=== PATIENT | female | born 1950 | race Caucasian/White ===

== ENCOUNTER 2020-07-23 11:47 | Outpatient (REF) | payer OTHER, SELFPAY ==
--- NOTE | 2020-07-23 10:30 | PAPFT_PTH ---
PATIENT: Megan Chisholm LOC: [place] U#:[id number] AGE/SX: 70/F ROOM: RE07/23/[address]: Jazmine Gorman NP : 1950 BED: DIS: 07/23/2020 SPEC #: [id number] RECD: 07/23/20 13:03 STATUS: MALINDAKelsy REQ #: [id number] [place]: 07/23/20 10:[address]: Jazmine Gorman NP DEPT: [facility] Cytology RECD BY: Antonieta Lester ENTERED: 07/23/20 13:03 SP TYPE: PAPFT OTHR DR: Jacklyn Clement Tissues: 1 - CX/ENDOCX FOR PAP SMEARS Procedures: PAP THIN PREP/[facility] Screening Comments: [id number] ([place]) (CHLAMYDIA/GC)
[2020-08-14 16:28] LABS: Chlamydia Result Negative (Negative); GC Result Negative (Negative)
== END 2020-07-23 12:07 ==
LOC: LBN 11:47
PROVIDERS: PCP Physician Assistant Medical; Visit Provider Nurse Practitioner Women's Health
DX: Z11.3 Encounter for screening for infections with a predominantly sexual mode of transmission (principal); Z12.4 Encounter for screening for malignant neoplasm of cervix
CPT/HCPCS: 87491; 87591; 88142

== ENCOUNTER 2020-07-31 01:19 | Outpatient (CLI) | payer OTHER, SELFPAY ==
--- NOTE | 2020-07-31 08:15 | DI.US_ITS ---
EXAM: US PELVIS TRANSVAGINAL CLINICAL HISTORY: L sided pelvic pain, bulky uterus, R10.2 pelvic and perineal pain. TECHNIQUE: Transabdominal and transvaginal pelvic ultrasound was performed using standard protocol. COMPARISON: No exams were available for comparison FINDINGS: KIDNEYS: Kidneys are symmetric in size. No evidence of renal calculi. No evidence of hydronephrosis. Simple right renal cysts are present. The largest measures 1.4 x 1.6 x 1.3 cm. UTERUS: Position: Anteverted. Size: 5.1 long by 2.6 AP by 4.9 transverse cm Endometrium: 0.3 cm. Normal for patient's menstrual status. Myometrium: 1.7 x 1.1 x 1.7 cm hypoechoic avascular mass posteriorly in the body. This likely reflec ts a fibroid. Cervix: 1.4 x 0.9 x 1.3 cm isoechoic avascular mass seen in the cervix which may represent a fibroid or other mass. OVARIES: Right: 1.9 x 1.3 x 1.2 cm Cyst or mass: None. Left: 2.3 x 1.4 x 1.1 cm Cyst or mass: None. DOPPLER: Color: Symmetric and uniform flow to both ovaries. No hyperemia. Duplex: Normal ovarian arterial waveforms visualized. CUL-DE-SAC: Free fluid: None. Other: None. IMPRESSION: 1. Simple right renal cysts. 2. Uterine fibroid. 1.4 x 0.9 x 1.3 cm isoechoic cervical mass. This may represent a fibroid but ot her cervical masses cannot be excluded. Please correlate clinically. 3. Unremarkable bilateral ovaries. DATA REPOSITORY:
== END 2020-07-31 01:39 ==
PROVIDERS: PCP Physician Assistant Medical; Visit Provider Nurse Practitioner Women's Health
DX: N28.1 Cyst of kidney, acquired (principal); D25.9 Leiomyoma of uterus, unspecified; R10.2 Pelvic and perineal pain
CPT/HCPCS: 76830; 76856

== ENCOUNTER 2024-09-09 22:43 | Emergency (ER) | payer OTHER, SELFPAY ==
[2024-09-09] VITALS (10 sets, daily range): BP systolic 191–205; BP diastolic 94–116; PULSE 84–121; RESP 14–25; TEMP 36.4; O2SAT 91–100
--- NOTE | 2024-09-09 22:45 | RT.EKG_ITS ---
APPROVED REPORT Exam: Resting ECG Reason for Exam: chest pain Patient Location: E HR:99 bpm ECG Measurements Heart Rate 99 AXIS GA 138 P -10 QRSd 95 QRS -7 QT 380 T 57 QTc 489 Conclusion Sinus rhythm...normal P axis, V-rate 60- 99 Probable left atrial enlargement...P >50mS, <-0.10mV V1 Abnormal T, consider ischemia, anterior leads...T <-0.20mV, V2-V4 mp ST segment or T wave abnormalities to suggest occlusive RI
--- OUTSIDE RECORDS SUMMARY | 2024-09-09 23:03 | XMS_ITS | Encounter Summary ---
[place] [address] Care Team Providers Care Supervisor Detasseling Crew Name Role Phone Jacklyn Clement Primary Care Provider [phone] Encounter Details Date Type Department Care Team (Late st Contact Info) Description 12/12/2014 12:45 PM EDT Office [place] [address] Elgin Beck MD [facility] [place] [address] Right leg pain Discharge Disposition: Home Social History Tobacco Use Types Packs/Day Years Used Date Smoking Tobacco: Former Smokeless Tobacco: Never Comments:quit 1994 Alcohol Use Standard Drinks/Week Comments No 0 (1 standard drink = 0.6 oz pur e alcohol) Sex and Gender Information Value Date Recorded Sex Assigned at Not on file Gender Identity Not on file Sexual Orientation Not on file documented as of this encounter Last Filed Vital Signs Vital Sign Reading Time Taken Comments Blood Pressure 149/67 12/12/2014 1:04 PM EDT Pulse 94 12/12/2014 1:04 PM EDT Temperature - - Respiratory Rate - - Oxygen Saturation - - Inhaled Oxygen Concentration - - Weight 104.3 kg (230 lb) 12/12/2014 1:04 PM EDT Height 162.6 cm (5' 4) 12/12/2014 1:04 PM EDT Body Mass Index 39.48 12/12/2014 1:04 PM EDT documented in this encounter Progress Notes * Earnestine Childers MD - 12/12/2014 1:02 PM EDT NEUROLOGY CLINIC Formerly [facility] [place] [address] [place] [address] Neurology Initial Visit: 12/12/2014 Patient name: Megan Barone Date of : 1950 CC: back pain and leg discomfort. Megan Barone is seen today for consultation at the request of Dr. Irby for leg numbness HPI: Megan Barone is a 64 y.o. female right handed woman with history of DM II presenting for evaluation of right LE pain and discomfort. Diagnosed 2 years ago with sciatica and received rehabilitation. Has had right foot numbness and tingling since then. Toes are always tingling, and at its worst itcan be sharp and painful. She describes episodes of pain of the right leg which can be very severe.It can occur at times when she is sitting for a prolonged period of time. 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 At times she awakes in the middle of the night with tingling in her right foot. Left foot is essentially asymptomatic, at times with tingling but not nearly as symptomatic as the right. Started gabapentin and no clear improvement with sedation during the day despite taking it at bedtime. Continues to wake from sleep due to discomforteven with gabapentin. Past Medical History Diagnosis Date ??? Spinal stenosis of lumbar region with neurogenic claudication 07/05/2014 L4-5 with degenerative spondylolisthesis No family history on file. History Social History ??? Marital Status: Spouse Name: N/A Number of Children: N/A ??? Years of Education: N/A Occupational History ??? Not on file. Social History Main Topics ??? Smoking status: Former Smoker ??? Smokeless tobacco: Never Used ??? Alcohol Use: Not on file ??? Drug Use: Not on file ??? Sexual Activity: Not on file Other Topics Concern ??? Not on file Social History Narrative Outpatient Encounter Prescriptions as of 12/12/2014 Medication Sig Dispense Refill ??? gabapentin (NEURONTIN) 300 mg Capsule Per titration sheet. Maximum of 12 per day. 360 capsule 12 ??? metFORMIN (GLUCOPHAGE) 500 mg tablet Take 500 mg by mouth 2 times daily (with meals). ??? HYDROCHLOROTHIAZIDE ORAL Take 25 mg by mouth daily. ??? lisinopril (PRINIVIL;ZESTRIL) 10 mg tablet Take 10 mg by mouth daily. No facility-administered encounter medications on file as of 12/12/2014. Allergies Allergen Reactions ??? Compazine [Prochlorperazine Edisylate] Other (See Comments) paralesis-speech ??? Penicillins Rash Hospitalized Review of systems: Constitutional: No fevers or chills Neuro: See HPI [x] Review of systems otherwise negative Objective: Vitals: Temp: -- Heart Rate: [94] Resp: -- BP: (149)/(67) SpO2: -- Constitutional: Patient of apparent stated age, well nourished, well developed, no acute distress Musculoskeletal: Normal bulk and tone. 5/5 strength in bilateral upper and lower extremities, normal gait, no atrophy or fasciculations Neuro: Mental status: Alert, oriented to person, place, month, year, clear language, CN: PERRL, EOMI, visual singletary full, trigeminal sensation intact, no facial asymmetry, hearing intact to whisper, no dysarthria, palate elevates symmetrically, tongue protrudes midline, SCM and trap strength intact Motor: Normal bulk and tone. 5/5 strength in bilateral upper and lower extremities, no pronator drift Sensation: Intact to light touch. Decrease to temperature from toes to mid foot on right, decrease to vibration in right foot. Normal in left foot. Reflexes: 2/4 in bilateral UE, 1+/4 in bilateral patellar, absent ankle jerks. downgoing toes Gait: Stable, steady, able to tandem, walk on toes and heels Labs: No new. Diagnostic Tests and Images: MRI lumbar spine: OSH personally reviewed. L4-L5 moderate to severe spinal stenosis, L5-S1 small central disc herniation. NCS/EMG: Normal right sural, peroneal and tibial studies. No electrical evidence of peripheral neuropathy. Right leg survey EMG of right TA, gastroc, iliopsoas and vastus lateralis normal without signs of radiculopathy. Assessment and Plan: Megan Barone is a 64 y.o. female with history of DM presenting for evaluation of pain in the right leg. Her DM is well controlled, and we were unable to find evidence of a large fiber neuropathy in the right leg today. Her EMG exam also did not show electrical evidence of a lumbar radiculopathy.However, her clinical presentation and description of the exacerbating factors of the right leg pain (worse in certain positions) suggest to us a lumbar radiculopathy, possibly at the L4-L5-S1 levels. She describes correlation between the leg pain and back discomfort. Thank you for this referral. Javi Childers DO Clinical Neurophysiology Fellow Neurology Staff Note I have reviewed the above fellows's history during the visit and I agree with the details as written. My physical examination confirms the fellow's findings. The assessment and plan were formulated in discussion with me at the time of the visit and I agree with them as documented. I participated inthe EDX studies. Elgin Beck MD documented in this encounter Plan of Treatment Not on file documented as of this encounter Visit Diagnoses Diagnosis Right leg pain Pain in limb documented in this encounter Care Teams Supervisor Detasseling Crew Relationship Specialty Start Date End Date Jacklyn Clement PA [address] [place] [address] PCP - General 09/21/14 documented as of this encounter
--- OUTSIDE RECORDS SUMMARY | 2024-09-09 23:03 | XMS_ITS | Encounter Summary ---
Author Organization [facility] [address] Care Team Providers Care Advertising Job Titles Name Role Phone Ramo Canas MD Primary Care Provider [phone] Encounter Details Date Type Department Care Team (Latest Contact Info) Description 05/04/2014 1:56 PM EDT - 05/04/2014 11:59 PM EDT Hospital [place] [address] Bailey Robertson MD [facility] [place] [address] Chronic hepatitis C Discharge Disposition: Home Social History Tobacco Use Types Packs/Day Years Used Date Smoking Tobacco: Former Smokeless Tobacco: Never Sex and Gender Information Value Date Recorded Sex Assigned at Not on file Gender Identity Not on file Sexual Orientation Not on file documented as of this encounter Medications at Time of Discharge Medication Sig Dispensed Refills Start Date End Date metFORMIN (GLUCOPHAGE) 500 mg tablet Take 500 mg by mouth 2 times daily (with meals). HYDROCHLOROTHIAZIDE ORAL Take 25 mg by mouth daily. lisinopril (PRINIVIL;ZESTRIL) 10 mg tablet Take 10 mg by mouth daily. sofosbuvir (SOVALDI) 400 mg Tab tablet Take 400 mg by mouth daily. 10/22/2014 ondansetron (ZOFRAN, HYDROCHLORIDE,) 4 mg tablet Take 1 tablet by mouth every 8 hours as needed for Nausea. 20 tablet 0 05/04/2014 05/14/2014 ribavirin (COPEGUS) 200 mg tablet Take 3 tablets by mouth 2 times daily for 28 days. 168 tablet 2 04/09/2014 05/07/2014 documented as of this encounter Plan of Treatment Not on file documented as of this encounter Procedures Procedure Name Priority Date/Time Associated Diagnosis Comments HCV QUANT Routine 05/04/2014 2:06 PM EDT Chronic hepatitis C HEMOGRAM Routine 05/04/2014 2:06 PM EDT Chronic hepatitis C DIFFERENTIAL, AUTOMATED Routine 05/04/2014 2:06 PM EDT Chronic hepatitis C HEPATITIS C RNA, QUANTITATIVE, PCR Routine 05/04/2014 2:06 PM EDT Chronic hepatitis C CBC (WITH DIFF) Routine 05/04/2014 2:06 PM EDT Chronic hepatitis C COMPREHENSIVE METABOLIC PANEL Routine 05/04/2014 2:06 PM EDT Chronic hepatitis C documented in this encounter Results * HCV Quant Tim (05/04/2014 2:06 PM EDT) HCV Viral Load <43 IU/mL [facility] HCV Viral Load Result: < 43 (Target Not Detected) Indication for Study: Hepatitis C Infection Analysis: A quantitiative real time reverse transcriptase PCR assay was performed on extracted viral RNA for the purpose of quantification. Sample: plasma (1 mL minimum volume) Method: Tim Shauna TaqMAN 48 HCV Linear Range: 43IU/mL - 69,000,000IU/mL (95% CI) Interpretation: The result of this analysis is within the limits of detection of the assay. Note: This assay is being performed in the [facility] Molecular Pathology Laboratory. Jesse Powell, Ph.D. Director, Molecular Pathology [facility] Comment: [VERIFIED DATE]05.10.14 Verified By:Naima Delarosa I (Electronic Signature) Blood specimen (specimen) 05/04/2014 2:06 PM EDT 05/09/2014 11:10 AM EDT Narrative Resulting Agency Comment Spec In Lab Bailey Robertson MD HEMATOLOGY ORDERABLE S DENZEL WHITE * Differential, Automated (05/04/2014 2:06 PM EDT) Neutrophil % 48.2 34.0 - 71.0 % CERNER MILLENNIUM Neutrophil Absolute 3.70 1.50 - 6.30 x10(3)/mcL CERNER MILLENNIUM Lymph % 42.1 19.0 - 53.0 % CERNER MILLENNIUM Lymphocytes Abs 3.2 1.0 - 3.6 x10(3)/mcL CERNER MILLENNIUM Monocyte % 5.6 4.0 - 13.0 % CERNER MILLENNIUM Monocyte Abs 0.4 0.2 - 1.0 x10(3)/mcL CERNER MILLENNIUM Eos % 3.6 0.0 - 7.0 % CERNER MILLENNIUM Eosinophils Abs 0.3 0.0 - 0.5 x10(3)/mcL CERNER MILLENNIUM Basophil % 0.1 0.0 - 2.0 % CERNER MILLENNIUM Baso Absolute 0.0 0.0 - 0.2 x10(3)/mcL CERNER MILLENNIUM Immature Gran % 0.40 0.00 - 0.66 % CERNER MILLENNIUM Comment: Immature granulocytes(IG's)percentage and absolute count will include metamyelocytes, myelocytes, and promyelocytes. Blood smears from CBCs yielding IG's will be scanned manually for concordance. If this scan disagrees with the automated IG or if promyelocytes are noted, a manual differential will be performed. Immature Gran Absolute 0.03 0.00 - 0.05 x10(3)/mcL CERDANNA MILLENNIUM Blood specimen (specimen) 05/04/2014 2:06 PM EDT 05/04/2014 2:13 PM EDT Narrative Resulting Agency Comment Spec In Lab Bailey Robertson MD HEMATOLOGY ORDERABLE S DENZEL WHITE * Hemogram (05/04/2014 2:06 PM EDT) White Blood Cell 7.7 4.0 - 10.0 x10(3)/mcL CERNER MILLENNIUM Red Blood Cell 4.08 3.93 - 5.22 x10(6)/mcL CERNER MILLENNIUM Hemoglobin 12.1 11.2 - 15.7 gm/dL CERNER MILLENNIUM Hematocrit 36.5 34.0 - 45.0 % CERNER MILLENNIUM Mean Cell Volume 89.5 79.0 - 94.0 fL CERNER MILLENNIUM Mean Cell Hemoglobin 29.7 26.6 - 32.2 pg CERNER MILLENNIUM Mean Cell Hemoglobin Concentration 33.2 32.0 - 36.5 gm/dL CERNER MILLENNIUM Platelet 217 145 - 370 x10(3)/mcL CERNER MILLENNIUM RDW Standard Deviation 45.8 35.0 - 46.0 fL CERNER MILLENNIUM RDW coefficient of variation 14.3 10.9 - 14.4 % CERNER MILLENNIUM Mean Platelet Volume 10.4 9.0 - 12.0 fL CERNER MILLENNIUM Blood specimen (specimen) 05/04/2014 2:06 PM EDT 05/04/2014 2:13 PM EDT Narrative Resulting Agency Comment Spec In Lab Bailey Robertson MD HEMATOLOGY ORDERABLE S CERNER MILLENNIUM * (ABNORMAL) Comprehensive metabolic panel (non-fasting) (05/04/2014 2:06 PM EDT) [facility] Glucose 215(H) 60 - 199 mg/dL CERNER MILLENNIUM Comment:Diabetes: >=200 mg/d L plus symptoms Blood Urea Nitrogen 14 8 - 18 mg/dL CERNER MILLENNIUM Creatinine 0.74 0.70 - 1.20 mg/dL CERN[facility] MILLENNIUM Comment: Please note that the pediatric reference intervals supplied above were not validated at [facility]. Results from pediatric patients should be interpreted in conjunction to the patient's age, height and muscle mass. Sodium 140 135 - 145 mmol/L CERNER MILLENNIUM Potassium 3.3(L) 3.5 - 5.0 mmol/L [facility]ERN[facility] MILLENNIUM Comment: Please note: ??Patients with WBC >100,000 may have falsely elevated Potassium levels. ??For accurate Potassium quantification in these patients send serum separator tube (gold top) for subsequent determinations. ??Contact the Clinical Chemistry Laboratory if there are any questions. Chloride 100 98 - 107 mmol/L CERNER MILLENNIUM Carbon Dioxide 26 22 - 31 mmol/L CERNER MILLENNIUM Anion Gap 14 5 - 15 mmol/L CERNER MILLENNIUM Calcium 9.6 8.5 - 10.5 mg/dL CERNER MILLENNIUM Protein, Total 7.7 6.4 - 8.3 gm/dL CERNER MILLENNIUM Albumin 4.6 3.2 - 5.2 gm/dL CERNER MILLENNIUM Aspartate Aminotransferase 15 0 - 30 unit/L CERNER MILLENNIUM Alanine Aminotransferase 16 0 - 30 unit/L CERNER MILLENNIUM Alkaline Phosphatase 57 40 - 104 unit/L CERNER MILLENNIUM Bilirubin, Total 0.8 0.2 - 1.3 mg/dL CERNER MILLENNIUM Bilirubin, Direct 0.2 0.0 - 0.3 mg/dL CERNER MILLENNIUM Est Glomerular Filtration Rate >60 >=60 CERNER MILLENNIUM Comment: This estimated GFR (eGFR) value was calculated using the MDRD equation which has been validated on patients between the ages of 18 and 70. The MDRD should not be used to assess kidney function in patients < 18 years of age or in patients with extremes of body mass, or in patients with acute kidney failure. This value should be multiplied by 1.2 for patients. For further information please copy and paste the following links into your internet browser. [email or web address] Blood specimen (specimen) 05/04/2014 2:06 PM EDT 05/04/2014 2:13 PM EDT Narrative Resulting Agency Comment Spec In Lab Bailey Robertson MD CHEMISTRY ORDERABLES CERNER MILLENNIUM documented in this encounter Visit Diagnoses Diagnosis Chronic hepatitis C Chronic hepatitis C without mention of hepatic coma documented in this encounter Care Teams Advertising Job Titles Relationship Specialty Start Date End Date Ramo Canas MD [facility] [address] [place] [address] PCP - General 03/13/14 09/20/14 documented as of this encounter
--- OUTSIDE RECORDS SUMMARY | 2024-09-09 23:03 | XMS_ITS | Encounter Summary ---
Author Organization [facility] [address] Care Team Providers Care Laborer Driver Name Role Phone Ramo Canas MD Primary Care Provider [phone] Encounter Details Date Type Department Care Team (Latest Contact Info) Description 06/14/2014 10:08 AM EDT - 06/14/2014 11:59 PM EDT [place] [address] Bailey Robertson MD [facility] [place] [address] Chronic hepatitis C Discharge Disposition: Home Social [...] tablet Take 10 mg by mouth daily. ribavirin (COPEGUS) 200 mg Tablet Take 200 mg by mouth 6 times daily. 10/22/2014 citalopram (CELEXA) 20 mg Tablet Take 1 tablet by mouth daily. Take 1/2 pill for 7 days then increase to a full pill daily 30 tablet 3 06/14/2014 10/22/2014 ondansetron (ZOFRAN, HYDROCHLORIDE,) 4 mg tabletIndications:Nause a alone Take 1 tablet by mouth every 8 hours as needed for Nausea. 20 tablet 0 05/14/2014 10/22/2014 sofosbuvir (SOVALDI) 400 mg Tab tablet Take 400 mg by mouth daily. 10/22/2014 documented as of this encounter Plan of Treatment Not on file documented as of this encounter Procedures Procedure Name Priority Date/Time Associated Diagnosis Comments HCV QUANT Routine 06/14/2014 10:17 AM EDT Chronic hepatitis C HEMOGRAM Routine 06/14/2014 10:17 AM EDT Chronic hepatitis C DIFFERENTIAL, AUTOMATED Routine 06/14/2014 10:17 AM EDT Chronic hepatitis C HEPATITIS C RNA, QUANTITATIVE, PCR Routine 06/14/2014 10:17 AM EDT Chronic hepatitis C CBC (WITH DIFF) Routine 06/14/2014 10:17 AM EDT Chronic hepatitis C COMPREHENSIVE METABOLIC PANEL Routine 06/14/2014 10:17 AM EDT Chronic hepatitis C documented in this encounter Results * HCV Quant Tim (06/14/2014 10:17 AM EDT) Pathologist [facility] HCV Viral Load <43 IU/mL [facility] HCV Viral Load Result: < 43 [...] This assay is being performed in the [facility] Molecular Pathology Laboratory. Jesse Powell, Ph.D. Director, Molecular Pathology [facility] Comment: [VERIFIED DATE]06.20.14 Verified By:Indy Wright (Electronic Signature) Blood specimen (specimen) 06/14/2014 10:17 AM EDT 06/14/2014 2:12 PM EDT Narrative Resulting Agency Comment Spec In Lab Bailey Robertson MD HEMATOLOGY ORDERABLE S CERDANNA MILLENNIUM * Differential, Automated (06/14/2014 10:17 AM EDT) Neutrophil % 58.8 34.0 - 71.0 % CERNER MILLENNIUM Neutrophil Absolute 3.90 1.50 - 6.30 x10(3)/mcL CERNER MILLENNIUM Lymph % 30.0 19.0 - 53.0 % CERNER MILLENNIUM Lymphocytes Abs 2.0 1.0 - 3.6 x10(3)/mcL CERNER MILLENNIUM Monocyte % 6.9 4.0 - 13.0 % CERNER MILLENNIUM Monocyte Abs 0.5 0.2 - 1.0 x10(3)/mcL CERNER MILLENNIUM Eos % 3.9 0.0 - 7.0 % CERNER MILLENNIUM Eosinophils Abs 0.3 0.0 - 0.5 x10(3)/mcL CERNER MILLENNIUM Basophil % 0.2 0.0 - 2.0 % CERNER MILLENNIUM Baso Absolute 0.0 0.0 - 0.2 x10(3)/mcL CERNER MILLENNIUM Immature Gran % 0.20 0.00 - 0.66 % CERNER MILLENNIUM Comment: Immature granulocytes(IG's)percentage and absolute count will include metamyelocytes, myelocytes, and promyelocytes. Blood smears from CBCs yielding IG's will be scanned manually for concordance. If this scan disagrees with the automated IG or if promyelocytes are noted, a manual differential will be performed. Immature Gran Absolute 0.01 0.00 - 0.05 x10(3)/mcL CERNER MILLENNIUM Blood specimen (specimen) 06/14/2014 10:17 AM EDT 06/14/2014 10:24 AM EDT Narrative Resulting Agency Comment Spec In Lab Bailey Robertson MD HEMATOLOGY ORDERABLE S CERDANNA YUNGENNIUM * (ABNORMAL) Hemogram (06/14/2014 10:17 AM EDT) [facility] White Blood Cell 6.6 4.0 - 10.0 x10(3)/mc L CERNER MILLENNIUM Red Blood Cell 3.84(L) 3.93 - 5.22 x10(6)/mc L CERNER MILLENNIUM Hemoglobin 11.5 11.2 - 15.7 gm/dL CERNER MILLENNIUM Hematocrit 37.2 34.0 - 45.0 % CERNER MILLENNIUM Mean Cell Volume 96.9(H) 79.0 - 94.0 fL CERNER MILLENNIUM Mean Cell Hemoglobin 29.9 26.6 - 32.2 pg CERNER MILLENNIUM Mean Cell Hemoglobin Concentration 30.9(L) 32.0 - 36.5 gm/dL CERNER MILLENNIUM Platelet 264 145 - 370 x10(3)/mc L CERNER MILLENNIUM RDW Standard Deviation 54.1(H) 35.0 - 46.0 fL CERNER MILLENNIUM RDW coefficient of variation 15.4(H) 10.9 - 14.4 % CERNER MILLENNIUM Mean Platelet Volume 10.5 9.0 - 12.0 fL CERNER MILLENNIUM Blood specimen (specimen) 06/14/2014 10:17 AM EDT 06/14/2014 10:24 AM EDT Narrative Resulting Agency Comment Spec In Lab Bailey Robertson MD [facility] * (ABNORMAL) Comprehensive metabolic panel (non-fasting) (06/14/2014 10:17 AM EDT) [facility] Glucose 188 60 - 199 mg/dL CERNER MILLENNIUM Comment:Diabetes: >=200 mg/d L plus symptoms Blood Urea Nitrogen 13 8 - 18 mg/dL CERNER MILLENNIUM Creatinine 0.74 0.70 - 1.20 mg/dL CERNER MILLENNIUM Comment: Please note that the pediatric reference intervals supplied above were not validated at [facility]. Results from pediatric patients should be interpreted in conjunction to the patient's age, height and muscle mass. Sodium 139 135 - 145 mmol/L CERNER MILLENNIUM Potassium 3.8 3.5 - 5.0 mmol/L [facility]ERN[facility] MILLENNIUM Comment: Please note: ??Patients with WBC >100,000 may have falsely elevated Potassium levels. ??For accurate Potassium quantification in these patients send serum separator tube (gold top) for subsequent determinations. ??Contact the Clinical Chemistry Laboratory if there are any questions. Chloride 99 98 - 107 mmol/L CERNER MILLENNIUM Carbon Dioxide 24 22 - 31 mmol/L CERNER MILLENNIUM Anion Gap 16(H) 5 - 15 mmol/L CERNER MILLENNIUM Calcium 9.6 8.5 - 10.5 mg/dL CERNER MILLENNIUM Protein, Total 7.4 6.4 - 8.3 gm/dL CERNER MILLENNIUM Albumin 4.3 3.2 - 5.2 gm/dL CERNER MILLENNIUM Aspartate Aminotransferase 18 0 - 30 unit/L CERNER MILLENNIUM Alanine Aminotransferase 17 0 - 30 unit/L CERNER MILLENNIUM Alkaline Phosphatase 54 40 - 104 unit/L CERNER MILLENNIUM Bilirubin, Total 0.5 0.2 - 1.3 mg/dL CERNER MILLENNIUM Bilirubin, Direct 0.1 0.0 - 0.3 mg/dL CERNER MILLENNIUM Est [...] the following links into your internet browser. [email or web address] Blood specimen (specimen) 06/14/2014 10:17 AM EDT 06/14/2014 10:24 AM EDT Narrative Resulting Agency Comment Spec In Lab Bailey Robertson MD CHEMISTRY ORDERABLES CERNER MILLENNIUM documented in this encounter Visit Diagnoses Diagnosis Chronic hepatitis C Chronic hepatitis C without mention of hepatic coma documented in this encounter Care Teams Laborer Driver Relationship Specialty Start Date End Date Ramo Canas MD [facility] [email or web address] [address] [place] [address] PCP - General 03/13/14 09/20/14 documented as of this encounter
--- OUTSIDE RECORDS SUMMARY | 2024-09-09 23:03 | XMS_ITS | Encounter Summary ---
[place] [address] Care Team Providers Care Chain Repairer Name Role Phone Jacklyn Clement Primary Care Provider [phone] Encounter Details Date Type Department Care Team (Late st Contact Info) Description 11/13/2014 Notes [place] [id number] Leonarda Velasquez Social History Tobacco Use Types Packs/Day Years Used Date Smoking Tobacco: Former Smokeless Tobacco: Never Sex and Gender Information Value Date Recorded Sex Assigned at Not on file Gender Identity Not on file Sexual Orientation Not on file documented as of this encounter Progress Notes * Leonarda Velasquez - 11/13/2014 5:20 PM EST I spoke with Ms. Barone after we received a denial for her Right L4 Select Nerve Root Block scheduled 11/16/14. They stated: The requested treatment is not medically necessary. The request is not clinically appropriate in terms of type, frequency, extent, site, and duration for the diagnosis of thetreatment of the covered person???s illness or injury.?? A peer to peer can be done by calling Lolis Cuevas at [facility] (Site Reliability Engineer who signed the denial letter) at [phone] ex [phone] and ask her to schedule a peer to peer or fax in an appeal letter ( ). Ms. Barone opted to cancel her appointment. I will forward this message to Dr. Lafayette Hill to see how he would like to proceed. What are her options? documented in this encounter Plan of Treatment Not on file documented as of this encounter Visit Diagnoses Not on filedocumented in this encounter Care Teams Chain Repairer Relationship Specialty Start Date End Date Jacklyn Clement PA [address] [place] [id number] PCP - General 09/21/14 documented as of this encounter
--- OUTSIDE RECORDS SUMMARY | 2024-09-09 23:03 | XMS_ITS | Encounter Summary ---
[place] [address] Care Team Providers Care Drawing Kiln Operator Name Role Phone Jason Velez MD Primary Care Provider [phone] Reason for Visit * Reason Comments GI Problem Encounter Details Date Type Department Care Team (Late st Contact Info) Description 11/29/2012 8:30 AM EST Office [place] [address] Bailey Robertson MD [facility] [place] [address] Hepatitis C (Primary Dx); Obesity; Diabetes mellitus Discharge Disposition: Home Social History Tobacco Use Types Packs/Day Years Used Date Smoking Tobacco: Former Sex and Gender Information Value Date Recorded Sex Assigned at Not on file Gender Identity Not on file Sexual Orientation Not on file documented as of this encounter Last Filed Vital Signs Vital Sign Reading Time Taken Comments Blood Pressure 137/77 11/29/2012 8:03 AM EST Pulse 92 11/29/2012 8:03 AM EST Temperature - - Respiratory Rate - - Oxygen Saturation - - Inhaled Oxygen Concentration - - Weight 106.6 kg (235 lb) 11/29/2012 8:03 AM EST Height 162.6 cm (5' 4) 11/29/2012 8:03 AM EST Body Mass Index 40.34 11/29/2012 8:03 AM EST documented in this encounter Progress Notes * Bailey Robertson MD - 11/29/2012 12:31 PM EST NEW GASTROENTEROLOGY & HEPATOLOGY CONSULTATION Megan Barone 1950 BATTERY CONTAINER TESTER: Bailey Robertson MD ([id number]) PCP: Jason Velez MD Requesting Provider: REASON FOR CONSULTATION hepatitis C HISTORY OF PRESENT ILLNESS Megan Barone is a 62 y.o. year old female being seen at the request of Dr. Velez for hepatitisC. Details of her hepatitis C are listed below. She is coming to establish care in hepatology as she recently moved to this area. She complains of intermittent sharp RUQ pain that has been occurring for years. The pain comes on intermittently. It is unrelated to eating. It is often brought on by motion as when driving over a bumpy road. It last minutes at a time. There is no nausea. She tolerated the first round of interferon quite poorly, but seemed to do better with the next. She was more prepared and had more control of her work schedule with the second round of therapy. She has had issues with obesity most of her life. She lost 60 lbs after she was diagnosed with diabetes by working with a hybrid derivatives trader and MD. She has slowly gained this weight back. ROS: Constitutional: no weight loss HEENT: no visual changes, no URI symptoms Cardio: no chest pain Resp: no cough, no SOB, no RAMÍREZ or orthopnea Hem/Lymph: no new lumps or bumps on body GI: see HPI : no dysuria Integumentary: no new rashes Musculoskeletal: no new joint pains Neuro: no new numbness, weakness in extremities PAST MEDICAL/SURGICAL HISTORY Hepatitis C ?? Genotype 2 ?? Viral load: ?? S/p interferon monotherapy for 6 months early , likely response during therapy, then relapse ?? S/p Pegylated inerferon/ribavirin for 6 month around 2000, tolerated reasonably well, negative virus at end of treatment, but relapsed ?? US 06/2012: echogenic liver with coarse echotextrue, no lesions, no stones ?? Labs 06/2012: plt 225, AST 44, ALT 45, Alk phos 77, TB .6, creat .6 ?? S/p 4 liver biopsies ?? Last liver biopsy 12/2009 ([place], [place]) : ?? 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 Labs 06/2012: hep B surface antigen negative, hep B core antibody positive, hep B surface antibody negative, hepatitis B HBV DNA <357 Diabetes since around 2008, last hgb a1c 6.2 06/2012 Chol 180, TG 134, HDL 45, LDL 108- Jun 2012 S/p diagnostic laparoscopy X 2 for infertility Up to date on colon cancer screening HTN Obesity with successful 60 lb wt loss 2009, slow regain MEDICATIONS Outpatient Prescriptions Marked as Taking for the 11/29/12 encounter (Office Visit) with Bailey Robertson MD Medication Sig Dispense Refill ??? metFORMIN (GLUCOPHAGE) 500 mg tablet Take 500 mg by mouth 2 times daily (with meals). ??? HYDROCHLOROTHIAZIDE ORAL Take 5 mg by mouth daily. ??? lisinopril (PRINIVIL;ZESTRIL) 10 mg tablet Take 10 mg by mouth daily. ALLERGIES Allergies Allergen Reactions ??? Compazine (Prochlorperazine Edisylate) ??? Penicillins SOCIAL HISTORY . Two grown children, one with physical disabilities requiring one to one care; Occasional alcohol, not daily or weekly in past; none currently.Worked as a [employer] from 1975 to 1989. 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 Moved from [facility] to [place] to be closer to family. FAMILY HISTORY Mother had CABG age 90 Fatehr age 7 with colon cancer, lung cancer Mother/sister diabetes Filed Vitals: 11/29/12 0803 BP: 137/77 Pulse: 92 Height: 162.6 cm (5' 4) Weight: 106.595 kg (235 lb) Body mass index is 40.34 kg/(m^2). PHYSICAL EXAM HENT: Sclerae anicteric, pupils equal, round, react to light. Pharynx unremarkable. Neck is supple,no adenopathy, no thyromegaly. Chest is clear. Heart: Regular rate and rhythm. Normal S1, S2, no murmurs. Abdomen: Normal bowel sounds; soft. No obvious hepatosplenomegaly. Extremities: No edema. ASSESSMENT/PLAN 62 year old female with hepatitis C, genotype 2 who unfortunately had 2 unsuccessful attempts at hepatitis C therapy in the past. Given her most recent biopsy showed mild scarring, it seems reasonable that we wait to treat her until non interferon based therapies are available. This will hopefully be in 18 to 24 months. In the meantime she should work on weight loss, as hepatitis C treatment has been shown to be more effective in the absence of obesity. Also there is evidence of fatty liver on her most recent liver biopsy. Weight loss should help with that. Fatty liver in addition to hep C could lead to more rapidfibrosis development. Recommendations: -see test rack operator about diabetes management and weight loss -hold off on hepatitis C therapy until we have interferon free regimens -ideally she should have lost 10% of her body weight when we treat the hep C -see back in one year ; if interferon free treatments don't look to be imminently available, consider repeat liver biopsy. -check hep A status to see if vaccination necessary -has had hep B in the past, this is not a current issue. This would be need to addressed if she ever needed immune suppressive therapy. Bailey Robertson MD Hepatology and Gastroenterology [facility] [address] [place] V: [phone] Copy: Jason Velez MD [address] [place] [id number] documented in this encounter Plan of Treatment Not on file documented as of this encounter Procedures Procedure Name Priority Date/Time Associated Diagnosis Comments .IL28B Routine 11/29/2012 1:35 PM EST Hepatitis C IL28B POLYMORPHISM GENOTYPING Routine 11/29/2012 1:35 PM EST Hepatitis C HEPATITIS A ANTIBODY, TOTAL Routine 11/29/2012 1:35 PM EST Hepatitis C documented in this encounter Results * IL28B (11/29/2012 1:35 PM EST) IL28B Polymorphism Genotyping IL28B ([id number]) GENOTYPING RESULT: ?? CT genotype INTERPRETATION: IL28B genotype can be predictive of sustained viral response (SVR)in HCV-infected patients to varying degrees, depending on treatment and viral genotype. ??Compared to the CC genotype, CT and TT genotypes are associated with a lower rate of SVR, most notably in HCV genotype 1 and 4 infections being treated with interferon based-therapy. ??Rates of spontaneous clearance of HCV infection is also decreased in the CT and TT genotypes as compared to the CC genotype. (1-4) METHOD: A sequence including the [id number] polymorphism ([id number]>T,) located 3 kilobases upstream of the interleukin 28B (interferon, lambda 3)(IL28B) gene is amplified and genotyped by PCR using two primers for amplification and two probes to distinguish between the C and the T alleles. ??Genomic DNA used in this testing was isolated from peripheral blood. LIMITATIONS AND DISCLAIMERS: ??Although unlikely, rare variants or polymorphisms have the potential to interfere with the performance of this test, resulting in inaccurate or incomplete genotypes. This test was developed and its performance characteristics determined by the Molecular Pathology Laboratory at [facility]. This test is used for clinical purposes and should not be considered as investigational or for research purposes. ??It has not been cleared or approved by the U.S. Food and Drug Administration. However, as a CLIA licensed laboratory, our facility is approved for such high-complexity clinical testing. 1. Parmjit PJ and Keith AJ. J Gastroenterol Hepatol. 2012 27:212-222 2. Osmani D, et al. Nature 2009 461(1540):105 401. 3. Michela MON and Geraldine Chavez. J Hepatol. 2011 55(3):692-701. 4. Minh A Geo Jaime. Curr Gastroenterol Rep. 2012 14:87-93. [facility] Comment: [VERIFIED DATE]12.09.12 Verified By:Wanda Rust MD Pathologist (Electronic Signature) Blood specimen (specimen) 11/29/2012 1:35 PM EST 11/29/2012 2:24 PM EST Narrative Resulting Agency Comment Spec In Lab Bailey Robertson MD CHEMISTRY ORDERABLES [facility] * Hepatitis A Antibody, Total (11/29/2012 1:35 PM EST) Hepatitis A ANTIBODY, TOTAL Negative Negative [facility] Blood specimen (specimen) 11/29/2012 1:35 PM EST 11/29/2012 1:45 PM EST Narrative Resulting Agency Comment Spec In Lab Bailey Robertson MD CHEMISTRY ORDERABLES [facility] documented in this encounter Visit Diagnoses Diagnosis Hepatitis C- Primary Unspecified viral hepatitis C without hepatic coma Obesity Obesity, unspecified Diabetes mellitus Type II or unspecified type diabetes mellitus without mention of complication, not stated as uncontrolled documented in this encounter Care Teams Drawing Kiln Operator Relationship Specialty Start Date End Date Jason Velez MD PCP - General 08/23/12 03/12/14 documented as of this encounter
--- OUTSIDE RECORDS SUMMARY | 2024-09-09 23:03 | XMS_ITS | Encounter Summary ---
[place] [address] Care Team Providers Care Industrial Economics Professor Name Role Phone Jacklyn Clement Primary Care Provider [phone] Reason for Visit * Reason Comments Back Pain Encounter Details Date Type Department Care Team (Latest Contact Info) Description 03/07/2015 10:40 AM EDT Procedure visit [place] [address] [facility] [place] [address] Thoracic or lumbosacral neuritis or radiculitis, unspecified Discharge Disposition: Home Social History Tobacco Use [...] Sign Reading Time Taken Comments Blood Pressure 147/80 03/07/2015 11:17 AM EDT Pulse 97 03/07/2015 11:17 AM EDT Temperature - - Respiratory Rate 20 03/07/2015 11:17 AM EDT Oxygen Saturation 96% 03/07/2015 11:17 AM EDT Inhaled Oxygen Concentration - - Weight 99.8 kg (220 lb) 03/07/2015 11:00 AM EDT Height 162.6 cm (5' 4) 03/07/2015 11:00 AM EDT Body Mass Index 37.76 03/07/2015 11:00 AM EDT documented in this encounter Patient Instructions * Patient Instructions* Nata Nascimento LPN - 03/07/2015 11:10 AM EDT Pain Management Center Discharge Instructions: You were seen by Dr. Chavo Irby DO who performed lumbar epidural steroid injection. It is normal that the injection site will be sore for up to 48 hours. You may also experience mild stiffness in the joint near the injection site. [x] You may resume your normal activities: tomorrow. You may shower today. DO NOT tub bathe, use whirlpools, hot tubs or pool therapy for 2 days. RemoveBand-Aid(s) later today/tomorrow. Do not drive until tomorrow. Use caution walking/climbing stairs as you may be unsteady on your feet. You may use your usual medications, including pain medications, as directed, unless otherwise instructed. You may use an ice pack as needed for the first 24 hours, on for 20 minutes then off for 20 minutes. Do not apply heat today. Attempt to empty your bladder 4-6 hours after your procedure. [x] If you have diabetes, monitor your blood sugars frequently. If your blood sugar increases and is of concern, contact your Primary Care Provider. You received the following medications: Depo-Medrol 80 mg, Lidocaine and Omnipaque (contrast dye). During regular business hours, please phone the Pain Management Center at for appointments or with any questions or if the following or other troubling symptoms develop: 1) Prolonged dizziness or weakness (more than 1 day). 2) Localized swelling, redness or drainage at the injection site(s). 3) Temperature of 101 degrees that lasts for more than 4 hours. After 5 PM or on weekends, call and ask for Pain Clinic provider on-call. If you are unable to reach the Pain Management Center and have a complication, please call your Primary Care Provider or proceed to your local emergency department. PARKER Peace documented in this encounter Progress Notes * Roselia Jimenes RN - 03/07/2015 11:07 AM EDT Pre-Procedure Screening Questions: 1. Status: No 2. Patient states they have a hi low truck driver to transport after procedure? Yes 3. Patient taking antibiotics at present? No 4. NPO per Pain Management Center protocol? No 5. Patient diabetic: Yes 6. Patient routinely taking anticoagulants ? No Anticoagulant: Date Stopped: Current INR: Patient Vital Signs documented in Doc Flowsheets associated with this encounter. Patient Discharge Instructions were reviewed with patient and copy provided to patient. documented in this encounter Procedure Notes * Chavo Irby DO - 03/07/2015 4:16 PM EDTAssociated Order(s): EPIDURAL STEROID INJECTION Procedure(s): EPIDURAL STEROID INJECTION Pre-Procedure Diagnose(s): Thoracic or lumbosacral neuritis or radiculitis, unspecified LUMBAR INTERLAMINAR EPIDURAL STERIOID INJECTION PROCEDURE NOTE Ms. Megan Barone has been referred to the Pain Management Center for a lumbar epidural steroidinjection by MARIELY Jo [address] [place] [id number]. The patient complains of low back pain with pain radiating down the bilateral leg. Ms. Barone was greeted by the nurse who verified patients name and . The patient was then taken to the fluoroscopy suite. Ms. Barone was interviewed and the medical record reviewed. There were no medical, pharmacologic, radiographic, or other structural contraindications to attempting fluoroscopically guided lumbar epidural steroid injection. Risks and potential side effects, as well as potential benefits of the procedure were reviewed with Ms. Barone. Her voiced concerns were addressed. After I was assured that informed consent was obtained, the patient consent form was signed. Standard time-out procedure was performed. Ms. Barone was placed in the prone position on the fluoroscopy table and automated blood pressure cuff and pulse oximeter applied. The skin entry point for entering/approaching the L5-S1 epidural space for the lumbar epidural steroid injection was marked. Following thorough chlorhexadine preparation of the skin and draping and 1% lidocaine infiltration of the skin entry point and subcutaneous tissues, an 18 gauge Touhy needle was placed and advanced under fluoroscopic guidance and with loss of resistance technique into the L5-S1 epidural space. Needle tip placement and depth were aided and confirmed by fluoroscopy. There was no paresthesia or return of blood or CSF through the needle. 3 cc's of Omnipaque 240 was injected with clear epidural spread confirmed with fluoroscopy. 80 mg of preservative-free Depomedrol was injected. This was followed by 1 cc of preservative-free normal saline to flush the steroid out of the needle. There was not any unusual discomfort expressed by Ms. Barone. Ms. Barone's vital signs were stable throughout the procedure and were as recorded in nursing records. Follow up plans and appointments were discussed with Ms. Barone. The patient is set to follow up with our office as needed. Post procedure instruction was given as documented in nursing records and having met discharge criteria he was discharged from the Pain Management Center. I personally performed this entire procedure. Chavo Irby DO, MPH ABP-subspecialty board certification in Pain Medicine Attending Physician - Pain Management CC: MARIELY Jo [address] [place] [address] documented in this encounter Plan of Treatment Not on file documented as of this encounter Procedures Procedure Name Priority Date/Time Associated Diagnosis Comments EPIDURAL STEROID INJECTION Routine 03/07/2015 4:17 PM EDT Thoracic or lumbosacral neuritis or radiculitis, unspecified FILM LIBRARY STORAGE ONLY PAIN CLINIC C ARM Routine 03/07/2015 1:52 PM EDT documented in this encounter Results * EPIDURAL STEROID INJECTION (03/07/2015 4:17 PM EDT) Narrative Chavo Irby DO - 03/07/2015 4:17 PM EDT Chavo Irby DO ? 03/07/2015 ??4:17 PM LUMBAR INTERLAMINAR EPIDURAL STERIOID INJECTION PROCEDURE NOTE Ms. Megan Barone ??has been referred to the Pain Management Center for a lumbar epidural steroid injection by MARIELY Jo [address] [place] [address]. The patient complains of low back pain with pain radiating down the bilateral leg. Ms. Barone was greeted by the nurse who verified patients name and . ??The patient was then taken to the fluoroscopy suite. Ms. Barone was interviewed and the medical record reviewed. ?? There were no medical, pharmacologic, radiographic, or other structural contraindications to attempting fluoroscopically guided lumbar epidural steroid injection. Risks and potential side effects, as well as potential benefits of the procedure were reviewed with Ms. Braone. ??Her voiced concerns were addressed. ?? After I was assured that informed consent was obtained, the patient consent form was signed. ??Standard time-out procedure was performed. Ms. Barone was placed in the prone position on the fluoroscopy table and automated blood pressure cuff and pulse oximeter applied. ??The skin entry point for entering/approaching the L5-S1 epidural space for the lumbar epidural steroid injection was marked. ??Following thorough chlorhexadine preparation of the skin and draping and 1% lidocaine infiltration of the skin entry point and subcutaneous tissues, an 18 gauge Touhy needle was placed and advanced under fluoroscopic guidance and with loss of resistance technique into the L5-S1 epidural space. ??Needle tip placement and depth were aided and confirmed by fluoroscopy. There was no paresthesia or return of blood or CSF through the needle. 3 cc's of Omnipaque 240 was injected with clear epidural spread confirmed with fluoroscopy. 80 mg of preservative-free Depomedrol was injected. ??This was followed by 1 cc of preservative-free normal saline to flush the steroid out of the needle. There was not any unusual discomfort expressed by Ms. Barone. Ms. Barone's vital signs were stable throughout the procedure and were as recorded in nursing records. ?? Follow up plans and appointments were discussed with Ms. Barone. The patient is set to follow up with our office as needed. ??Post procedure instruction was given as documented in nursing records and having met discharge criteria he was discharged from the Pain Management Center. I personally performed this entire procedure. Chavo Irby DO, MPH ABPMR-subspecialty board certification in Pain Medicine Attending Physician - Pain Management CC: MARIELY Jo [address] [place] [address] Chavo Wild DO NEUROLOGY ORDERABLES * Film Library-storage only pain clinic C-arm (03/07/2015 1:52 PM EDT) Anatomical Region Laterality Modality Other 03/07/2015 1:52 PM EDT Narrative 03/07/2015 1:52 PM EDT This is a Non-reportable exam Procedure Note PHI, UNSIGNED REPORT - 03/07/2015 This is a Non-reportable exam Chavo Wild DO IMG FILM LIBRARY ORD ERABLES documented in this encounter Visit Diagnoses Diagnosis Thoracic or lumbosacral neuritis or radiculitis, unspecified documented in this encounter Administered Medications Inactive Administered Medications - up to 3 most recent administrations Medication Order MAR Action Action Date Dose Rate Site iohexol (OMNIPAQUE) 240 mg/mL solution 1 mL 1 mL, Other, ONCE, 1 dose, On Sari 03/07/15 at 1645, 49 ml wasted, Routine Given 03/07/2015 4:45 PM EDT 1 mL methylPREDNISolone acetate (depo-MEDROL) injection 80 mg 80 mg, Epidural, ONCE, 1 dose, On Sari 03/07/15 at 1645, Routine Given 03/07/2015 4:45 PM EDT 80 mg documented in this encounter Care Teams Industrial Economics Professor Relationship Specialty Start Date End Date Jacklyn Clement PA [address] [place] [address] PCP - General 09/21/14 documented as of this encounter
--- OUTSIDE RECORDS SUMMARY | 2024-09-09 23:03 | XMS_ITS | Encounter Summary ---
[place] [address] Care Team Providers Care Engraver Optical Frames Name Role Phone Ramo Joshua MD Primary Care Provider [phone] Reason for Visit * Reason Comments Follow-up Encounter Details Date Type Department Care Team (Late st Contact Info) Description 03/13/2014 3:30 PM EDT Follow-Up [place] [address] Jeannine Tinajero MD [facility] [place] [address] Chronic hepatitis C (Primary Dx) Discharge Disposition: Home Social History Tobacco Use Types Packs/Day Years Used Date Smoking Tobacco: Former Smokeless Tobacco: Never Sex and Gender Information Value Date Recorded Sex Assigned at Not on file Gender Identity Not on file Sexual Orientation Not on file documented as of this encounter Last Filed Vital Signs Vital Sign Reading Time Taken Comments Blood Pressure 124/64 03/13/2014 2:52 PM EDT Pulse 102 03/13/2014 2:52 PM EDT Temperature - - Respiratory Rate - - Oxygen Saturation - - Inhaled Oxygen Concentration - - Weight 108 kg (238 lb) 03/13/2014 2:52 PM EDT Height 162.6 cm (5' 4) 03/13/2014 2:52 PM EDT Body Mass Index 40.85 03/13/2014 2:52 PM EDT documented in this encounter Progress Notes * Jeannine Tinajero MD - 03/13/2014 4:30 PM EDT Gastoenterology & Hepatology Follow Up Note Provider: JEANNINE TINAJERO MD Gender: female : 1950 Referring Physician/Primary Care Physician: RAMO JOSHUA MD Problem List: Hepatitis C Genotype 2 IL 28: CT Viral load: 4.8 million IU/ml S/p interferon monotherapy for 6 months early , likely response during therapy, then relapse S/p Pegylated inerferon/ribavirin for 6 month around 2000, tolerated reasonably well, negative virus at end of treatment, but relapsed US 06/2012: echogenic liver with coarse echotextrue, no lesions, no stones Labs 06/2012: plt 225, AST 44, ALT 45, Alk phos 77, TB .6, creat .6 S/p 4 liver biopsies Last liver biopsy 12/2009 ([place], [place]) : Grade 2, stage 1; mild macrovesicular fatty change; portal fibrosis, scant garcia portal fibrosis; Incomparison with the biopsy from 2006 the present biopsy displays much less fatty change, similar fibrosis, and similar degree of inflammation History of acute hepatitis B about 30 years ago; 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 metFORMIN (GLUCOPHAGE) 500 mg tablet Take 500 mg by mouth 2 times daily (with meals). ??? HYDROCHLOROTHIAZIDE ORAL Take 5 mg by mouth daily. ??? lisinopril (PRINIVIL;ZESTRIL) 10 mg tablet Take 10 mg by mouth daily. ADR/ALLERGIES: Allergies Allergen Reactions ??? Compazine (Prochlorperazine Edisylate) ??? Penicillins Interval History: Megan Barone is a 63 y.o. female who presents for follow up for hepatitis C. She reports ongoingfatigue that is somewhat debilitating. Diabetes is doing reasonably well. VITAL SIGNS BP 124/64 Pulse 102 Ht 162.6 cm (5' 4) Wt 107.956 kg (238 lb) BMI 40.83 kg/m2 Physical Exam: appears well, in no distress. Labs 12/2013: BUN 17, Creat .7, Na 139, Cl 102, TP 7.5, Alb 3.9, TB .7, Alk phos 57, ALT 63, AST 51, WBC 7.7, hgb12.2, plt 225, hgba1c 6.2 Assessment/Plan: 63 year old female with hepatitis C, genotype 2, who also has fatty liver. While liver fibrosis stage in 2010 was low I think she warrants treatment for hepatitis C because: 1. She has 2 liver conditions (hep C and HOYOS) which combined are more likely to lead to liver fibrosis/cirrhosis than if she had one alone 2. As patients with hepatitis C age the rate of fibrosis progression often increases 3. Treatment of hepatitis C will decrease the risk of decompensated cirrhosis and hepatocellular carcinoma 4. She may see an improvement in fatigue if it's related to hepatitis C Plan: Sofosbuvir 400mg/day plus Ribavirin 600mg bid (wt based) for 12 weeks Labs: cbc, cmp, hcv quant- baseline, week 2, week 4, week 8, week 12 HCV quant 12 weeks after completion Patient will call when she starts the meds Patient will get baseline labs prior to starting meds locally Lab orders given to patient Greater than 25 minutes of this 30 minute visit was spent in counseling and discussion. Jeannine Tinajero MD Section of Gastroenterology & Hepatology [address] [place] [address] Copy: RAMO JOSHUA MD documented in this encounter Plan of Treatment Not on file documented as of this encounter Visit Diagnoses Diagnosis Chronic hepatitis C- Primary Chronic hepatitis C without mention of hepatic coma documented in this encounter Care Teams Engraver Optical Frames Relationship Specialty Start Date End Date Ramo Joshua MD [facility] [address] [facility] [place] [address] PCP - General 03/13/14 09/20/14 documented as of this encounter
--- OUTSIDE RECORDS SUMMARY | 2024-09-09 23:03 | XMS_ITS | Encounter Summary ---
[place] [address] Care Team Providers Care Inspector Heating And Refrigeration Name Role Phone Jacklyn Clement Primary Care Provider [phone] Reason for Visit * Reason Comments Pain Management Right Leg Pain Encounter Details Date Type Department Care Team (Late st Contact Info) Description 01/24/2015 11:45 AM EDT Follow-[place] [address] David Thornton [facility] [place] [address] Thoracic or lumbosacral neuritis or radiculitis, unspecified [...] Sign Reading Time Taken Comments Blood Pressure 120/78 01/24/2015 11:54 AM EDT Pulse 89 01/24/2015 11:54 AM EDT Temperature - - Respiratory Rate - - Oxygen Saturation 98% 01/24/2015 11:54 AM EDT Inhaled Oxygen Concentration - - Weight 112 kg (247 lb) 01/24/2015 11:54 AM EDT Height 162.6 cm (5' 4) 01/24/2015 11:54 AM EDT Body Mass Index 42.4 01/24/2015 11:54 AM EDT documented in this encounter Progress Notes * David Thornton DO - 01/29/2015 6:36 AM EDT This is a 64-year-old female who presents for followup evaluation. The patient continues to complain of low back pain radiating down her right leg to the entire foot. The patient denies any major changes. The patient states the pain is 5/10. The patient states that gabapentin 1200 mg at night and helps her sleep. She has tried to add daily doses but found that she was way too drowsy. The patient did see neurology and electrodiagnostics were completed. There was no evidence of radiculopathy found on EMG. It was thought by the neurologist, and by myself, that she does have radicular pain. This is likely coming from her lumbar spine. I did re-review her lumbar MRI which shows significant foraminal stenosis. We did discuss treatment options at length. I did re-review her exam from her last visit. I believe it is worthwhile to complete an interlaminar lumbar epidural steroid injection followed by intense Ksenia based physical therapy. I did discuss this with her and her today. After we discussed the procedure with the use of anatomical models, she did consent to this procedure.This will be scheduled at her convenience. Encounter Diagnosis Name Primary? Thoracic or lumbosacral neuritis or radiculitis, unspecified DAVID TOHRNTON DO, MPH [facility]-subspecialty board certification in Pain Medicine Attending Physician-Pain Management documented in this encounter Plan of Treatment Not on file documented as of this encounter Visit Diagnoses Diagnosis Thoracic or lumbosacral neuritis or radiculitis, unspecified documented in this encounter Care Teams Inspector Heating And Refrigeration Relationship Specialty Start Date End Date Jacklyn Clement PA [address] [place] [address] PCP - General 09/21/14 documented as of this encounter
--- OUTSIDE RECORDS SUMMARY | 2024-09-09 23:03 | XMS_ITS | Encounter Summary ---
[place] [address] Care Team Providers Care Grades 1 6 Tutor Name Role Phone Jacklyn Clement Primary Care Provider [phone] Encounter Details Date Type Department Care Team (Late st Contact Info) Description 12/12/2014 External Results [place] [address] Elgin Beck MD [facility] [place] [address] Social History Tobacco Use Types Packs/Day Years Used Date Smoking Tobacco: Former Smokeless Tobacco: Never Comments:quit 1994 Alcohol Use Standard Drinks/Week Comments No 0 (1 standard drink = 0.6 oz pur e alcohol) Sex and Gender Information Value Date Recorded Sex Assigned at Not on file Gender Identity Not on file Sexual Orientation Not on file documented as of this encounter Plan of Treatment Not on file documented as of this encounter Procedures Procedure Name Priority Date/Time Associated Diagnosis Comments EMG SCAN Routine 12/12/2014 documented in this encounter Results * Scan Doc: EMG (12/12/2014) Elgin Beck MD MEDIA MGR SCAN EXT O RDR/RSLT documented in this encounter Visit Diagnoses Not on filedocumented in this encounter Care Teams Grades 1 6 Tutor Relationship Specialty Start Date End Date Jacklyn Clement PA [address] [place] [id number] PCP - General 09/21/14 documented as of this encounter
--- OUTSIDE RECORDS SUMMARY | 2024-09-09 23:03 | XMS_ITS | Encounter Summary ---
Author Organization [place] [id number] Care Team Providers Care Toeing Stockings Name Role Phone Jacklyn Clement Primary Care Provider [phone] Reason for Referral * Consultation (Urgent) - Complete-Ref Provider Notified Specialty Diagnoses / Procedures Referred By Contac t Referred To Contact Neurology Diagnoses Spinal stenosis of lumbar region with neurogenic claudication Peripheral neuropathy David Thornton V [facility] [place] [address] [facility] Neu[facility] [address] [place] [id number] Referral ID Status Reason Start Date Expiration Date Visits Requested Visits Authorized [id number] Complete-Ref Provider Notified Consult, Test & Treat 10/23/2014 10/23/2015 1 1 Reason for Visit * Reason Comments Pain Management Back Pain Right Leg Pain Encounter Details Date Type Department Care Team (Late st Contact Info) Description 10/22/2014 12:15 PM EST Office [place] [phone] David Thornton V [facility] [place] [address] Thoracic or lumbosacral neuritis or radiculitis, unspecified; Spinal stenosis of lumbar region with neurogenic claudication; Peripheral neuropathy Discharge Disposition: Home Social History Tobacco Use Types Packs/Day Years Used Date Smoking Tobacco: Former Smokeless Tobacco: Never Sex and Gender Information Value Date Recorded Sex Assigned at Not on file Gender Identity Not on file Sexual Orientation Not on file documented as of this encounter Last Filed Vital Signs Vital Sign Reading Time Taken Comments Blood Pressure 108/79 10/22/2014 2:06 PM EST Pulse 84 10/22/2014 2:06 PM EST Temperature - - Respiratory Rate 14 10/22/2014 2:06 PM EST Oxygen Saturation 96% 10/22/2014 2:06 PM EST Inhaled Oxygen Concentration - - Weight 113.9 kg (251 lb) 10/22/2014 2:06 PM EST Height 162.6 cm (5' 4) 10/22/2014 2:06 PM EST Body Mass Index 43.08 10/22/2014 2:06 PM EST documented in this encounter Patient Instructions * Patient Instructions* David Thornton DO - 10/22/2014 3:07 PM EST Instructions for starting Neurontin (Gabapentin) - each tablet has 300 mg in it. 600 mg at bed for 5 nights, then 900 mg at bed for 5 nights, then 1200 mg at bed for 5 nights, then 300 mg in the morning and 1200 mg at bed for 5 nights, then 600 mg in the morning and 1200 mg at bed for 5 nights, then 600 mg in the morning and 1500 mg at bed and stay at this dose until instructed further. By the time you reach this dose, you should have an appointment with our clinic or your primary care provider to discuss further treatment. *If you are going to stop this medication, you need to slowly come down on the daily dose just as slowly as you initially went up on the daily dose. Do not suddenly stop the Gabapentin, unless you have a severe allergy to this medication. *If you obtain complete resolution of your nerve pain symptoms, you do not need to go up on the daily dose or Gabapentin. You can just stay at that daily dose. *Side effects from Gabapentin are most likely to occur when starting this medication and when the daily dose is increased. Avoid dangerous situations when starting this medication and the day that this medication daily dose is increased. documented in this encounter Progress Notes * David Thornton V DO - 10/22/2014 2:42 PM EST Subjective: Patient ID: I have been requested by Dr. Mccullough for my recommendation regarding the patient's low back pain. This is Megan Barone's initial evaluation by our clinic. Her does present with her today. History of present illness Location of pain Low back Does the pain radiate? if so where? Yes, low back to the right leg down to the foot (plantar aspect- all 5 toes) Severity of pain (right now) VAS: 5/10 Severity of pain (worst in past 24H) VAS: 10/10 Severity of pain (best in past 24H) VAS: 3/10 Severity of pain (Average, past 7days) VAS: 6/10 % pain relief with current treatment 0% How long has the pain been present? 18 months Is this pain related to trauma? No Is this injury work-related? No Improved with: None Worsened with: Sitting too long, certain positions Pain quality Stabbing to the bottom of the right foot Any weakness? Yes, right leg Any numbness Yes, right calf Any tingling? Yes, same as numbness Any swelling? No Associated symptoms? No Family history: anyone in your family with similar complaints? No Treatment history Physical therapy? Yes, last session in 2012 Exercise? No, for 6 months after PT Opioids? None currently Anticonvulsants? Yes, Gabapentin at a low dose NSAIDS? None Muscle relaxants? No Antidepressants? None Injections? No Surgery? No Massage? No Acupuncture? No TENS? Yes, helped for the low back Bracing/assistance device? none GAP assessment? No Other? No Diagnostic test history X-ray(s)? No CT? No MRI? Yes Electrodiagnostics? No Ultrasound? No Other? No General health Recent Liver Function Testing? Yes Recent EKG? No Diabetic?, (recent Hem A1c?) Yes, Last A1c was 6 Possibly ? No ? 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 No Previous job? same Today's review of the [place] controlled substance registry Inconsistencies? No Review of Systems Constitutional symptoms no weight loss, fever, night sweats History of Glaucoma? No History of heart arrythmia? No Other cardiovascular symptoms? No Any rash or non-healing wound(s)? No Gastrointestinal complaints None Any bladder incontinence? No Any bowel incontinence? No Any breathing problems? no cough, shortness of breath, or wheezing Supplemental Oxygen use? is not on home oxygen therapy. History of sleep apnea? (use CPAP?) No History of liver disease? Yes, Hep c s/p successful treatment History of bleeding disorder? no recent abnormal bleeding, no remote history of abnormal bleeding, no use of Ca-channel blockers Any endocrine problems? Positive for diabetes Pacemaker present? None Suicidal ideation/plan? No Homicidal ideation/plan? No Past Medical History Diagnosis Date ??? Spinal stenosis of lumbar region with neurogenic claudication 07/05/2014 L4-5 with degenerative spondylolisthesis History reviewed. No pertinent past surgical history. Allergies Allergen Reactions ??? Compazine [Prochlorperazine Edisylate] Other (See Comments) paralesis-speech ??? Penicillins Rash Hospitalized Medications 10/22/14 1440 Medication Sig Taking? metFORMIN (GLUCOPHAGE) 500 mg tablet Take 500 mg by mouth 2 times daily (with meals). Yes HYDROCHLOROTHIAZIDE ORAL Take 25 mg by mouth daily. Yes lisinopril (PRINIVIL;ZESTRIL) 10 mg tablet Take 10 mg by mouth daily. Yes myD-H Pain 10/22/2014 VR12 - Physical Summary Component 30.48 VR12 - Mental Component Summary 54 MODEMS Expectation 50 Family History of Substance Abuse (Female) 0 Personal History of Substance Abuse(Female) 0 Age 0 History of Preadolescent sexual abuse(Female) 0 Psychological Disease 0 ORT Total Scores (Female) 0 Oswestry Disability Index 50 BPI Severity Score 5.25 BPI Interference Score 5.14 Objective: PHYSICAL EXAMINATION LUMBAR SPINE EXAMINATION: Inspection: Tenderness to palpation at the right SIJ and piriformis m Range of motion: restricted with all planes Left Right Muscle spasm/pain Yes Yes Sacroiliac joint tenderness No Yes Facet joint tenderness No No Horne's test (facet loading) Negative Negative Straight leg raise Negative Negative LOWER EXTREMITIES: MOTOR: Manual muscle testing to the bilateral lower extremities included evaluation of ankle plantarflexion, dorsiflexion of the 1st toe, dorsiflexion of the ankle, knee flexion, knee Extension, hip flexion, and Hip adduction. Pertinent positives: NONE SENSORY: Testing of sharp and dull sensation was completed to the bilateral L1- S2 dermatomal distributions. Pertinent positives: right lateral calf DEEP TENDON REFLEXES: Left Right Patellar reflex (L4) 0+ 0+ Achilles reflex (S1) 0+ 0+ HIP EXAMINATION: Left Right Range of motion unrestricted with internal and external rotation. unrestricted with internal and external rotation. Groin pain with range of motion? Negative Negative Trochanteric bursa tenderness? Negative Negative Psoas tenderness? N/A N/A Piriformis muscle tenderness Negative Positive Constitutional: Her vital signs were normal and reviewed with the patient. She is in no acute distress. Respiratory: there is no respiratory distress Cardiovascular: normal rate Skin (to the painful area): normal Eyes: EOMI, no scleral icterus Psychological: normal Assessment and Plan: ASSESSMENT Encounter Diagnoses Name Primary? Thoracic or lumbosacral neuritis or radiculitis, unspecified ??? Spinal stenosis of lumbar region with neurogenic claudication ??? Peripheral neuropathy DISCUSSION This is a 64 y.o. female who presents with complaint right lower leg numbness and right foot pain. She has a remote history of low back pain radiating down the right leg to the bottom of her right foot. Her low back pain has mostly resolved. She has had this problem for about 18 months. She was seen by neurology in April of 2014. My knowledge no electrodiagnostic diagnostic study has been done. Her presentation is a bit ambiguous. She is now left with numbness to the lateral aspect of the right lower leg as well as sharp pains to the plantar aspect of the right foot to include all 5 toes. Her examination was not necessarily consistent with any spinal nerve root impingement. She did have pain with palpation over the right piriformis muscle. She also has diabetes and a history of hepatitisC which can further complicate the presentation. Fortunately her diabetes is under great control with a recent hemoglobin A1c of 6.0. She also recently finished her treatment for hepatitis C and is virus free and her liver enzymes have come back to normal. Her complaints could represent a sciatic nerve injury or an injury more peripheral. Her lumbar spine MRI is nonspecific and would not completely explain the current symptoms. Her complaints could represent a more peripheral extraspinal sciatic nerve injury, tibial nerve injury, or a tibial nerve branch injury. I recommended that we pursue aelectrodiagnostic study of the bilateral lower extremities to help clear up this ambiguous picture.I also recommended that we start gabapentin and titrate up to an effective dose. She has been on gabapentin in the past and maxed out at 300 mg per day without any problems. I did give her a titration schedule for the gabapentin. I will contact her once we get the electrodiagnostic study back. TREATMENT PLAN After a thorough review of the history and physical examination, Ms. Barone and I discussed the following options in detail: Recommended Diagnostic & Therapeutic modalities: ?? Physical therapy/exercise: She was encouraged to stay active and work on core strengthening ?? Diagnostic testing/Lab work: I did review her lumbar spine MRI and neurology reports with her. ?? Interventional procedures: We briefly discussed a right L4 selective nerve root block, but I believe we should proceed forward with the electrodiagnostic study first. ?? Medication(s): We discussed the risks/benefits/indication for the prescribed medication. She understands and does consent. I have reviewed the [place] and [place] controlled substance registries today and found no inconsistencies. There have been no red flags raised during today's visit. Orders Placed This Encounter Medications ??? gabapentin (NEURONTIN) 300 mg Capsule Sig: Per titration sheet. Maximum of 12 per day. Dispense: 360 capsule Refill: 12 ?? Referral(s): Neurology for a lower extremity electrodiagnostic study Functional goals with the current and future treatment: 1) To be able to complete activities of daily living 2) To be able to be active with friends and family 3) To be able to take care of her home 4) To be able to complete home exercises 5) To be able to work Follow up: After the electrodiagnostic study. She can also contact me by phone or on my DH. Ms. Barone and I reviewed all of the above recommendations using anatomical models. The patient understands the risks, benefits, and indications of these options. The patient will think about her options. Megan may also discuss these recommendations with MARIELY BEAVER so that she can come to the best decision in terms of her treatment options. DAVID THORNTON DO, MPH [facility]-subspecialty board certification in Pain Medicine Attending Physician-Pain Management documented in this encounter Plan of Treatment Scheduled Referrals Name Type Priority Associated Diagnoses Orde r Schedule Referral to Neurology Outpatient Referral Routine Spinal stenosis of lumbar region with neurogenic claudication Peripheral neuropathy Ordered: 10/23/2014 documented as of this encounter Visit Diagnoses Diagnosis Thoracic or lumbosacral neuritis or radiculitis, unspecified Spinal stenosis of lumbar region with neurogenic claudication Spinal stenosis, lumbar region, with neurogenic claudication Peripheral neuropathy Unspecified hereditary and idiopathic peripheral neuropathy documented in this encounter Care Teams Toeing Stockings Relationship Specialty Start Date End Date Jacklyn Clement PA [address] [place] [address] PCP - General 09/21/14 documented as of this encounter
--- OUTSIDE RECORDS SUMMARY | 2024-09-09 23:03 | XMS_ITS | Encounter Summary ---
[place] [address] Care Team Providers Care Drapery Hemmer Automatic Name Role Phone Jacklyn Clement Primary Care Provider [phone] Reason for Visit * Reason Onset Date Comments Medication Refill 06/15/2019 Encounter Details Date Type Department Care Team (Late st Contact Info) Description 06/15/2019 Refill [place] [address] Kenya Gil MD [facility] [place] [address] Social History Tobacco Use Types Packs/Day Years Used Date Smoking Tobacco: Former Smokeless Tobacco: Never Comments:quit 1994 Alcohol Use Standard Drinks/Week Comments No 0 (1 standard drink = 0.6 oz pur e alcohol) Sex and Gender Information Value Date Recorded Sex Assigned at Not on file Gender Identity Not on file Sexual Orientation Not on file documented as of this encounter Miscellaneous Notes * Telephone Encounter - Virginia Robles - 06/15/2019 2:07 PM EDT OPENED IN ERROR documented in this encounter Plan of Treatment Not on file documented as of this encounter Visit Diagnoses Not on filedocumented in this encounter Care Teams Drapery Hemmer Automatic Relationship Specialty Start Date End Date Jacklyn Clement PA [address] [place] [id number] PCP - General 09/21/14 documented as of this encounter
--- OUTSIDE RECORDS SUMMARY | 2024-09-09 23:03 | XMS_ITS | Encounter Summary ---
[place] [address] Care Team Providers Care Prisoner Classification Interviewer Name Role Phone Jason Velez MD Primary Care Provider Reason for Visit * Reason Comments GI Problem Encounter Details Date Type Department Care Team (Late st Contact Info) Description 11/29/2012 12:30 PM EST Office [place] [address] [place] [address] Obesity, Class III, BMI 40-49.9 (morbid obesity) (Primary Dx); Diabetes mellitus; Hepatitis Discharge Disposition: Home Social History Tobacco Use Types Packs/Day Years Used Date Smoking Tobacco: Former Sex and Gender Information Value Date Recorded Sex Assigned at Not on file Gender Identity Not on file Sexual Orientation Not on file documented as of this encounter Last Filed Vital Signs Vital Sign Reading Time Taken Comments Blood Pressure 123/61 11/29/2012 12:25 PM EST Pulse 82 11/29/2012 12:25 PM EST Temperature - - Respiratory Rate - - Oxygen Saturation - - Inhaled Oxygen Concentration - - Weight 106.6 kg (235 lb) 11/29/2012 12:25 PM EST Height 162.6 cm (5' 4) 11/29/2012 12:25 PM EST Body Mass Index 40.34 11/29/2012 12:25 PM EST documented in this encounter Patient Instructions * Patient Instructions* Zabrina Waddell LD - 11/29/2012 1:14 PM EST 1. Count Carbs and aim for 30-45 grams and breakfast and dinner, 30-60 grams and lunch. Snacks should be 15-20g. 2. Limit eating episodes to 3-4 per day to control calories. 3. Include a lean source of protein at each eating episode. 4. Focus on a 10% weight loss to start (~25lbs) via 0.5-2lbs/week. 5. Keep a food log and track carbs. 6. Avoid eating after dinner completely. 7. Follow up with me in 3 months. documented in this encounter Progress Notes * Zabrina Waddell LD - 11/29/2012 12:24 PM EST Outpatient Nutrition Visit S: I learned that food and exercise affect my sugars. I pretty much know what to do, but need to get back on track. O:DX: Hepatitis, Morbid Obesity, T2DM Wt Readings from Last 3 Encounters: 11/29/12 106.595 kg (235 lb) Vitals 11/29/2012 Height (Metric) 162.6 cm Weight (Sammarinese) 235 lbs Weight (Metric) 106.595 kg BODY MASS INDEX 40.32 kg/m2 Weight goal: 150-160lbs Lost 50lbs over 2 years after DM dx and did this with a group. Regained this with a move, being busy, not walking. Current outpatient prescriptions:metFORMIN (GLUCOPHAGE) 500 mg tablet, Take 500 mg by mouth 2 timesdaily (with meals)., Disp: , Rfl: ; HYDROCHLOROTHIAZIDE ORAL, Take 5 mg by mouth daily., Disp: , Rfl: ; lisinopril (PRINIVIL;ZESTRIL) 10 mg tablet, Take 10 mg by mouth daily., Disp: , Rfl: Takes a fiber pill and VitD3-1000 IU/day Diet Hx:I always have issues in the morning. Skips bfast, eats at 9-10am and will have a couple pieces of toast, an egg, or a banana. Lunch: sandwich tuna or meat with mercado, chips, pickle. If has asnack will be a whoopie pie, cookies that she stops for at a store during work. Dinner is spaghettiand bread one or two slices. Whoopie pie or brownie, or a couple of cookies, or chips. Some night wi ll have all of these. Has one juice/day. Eats out 4x/wk and will get fried food, fast food, pizza, or country style restaurants. Exercise: Social: Was a [employer], and now runs [employer]. 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 Has 2 kids. A: This is a 62 year- old female who comes today for weight loss nutrition therapy as well as DM management. Diet hx per above shows excess caloric intake via energy dense foods, lack of exercise, and lack of motivation for behavior change up until this point. We discussed the benefit of 3-5 eating episodes per day, meaning 3 meals and 1-2 snacks/day;one between breakfast and lunch, and one between lunch and dinner if needed. Controlling eating episodes will help the patient focus on their behavior around eating and avoid mindless eating and excess calories. Megan will control calories by controlling carbs with plan outlined below. I encouraged the Volumetrics Eating plan, which focuses on adding more fruits and vegetables, lean protein, and foods high in water and fiber, so as too to be able to eat more food and feel almanzar onfewer calories. P: 1. Count Carbs and aim for 30-45 grams and breakfast and dinner, 30-60 grams and lunch. Snacks should be 15-20g. 2. Limit eating episodes to 3-4 per day to control calories. 3. Include a lean source of protein at each eating episode. 4. Focus on a 10% weight loss to start (~25lbs) via 0.5-2lbs/week. 5. Keep a food log and track carbs. 6. Avoid eating after dinner completely. 7. Follow up with me in 3 months. documented in this encounter Plan of Treatment Not on file documented as of this encounter Visit Diagnoses Diagnosis Obesity, Class III, BMI 40-49.9 (morbid obesity)- Primary Morbid obesity Diabetes mellitus Type II or unspecified type diabetes mellitus without mention of complication, not stated as uncontrolled Hepatitis Hepatitis, unspecified documented in this encounter Care Teams Prisoner Classification Interviewer Relationship Specialty Start Date End Date Jason Velez MD PCP - General 08/23/12 03/12/14 documented as of this encounter
--- OUTSIDE RECORDS SUMMARY | 2024-09-09 23:03 | XMS_ITS | Encounter Summary ---
Author Organization [facility] [place] [address] Care Team Providers Care Res Habilitation Assistant Name Role Phone Ramo Canas MD Primary Care Provider [phone] Encounter Details Date Type Department Care Team (Latest Contact Info) Description 05/04/2014 1:58 PM EDT - 05/04/2014 11:59 PM EDT [place] [address] Govind Burrell MD [facility] [place] [address] Discharge Disposition: Home Social History Tobacco Use [...] on filedocumented in this encounter Care Teams Res Habilitation Assistant Relationship Specialty Start Date End Date Ramo Canas MD [facility] [address] [place] [address] PCP - General 03/13/14 09/20/14 documented as of this encounter
--- OUTSIDE RECORDS SUMMARY | 2024-09-09 23:03 | XMS_ITS | Encounter Summary ---
[place] [address] Care Team Providers Care Payroll Lead Name Role Phone Jacklyn Clement Primary Care Provider [phone] Encounter Details Date Type Department Care Team (Late st Contact Info) Description 11/15/2014 Notes Only [place] [id number] Janette Vu MD [address] [place] [address] [place] [id number] Social History Tobacco Use Types Packs/Day Years Used Date Smoking Tobacco: Former Smokeless Tobacco: Never Sex and Gender Information Value Date Recorded Sex Assigned at Not on file Gender Identity Not on file Sexual Orientation Not on file documented as of this encounter Progress Notes * Leonarda Velasquez - 11/15/2014 5:13 PM EST I spoke with Ms. Barone in response to a plan for her recent Select Nerve Root Block denial. Dr. Irby relayed that he would like her to have the EMG/NCV with neurology first. Ms. Barone was informed and ok with this plan. documented in this encounter Plan of Treatment Not on file documented as of this encounter Visit Diagnoses Not on filedocumented in this encounter Care Teams Payroll Lead Relationship Specialty Start Date End Date Jacklyn Clement PA [address] [place] [id number] PCP - General 09/21/14 documented as of this encounter
--- OUTSIDE RECORDS SUMMARY | 2024-09-09 23:03 | XMS_ITS | Encounter Summary ---
[place] [address] Care Team Providers Care Remedial Project Manager Name Role Phone Ramo Canas MD Primary Care Provider [phone] Reason for Visit * Reason Comments Hepatitis C Encounter Details Date Type Department Care Team (Late st Contact Info) Description 05/04/2014 3:00 PM EDT Follow-[place] [address] Sangita Maria APRN [facility] [place] [address] Chronic hepatitis C (Primary Dx) Discharge Disposition: Home Social History Tobacco Use Types Packs/Day Years Used Date Smoking Tobacco: Former Smokeless Tobacco: Never Sex and Gender Information Value Date Recorded Sex Assigned at Not on file Gender Identity Not on file Sexual Orientation Not on file documented as of this encounter Last Filed Vital Signs Vital Sign Reading Time Taken Comments Blood Pressure 125/55 05/04/2014 3:02 PM EDT Pulse 92 05/04/2014 3:02 PM EDT Temperature - - Respiratory Rate - - Oxygen Saturation - - Inhaled Oxygen Concentration - - Weight 110.2 kg (243 lb) 05/04/2014 3:02 PM EDT Height 162.6 cm (5' 4) 05/04/2014 3:02 PM EDT Body Mass Index 41.71 05/04/2014 3:02 PM EDT documented in this encounter Progress Notes * Sangita Maria APRN - 05/04/2014 2:53 PM EDT Gastoenterology & Hepatology Follow Up Note Provider: Sangita Maria APRN Gender: female : 1950 Referring Physician/Primary Care Physician: RAOM CANAS MD Problem List: Hepatitis C Genotype 2 [...] 4 liver biopsies Last liver biopsy 12/2009 ([place], [place]) : Grade 2, stage 1; mild macrovesicular fatty change; portal fibrosis, scant garcia portal fibrosis; Incomparison with the biopsy from 2006 the present biopsy displays much less fatty change, similar fibrosis, and similar degree of inflammation History of acute hepatitis B about 30 years ago; 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 Bili 0.47 0.8 AST 35 15 ALT 64 16 HCV RNA p She started the Hepatitis C treatment about two weeks ago. She is exhausted and feels nausea after taking the medications. 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 He rblood sugar today is 200 and I wonder if some of her symptoms are from her diabetes as the ribavirin can affect the blood glucose regulation. Review of Systems Constitutional: Positive for fatigue. Negative for fever. Respiratory: Negative for cough and shortness of breath. Cardiovascular: Negative for chest pain. Gastrointestinal: Positive for nausea. Negative for vomiting and blood in stool. Skin: Negative for rash. Physical Exam Constitutional: She is oriented to person, place, and time. She appears well- developed and well-nourished. HENT: Head: Normocephalic and atraumatic. Eyes: Pupils are equal, round, and reactive to light. No scleral icterus. Neurological: She is alert and oriented to person, place, and time. Skin: Skin is warm and dry. Psychiatric: She has a normal mood and affect. Her behavior is normal. Labs 12/2013: BUN 17, Creat .7, Na 139, Cl 102, TP 7.5, Alb 3.9, TB .7, Alk phos 57, ALT 63, AST 51, WBC 7.7, hgb12.2, plt 225, hgba1c 6.2 Assessment/Plan: Megan is a 63 year old female with hepatitis C, genotype 2, who also has fatty liver. 1. Hepatitis C, genotype 2 will continue on the sofosbuvir and ribavirin for the full 12 weeks. Herliver tests have normalized today which is reassuring. Viral load from today is pending. 2. Generalized weakness, nausea and lightheadedness, she needs to drive several hours for her job and she feels unsafe doing this. Will put her out on a work release for the next month and reassess at her next appointment. 3. Anemia, not significant at this time ,repeat cbc in two weeks and again in four weeks. 4. Nausea, start zofran 4 mg po every 8 hours prn nausea. I will see her back in four weeks for follow up. documented in this encounter Plan of Treatment Not on file documented as of this encounter Visit Diagnoses Diagnosis Chronic hepatitis C- Primary Chronic hepatitis C without mention of hepatic coma documented in this encounter Care Teams Remedial Project Manager Relationship Specialty Start Date End Date Ramo Canas MD [facility] [address] [place] [address] PCP - General 03/13/14 09/20/14 documented as of this encounter
--- OUTSIDE RECORDS SUMMARY | 2024-09-09 23:03 | XMS_ITS | Encounter Summary ---
Author Organization [facility] [place] [address] Care Team Providers Care Before School Babysitter Name Role Phone Jacklyn Clement Primary Care Provider [phone] Encounter Details Date Type Department Care Team (Latest Contact Info) Description 09/21/2014 9:04 AM EST - 09/21/2014 11:59 PM [facility] Hospital [place] [address] Bailey Robertson MD [facility] [place] [address] Chronic hepatitis C Discharge Disposition: Home Social [...] Date/Time Associated Diagnosis Comments HCV QUANT Routine 09/21/2014 9:17 AM EST Chronic hepatitis C NUCLEATED RED BLOOD CELLS Routine 09/21/2014 9:17 AM EST HEMOGRAM Routine 09/21/2014 9:17 AM EST Chronic hepatitis C DIFFERENTIAL, AUTOMATED Routine 09/21/2014 9:17 AM EST Chronic hepatitis C HEPATITIS C RNA, QUANTITATIVE, PCR Routine 09/21/2014 9:17 AM EST Chronic hepatitis C CBC (WITH DIFF) Routine 09/21/2014 9:17 AM EST Chronic hepatitis C COMPREHENSIVE METABOLIC PANEL Routine 09/21/2014 9:17 AM EST Chronic hepatitis C documented in this encounter Results * Nucleated Red Blood Cells (09/21/2014 9:17 AM EST) Pathologist [facility] NRBC% auto 0.0 % [facility] NRBC Absolute 0.000 0.000 - 0.012 x10(3)/mcL [facility] Blood specimen (specimen) 09/21/2014 9:17 AM EST 09/21/2014 9:21 AM EST Narrative Resulting Agency Comment Spec In Lab Bailey Robertson MD HEMATOLOGY ORDERABLE S [facility] * HCV Quant Tim (09/21/2014 9:17 AM EST) Pathologist [facility] HCV Viral Load <15 IU/mL [facility] HCV Viral Load Result: < 15 IU/mL Target Not Detected Indication for Study: Hepatitis C Infection Analysis: A quantitiative real time reverse transcriptase PCR assay was performed on extracted viral RNA for the purpose of quantification. Sample: plasma (1 mL minimum volume) Method: Tim Shauna TaqMAN 48 HCV Linear Range: 15 IU/mL - 100,000,000IU/mL (95% CI) Note: This assay is being performed in the [facility] Molecular Pathology Laboratory. Jesse Powell, Ph.D. Director, Molecular Pathology [facility] Comment: [VERIFIED DATE]09.24.14 Verified By:Indy Wright (Electronic Signature) Blood specimen (specimen) 09/21/2014 9:17 AM EST 09/24/2014 8:25 AM EST Narrative Resulting Agency Comment Spec In Lab Bailey Robertson MD HEMATOLOGY ORDERABLE S [facility] * Differential, Automated (09/21/2014 9:17 AM EST) Neutrophil % 48.0 % [facility] Neutrophil Absolute 3.35 1.50 - 6.30 x10(3)/mcL [facility] Lymph % 40.4 % [facility] Lymphocytes Abs 2.8 1.0 - 3.6 x10(3)/mcL [facility] Monocyte % 6.5 % [facility] Monocyte Abs 0.4 0.2 - 1.0 x10(3)/mcL [facility] Eos % 4.5 % [facility] Eosinophils Abs 0.3 0.0 - 0.5 x10(3)/mcL [facility] Basophil % 0.3 % [facility] Baso Absolute 0.0 0.0 - 0.2 x10(3)/mcL [facility] Immature Gran % 0.30 % [facility] Comment: Immature granulocytes(IG's)percentage and absolute count will include metamyelocytes, myelocytes, and promyelocytes. Blood smears from CBCs yielding IG's will be scanned manually for concordance. If this scan disagrees with the automated IG or if promyelocytes are noted, a manual differential will be performed. Immature Gran Absolute 0.02 0.00 - 0.05 x10(3)/mcL [facility] Blood specimen (specimen) 09/21/2014 9:17 AM EST 09/21/2014 9:21 AM EST Narrative Resulting Agency Comment Spec In Lab Bailey Robertson MD HEMATOLOGY ORDERABLE S Performing Organization Address [facility]/ZIP Co de Phone Number [facility] * Hemogram (09/21/2014 9:17 AM EST) White Blood Cell 7.0 4.0 - 10.0 x10(3)/mcL [facility] Red Blood Cell 4.64 3.93 - 5.22 x10(6)/mcL [facility] Hemoglobin 13.8 11.2 - 15.7 gm/dL [facility] Hematocrit 41.0 34.0 - 45.0 % [facility] Mean Cell Volume 88.4 79.0 - 94.0 fL [facility] Mean Cell Hemoglobin 29.7 26.6 - 32.2 pg [facility] Mean Cell Hemoglobin Concentration 33.7 32.0 - 36.5 gm/dL [facility] Platelet 207 145 - 370 x10(3)/mcL [facility] RDW Standard Deviation 41.9 35.0 - 46.0 fL [facility] RDW coefficient of variation 13.2 10.9 - 14.4 % [facility] Mean Platelet Volume 10.3 9.0 - 12.0 fL [facility] Blood specimen (specimen) 09/21/2014 9:17 AM EST 09/21/2014 9:21 AM EST Narrative Resulting Agency Comment Spec In Lab Bailey Robertson MD HEMATOLOGY ORDERABLE S [facility] * (ABNORMAL) Comprehensive metabolic panel (non-fasting) (09/21/2014 9:17 AM EST) Glucose 138 60 - 199 mg/dL [facility] Comment:Diabetes: >=200 mg/d L plus symptoms Blood Urea Nitrogen 12 8 - 18 mg/dL [facility] Creatinine 0.67(L) 0.70 - 1.20 mg/dL [facility] Comment: Please note that the pediatric reference intervals supplied above were not validated at [facility]. Results from pediatric patients should be interpreted in conjunction to the patient's age, height and muscle mass. Sodium 143 135 - 145 mmol/L [facility] Potassium 4.2 3.5 - 5.0 mmol/L [facility] Comment: Please note: ??Patients with WBC >100,000 may have falsely elevated Potassium levels. ??For accurate Potassium quantification in these patients send serum separator tube (gold top) for subsequent determinations. ??Contact the Clinical Chemistry Laboratory if there are any questions. Chloride 102 98 - 107 mmol/L [facility] Carbon Dioxide 25 22 - 31 mmol/L [facility] Anion Gap 16(H) 5 - 15 mmol/L [facility] Calcium 9.3 8.5 - 10.5 mg/dL [facility] Protein, Total 7.1 6.4 - 8.3 gm/dL [facility] Albumin 4.4 3.2 - 5.2 gm/dL [facility] Aspartate Aminotransferase 14 0 - 30 unit/L [facility] Alanine Aminotransferase 17 0 - 30 unit/L [facility] Alkaline Phosphatase 49 40 - 104 unit/L [facility] Bilirubin, Total 0.2 0.2 - 1.3 mg/dL [facility] Bilirubin, [...] the following links into your internet browser. [email or web address] Blood specimen (specimen) 09/21/2014 9:17 AM EST 09/21/2014 9:21 AM EST Narrative Resulting Agency Comment Spec In Lab Bailey Robertson MD [facility] documented in this encounter Visit Diagnoses Diagnosis Chronic hepatitis C Chronic hepatitis C without mention of hepatic coma documented in this encounter Care Teams Before School Babysitter Relationship Specialty Start Date End Date Jacklyn Clement PA [address] [place] [id number] PCP - General 09/21/14 documented as of this encounter
--- OUTSIDE RECORDS SUMMARY | 2024-09-09 23:03 | XMS_ITS | Encounter Summary ---
[place] [address] [address] Team [address] Care Ct Tech Name Role Phone Ramo Canas MD Primary Care Provider [phone] Reason for Visit * Reason Comments Follow-up Hepatitis C Encounter Details Date Type Department Care Team (Late st Contact Info) Description 07/05/2014 9:30 AM EDT [place] [address] Sangita Maria APRN [facility] [address] [place] [address] Chronic hepatitis C (Primary Dx) Discharge Disposition: Home Social History Tobacco Use Types Packs/Day Years Used Date Smoking Tobacco: Former Smokeless Tobacco: Never Sex and Gender Information Value Date Recorded Sex Assigned at Not on file Gender Identity Not on file Sexual Orientation Not on file documented as of this encounter Last Filed Vital Signs Vital Sign Reading Time Taken Comments Blood Pressure 132/64 07/05/2014 8:39 AM EDT Pulse 98 07/05/2014 8:39 AM EDT Temperature - - Respiratory Rate - - Oxygen Saturation - - Inhaled Oxygen Concentration - - Weight 110.2 kg (243 lb) 07/05/2014 8:39 AM EDT Height 162.6 cm (5' 4) 07/05/2014 8:39 AM EDT Body Mass Index 41.71 07/05/2014 8:39 AM EDT documented in this encounter Patient Instructions * Patient Instructions* Sangita Maria APRN - 07/05/2014 9:30 AM EDT Repeat labs the third week of July Labs the third week of September Labs the third week of December documented in this encounter Progress Notes * Sangita Maria APRN - 07/05/2014 9:24 AM EDT Gastoenterology & Hepatology Follow Up Note Provider: Sangita Maria APRN Gender: female : 1950 Referring Physician/Primary Care Physician: RAMO CANAS MD Problem List: Hepatitis C Genotype [...] 4 liver biopsies Last liver biopsy 12/2009 ([place], [place]) : Grade 2, stage 1; mild macrovesicular fatty change; portal fibrosis, scant garcia portal fibrosis; Incomparison with the biopsy from 2006 the present biopsy displays much less fatty change, similar fibrosis, and similar degree of inflammation History of acute hepatitis B about 30 years ago; 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 Bili 0.47 0.8 0.5 0.6 AST 35 15 18 15 ALT 64 16 17 15 HCV RNA <43- <43- p Megan returns and has been feeling better since starting the celexa. She is better able to cope with her life stressors. She denies any SI or HI. She will complete the HCV treatment on 07/14. Review of Systems Constitutional: Positive for fatigue. [...] mood and affect. Her behavior is normal. Assessment/Plan: Megan is a 63 year old female with hepatitis C, genotype 2, who also has fatty liver. 1. Hepatitis C, genotype 2 will complete the 12 weeks of the sofosbuvir and ribavirin. She cleared the virus at week 2 and most likely will continue to be virus free through out the course of treatment. Will plan to check for viral relapse at 1,3 and 6 months post treatment, outside lab slip prepared for patient. 2. Depression, she is feeling much better on the celexa and reports that she is able to cope more normally with the stress in her life. She is encouraged to follow up with her PCP in regards to how long she should stay on this medication. No suicidal thoughts. 3. Anemia, improved, she should return to a normal hg level 1-2 months after stopping treatment. 4. I have given her a note to return to work on July 16, 2014. I will see her back in 6 months. documented in this encounter Plan of Treatment Not on file documented as of this encounter Procedures Procedure Name Priority Date/Time Associated Diagnosis Comments HCV QUANT Routine 07/05/2014 7:45 AM EDT Chronic hepatitis C HEMOGRAM Routine 07/05/2014 7:45 AM EDT Chronic hepatitis C DIFFERENTIAL, AUTOMATED Routine 07/05/2014 7:45 AM EDT Chronic hepatitis C HEPATITIS C RNA, QUANTITATIVE, PCR Routine 07/05/2014 7:45 AM EDT Chronic hepatitis C CBC (WITH DIFF) Routine 07/05/2014 7:45 AM EDT Chronic hepatitis C TSH Routine 07/05/2014 7:45 AM EDT Chronic hepatitis C COMPREHENSIVE METABOLIC PANEL Routine 07/05/2014 7:45 AM EDT Chronic hepatitis C documented in this encounter Results * HCV Quant Tim (07/05/2014 7:45 AM EDT) HCV Viral Load <43 IU/mL [facility] HCV Viral Load Result: < 43(Target not detected) Indication for Study: Hepatitis C Infection Analysis: [...] This assay is being performed in the [facility]. Jesse Powell, Ph.D. Director, Molecular Pathology [facility] Comment: [VERIFIED DATE]07.09.14 Verified By:Indy Wright (Electronic Signature) Blood specimen (specimen) 07/05/2014 7:45 AM EDT 07/06/2014 8:13 AM EDT Narrative Resulting Agency Comment Spec In Lab Govind Burrell MD HEMATOLOGY ORDERABL ES [facility] * Differential, Automated (07/05/2014 7:45 AM EDT) Neutrophil % 54.7 % [facility] Neutrophil Absolute 3.54 1.50 - 6.30 x10(3)/mcL [facility] Lymph % 33.6 % [facility] Lymphocytes Abs 2.2 1.0 - 3.6 x10(3)/mcL [facility] Monocyte % 5.4 % [facility] Monocyte Abs 0.4 0.2 - 1.0 x10(3)/mcL [facility] Eos % 5.9 % [facility] Eosinophils Abs 0.4 0.0 - 0.5 x10(3)/mcL [facility] Basophil % 0.2 % [facility] Baso Absolute 0.0 0.0 - 0.2 x10(3)/mcL [facility] Immature Gran % 0.20 % [facility] Comment: Immature granulocytes(IG's)percentage and absolute count will include metamyelocytes, myelocytes, and promyelocytes. Blood smears from CBCs yielding IG's will be scanned manually for concordance. If this scan disagrees with the automated IG or if promyelocytes are noted, a manual differential will be performed. Immature Gran Absolute 0.01 0.00 - 0.05 x10(3)/mcL [facility] Blood specimen (specimen) 07/05/2014 7:45 AM EDT 07/05/2014 7:49 AM EDT Narrative Resulting Agency Comment Spec In Lab Govind Burrell MD HEMATOLOGY ORDERABL ES [facility] * (ABNORMAL) Hemogram (07/05/2014 7:45 AM EDT) White Blood Cell 6.5 4.0 - 10.0 x10(3)/mc L [facility] Red Blood Cell 3.92(L) 3.93 - 5.22 x10(6)/mc L [facility] Hemoglobin 12.0 11.2 - 15.7 gm/dL [facility] Hematocrit 38.3 34.0 - 45.0 % [facility] Mean Cell Volume 97.7(H) 79.0 - 94.0 fL [facility] Mean Cell Hemoglobin 30.6 26.6 - 32.2 pg [facility] Mean Cell Hemoglobin Concentration 31.3(L) 32.0 - 36.5 gm/dL [facility] Platelet 250 145 - 370 x10(3)/mc L [facility] RDW Standard Deviation 52.9(H) 35.0 - 46.0 fL [facility] RDW coefficient of variation 14.9(H) 10.9 - 14.4 % [facility] Mean Platelet Volume 10.1 9.0 - 12.[address] [facility] Blood specimen (specimen) 07/05/2014 7:45 AM EDT 07/05/2014 7:49 AM EDT Narrative Resulting Agency Comment Spec In Lab Govind Burrell MD HEMATOLOGY ORDERABL ES Performing Organization Address [facility] Co de Phone Number [facility] * TSH (07/05/2014 7:45 AM EDT) Thyroid Stimulating Hormone 3.27 0.27 - 4.20 mcIU/mL [facility] Blood specimen (specimen) 07/05/2014 7:45 AM EDT 07/05/2014 7:50 AM EDT Narrative Resulting Agency Comment Spec In Lab Govind Burrell MD CHEMISTRY ORDERABLE S Performing Organization Address [facility]/ZIP Co de Phone Number [facility] * Comprehensive metabolic panel (non-fasting) (07/05/2014 7:45 AM EDT) Glucose 183 60 - 199 mg/dL [facility] Comment:Diabetes: >=200 mg/d L plus symptoms Blood Urea Nitrogen 11 8 - 18 mg/dL [facility] Creatinine 0.71 0.70 - 1.20 mg/dL [facility] Comment: Please note that the pediatric reference intervals supplied above were not validated at [facility]. Results from pediatric patients should be interpreted in conjunction to the patient's age, height and muscle mass. Sodium 141 135 - 145 mmol/L [facility] Potassium 4.1 3.5 - 5.0 mmol/L [facility] Comment: Please note: ??Patients with WBC >100,000 may have falsely elevated Potassium levels. ??For accurate Potassium quantification in these patients send serum separator tube (gold top) for subsequent determinations. ??Contact the Clinical Chemistry Laboratory if there are any questions. Chloride 101 98 - 107 mmol/L [facility] Carbon Dioxide 26 22 - 31 mmol/L [facility] Anion Gap 14 5 - 15 mmol/L [facility] Calcium 9.4 8.5 - 10.5 mg/dL [facility] Protein, Total 7.0 6.4 - 8.3 gm/dL [facility] Albumin 4.2 3.2 - 5.2 gm/dL [facility] Aspartate Aminotransferase 15 0 - 30 unit/L [facility] Alanine Aminotransferase 15 0 - 30 unit/L [facility] Alkaline Phosphatase 49 40 - 104 unit/L [facility] Bilirubin, Total 0.6 0.2 - 1.3 mg/dL [facility] Bilirubin, [...] the following links into your internet browser. [email or web address] Blood specimen (specimen) 07/05/2014 7:45 AM EDT 07/05/2014 7:50 AM EDT Narrative Resulting Agency Comment Spec In Lab Govind Burrell MD CHEMISTRY ORDERABLE S [facility] documented in this encounter Visit Diagnoses Diagnosis Chronic hepatitis C- Primary Chronic hepatitis C without mention of hepatic coma documented in this encounter Care Teams Ct Tech Relationship Specialty Start Date End Date Ramo Canas MD [facility] [address] [place] [address] PCP - General 03/13/14 09/20/14 documented as of this encounter
--- OUTSIDE RECORDS SUMMARY | 2024-09-09 23:03 | XMS_ITS | Encounter Summary ---
[place] [address] Care Team Providers Care Expert Medical Writer Name Role Phone Ramo Canas MD Primary Care Provider [phone] Reason for Visit * Reason Onset Date Comments Medication Refill 04/09/2014 Encounter Details Date Type Department Care Team (Late st Contact Info) Description 04/09/2014 [place] [address] Bailey Robertson MD [facility] [place] [address] Social History Tobacco Use Types Packs/Day Years [...] on filedocumented in this encounter Care Teams Expert Medical Writer Relationship Specialty Start Date End Date Ramo Canas MD [facility] [address] [place] [address] PCP - General 03/13/14 09/20/14 documented as of this encounter
--- OUTSIDE RECORDS SUMMARY | 2024-09-09 23:03 | XMS_ITS | Encounter Summary ---
Author Organization [place] [id number] Care Team Providers Care Management Retail Intern Name Role Phone Jacklyn Clement Primary Care Provider [phone] Encounter Details Date Type Department Care Team (Late st Contact Info) Description 03/22/2015 E-Visit [place] [address] Chavo Irby [facility] [place] [address] E-Visit Submission: Ongoing Health Problem (For ex: Diabetes, Depression) Social History Tobacco Use Types Packs/Day Years [...] unspecified documented in this encounter Care Teams Management Retail Intern Relationship Specialty Start Date End Date Jacklyn Clement PA [address] [place] [address] PCP - General 09/21/14 documented as of this encounter
--- OUTSIDE RECORDS SUMMARY | 2024-09-09 23:03 | XMS_ITS | Encounter Summary ---
[place] [address] Care Team Providers Care Bean Snapper Name Role Phone Ramo Canas MD Primary Care Provider [phone] Reason for Visit * Reason Onset Date Comments Medication Refill 05/14/2014 Encounter Details Date Type Department Care Team (Late st Contact Info) Description 05/14/2014 Refill [place] [address] Jacklyn Elkins APRN [facility] [place] [address] Nausea alone (Primary Dx) Social History Tobacco Use Types Packs/Day Years Used Date Smoking Tobacco: Former Smokeless Tobacco: Never Sex and Gender Information Value Date Recorded Sex Assigned at Not on file Gender Identity Not on file Sexual Orientation Not on file documented as of this encounter Plan of Treatment Not on file documented as of this encounter Visit Diagnoses Diagnosis Nausea alone- Primary documented in this encounter Care Teams Bean Snapper Relationship Specialty Start Date End Date Ramo Canas MD [facility] [address] [place] [address] [place] [address] PCP - General 03/13/14 09/20/14 documented as of this encounter
--- OUTSIDE RECORDS SUMMARY | 2024-09-09 23:03 | XMS_ITS | Encounter Summary ---
[place] [address] Care Team Providers Care Tucking Machine Operator Name Role Phone Ramo Canas MD Primary Care Provider [phone] Encounter Details Date Type Department Care Team (Late st Contact Info) Description 07/24/2014 Telephone [place] [id number] Rose Martinez, RN Social History Tobacco Use Types Packs/Day Years Used Date Smoking Tobacco: Former Smokeless Tobacco: Never Sex and Gender Information Value Date Recorded Sex Assigned at Not on file Gender Identity Not on file Sexual Orientation Not on file documented as of this encounter Miscellaneous Notes * Telephone Encounter - Nata Nascimento LPN - 07/25/2014 10:09 AM EDT Megan Barone :1950 Message left: I left a message on answering machine Ms. Barone at 10:10 AM regarding her upcoming lumbar epiduralsteroid injection with Dr. Chavo Irby DO. Message included the followin. Patient instructed to arrive at 10:30 (30 minutes prior to procedure start time) on 07/26/14 (date of procedure) with their guard driver. 2. Following instructions left in the message: - Bring Updated list of medications including dosage and reason for taking. - Call the Pain Clinic Nurse at for: ~Procedure instructions. ~If you are taking antibiotics. ~If you have any signs or symptoms of infection, cold or flu. ~If you have any skin breakdown (rashes, cysts, or abscess.) ~If you are taking anticoagulants / blood thinners (Plavix, Pletal, Lovenox, Coumadin, etc). ~If you had any steroid injections anywhere in your body within the last two weeks? Nata Nascimento LPN * Telephone Encounter - Rose Martinez RN - 07/24/2014 10:24 AM EDT Megan Barone :1950 Message left: I left a message with Ms. Barone at 10:24 AM regarding her upcoming lumbar epidural steroidinjection with Dr. Chavo Irby DO. Rose Martinez RN documented in this encounter Plan of Treatment Not on file documented as of this encounter Visit Diagnoses Not on filedocumented in this encounter Care Teams Tucking Machine Operator Relationship Specialty Start Date End Date Ramo Canas MD [facility] [address] [place] [address] PCP - General 03/13/14 09/20/14 documented as of this encounter
--- OUTSIDE RECORDS SUMMARY | 2024-09-09 23:03 | XMS_ITS | Encounter Summary ---
[place] [address] Care Team Providers Care Topper Press Operator Automatic Name Role Phone Ramo Canas MD Primary Care Provider [phone] Encounter Details Date Type Department Care Team (Late st Contact Info) Description 03/15/2014 Notes [place] [id number] Nina Vargas, RN Social History Tobacco Use Types Packs/Day Years Used Date Smoking Tobacco: Former Smokeless Tobacco: Never Sex and Gender Information Value Date Recorded Sex Assigned at Not on file Gender Identity Not on file Sexual Orientation Not on file documented as of this encounter Progress Notes * Nina Vargas, RN - 03/15/2014 5:41 PM EDT Pt calling to check on status of hcv medication authorization. No documentation found that this wasbegun. [facility] [place] enrollment form filled out. Awaiting provider signature, then will fax. documented in this encounter Plan of Treatment Not on file documented as of this encounter Visit Diagnoses Not on filedocumented in this encounter Care Teams Topper Press Operator Automatic Relationship Specialty Start Date End Date Ramo Canas MD [facility] [address] [place] [address] PCP - General 03/13/14 09/20/14 documented as of this encounter
--- OUTSIDE RECORDS SUMMARY | 2024-09-09 23:03 | XMS_ITS | Clinical Summary ---
Author Organization [facility] [place] [address] Care Team Providers Care Pararescue Manager Name Role Phone Jacklyn Clement Primary Care Provider Allergies Active Allergy Reactions Criticality Noted Date Comments Prochlorperazine Edisylate Other (See Comments) 11/29/2012 paralesis-speech Penicillins Rash,Other (See Comments) 11/29/2012 Hospitalized Medications Medication Sig Dispensed Refills Start Date End Date Status metFORMIN (GLUCOPHAGE) 500 mg tablet Take 500 mg by mouth 2 times daily (with meals). Active HYDROCHLOROTHIAZIDE ORAL Take 25 mg by mouth daily. Active lisinopril (PRINIVIL;ZESTRIL) 10 mg tablet Take 10 mg by mouth daily. Active gabapentin (NEURONTIN) 300 mg Capsule Per titration sheet. Maximum of 12 per day. 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 Chronic hepatitis C 03/13/2014 Immunizations Name Administration Dates Next Due Influenza Trivalent w/Preservative 07/05/2014 Social History Tobacco Use Types Packs/Day Years Used Date Smoking Tobacco: Former Smokeless Tobacco: Never Comments:quit 1994 Alcohol Use Standard Drinks/Week Comments No 0 (1 standard drink = 0.6 oz pur e alcohol) Sex and Gender Information Value Date Recorded Sex Assigned at Not on file Gender Identity Not on file Sexual Orientation Not on file Last Filed Vital Signs Vital Sign Reading [...] Mass Index 37.76 03/07/2015 11:00 AM EDT Plan of Treatment Health Maintenance Due Date Last Done Comments CT Colonography 1950 Colonoscopy 1950 Colorectal Cancer Screening 1950 FIT DNA 1950 FIT 1950 Sigmoidoscopy (10 year) with FIT yearly 1950 Sigmoidoscopy 1950 Tetanus/Diphtheria/Pertussis Vaccines (1 - Tdap) 06/16 Breast Cancer Share Decision Needed 1992 Breast Cancer screening 1992 Zoster vaccine (1 of 2) 2002 Advance Directive 2007 Bone Density Scan 2017 Pneumoccocal Vaccine: 65+ (1 of 1 - PCV) 2017 Covid-19 Vaccine (1 - season) 2024 Influenza (Flu) vaccine (1 o f 1 - Influenza standard series) 05/28/2024 07/05/2014 Care Teams Pararescue Manager Relationship Specialty Start Date End Date Jacklyn Clement PA [address] [place] [address] PCP - General 09/21/14
--- OUTSIDE RECORDS SUMMARY | 2024-09-09 23:03 | XMS_ITS | Encounter Summary ---
Author Organization [place] [address] Care Team Providers Care Product Support Rep Name Role Phone Jacklyn Clement Primary Care Provider [phone] Encounter Details Date Type Department Care Team (Latest Contact Info) Description 12/12/2014 12:37 PM EDT - 12/12/2014 11:59 PM EDT [place] [address] Bailey Robertson MD [facility] [place] [address] Chronic hepatitis C Discharge Disposition: Home Social [...] Sig Dispensed Refills Start Date End Date gabapentin (NEURONTIN) 300 mg Capsule Per titration sheet. Maximum of 12 per day. 360 capsule 12 10/22/2014 metFORMIN (GLUCOPHAGE) 500 mg tablet Take 500 mg by mouth 2 times daily (with meals). HYDROCHLOROTHIAZIDE ORAL Take 25 mg by mouth daily. lisinopril (PRINIVIL;ZESTRIL) 10 mg tablet Take 10 mg by mouth daily. documented as of this encounter Plan of Treatment Not on file documented as of this encounter Procedures Procedure Name Priority Date/Time Associated Diagnosis Comments HCV QUANT Routine 12/12/2014 12:57 PM EDT Chronic hepatitis C HEMOGRAM Routine 12/12/2014 12:57 PM EDT Chronic hepatitis C DIFFERENTIAL, AUTOMATED Routine 12/12/2014 12:57 PM EDT Chronic hepatitis C HEPATITIS C RNA, QUANTITATIVE, PCR Routine 12/12/2014 12:57 PM EDT Chronic hepatitis C CBC (WITH DIFF) Routine 12/12/2014 12:57 PM EDT Chronic hepatitis C COMPREHENSIVE METABOLIC PANEL Routine 12/12/2014 12:57 PM EDT Chronic hepatitis C documented in this encounter Results * HCV Quant Tim (12/12/2014 12:57 PM EDT) Pathologist [facility] HCV Viral Load <15 IU/mL [facility] HCV Viral Load Result: < 15 IU/mL (Target Not Detected) Indication for Study: Hepatitis C Infection Analysis: A quantitiative real time reverse transcriptase PCR assay was performed on extracted viral RNA for the purpose of quantification. Sample: plasma (1 mL minimum volume) Method: Tim Shauna TaqMAN 48 HCV Linear Range: 15 IU/mL - 100,000,000IU/mL (95% CI) Note: This assay is being performed in the [facility]. Jesse Powell, Ph.D. Director, Molecular Pathology [facility] Comment: [VERIFIED DATE]12.17.14 Verified By:Naima Delarosa I (Electronic Signature) Blood specimen (specimen) 12/12/2014 12:57 PM EDT 12/14/2014 10:59 AM EDT Narrative Resulting Agency Comment Spec In Lab Bailey Robertson MD HEMATOLOGY ORDERABLE S [facility] * Differential, Automated (12/12/2014 12:57 PM EDT) Pathologist [facility] Neutrophil % 50.0 % [facility] Neutrophil Absolute 4.07 1.50 - 6.30 x10(3)/mcL [facility]ILLENNI[facility] Lymph % 39.1 % [facility]ILLENNI[facility] Lymphocytes Abs 3.2 1.0 - 3.6 x10(3)/mcL CERNER MILLENNIUM Monocyte % 5.4 % [facility]ERN[facility] MILLENNIUM Monocyte Abs 0.4 0.2 - 1.0 x10(3)/mcL CERNER MILLENNIUM Eos % 5.2 % [facility]ERNER MILLENNIUM Eosinophils Abs 0.4 0.0 - 0.5 x10(3)/mcL CERNER MILLENNIUM Basophil % 0.2 % CERNER MILLENNIUM Baso Absolute 0.0 0.0 - 0.2 x10(3)/mcL CERNER MILLENNIUM Immature Gran % 0.10 % [facility]ILLENNI[facility] Comment: Immature granulocytes(IG's)percentage and absolute count will include metamyelocytes, myelocytes, and promyelocytes. Blood smears from CBCs yielding IG's will be scanned manually for concordance. If this scan disagrees with the automated IG or if promyelocytes are noted, a manual differential will be performed. Immature Gran Absolute 0.01 0.00 - 0.05 x10(3)/mcL CERNER MILLENNIUM Blood specimen (specimen) 12/12/2014 12:57 PM EDT 12/12/2014 1:25 PM EDT Narrative Resulting Agency Comment Spec In Lab Bailey Robertson MD HEMATOLOGY ORDERABLE S [facility] * Hemogram (12/12/2014 12:57 PM EDT) White Blood Cell 8.1 4.0 - 10.0 x10(3)/mcL CERNER MILLENNIUM Red Blood Cell 4.69 3.93 - 5.22 x10(6)/mcL CERNER MILLENNIUM Hemoglobin 14.2 11.2 - 15.7 gm/dL CERNER MILLENNIUM Hematocrit 42.1 34.0 - 45.0 % CERNER MILLENNIUM Mean Cell Volume 89.8 79.0 - 94.0 fL CERNER MILLENNIUM Mean Cell Hemoglobin 30.3 26.6 - 32.2 pg CERNER MILLENNIUM Mean Cell Hemoglobin Concentration 33.7 32.0 - 36.5 gm/dL CERNER MILLENNIUM Platelet 229 145 - 370 x10(3)/mcL CERNER MILLENNIUM RDW Standard Deviation 43.9 35.0 - 46.0 fL CERNER MILLENNIUM RDW coefficient of variation 13.4 10.9 - 14.4 % CERNER MILLENNIUM Mean Platelet Volume 10.2 9.0 - 12.0 fL CERNER MILLENNIUM Blood specimen (specimen) 12/12/2014 12:57 PM EDT 12/12/2014 1:25 PM EDT Narrative Resulting Agency Comment Spec In Lab Bailey Robertson MD HEMATOLOGY ORDERABLE S [facility]EN[facility] * (ABNORMAL) Comprehensive metabolic panel (non-fasting) (12/12/2014 12:57 PM EDT) Pathologist [facility] Glucose 140 60 - 199 mg/dL CERNER MILLENNIUM Comment:Diabetes: >=200 mg/d L plus symptoms Blood Urea Nitrogen 14 8 - 18 mg/dL CERNER MILLENNIUM Creatinine 0.71 0.70 - 1.20 mg/dL CERNER MILLENNIUM Comment: Please note that the pediatric reference intervals supplied above were not validated at [facility]. Results from pediatric patients should be interpreted in conjunction to the patient's age, height and muscle mass. Sodium 142 135 - 145 mmol/L CERNER MILLENNIUM Potassium [...] 5 - 15 mmol/L CERNER MILLENNIUM Calcium 10.0 8.5 - 10.5 mg/dL CERNER MILLENNIUM Protein, Total 7.3 6.1 - 8.0 gm/dL CERNER MILLENNIUM Albumin 4.6 3.2 - 5.2 gm/dL CERNER MILLENNIUM Aspartate Aminotransferase 17 0 - 30 unit/L CERNER MILLENNIUM Alanine Aminotransferase 22 0 - 30 unit/L CERNER MILLENNIUM Alkaline Phosphatase 50 40 - 104 unit/L CERNER MILLENNIUM Bilirubin, Total 0.4 0.2 - 1.3 mg/dL CERNER MILLENNIUM Bilirubin, [...] the following links into your internet browser. [email or web address] Blood specimen (specimen) 12/12/2014 12:57 PM EDT 12/12/2014 1:10 PM EDT Narrative Resulting Agency Comment Spec In Lab Bailey Robertson MD CHEMISTRY ORDERABLES DENZEL WHITE documented in this encounter Visit Diagnoses Diagnosis Chronic hepatitis C Chronic hepatitis C without mention of hepatic coma documented in this encounter Care Teams Product Support Rep Relationship Specialty Start Date End Date Jacklyn Clement PA [address] [place] [address] PCP - General 09/21/14 documented as of this encounter
--- OUTSIDE RECORDS SUMMARY | 2024-09-09 23:03 | XMS_ITS | Encounter Summary ---
Author Organization [place] [id number] Care Team Providers Care Offset Pressman Name Role Phone Ramo Canas MD Primary Care Provider [phone] Encounter Details Date Type Department Care Team (Late st Contact Info) Description 06/04/2014 Orders Only [facility] [place] [phone] Lee Mccullough MD [facility] [place] [address] Social History Tobacco Use Types Packs/Day Years Used Date Smoking Tobacco: Former Smokeless Tobacco: Never Sex and Gender Information Value Date Recorded Sex Assigned at Not on file Gender Identity Not on file Sexual Orientation Not on file documented as of this encounter Plan of Treatment Not on file documented as of this encounter Procedures Procedure Name Priority Date/Time Associated Diagnosis Comments FILM LIBRARY STORAGE ONLY MR SPINE Routine 06/04/2014 7:20 AM EDT documented in this encounter Results * Film Library- Storage only MR Spine (06/04/2014 7:20 AM EDT) Anatomical Region Laterality Modality Other 06/04/2014 7:20 AM EDT Narrative 06/25/2014 7:39 AM EDT This is a Non-reportable exam Procedure Note 06/25/2014 This is a Non-reportable exam Lee Mccullough MD [facility] FILM LIBRARY ORD ERABLES documented in this encounter Visit Diagnoses Not on filedocumented in this encounter Care Teams Offset Pressman Relationship Specialty Start Date End Date Ramo Canas MD [facility] [address] [place] [address] PCP - General 03/13/14 09/20/14 documented as of this encounter
--- OUTSIDE RECORDS SUMMARY | 2024-09-09 23:03 | XMS_ITS | Encounter Summary ---
[place] [address] Care Team Providers Care Reamer Hand Name Role Phone Jacklyn Clement Primary Care Provider [phone] Encounter Details Date Type Department Care Team (Late st Contact Info) Description 03/22/2015 Telephone [place] [phone] Naya Newell LPN Social History Tobacco Use Types Packs/Day Years [...] encounter Miscellaneous Notes * Telephone Encounter - Naya Newell LPN - 03/22/2015 4:30 PM EDT Copied per E-visit submission: It has been two weeks since my procedure. My pain is worst. I have stabbing pain many times each day. Last night was extremely painful. The needle pain continues and I have felt it in my knee as wellas my other leg. What are my options? RADHA Spoke with pt. She reports no relief from LESI. Schedule follow up visit to discuss other options. documented in this encounter Plan of Treatment Not on file documented as of this encounter Visit Diagnoses Not on filedocumented in this encounter Care Teams Reamer Hand Relationship Specialty Start Date End Date Jacklyn Clement PA [address] [place] [address] PCP - General 09/21/14 documented as of this encounter
--- OUTSIDE RECORDS SUMMARY | 2024-09-09 23:03 | XMS_ITS | Encounter Summary ---
[place] [address] Care Team Providers Care Job Trainer Name Role Phone Jacklyn Clement Primary Care Provider [phone] Reason for Visit * Reason Onset Date Comments Other 06/15/2019 Encounter Details Date Type Department Care Team (Late st Contact Info) Description 06/15/2019 Telephone Gynecology [place] [phone] Kenya Gil MD [facility] [place] [address] Other Social History Tobacco Use Types Packs/Day Years [...] Telephone Encounter - Virginia Robles - 06/15/2019 2:11 PM EDT Please disregard. Message entered in error. * Telephone Encounter - Virginia Robles - 06/15/2019 2:09 PM EDT Pt's (Darryn) states pt is in pain & needs a prescription for pain medication. Call back# [phone] documented in this encounter Plan of Treatment Not on file documented as of this encounter Visit Diagnoses Not on filedocumented in this encounter Care Teams Job Trainer Relationship Specialty Start Date End Date Jacklyn Clement PA [address] [place] [address] PCP - General 09/21/14 documented as of this encounter
--- OUTSIDE RECORDS SUMMARY | 2024-09-09 23:03 | XMS_ITS | Encounter Summary ---
[place] [address] Care Team Providers Care Circulation Crew Leader Name Role Phone Ramo Canas MD Primary Care Provider [phone] Encounter Details Date Type Department Care Team (Late st Contact Info) Description 04/16/2014 Telephone [place] [phone] Amaris Ayers RN Social History Tobacco Use Types Packs/Day Years Used Date Smoking Tobacco: Former Smokeless Tobacco: Never Sex and Gender Information Value Date Recorded Sex Assigned at Not on file Gender Identity Not on file Sexual Orientation Not on file documented as of this encounter Miscellaneous Notes * Telephone Encounter - Amaris Ayers RN - 04/16/2014 10:24 AM EDT Call from patient who has received Hep C meds and will start treatment this Saturday 04/21, transferred to the pump tester to schedule follow up. documented in this encounter Plan of Treatment Not on file documented as of this encounter Visit Diagnoses Diagnosis Chronic hepatitis C- Primary Chronic hepatitis C without mention of hepatic coma documented in this encounter Care Teams Circulation Crew Leader Relationship Specialty Start Date End Date Ramo Canas MD [facility] [address] [place] [address] PCP - General 03/13/14 09/20/14 documented as of this encounter
--- OUTSIDE RECORDS SUMMARY | 2024-09-09 23:03 | XMS_ITS | Encounter Summary ---
[place] [address] Care Team Providers Care Engineer First Assistant Name Role Phone Ramo Canas MD Primary Care Provider [phone] Reason for Referral * Consultation (Routine) - Closed Specialty Diagnoses / Procedures Referred By Contac t Referred To Contact Pain Management Diagnoses Spinal stenosis of lumbar region with neurogenic claudication Lee Mccullough MD [facility] [place] [address] [facility] [address] [place] [address] Referral ID Status Reason Start Date Expiration Date V isits Requested Visits Authorized [id number] Closed Consult Only 07/05/2014 01/01/2015 1 1 Reason for Visit * Reason Comments Low Back Pain With Radicular Pain tingl ing foot right side Encounter Details Date Type Department Care Team (Late st Contact Info) Description 07/05/2014 10:15 AM EDT Office Visit [place] [address] Lee Mccullough MD [facility] [place] [place] [address] Spinal stenosis of lumbar region with neurogenic claudication (Primary Dx) Discharge Disposition: Home Social History Tobacco Use Types Packs/Day Years Used Date Smoking Tobacco: Former Smokeless Tobacco: Never Sex and Gender Information Value Date Recorded Sex Assigned at Not on file Gender Identity Not on file Sexual Orientation Not on file documented as of this encounter Last Filed Vital Signs Vital Sign Reading Time Taken Comments Blood Pressure - - Pulse - - Temperature - - Respiratory Rate - - Oxygen Saturation - - Inhaled Oxygen Concentration - - Weight 110.2 kg (243 lb) 07/05/2014 10:36 AM EDT Height 162.6 cm (5' 4) 07/05/2014 10:36 AM EDT Body Mass Index 41.71 07/05/2014 10:36 AM EDT documented in this encounter Patient Instructions * Patient Instructions* Gloria Bautista LPN - 07/05/2014 10:38 AM EDT I would like you to sign up for myD-H, which will give you secure online access to your electronic medical record at [facility] and the ability to communicate with your health care team whenand where it???s most convenient for you. With myD-H you will be able to: - look at parts of your medical record including test results and office notes - send and receive messages to/from me and your other providers - renew prescriptions - schedule appointments. To sign up, go to [email or web address] and click I have an activation code and follow the instructions. Here is your activation code: [email or web address] Expires: 08/19/2014 10:38 AM Remember, myD-H is NOT for urgent needs! Always dial 911 for medical emergencies. documented in this encounter Progress Notes * Lee Mccullough MD - 07/05/2014 11:08 AM EDT Ms. Barone is a 64-year-old woman seen today in the spine center consultation from Ramo Canas. The patient is seen and evaluated for cramping in the right calf, numbness and tingling in the right lateral leg and globally in the right foot. She also has back pain. She does not really describe radicular pain in her back, but it began a year ago with radicular pain with a spontaneous onset all the way down the right leg. She had some improvement on oral steroids and physical therapy, but she still has numbness and tingling in the right calf and globally in the right foot. She is worse with prolonged driving more than 30 minutes. She notes no weakness. Her past medical history is notable for obesity with a height of 5 feet 4 inches, weight of 243 pounds, body mass index of 41.69. She has hepatitis C and is under treatment here with the GI clinic and medications from which she seems to be having improvement. Her review of systems is otherwise negative for GI, , or constitutional symptoms. PHYSICAL EXAMINATION: This is a pleasant white woman. She moves easily and comfortably about the office. Her gait is normal. She could toe and heel walk without weakness, though she has a sense of weakness on the right with toe walking, I did not observe that. Her pain in the back is located in the right paraspinal low back region. She has no pain to palpation throughout her thoracic, lumbar, sacral region, or sciatic notches. Her lower extremity motor examination is normal. Her sensory function is diminished in the right lateral leg and globally in the right foot. She does have underlying diabetes, it does not seem to be symmetric. Reflexes are 2 at the knees, 1 at the right ankle, absent at the left ankle. Straight leg raise test is negative. Calf musculature are soft and nontender bilaterally. She has no edema, atrophy, fasciculations, or spasticity. DIAGNOSTIC DATA: Lumbar MRI dated 06/04/2014 from [facility] demonstrates multilevel disk degeneration. Pertinent to today's evaluation and her symptoms, it is a degenerative spondylolisthesis L4-L5 with facet arthropathy, possible synovial cyst formation, best seen on axial T2 weighted image 11, series 7 and image 12, series 7. She also has lateral recess narrowing of the L5-S1 level on the right side. There is central disk bulge and potentially some compression of the S1 nerve root. The global involvement of right foot precludes assessment in the dermatomal distribution to the level of the specific nerve. All this was reviewed with the patient and her . I believe that her L4-L5 spinal stenosis and degenerative spondylolisthesis are likely a big contributor to her symptoms. I have made the following recommendations. 1. She complete her hepatitis C treatment. 2. Referral to the anesthesia pain clinic for a series of up to three epidural steroid injections. If this does not help and she wants to return to discuss surgery for an L4-L5 decompression and local bone graft fusion, we will obtain lumbar spine films, AP and lateral flexion and extension views to assess alignment and stability and move forward with that information. She is in agreement with this plan. documented in this encounter Plan of Treatment Scheduled Referrals Name Type Priority Associated Diagnoses Orde r Schedule Referral to Pain Clinic Outpatient Referral Routine Spinal stenosis of lumbar region with neurogenic claudication Ordered: 07/05/2014 documented as of this encounter Visit Diagnoses Diagnosis Spinal stenosis of lumbar region with neurogenic claudication- Primary Spinal stenosis, lumbar region, with neurogenic claudication documented in this encounter Care Teams Engineer First Assistant Relationship Specialty Start Date End Date Ramo Canas MD [facility] [address] [place] [address] PCP - General 03/13/14 09/20/14 documented as of this encounter
--- OUTSIDE RECORDS SUMMARY | 2024-09-09 23:03 | XMS_ITS | Encounter Summary ---
[place] [address] Care Team Providers Care Senior Commercial Loan Officer Name Role Phone Jacklyn Clement Primary Care Provider [phone] Encounter Details Date Type Department Care Team (Late st Contact Info) Description 03/06/2015 Telephone [place] [phone] Nevaeh Gibson LNA Social History Tobacco Use Types Packs/Day Years [...] encounter Miscellaneous Notes * Telephone Encounter - Nevaeh Gibson LNA - 03/06/2015 11:46 AM EDT Megan Elie Abisai :1950 Contact made with patient: I spoke to Ms. Barone at 11:47 AM regarding her upcoming lumbar epidural steroid injection scheduled on 03/07/2015 scheduled at 11:10AM with Dr. Chavo Irby DO. Medication and Allergy reconciliation: 1. Changes were made in the telephone encounter per patient; marked as reviewed, and closed. 2. Patient confirmed no IVP dye allergy. 3. Have you had any steroid injections anywhere in your body within the last two weeks? no Arrival time: The patient was instructed to arrive at 10:40AM on 03/07/2015. Manager Pmo: The patient was reminded that they need to have a driver license reviewing officer accompany them to her procedure who will remain onsite. Antibiotics/Skin assessment/Illness symptoms/Pain level assessment : 1. The patient confirmed that she is not taking antibiotics at this time. 2. The patient confirmed that she does not have any rashes, blisters, or skin breakdown on their body. 3. The patient confirmed that she does not have any active infections. 4. The patient confirmed that she does not have any symptoms of illness: fever, chills, cold, flu, nausea, vomiting. 5. The patient confirmed that she isstill experiencing significant pain. (Significant pain is defined as interfering with performing ADL.) Pain and Anti-anxiety Medications: 1. Nerve Block Procedure Patients: Patient was instructed NOT to take their pain medications on theday of the procedure and anti-anxiety medications are part of their daily medication regiment; theycan and should continue taking that medication. 2. All Other Procedure Patients: The patient was instructed that if they take daily pain or anti-anxiety medications, they can and should continue taking on the day of the procedure. Does patient have history of any diagnosed bleeding disorders: No Anticoagulants: No Diabetic instructions: Patient was advised to inform their PCP regarding safe fasting and the NPO requirements for their upcoming procedure and given the Pain Management Center Nurse Triage Line . Implant: Patient has pacemaker/defibrillator: No Prior to checking in at [facility] [employer] [employer], please be sure to empty your bladder. Patient confirmed understanding that if they do not follow the above their instructions, their procedure is likely to be cancelled. Nevaeh BENITO documented in this encounter Plan of Treatment Not on file documented as of this encounter Visit Diagnoses Not on filedocumented in this encounter Care Teams Senior Commercial Loan Officer Relationship Specialty Start Date End Date Jacklyn Clement PA [address] [place] [address] PCP - General 09/21/14 documented as of this encounter
--- OUTSIDE RECORDS SUMMARY | 2024-09-09 23:03 | XMS_ITS | Encounter Summary ---
[place] [address] Care Team Providers Care Business Systems Lead Name Role Phone Ramo Canas MD Primary Care Provider [phone] Encounter Details Date Type Department Care Team (Late st Contact Info) Description 06/14/2014 11:00 AM EDT [place] [address] Sangita Maria APRN [facility] [place] [address] Chronic hepatitis C (Primary Dx) Discharge Disposition: Home Social History Tobacco Use Types Packs/Day Years Used Date Smoking Tobacco: Former Smokeless Tobacco: Never Sex and Gender Information Value Date Recorded Sex Assigned at Not on file Gender Identity Not on file Sexual Orientation Not on file documented as of this encounter Last Filed Vital Signs Vital Sign Reading Time Taken Comments Blood Pressure 147/73 06/14/2014 10:57 AM EDT Pulse 94 06/14/2014 10:57 AM EDT Temperature - - Respiratory Rate - - Oxygen Saturation - - Inhaled Oxygen Concentration - - Weight 108.9 kg (240 lb) 06/14/2014 10:57 AM EDT Height 162.6 cm (5' 4) 06/14/2014 10:57 AM EDT Body Mass Index 41.2 06/14/2014 10:57 AM EDT documented in this encounter Progress Notes * Sangita Maria APRN - 06/14/2014 11:12 AM EDT Gastoenterology & Hepatology Follow Up [...] 4 liver biopsies Last liver biopsy 12/2009 ([place], [place]) : Grade 2, stage 1; mild macrovesicular fatty change; portal fibrosis, scant garcia portal fibrosis; Incomparison with the biopsy from 2006 the present biopsy displays much less fatty change, similar fibrosis, and similar degree of inflammation History of acute hepatitis B about 30 years ago; 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 Bili 0.47 0.8 0.5 AST 35 15 18 ALT 64 16 17 HCV RNA <43- p She started the Hepatitis C treatment about two weeks ago. She is exhausted and feels nausea after taking the medications. 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 He rblood sugar today [...] and ribavirin for the full 12 weeks. Shecleared the virus at week 2 and most likely will continue to be virus free through out the course of treatment. The risk for her is in viral relapse after we stop the medications. 2. Generalized weakness, nausea and lightheadedness, continues and is somewhat effected by a major life stressor which she and her are coping with currently. 3. Depression, may be situational and possibly increased due to the ribavirin use, the ribavirin can also be affecting her sleep which is playing a role in this situation. She is seeing a counselor as she was having suicidal thoughts. She no longer has the SI and easily contracts for safety with meand her therapist. We discussed the potential for increased suicidal thoughts when starting the ssri but she has a plan on how to deal with these if they occur, speak to her and therapist andwill stop the drug. Will try celexa 20 mg daily, will take 10mg a day for the first week, then increase to a full tab daily. 3. Anemia, stable. 4. Nausea, start zofran 4 mg po every 8 hours prn nausea which has been effective, will use prn. 5. Diabetes, her blood sugars have been high and I have encouraged her to go back to checking her blood glucose levels. I will see her back with labs in three weeks to assess her mental status, she will get labs that day including a tsh. documented in this encounter Plan of Treatment Not on file documented as of this encounter Results * TSH (07/05/2014 7:45 AM EDT) Thyroid Stimulating Hormone 3.27 0.27 - 4.20 mcIU/mL CERNER MILLENNIUM Blood specimen (specimen) 07/05/2014 7:45 AM EDT 07/05/2014 7:50 AM EDT Narrative Resulting Agency Comment Spec In Lab Govind Burrell MD CHEMISTRY ORDERABLE S [facility] * Comprehensive metabolic panel (non-fasting) (07/05/2014 7:45 AM EDT) Glucose 183 60 - 199 mg/dL CERNER MILLENNIUM Comment:Diabetes: >=200 mg/d L plus symptoms Blood Urea Nitrogen 11 8 - 18 mg/dL CERNER MILLENNIUM Creatinine 0.71 0.70 - 1.20 mg/dL CERNER MILLENNIUM Comment: Please note that the pediatric reference intervals supplied above were not validated at [facility]. Results from pediatric patients should be interpreted [...] the following links into your internet browser. [email or web address] Blood specimen (specimen) 07/05/2014 7:45 AM EDT 07/05/2014 7:50 AM EDT Narrative Resulting Agency Comment Spec In Lab Govind Burrell MD CHEMISTRY ORDERABLE S DENZEL WHITE documented in this encounter Visit Diagnoses Diagnosis Chronic hepatitis C- Primary Chronic hepatitis C without mention of hepatic coma documented in this encounter Care Teams Business Systems Lead Relationship Specialty Start Date End Date Ramo Canas MD [facility] [address] [place] [address] PCP - General 03/13/14 09/20/14 documented as of this encounter
--- OUTSIDE RECORDS SUMMARY | 2024-09-09 23:03 | XMS_ITS | Encounter Summary ---
[place] [address] Care Team Providers Care Front Office Coordinator Name Role Phone Ramo Canas MD Primary Care Provider [phone] Reason for Visit * Reason Onset Date Comments Medication Problem 04/09/2014 Encounter Details Date Type Department Care Team (Late st Contact Info) Description 04/09/2014 Tele[place] [phone] iNna Vargas, product development Problem Social History Tobacco Use Types Packs/Day Years Used Date Smoking Tobacco: Former Smokeless Tobacco: Never Sex and Gender Information Value Date Recorded Sex Assigned at Not on file Gender Identity Not on file Sexual Orientation Not on file documented as of this encounter Miscellaneous Notes * Telephone Encounter - Nina Vargas RN - 04/09/2014 3:56 PM EDT Spoke with patient in follow up to call this morning from [facility] stating drug shipment on itsway, however ribasphere was dispensed instead of ribavirin. Explained to patient we do not use thatformulation for our patients. Instructed her not to take any. [facility] pharmacist working on obtaining supply from alternate source, meanwhile [facility] in [place], [place] ([facility]) can fill. 'Script set up for provider signature. Patient had baseline labs drawn at [facility], results not yet available. When these are resulted and sheis ready to start, she will call to set up first visit w/ labs. documented in this encounter Plan of Treatment Not on file documented as of this encounter Visit Diagnoses Not on filedocumented in this encounter Care Teams Front Office Coordinator Relationship Specialty Start Date End Date Ramo Canas MD [facility] [address] [place] [address] PCP - General 03/13/14 09/20/14 documented as of this encounter
--- OUTSIDE RECORDS SUMMARY | 2024-09-09 23:04 | XMS_ITS | Encounter Summary ---
Author Organization [facility] Address [address] [place] [address] Care Team Providers Care Sales Marketing Coordinator Name Role Phone Jacklyn lCement Primary Care Provider [phone] Encounter Details Date Type Department Care Team (Late st Contact Info) Description 07/17/2019 Results Only [facility] Lab - Main [place] [address] [place] [address] Jacklyn Clement PA [address] [place] [address] Social History Tobacco Use Types Packs/Day Years Used Date Smoking Tobacco: Former Smokeless Tobacco: Never Alcohol Use Standard Drinks/Week Comments No 0 (1 standard drink = 0.6 oz pur e alcohol) Comments No Sex and Gender Information Value Date Recorded Sex Assigned at Female 08/21/2024 14:53 EST Legal Sex Female 18:57 EST Gender Identity Not on file Sexual Orientation Not on file documented as of this encounter Plan of Treatment Upcoming Encounters Date Type Department Care Team (Late st Contact Info) Description 09/14/2024 12:30 EST Initial consult [facility] OBGYN [address] [place] [address] Carolyn Zheng NP CNM [address] [facility] [address] [place] [address] 10/10/2024 6:15 EST Appointment [facility] MRI [address] [place] [address] 11/21/2024 13:30 EST Appointment [facility] Xray [address] [place] [address] 11/21/2024 14:45 EST Office Visit [facility] Orthopedics & Spine Medicine [address] [place], [place] [phone] Sangita Doss PA-C [address] [facility] [address] [place] [address] 12/20/2024 10:15 EDT Appointment [facility] Endoscopy [address] [place], [place] [address] Tom Mane MD [address] [place] [address] [address] [place] [address] documented as of this encounter Procedures Procedure Name Priority Date/Time Associated Diagnosis Comments COMPREHENSIVE METABOLIC POC - [facility] Routine 07/17/2019 10:24 EDT documented in this encounter Results * (ABNORMAL) COMPREHENSIVE METABOLIC POC - [facility] (07/17/2019 10:24 EDT) Albumin % 4.1 3.50 - 5.00 G/DL 07/18/2019 10:25 [facility] ALKALINE PHOSPHATASE - [facility] 51 38.00 - 126.00 U/L 07/18/2019 10:25 [facility] BILIRUBIN TOTAL 0.3 0.20 - 1.30 MG/DL 07/18/2019 10:25 [facility] BUN - [facility] 29(H) 7.00 - 20.00 MG/DL 07/18/2019 10:25 [facility] CALCIUM - [facility] 9.3 8.50 - 10.50 MG/DL 07/18/2019 10:25 [facility] Chloride 103 98.00 - 107.00 MMOL/L 07/18/2019 10:25 [facility] CO2 Total 28 22.00 - 30.00 MMOL/L 07/18/2019 10:25 [facility] CREATININE 1.2 0.70 - 1.50 MG/DL 07/18/2019 10:25 EDT [facility] Anion Gap 10 7 - 17 MMOL/L 07/18/2019 10:25 [facility] GLUCOSE - [facility] 100 70.00 - 100.00 MG/DL 07/18/2019 10:25 [facility] Potassium 3.6 3.50 - 5.10 MMOL/L 07/18/2019 10:25 [facility] Sodium 141 137.00 - 145.00 MMOL/L 07/18/2019 10:25 [facility] TOTAL PROTEIN - [facility] 6.6 6.30 - 8.20 G/DL 07/18/2019 10:25 [facility] SGOT/AST - [facility] 15 15.00 - 46.00 U/L 07/18/2019 10:25 [facility] SGPT/ALT - [facility] 17 13.00 - 69.00 U/L 07/18/2019 10:25 [facility] 07/17/2019 10:2 4 EDT 07/17/2019 10:24 EDT us Jacklyn SCHUSTER CHEMISTRY & BLOOD GAS ORDERAB LES Final Result [facility] documented in this encounter Visit Diagnoses Not on filedocumented in this encounter Care Teams Sales Marketing Coordinator Relationship Specialty Start Date End Date Jacklyn Clement PA [address] [place] [address] PCP - General 01/28/18 documented as of this encounter
--- OUTSIDE RECORDS SUMMARY | 2024-09-09 23:04 | XMS_ITS | Encounter Summary ---
Author Organization [facility] Address [address] [place] [address] Care Team Providers Care Accreditation Manager Name Role Phone Jacklyn Clement Primary Care Provider [phone] Encounter Details Date Type Department Care Team (Late st Contact Info) Description 07/02/2020 Results Only Imaging [facility] Radiology Results [address] [place], [place] [id number] Gosia Corado, LEYDI [address] [place] [address] Social History Tobacco Use Types Packs/Day Years Used Date Smoking Tobacco: Former Smokeless Tobacco: Never Alcohol Use Standard Drinks/Week Comments No 0 (1 standard drink = 0.6 oz pur e alcohol) Interpersonal Safety Answer Date Record ed Physically Hurt Never 04/28/2020 Verbally Threaten Not on file 04/28/2020 Comments No Sex and Gender Information Value Date Recorded Sex Assigned at Female 08/21/2024 14:53 EST Legal Sex Female 18:57 EST Gender Identity Not on file Sexual Orientation Not on file documented as of this encounter Functional Status * Because of a physical, mental, or emotional condition, does this person have difficulty doing errands alone such as visiting a doctor's office or shopping? Answer Date of Assessment Author No 11/13/2019 11:12 EST documented as of this encounter Mental Status * Because of a physical, mental, or emotional condition, does this person have serious difficulty concentrating, remembering, or making decisions? Answer Entry Date Author No 11/13/2019 11:12 EST documented in this encounter Plan of Treatment Upcoming Encounters Date Type Department Care Team (Late st Contact Info) Description 09/14/2024 12:30 EST Initial consult [facility] OBGYN [address] [place], [place] [id number] Carolyn Zheng NP CNM [address] [facility] [address] [place] [address] 10/10/2024 6:15 EST Appointment [facility] MRI [address] [place], [place] [id number] 11/21/2024 13:30 EST Appointment [facility] Xray [address] [place], [place] [id number] 11/21/2024 14:45 EST Office Visit [facility] Orthopedics & Spine Medicine [address] [place] [address] Sangita Doss PA-C [address] [facility] [address] [place] [address] 12/20/2024 10:15 EDT Appointment [facility] Endoscopy [address] [place], [place] [id number] Tom Mane MD [address] [place] [address] [address] [place] [address] documented as of this encounter Procedures Procedure Name Priority Date/Time Associated Diagnosis Comments XR SCAPULA LEFT 07/02/2020 16:06 EDT XR THORACIC SPINE 3 VIEWS 07/02/2020 16:05 EDT documented in this encounter Results * XR SCAPULA LEFT (07/02/2020 16:06 EDT) Anatomical Region Laterality Modality Left Computed Radiogr aphy 07/02/2020 16:0 3 EDT Narrative 07/02/2020 16:06 EDT ? EXAM: RADIOLOGY/SCAPULA LEFT ?EX. D/ (1558) ? CLINICAL INFORMATION: ? LEFT SCAPULA PAIN ??M89.8X1 ? R/O FRACTURE ? SCAPULA LEFT ? Signs and Symptoms/Comments: ??LEFT SCAPULA PAIN ??M89.8X1, R/O ? FRACTURE ? Comparison: Thoracic spine radiograph on 07/02/2020, 09/11/2016. ? FINDINGS: ? Left scapula: 2 views were performed. No displaced scapular fracture ? is visible. The glenohumeral and acromioclavicular joints are ? congruent with mild degenerative changes. No displaced upper left rib ? fracture is identified. No focal soft tissue abnormality is ? identified. ? IMPRESSION: ? No left scapular fracture visible. CT is more sensitive for ? nondisplaced scapular fractures. ? REPORT SIGNED IN OTHER VENDOR SYSTEM 07/02/2020 ?Reported By: Shakir Abernathy MD ? CC: ? Transcribed Date/Time: 07/02/2020 (1606) ? Hydraulics Teacher: ? Printed Date/Time: 07/02/2020 (1606) ? PAGE 1 ? Signed Report ? Procedure Note Shakir Abernathy MD - 07/02/2020 EXAM: RADIOLOGY/SCAPULA LEFT EX. D/ (1558) CLINICAL INFORMATION: LEFT SCAPULA PAIN M89.8X1 R/O FRACTURE SCAPULA LEFT Signs and Symptoms/Comments: LEFT SCAPULA PAIN M89.8X1, R/O FRACTURE Comparison: Thoracic spine radiograph on 07/02/2020, 09/11/2016. FINDINGS: Left scapula: 2 views were performed. No displaced scapularfracture is visible. The glenohumeral and acromioclavicular joints are congruent with mild degenerative changes. No displaced upper leftrib fracture is identified. No focal soft tissue abnormality is identified. IMPRESSION: No left scapular fracture visible. CT is more sensitive for nondisplaced scapular fractures. REPORT SIGNED IN OTHER VENDOR SYSTEM 07/02/2020 Reported By: Shakir Abernathy MD CC: Transcribed Date/Time: 07/02/2020 (1605) Hydraulics Teacher: Printed Date/Time: 07/02/2020 (411) PAGE 1 Signed Report Gosia Corado NP IMG DIAGNOSTIC IMAGING ORDERABLE S Final Result * XR THORACIC SPINE 3 VIEWS (07/02/2020 16:05 EDT) Anatomical Region Laterality Modality Spine Computed Radiogr aphy 07/02/2020 16:0 2 EDT Narrative 07/02/2020 16:05 EDT ? EXAM: RADIOLOGY/THORACIC SPINE 2 VIEW ? EX. D/ (9158) ? CLINICAL INFORMATION: ? BACK PAIN, STIFFNESS ? R/O FRACTURE ? THORACIC SPINE 2 VIEW ? Signs and Symptoms/Comments: ??BACK PAIN, STIFFNESS, R/O FRACTURE ? Comparison: 09/11/2016. ? FINDINGS: ? Thoracic Spine: Upright AP, lateral and swimmer's views were ? performed. There are 12 thoracic type vertebral bodies. Mild-moderate ? thoracic dextroscoliosis measures approximately 10 degrees. Old mild ? mid thoracic compression fractures versus developmental variants are ? stable compared to 2016. No acute thoracic spine fracture is visible. ? Mild-moderate multilevel degenerative disc disease and facet ? arthrosis are present. The paraspinal soft tissues are unremarkable. ? IMPRESSION: ? 1. ??Stable old mild mid thoracic compression fractures versus ? developmental variants. No acute fracture identified. ? 2. ??Mild-moderate thoracic spondylosis. ? REPORT SIGNED IN OTHER VENDOR SYSTEM 07/02/2020 ?Reported By: Shakir Abernathy MD ? CC: ? Transcribed Date/Time: 07/02/2020 (1605) ? Hydraulics Teacher: ? Printed Date/Time: 07/02/2020 (1605) ? PAGE 1 ? Signed Report ? Procedure Note Shakir Abernathy MD - 07/02/2020 EXAM: RADIOLOGY/THORACIC SPINE 2 VIEW EX. D/ (1558) CLINICAL INFORMATION: BACK PAIN, STIFFNESS R/O FRACTURE THORACIC SPINE 2 VIEW Signs and Symptoms/Comments: BACK PAIN, STIFFNESS, R/O FRACTURE Comparison: 09/11/2016. FINDINGS: Thoracic Spine: Upright AP, lateral and swimmer's views were performed. There are 12 thoracic type vertebral bodies.Mild-moderate thoracic dextroscoliosis measures approximately 10 degrees. Oldmild mid thoracic compression fractures versus developmental variantsare stable compared to 2016. No acute thoracic spine fracture isvisible. Mild-moderate multilevel degenerative disc disease and facet arthrosis are present. The paraspinal soft tissues areunremarkable. IMPRESSION: 1. Stable old mild mid thoracic compression fractures versus developmental variants. No acute fracture identified. 2. Mild-moderate thoracic spondylosis. REPORT SIGNED IN OTHER VENDOR SYSTEM 07/02/2020 Reported By: Shakir Abernathy MD CC: Transcribed Date/Time: 07/02/2020 (7125) Hydraulics Teacher: Printed Date/Time: 07/02/2020 (2680) PAGE 1 Signed Report us Gosia Corado PIG F[employer]ER IMG DIAGNOSTIC IMAGING ORDERABLE S Final Result documented in this encounter Visit Diagnoses Not on filedocumented in this encounter Care Teams Accreditation Manager Relationship Specialty Start Date End Date Jacklyn Clement PA [address] [place] [address] PCP - General 01/28/18 documented as of this encounter
--- OUTSIDE RECORDS SUMMARY | 2024-09-09 23:04 | XMS_ITS | Encounter Summary ---
Author Organization [facility] Address [address] [place] [address] Care Team Providers Care Gas Transfer Operator Name Role Phone Jacklyn Clement Primary Care Provider [phone] Encounter Details Date Type Department Care Team (Late st Contact Info) Description 04/17/2019 Historical Results Only [facility] Lab - Main [place] [address] [place] [address] Jacklyn Clement PA [address] [place] [address] Social History Tobacco Use Types Packs/Day [...] Info) Description 09/14/2024 12:30 EST Initial consult [facility] OBGYN [address] [place], [place] [phone] Carolyn Zheng NP CNM [address] [facility] [address] [place] [address] 10/10/2024 6:15 EST Appointment [facility] MRI [address] [place] [address] 11/21/2024 13:30 EST Appointment [facility] Xray [address] [place] [address] 11/21/2024 14:45 EST Office Visit [facility] Orthopedics & Spine Medicine [address] [place] [address] Sangita Doss PA-C [address] [facility] [address] [place] [address] 12/20/2024 10:15 EDT Appointment [facility] Endoscopy [address] [place] [address] Tom Mane MD [facility] [address] [place] [address] documented as of this encounter Procedures Procedure Name Priority Date/Time Associated Diagnosis Comments POCT CHOLESTEROL LDL ([facility]) Routine 04/17/2019 14:27 EDT documented in this encounter Results * (ABNORMAL) POCT CHOLESTEROL LDL ([facility]) (04/17/2019 14:27 EDT) LDL CHOLESTEROL - [facility] 123(H) 60 - 100 MG/DL 04/17/2019 14:28 EDT [facility] 04/17/2019 14:2 7 EDT 04/17/2019 14:27 EDT Jacklyn SCHUSTER POINT OF CARE TEST ORDERABLES Final Result [facility] documented in this encounter Visit Diagnoses Not on filedocumented in this encounter Care Teams Gas Transfer Operator Relationship Specialty Start Date End Date Jacklyn Clement PA [address] [place] [address] PCP - General 01/28/18 documented as of this encounter
--- OUTSIDE RECORDS SUMMARY | 2024-09-09 23:04 | XMS_ITS | Encounter Summary ---
Author Organization [facility] Address [address] [place] [address] Care Team Providers Care Optical Systems Engineer Name Role Phone Jacklyn Clement Primary Care Provider [phone] Encounter Details Date Type Department Care Team (Latest Contact Info) Description 07/06/2024 Travel Social History Tobacco Use Types Packs/Day Years [...] as of this encounter Functional Status * Are you deaf or do you have serious difficulty hearing? Answer Date of Assessment Author No 07/06/2024 18:27 EDT Oliver Miramontes RN * Because of a physical, mental, or [...] Info) Description 09/14/2024 12:30 EST Initial consult [facility] OBGYN [address] [place], [place] [address] Carolyn Zheng NP [facility] [address] [facility] [address] [place] [address] 10/10/2024 6:15 EST Appointment [facility] MRI [address] [place], [place] [id number] 11/21/2024 13:30 EST Appointment [facility] Xray [address] [place], [place] [id number] 11/21/2024 14:45 EST Office Visit [facility] Orthopedics & Spine Medicine [address] [place] [address] Sangita Doss PA-C [address] [facility] [address] [place], [place] [phone] 12/20/2024 10:15 EDT Appointment [facility] Endoscopy [address] [place], [place] [phone] Tom Mane MD [address] [place] [address] [address] [place] [phone] documented as of this encounter Visit Diagnoses Not on filedocumented in this encounter Care Teams Optical Systems Engineer Relationship Specialty Start Date End Date Jacklyn Clement PA [address] [place] [address] PCP - General 01/28/18 documented as of this encounter
--- OUTSIDE RECORDS SUMMARY | 2024-09-09 23:04 | XMS_ITS | Encounter Summary ---
Author Organization [facility] Address [address] [place] [id number] Care Team Providers Care Valving Machine Operator Name Role Phone Jacklyn Clement Primary Care Provider [phone] Reason for Referral * Radiology Services (Routine) - Closed Specialty Diagnoses / Procedures Referred By [facility] Referred To Contact Diagnoses Cervical pain Blackout spell Procedures CT ANGIO HEAD NECK PERFUSION Caitlyn Thakkar NP Phone: tel: fax: Referral ID Status Reason Start Date Expiration Date Visits Re quested Visits Authorized [id number] Closed 11/13/2019 1 1 Reason for Visit * Reason Comments Pain Encounter Details Date Type Department Care Team (Late st Contact Info) Description 11/13/2019 11:15 EST Office Visit [facility] [place] [facility]ics & Spine Medicine [address], [address] [place], [place] [address] Caitlyn Thakkar NP [address] [place] [address] Cervical pain (Primary Dx); Blackout spell Social History Tobacco Use Types Packs/Day Years [...] Sign Reading Time Taken Comments Blood Pressure 126/64 11/13/2019 1103 EST Pulse - - Temperature - - Respiratory Rate - - Oxygen Saturation - - Inhaled Oxygen Concentration - - Weight 65.8 kg (145 lb) 11/13/2019 1103 EST Height 161.3 cm (5' 3.5) 11/13/2019 1103 EST Body Mass Index 25.28 11/13/2019 1103 EST documented in this encounter Functional Status * Because of [...] 11/13/2019 11:12 EST documented in this encounter Progress Notes * Emanuel Thakkarah Elie, HAND SPRING REPAIRER - 11/13/2019 1115 EST HPI: Megan Barone is a 69 y.o. female last seen by me on 02/09/2017 for chief complaint of low back pain radiating to the right lower extremity which has since resolved with a significant amount of weight loss. At the time of her previous visit with us in 2016, she weighed approximately 230 pounds andtoday, is down to 145 with a BMI of 25. Overall, she reports that the weight loss was significantlyhelpful for her low back pain and while she does occasionally have some increase in lumbar discomfort, she feels remarkably improved with the weight loss. She is here today for a new problem. The patient reports some neck discomfort with right and left rotation as well as extension with an associated report of loss of consciousness with these maneuvers. She reports that the symptoms began in July 2019 without accident, injury, or trauma. She noted that 1 day, she turned her head to the right side and passed out for a few seconds. The symptoms have happened periodically since to the point that she avoids range of motion of her head secondary to this predictable loss of consciousness. Becky report that since the substantial loss of weight, her blood pressure has normalized and she nolonger has diabetes mellitus so these new symptoms are somewhat perplexing. She does report that when she has these episodes, it is proceeded by a severe sense of neck pain radiating to the back of her head. Currently, she reports no significant pain. She denies any radicular symptoms to her upper extremities. She denies any numbness, tingling, or sense of weakness. She denies any bowel or bladder incontinence. The severity of her pain currently is a 3-4 out of 10. Her symptoms elevate with right and left range of motion as well as extension with an associated sense of loss of consciousness. Her has accompanied her to her appointment today and reports that he has personally seen these episodes. He reports the most recent episode was 2 days prior to Bisi's 2019 when he observed her turning to climb the stairs, passed out, and fell and he reports that she was out, for approximately 5 minutes. She currently denies any symptoms of neurogenic claudication. Conservative treatment: Gabapentin, occasional Tylenol, occasional ibuprofen ROS: A five-point review of systems was completed today and of note, pertinent positives and negatives are indicated in the HPI Physical Examination: BP 126/64 (BP Cuff Location: Left arm, BP Patient Position: Sitting, BP Cuff Sizes: Adult, regular) Ht 161.3 cm (63.5) Wt 65.8 kg (145 lb) BMI 25.28 kg/m?? Pain: 3-4 over 10 General: Pleasant, cooperative, mood and affect are appropriate. Neuro: Alert and oriented to person, place, time and purpose. HEENT: Reveals no obvious pathology Respiratory: Breathing is even and unlabored Posture: Normal, upright Gait: Normal, nonantalgic. She is able to heel and toe walk without difficulty Palpation: She is nontender through the cervical spine, parascapular region, and associated paraspinals. There are no palpable masses, lesions or deformities. Skin: Intact with no stigmata of underlying disease. ROM: Deferred today Sensation: Grossly intact throughout all dermatomes of the bilateral upper extremities. Vascular: Skin is warm and pink with normal capillary refill Reflexes: Symmetric at the biceps, triceps, and brachioradialis Motor Strength: Deltoid: 5/5 bilaterally Biceps: 5/5 bilaterally Triceps: 5/5 bilaterally Wrist extension: 5/5 bilaterally Wrist Flexion: 5/5 bilaterally Vp Platforms: 5/5 bilaterally Finger Abduction: 5/5 bilaterally Finger Extension: 5/5 bilaterally Finger Flexion: 5/5 bilaterally Sprulings: Deferred Solomon Signs: 0/5 Imaging/Test results: X-rays of the cervical spine were completed on 10/10/2019 which demonstrates overall good alignment and good preservation of disc height with the exception of some degenerative disc changes at C5-6 and to a lesser extent, C6-7. Imaging was viewed and interpreted by me. Assessment: Megan Barone is a pleasant and relatively straightforward 69-year-old female with a chief complaint of neck pain with additional reports of loss of consciousness with right and left rotation as well as extension. The etiology of her symptoms are somewhat unclear but she could potentially have some transient vertebral artery compression with range of motion if they are somewhat in a tortuous pathway through the bony cervical spine structures. I discussed with the patient that it would not be unreasonable at this point to move forward with a CT angiogram to evaluate the vascular structures and I would like to see her back after this is completed for further discussion of options. In the interim, I have recommended that she be as active as possible and I have also recommended that she stop driving or operating any type of motor vehicle for now until we have a greater grasp on the etiology of her symptoms. We discussed the dangers of driving not only to herself but also to the general population been on the road. The patient verbalizes understanding and reports to me that her husbandis currently driving her where she needs to go and I would like for her to maintain this practice for the foreseeable future. We did spend at least 25 minutes today in [id number] discussion examination and in review of multiple imaging studies with greater than 50% of the visit spent in counseling them with respect to theplan moving forward. They asked appropriate questions today and all questions were answered. They understood and agreed with the plan and will follow-up as mentioned above. Diagnosis: 1. Cervical pain CT ANGIO HEAD NECK PERFUSION 2. Blackout spell CT ANGIO HEAD NECK PERFUSION Plan: 1. CT angiogram of the cervical spine 2. Follow-up with me when the above is completed for a further discussion of options CC: Primary Care Provider: Jacklyn Calixto [facility] [id number] Referring Provider: [facility] GRIS DICTATION WAS USED FOR NOTE COMPLETION. PLEASE EXCUSE ALL MISSPELLINGS AND PUNCTUATION ERRORS. GILMER Jiménez 11/13/19 [facility] Orthopedic Spine and Neurosurgery documented in this encounter Plan of Treatment Upcoming Encounters Date Type Department Care Team (Late st Contact Info) Description 09/14/2024 12:30 EST Initial consult [facility] OBGYN [address] [place] [address] Carolyn Zheng NP CNM [address] [facility] [address] [place] [address] 10/10/2024 6:15 EST Appointment [facility] MRI [address] [place], [place] [id number] 11/21/2024 13:30 EST Appointment [facility] Xray [address] [place], [place] [id number] 11/21/2024 14:45 EST Office Visit [facility] Orthopedics & Spine Medicine [address] [place], [place] [id number] Sangita Doss PA-C [address] [facility] [address] [place], [place] [address] 12/20/2024 10:15 EDT Appointment [facility] Endoscopy [address] [place], [place] [address] Tom Mane MD [address] [place] [address] [address] [place] [address] Scheduled Orders Name Type Priority Associated Diagnoses Orde r Schedule CT ANGIO HEAD NECK PERFUSION Imaging Routine Cervical pain Blackout spell Ordered: 11/13/2019 documented as of this encounter Visit Diagnoses Diagnosis Cervical pain- Primary Cervicalgia Blackout spell Syncope and collapse documented in this encounter Care Teams Valving Machine Operator Relationship Specialty Start Date End Date Jacklyn Clement PA [address] [place] [address] PCP - General 01/28/18 documented as of this encounter
--- OUTSIDE RECORDS SUMMARY | 2024-09-09 23:04 | XMS_ITS | Encounter Summary ---
Author Organization [facility] Address [address] [place] [address] Care Team Providers Care Marine Fireman Name Role Phone Jacklyn Clement Primary Care Provider [phone] Encounter Details Date Type Department Care Team (Late st Contact Info) Description 07/17/2019 Results Only [facility] - Main [place] [address] [place] [address] Jacklyn Clement PA [address] [place] [address] Social History Tobacco Use Types [...] Info) Description 09/14/2024 12:30 EST Initial consult [facility] OBGYN [address] [place] [address] Carolyn Zheng NP CNM [address] [facility] [address] [place] [address] 10/10/2024 6:15 EST Appointment [facility] MRI [address] [place] [address] 11/21/2024 13:30 EST Appointment [facility] Xray [address] [place] [address] 11/21/2024 14:45 EST Office Visit [facility] Orthopedics & Spine Medicine [address] [place], [place] [id number] Sangita Doss PA-C [address] [facility] [address] [place] [address] 12/20/2024 10:15 EDT Appointment [facility] Endoscopy [address] [place], [place] [address] Tom Mane MD [address] [place] [address] [address] [place] [address] documented as of this encounter Procedures Procedure Name Priority Date/Time Associated Diagnosis Comments LIPID PANEL POC - [facility] Routine 07/17/2019 10:24 EDT documented in this encounter Results * (ABNORMAL) LIPID PANEL POC - [facility] (07/17/2019 10:24 EDT) Triglyceride 137 0.00 - 150.00 MG/DL 07/18/2019 10:25 EDT [facility] Cholesterol 194 0.00 - 200.00 MG/DL 07/18/2019 10:25 EDT [facility] HDL 35(L) 40.00 - 60.00 MG/DL 07/18/2019 10:25 EDT [facility] 07/17/2019 10:2 4 EDT 07/17/2019 10:24 EDT us Jacklyn SCHUSTER CHEMISTRY & BLOOD GAS ORDERAB LES Final Result [facility] documented in this encounter Visit Diagnoses Not on filedocumented in this encounter Care Teams Marine Fireman Relationship Specialty Start Date End Date Jacklyn Clement PA [address] [place] [address] PCP - General 01/28/18 documented as of this encounter
--- OUTSIDE RECORDS SUMMARY | 2024-09-09 23:04 | XMS_ITS | Referral Summary ---
Author Organization [facility] Address [address] [place] [address] Care Team Providers Care [employer] Delivery Driver Name Role Phone Jacklyn Clement Primary Care Provider [phone] Encounters Date Type Department Care Team Description 08/21/2024 15:15 EST Office Visit [facility] Orthopedics & Spine Medicine [address], [address] [place] [address] Sangita Doss PA-C Lumbar radiculopathy (Primary Dx); Other osteoporosis without current pathological fracture; Acute left-sided low back pain with left-sided sciatica 08/07/2024 Telephone [facility] OBGYN [address] [place] [address] Carolyn Zheng NP CNM Appointment Related 07/06/2024 Travel 07/06/2024 18:55 EDT - 07/06/2024 20:02 EDT Emergency [facility] Emergency Department [address] [place] [address] Harry Castaneda MD Acute left-sided low back pain with left-sided sciatica (Primary Dx) Discharge Disposition: Home or Self Care 07/05/2024 12:17 EDT - 07/05/2024 23:59 EDT Hospital Encounter [facility] Ultrasound [address] [place] [address] Nontoxic single thyroid nodule Discharge Disposition: Home or Self Care 06/30/2024 [facility] [address] [place], [place] [id number] Peter Hou MD Diabetes mellitus, stable ([facility]) (Primary Dx) 06/29/2024 23:59 EDT Hospital Encounter [facility] - [facility] [place] [address] [place] [address] [employer], [facility] Diabetes mellitus, stable ([facility]) Discharge Disposition: Home or Self Care 06/29/2024 17:33 EDT - 06/29/2024 23:59 EDT Hospital Encounter [facility] - Main [place] [address] [place] [address] [employer], [facility] Discharge Disposition: Home or Self Care from Last 3 Months Allergies Active Allergy Reactions Criticality Noted Date Comments Prochlorperazine Other (See Comments) 05/06/2018 Couldn't talk, paralized feeling Lisinopril Cough 05/06/2018 Penicillins Hives 05/06/2018 Sulfa (Sulfonamide Antibiotics) Hives 11/13/2019 Topiramate 07/06/2024 Loss of balance Medications losartan (COZAAR) 50 mg tablet Take 1 Tablet by mouth daily. Active cholecalciferol, vitamin D3, (VITAMIN D3 ORAL) Take 5,000 Units by mouth daily. Active clopidogreL (PLAVIX) 75 mg tablet TAKE 1 TABLET (75 MG) BY ORAL ROUTE ONCE DAILY 023 Active atorvastatin (LIPITOR) 40 mg tablet Take 1 Tablet by mouth daily. 023 Active albuterol 90 mcg/actuation HFA aerosol inhaler inhaler INHALE 2 PUFFS EVERY 4 HOURS NEEDED FOR WHEEZING Active amLODIPine (NORVASC) 5 mg tablet TAKE 1 TABLET EVERY DAY FOR BLOOD PRESSURE 024 Active carvediloL (COREG) 6.25 mg tablet TAKE 1 TABLET (6.25 MG) BY ORAL ROUTE 2 TIMES PER DAY WITH FOOD 024 Active Cyanocobalamin (VITAMIN B-12) 1,[address] 1 tablet every day by sublingual route. Active nitroglycerin (NITROSTAT) 0.[address] 1 TABLET (0.4 MG) BY SUBLINGUAL ROUTE AT 1ST SIGN OF ATTACK; MAY REPEAT EVERY 5 MINUTES UP TO 3 TABS; IF NO RELIEF SEEK MEDICAL HELP Active OZEMPIC 0.25 mg or 0.5 mg (2 mg/3 mL) pen injector INJECT 0.5 MG BY SUBCUTANEOUS ROUTE ONCE WEEKLY ON THE SAME DAY OF EACH WEEK Active traZODone (DESYREL) 50 mg tablet Take 2-3 tablets by mouth at bedtime as needed for insomnia Active gabapentin (NEURONTIN) 600 mg tablet Take 1 capsule q am, 1 capsule q noon, 2 capsules at bedtime 120 Tablet 1 Active DULoxetine (CYMBALTA) 30 mg delayed release capsuleIndicatio ns:Lumbar radiculopathy Take 1 Capsule by mouth daily. Take 1 capsule x 2 weeks. Then, take 2 capsules daily. 30 Capsule 2 Active cyclobenzaprine (FLEXERIL) 10 mg tabletIndication s:Acute left-sided low back pain with left-sided sciatica Take 1 Tablet by mouth 3 times daily as needed for Muscle Spasms. 60 Tablet 1 Active gabapentin (NEURONTIN) 600 mg tablet Take 1 Tablet by mouth 3 times daily. 2023 Discontinued(R eorder) gabapentin (NEURONTIN) 300 mg capsuleIndicatio ns:1 1/2 tab at night Take 1 Capsule by mouth every morning. 2023 Discontinued metFORMIN (GLUCOPHAGE) 500 mg tablet Take 500 mg by mouth daily. 2023 Discontinued(P atient Stopped Taking) TRIAMTERENE ORAL Take 25 mg by mouth daily. 2023 Discontinued(P atient Stopped Taking) metoprolol (LOPRESSOR) 50 mg tablet Take 50 mg by mouth daily. 2023 Discontinued(P atient Stopped Taking) UNABLE TO FIND Take 600 mg by mouth 2 times daily. Med Name: n acetyl cysteine 2023 Discontinued(P atient Stopped Taking) ASPIRIN ORAL Take 81 mg by mouth daily. 2023 Discontinued(P atient Stopped Taking) MELATONIN ORAL Take 1 Tab by mouth daily. 2023 Discontinued(P atient Stopped Taking) triamterene-hydr ochlorothiazide (MAXZIDE) 37.5-25 mg per tablet Take 1 Tab by mouth daily. 2023 Discontinued(P atient Stopped Taking) topiramate (TOPAMAX) 100 mg tablet Take 100 mg by mouth 3 times daily. 2023 Discontinued(P atient Stopped Taking) cyclobenzaprine (FLEXERIL) 10 mg tabletIndication s:Acute left-sided low back pain with left-sided sciatica Take 1 Tablet by mouth 2 times daily as needed for Muscle Spasms. 20 Tablet 024 2023 Discontinued(R eorder) gabapentin (NEURONTIN) 600 mg tablet Take 1 Tablet by mouth 3 times daily. 90 Tablet 2 024 2023 Discontinued Active Problems Patient Care Coordination No te Formatting of this note migh t be different from the original. [facility] Memory Program DANIELLA scanned to [employer] on: 2018-05-03 Problem Noted Date Diagnosed Date Dementia ([facility]) 11/23/2019 Spondylolisthesis at L4-L5 level 11/23/2019 Memory loss 05/10/2018 Hepatitis B 05/10/2018 Overweight 05/10/2018 History of depression 05/06/2018 Hypertension 05/06/2018 Dyslipidemia 05/06/2018 History of asthma 05/06/2018 Peripheral neuropathy 10/23/2014 Thoracic or lumbosacral neur itis or radiculitis, unspecified 07/05/2014 Overview (11/23/2019): Overview: L4-5 with degenerative spondylolisthesis Diabetes mellitus ([facility]) 07/05/2014 Chronic hepatitis C ([facility]) 03/13/2014 Social History Tobacco Use Types Packs/Day Years [...] Sign Reading Time Taken Comments Blood Pressure 136/84 08/21/2024 1514 EST Pulse 77 08/21/2024 1514 EST Temperature 36.7 ??C (98 ??F) 07/06/2024 1817 EDT Respiratory Rate 18 08/21/2024 1514 EST Oxygen Saturation 98% 08/21/2024 1514 EST Inhaled Oxygen Concentration - - Weight 80.9 kg (178 lb 6.4 oz) 08/21/[address] Height 158.1 cm (5' 2.25) 08/21/2024 1514 EST Body Mass Index 32.37 08/21/2024 1514 EST Functional Status * Are you deaf or do you have serious difficulty hearing? Answer Date of Assessment Author No 07/06/2024 18:27 EDT Oliver Miramontes, RN * Because of a physical, mental, or emotional condition, does this person have difficulty doing errands alone such as visiting a doctor's office or shopping? Answer Date of Assessment Author No 11/13/2019 11:12 EST Mental Status * Because of a physical, mental, or emotional condition, does this person have serious difficulty concentrating, remembering, or making decisions? Answer Entry Date Author No 11/13/2019 11:12 EST Plan of Treatment Upcoming Encounters Date Type Department Care Team (Late st Contact Info) Description 09/14/2024 12:30 EST Initial consult [facility] OBGYN [address], [place] [id number] Carolyn Zheng NP CNM [address] [facility] [place] [address] 10/10/2024 6:15 EST Appointment [facility] MRI [address] [place] [address] 11/21/2024 13:30 EST Appointment [facility] Xray [address], [place] [id number] 11/21/2024 14:45 EST Office Visit [facility] Orthopedics & Spine Medicine [address] [place] [address] Sangita Doss PA-C [address] [facility] [address] [place], [place] [id number] 12/20/2024 10:15 EDT Appointment [facility] Endoscopy [address] [place] [address] Tom Mane MD [address] [place] [address] [address] [place] [id number] Procedures Procedure Name Priority Date/Time Associated Diagnosis Comments XR LUMBAR SPINE 4+ VIEWS Routine 08/21/2024 16:02 EST Lumbar radiculopathy US THYROID/NECK Routine 07/05/2024 12:38 EDT Nontoxic single thyroid nodule COMPREHENSIVE METABOLIC PANEL (CMP) Routine 06/29/2024 11:15 EDT Diabetes mellitus, stable (HCC-CMS) LIPID PROFILE (INCLUDES CHOLESTEROL, TRIGLYCERIDES, HDL, LDL) Routine 06/29/2024 11:15 EDT Diabetes mellitus, stable (HCC-CMS) URINE [id number] RATIO (ACR) Routine 01/16/2019 10:00 EDT from Last 3 Months or Most Recently Relevant to Health Maintenance Results * XR LUMBAR SPINE 4+ VIEWS (08/21/2024 16:02 EST) Anatomical Region Laterality Modality Computed Radiogr aphy 08/21/2024 15:5 5 EST Impressions 08/23/2024 11:55 EST 1. ?? Moderate degenerative changes of the lumbar spine. 2. ?? Straightening of the lumbar spine which may indicate muscle spasm. THIS DOCUMENT HAS BEEN ELECTRONICALLY SIGNED BY BETTIE TEMPLE MD FOR ANY QUESTIONS OR CONCERNS REGARDING THIS REPORT PLEASE CALL [facility] AT [phone] Narrative 08/23/2024 11:55 EST PROCEDURE INFORMATION: Exam: XR Lumbosacral Spine Exam date and time: 08/21/2024 3:55 PM Age: 74 years old Clinical indication: Radiculopathy, lumbar region; Low back pain; Additional info: Low back pain with radiation TECHNIQUE: Imaging protocol: Radiologic exam of the lumbosacral spine. Views: 4 or 5 views. COMPARISON: CR THORACIC SPINE 2 VIEW 07/02/2020 4:04 PM FINDINGS: Bones/joints: There is mild left lateral subluxation of L3 and L4. There is anterolisthesis of L4 on L5 measuring approximately 6 mm which is not significantly changed with flexion or extension. There is minimal retrolisthesis of L5. There is diffuse osteopenia. There is straightening of the lumbar spine. There is a levoconvex curvature of the lumbar spine. There is moderate disc space narrowing. There is moderate facet arthropathy. There are mild degenerative changes of the sacroiliac joints. There is straightening of the lumbar spine. Soft tissues: The right hemidiaphragm is mildly elevated. Organs: Cholecystectomy clips are noted. Vasculature: Mild vascular calcifications are noted. Procedure Note Bettie Temple MD - 08/23/2024 PROCEDURE INFORMATION: Exam: XR Lumbosacral Spine Exam date and time: 08/21/2024 3:55 PM Age: 74 years old Clinical indication: Radiculopathy, lumbar region; Low back pain; Additional info: Low back pain with radiation TECHNIQUE: Imaging protocol: Radiologic exam of the lumbosacral spine. Views: 4 or 5 views. COMPARISON: CR THORACIC SPINE 2 VIEW 07/02/2020 4:04 PM FINDINGS: Bones/joints: There is mild left lateral subluxation of L3 and L4. There is anterolisthesis of L4 on L5 measuring approximately 6 mm which is not significantly changed with flexion or extension. There is minimal retrolisthesis of L5. There is diffuse osteopenia. There is straightening of the lumbar spine. There is a levoconvex curvature of the lumbar spine. There is moderate disc space narrowing. There is moderate facet arthropathy. There are mild degenerative changes of the sacroiliac joints. There is straightening of the lumbar spine. Soft tissues: The right hemidiaphragm is mildly elevated. Organs: Cholecystectomy clips are noted. Vasculature: Mild vascular calcifications are noted. IMPRESSION 1. Moderate degenerative changes of the lumbar spine. 2. Straightening of the lumbar spine which may indicate muscle spasm. THIS DOCUMENT HAS BEEN ELECTRONICALLY SIGNED BY BETTIE TEMPLE MD FOR ANY QUESTIONS OR CONCERNS REGARDING THIS REPORT PLEASE CALL [facility] [phone] us Sangita Doss PA-C [facility] ORDER [id number] Final Result * US THYROID/NECK (07/05/2024 12:38 EDT) Anatomical Region Laterality Modality Neck Ultrasound 07/05/2024 14:0 9 EDT Impressions 07/05/2024 14:09 EDT TI-RADS 3 nodule measuring 2.5 x 1.8 x 1.7 cm in the mid-portion of the right thyroid lobe. Per TI-RADS guidelines, follow-up with thyroid ultrasound is recommended in 1 year. TI-RADS 4 nodule measuring less than 1.0 cm in the mid and upper of the left thyroid lobe. Per TI-RADS guidelines, no follow-up is warranted. REFERENCE: [place] FN, Kari WD, Israel EG, et al. ACR Thyroid Imaging, Reporting and Data System (TI-RADS): White Paper of the ACR TI-RADS Committee. J Am [place] Radiol. 2017 January;14(5):587-595 [id number] Narrative 07/05/2024 14:09 EDT US THYROID/NECK ??07/05/2024 12:21 PM SIGNS AND SYMPTOMS/COMMENTS: ??nontoxic single thyroid nodule COMPARISONS: None. TECHNIQUE: Grayscale and color Doppler ultrasound images of the thyroid were obtained. FINDINGS: THYROID PARENCHYMA: Normal size. Homogeneous. Normal color Doppler flow. RIGHT THYROID LOBE: 4.3 x 1.9 x 2.2 cm LEFT THYROID LOBE: 4.2 x 1.6 x 1.3 cm THYROID ISTHMUS: 0.4 cm CERVICAL LYMPH NODES: None NODULES: Thyroid nodules as outlined below. Nodule 1 ?? Location: Mid-portion of the right thyroid lobe. ?? Size: 2.5 x 1.8 x 1.7 cm. ?? Composition: ??Mixed cystic and solid (1 point) ?? Echogenicity: ??Hypoechoic (2 points) ?? Shape: Estky-irfy-julb (0 points) ?? Margin: ??Smooth (0 points) ?? Echogenic Foci: ??No echogenic foci (0 points) ?? TI-RADS category: TR 3 (3 points) Nodule 2 ?? Location: Mid-portion of the left thyroid lobe. ?? Size: 0.7 x 0.7 x 0.5 cm. ?? Composition: ??Almost completely solid (2 points) ?? Echogenicity: ??Hypoechoic (2 points) ?? Shape: Tnjio-lmiv-oavg (0 points) ?? Margin: ??Ill-defined (0 points) ?? Echogenic Foci: ??No echogenic foci (0 points) ?? TI-RADS category: TR 4 (4-6 points) Nodule 3 ?? Location: Upper pole of the left thyroid lobe. ?? Size: 0.6 x 0.4 x 0.3 cm. ?? Composition: ??Solid (2 points) ?? Echogenicity: ??Hypoechoic (2 points) ?? Shape: Vmvto-xzdl-zmnn (0 points) ?? Margin: ??Ill-defined (0 points) ?? Echogenic Foci: ??No echogenic foci (0 points) ?? TI-RADS category: TR 4 (4-6 points) Resulting Agency Comment [id number] Procedure Note Jose R Aguilar MD - 07/05/2024 US THYROID/NECK 07/05/2024 12:21 PM SIGNS AND SYMPTOMS/COMMENTS: nontoxic single thyroid nodule COMPARISONS: None. TECHNIQUE: Grayscale and color Doppler ultrasound images of the thyroidwere obtained. FINDINGS: THYROID PARENCHYMA: Normal size. Homogeneous. Normal color Doppler flow. RIGHT THYROID LOBE: 4.3 x 1.9 x 2.2 cm LEFT THYROID LOBE: 4.2 x 1.6 x 1.3 cm THYROID ISTHMUS: 0.4 cm CERVICAL LYMPH NODES: None NODULES: Thyroid nodules as outlined below. Nodule 1 Location: Mid-portion of the right thyroid lobe. Size: 2.5 x 1.8 x 1.7 cm. Composition: Mixed cystic and solid (1 point) Echogenicity: Hypoechoic (2 points) Shape: Zejbi-hwoc-uxvb (0 points) Margin: Smooth (0 points) Echogenic Foci: No echogenic foci (0 points) TI-RADS category: TR 3 (3 points) Nodule 2 Location: Mid-portion of the left thyroid lobe. Size: 0.7 x 0.7 x 0.5 cm. Composition: Almost completely solid (2 points) Echogenicity: Hypoechoic (2 points) Shape: Kfqyo-tdhg-azqq (0 points) Margin: Ill-defined (0 points) Echogenic Foci: No echogenic foci (0 points) TI-RADS category: TR 4 (4-6 points) Nodule 3 Location: Upper pole of the left thyroid lobe. Size: 0.6 x 0.4 x 0.3 cm. Composition: Solid (2 points) Echogenicity: Hypoechoic (2 points) Shape: Xzrum-ajxa-ndgm (0 points) Margin: Ill-defined (0 points) Echogenic Foci: No echogenic foci (0 points) TI-RADS category: TR 4 (4-6 points) IMPRESSION TI-RADS 3 nodule measuring 2.5 x 1.8 x 1.7 cm in the mid-portion of theright thyroid lobe. Per TI-RADS guidelines, follow-up with thyroidultrasound is recommended in 1 year. TI-RADS 4 nodule measuring less than 1.0 cm in the mid and upper of theleft thyroid lobe. Per TI-RADS guidelines, no follow-up is warranted. REFERENCE: [place] FN, Kari WD, [place] EG, et al. ACR Thyroid Imaging,Reporting and Data System (TI-RADS): White Paper of the ACR TI-RADSCommittee. J Am [place] Radiol. 2017 January;14(5):587-595 [id number] Peter Hou MD [facility] ORDERABLES Final Resul t * (ABNORMAL) LIPID PROFILE (INCLUDES CHOLESTEROL, TRIGLYCERIDES, HDL, LDL) (06/29/2024 11:15 EDT) Cholesterol 123 <200 mg/dL 06/30/2024 8:49 [facility] Comment:Note that therapeuti c goals will differ between patients based on cardiac risk factors and current medical therapy. HDL 47(L) >=50 mg/dl 06/30/2024 8:49 [facility] Comment:Note that therapeuti c goals will differ between patients based on cardiac risk factors and current medical therapy. LDL, Calculated 53 <160 mg/dL 8:49 [facility] Comment:Note that therapeuti c goals will differ between patients based on cardiac risk factors and current medical therapy. Triglyceride 113 <=150 mg/dL 06/30/2024 8:49 [facility] Comment:Note that therapeuti c goals will differ between patients based on cardiac risk factors and current medical therapy. Chol/HDL Ratio 2.6 See Note 06/30/2024 8:49 [facility] Comment: NOTE: Desirable Ratio = <4.1 Patient At Risk Ratio = >5.0(Males) ?>6.0(Females) Non HDL Cholesterol 76 <160 mg/dL 06/30/2024 8:49 [facility] Comment:Note that therapeuti c goals will differ between patients based on cardiac risk factors and current medical therapy. Blood VENOUS BLOOD / Unknown Venipuncture / Unknown 06/29/2024 11:15 EDT 06/30/2024 8:37 EDT Peter Hou MD CHEMISTRY & BLOOD GAS ORDERAB LES Final Result [facility] [address] [place] [address] * COMPREHENSIVE METABOLIC PANEL (CMP) (06/29/2024 11:15 EDT) Sodium 143 136 - 145 mmol/L 06/30/2024 8:49 [facility] Potassium 4.1 3.5 - 5.0 mmol/L 06/30/2024 8:49 [facility] Chloride 104 96 - 110 mmol/L 06/30/2024 8:49 [facility] CO2 Total 31 22 - 32 mmol/L 06/30/2024 8:49 [facility] Glucose 89 70 - 99 mg/dl 06/30/2024 8:49 [facility] BUN 20 10 - 26 mg/dL 06/30/2024 8:49 [facility] Creatinine 0.90 0.52 - 1.04 mg/dL 06/30/2024 8:49 [facility] eGFR 68 >60 mL/min/1.7 3m2 06/30/2024 8:49 [facility] Total Protein 6.6 6.3 - 8.2 g/dL 06/30/2024 8:49 [facility] Albumin 4.1 3.4 - 4.9 g/dL 06/30/2024 8:49 [facility] Alkaline Phosphatase 55 38 - 126 U/L 06/30/2024 8:49 [facility] AST 22 15 - 46 U/L 06/30/2024 8:49 [facility] ALT 17 <35 U/L 06/30/2024 8:49 [facility] Bilirubin, Total 0.5 <1.4 mg/dL 06/30/20 8:49 [facility] Calcium 9.1 8.5 - 10.5 mg/dL 06/30/2024 8:49 [facility] Albumin/Globulin Ratio 1.6 1.0 - 2.5 06/30/2024 8:49 [facility] Anion Gap 8 5 - 14 mmol/L 06/30/2024 8:49 [facility] Blood VENOUS BLOOD / Unknown Venipuncture / Unknown 06/29/2024 11:15 EDT 06/30/2024 8:37 EDT Peter Hou MD CHEMISTRY & BLOOD GAS ORDERAB LES Final Result [facility] [address] [place] [address] * (ABNORMAL) ALBUMIN, URINE (01/16/2019 10:00 EDT) Albumin, Urine 2.00(H) <1.7 mg/dL 01/16/2019 18:50 [facility] Urine Albumin to Creatinine Ratio 23.0 ug/mg 01/16/2019 18:50 [facility] Comment: Normal: <30 ug/mg Creat Microalbuminuria: 30-300 ug/mg Creat Clinical albuminuria: >300 ug/mg Creat Creatinine, Urine 86.60 mg/dL 01/16/2019 18:50 EDT [facility] 01/16/2019 10:0 0 EDT 01/16/2019 18:09 EDT Narrative [facility] - 01/16/2019 18:50 EDT Does PT Have a Latex Allergy? NO WHAT TYPE OF COLLECTION IS THIS URINE? RANDOM URINE us Jacklyn SCHUSTER CHEMISTRY & BLOOD GAS ORDERAB LES Final Result [facility] from Last 3 Months or Most Recently Relevant to Health Maintenance Insurance [facility] MEDICARE [employer] MEDICARE Care Teams [employer] Delivery Driver Relationship Specialty Start Date End Date Jacklyn Clement PA [address] [place] [id number] PCP - General 01/28/18
--- OUTSIDE RECORDS SUMMARY | 2024-09-09 23:04 | XMS_ITS | Encounter Summary ---
Author Organization [facility] Address [address] [place] [address] Care Team Providers Care Gyroscope Repairer Name Role Phone Jacklyn Clement Primary Care Provider [phone] Reason for Visit * Reason Onset Date Comments Appointment Related 08/07/2024 Encounter Details Date Type Department Care Team (Late st Contact Info) Description 08/07/2024 Telephone [facility] OBGYN [address] [place] [address] Carolyn Zheng NP [facility] [address] [facility], [address] [place] [address] Appointment Related Social History Tobacco Use Types Packs/Day Years [...] Date of Assessment Author No 07/06/2024 18:27 Oliver Ardon RN * Because of a physical, mental, [...] 11/13/2019 11:12 EST documented in this encounter Miscellaneous Notes * Telephone Encounter - Porter Prince - 08/07/2024 0700 EST Megan called to cancel appointment with Carolyn Zheng NP CNM on 08/07 at 815 due to other. Patient would like a call back to reschedule? yes documented in this encounter Plan of Treatment Upcoming Encounters Date Type Department Care Team (Late st Contact Info) Description 09/14/2024 12:30 EST Initial consult [facility] OBGYN [address] [place], [place] [id number] Carolyn Zheng NP CNM [address] [facility], [address] [place] [address] 10/10/2024 6:15 EST Appointment [facility] MRI [address] [place], [place] [id number] 11/21/2024 13:30 EST Appointment [facility] Xray [address] [place], [place] [id number] 11/21/2024 14:45 EST Office Visit [facility] Orthopedics & Spine Medicine [address] [place], [place] [address] Sangita Doss PA-C [address] [facility] [address] [place], [place] [address] 12/20/2024 10:15 EDT Appointment [facility] Endoscopy [address] [place], [place] [address] Tom Mane MD [address] [place] [address] [address] [place] [id number] documented as of this encounter Visit Diagnoses Not on filedocumented in this encounter Care Teams Gyroscope Repairer Relationship Specialty Start Date End Date Jacklyn Clement PA [address] [place] [address] PCP - General 01/28/18 documented as of this encounter
--- OUTSIDE RECORDS SUMMARY | 2024-09-09 23:04 | XMS_ITS | Clinical Summary ---
Author Organization [facility] Address [address] [place] [address] Care Team Providers Care Physiological Chemist Name Role Phone Jacklyn Clement Primary Care Provider [phone] Allergies Active Allergy Reactions Criticality Noted Date [...] (75 MG) BY ORAL ROUTE ONCE DAILY Active atorvastatin (LIPITOR) 40 mg tablet Take [...] migh t be different from the original. [facility] Memory Program DANIELLA scanned to PRISM on: 2018-05-03 Problem Noted Date Diagnosed Date Dementia ([facility]) 11/23/2019 Spondylolisthesis at L4-L5 level 11/23/2019 Memory loss 05/10/2018 Hepatitis B 05/10/2018 Overweight 05/10/2018 History of depression 05/06/2018 Hypertension 05/06/2018 Dyslipidemia 05/06/2018 History of asthma 05/06/2018 Peripheral neuropathy 10/23/2014 Thoracic or lumbosacral neur itis or radiculitis, unspecified 07/05/2014 Overview (11/23/2019): Overview: L4-5 with degenerative spondylolisthesis Diabetes mellitus ([facility]) 07/05/2014 Chronic hepatitis C ([facility]) 03/13/2014 Encounters Date Type Department Care Team Description 08/21/2024 15:15 EST Office Visit [facility] Orthopedics & Spine Medicine [address] [place] [address] Sangita Doss PA-C Lumbar radiculopathy (Primary Dx); Other osteoporosis without current pathological fracture; Acute left-sided low back pain with left-sided sciatica 08/07/2024 Telephone [facility] OBGYN [address] [place] [address] Carolyn Zheng NP CNM Appointment Related 07/06/2024 18:55 EDT - 07/06/2024 20:02 EDT Emergency [facility] Emergency Department [address] [place] [address] Harry Castaneda MD Acute left-sided low back pain with left-sided sciatica (Primary Dx) Discharge Disposition: Home or Self Care 07/06/2024 Travel 07/05/2024 12:17 EDT - 07/05/2024 23:59 EDT Hospital Encounter [facility] Ultrasound [address] [place] [address] Nontoxic single thyroid nodule Discharge Disposition: Home or Self Care 06/30/2024 [facility] [address] [place] [address] Peter Hou MD Diabetes mellitus, stable (HCC-CMS) (Primary Dx) 06/29/2024 23:59 EDT Hospital Encounter [facility] Lab - Main [place] [address] [place] [address] Community Marketing Manager, [facility] Diabetes mellitus, stable (HCC-CMS) Discharge Disposition: Home or Self Care 06/29/2024 17:33 EDT - 06/29/2024 23:59 EDT Hospital Encounter [facility] Lab - Main [place] [address] [place] [address] Community Marketing Manager, [facility] Discharge Disposition: Home or Self Care from Last 3 Months Surgical History Surgery Date Site/Laterality Comments BLADDER SUSPENSION Medical History Medical History Date Comments Depression Diabetes mellitus (HCC-CMS) Heart disease Hypertension Hepatitis B 05/10/2018 Family History Medical History Relation Comments Diabetes Brother Cancer Father Dementia Maternal Aunt Dementia Mother Diabetes Mother Cancer Sister Diabetes Sister Relation Status Comments Brother Father colon CA Maternal Aunt Mother Sister 3 sisters with l fabby CA Social History Tobacco Use Types Packs/Day Years [...] on file Sexual Orientation Not on file Obstetrics History Last Filed Vital Signs Vital Sign Reading [...] Body Mass Index 32.37 08/21/2024 1514 EST Plan of Treatment Upcoming Encounters Date Type Department Care Team (Late st Contact Info) Description 09/14/2024 12:30 EST Initial consult [facility] OBGYN [address] [place], [place] [id number] Carolyn Zheng NP CNM [address] [facility], [address] [place] [address] 10/10/2024 6:15 EST Appointment [facility] MRI [address] [place], [place] [phone] 11/21/2024 13:30 EST Appointment [facility] Xray [address] [place] [id number] 11/21/2024 14:45 EST Office Visit [facility] Orthopedics & Spine Medicine [address] [place], [place] [id number] Sangita Doss PA-C [address] [facility] [address] [place], [place] [address] 12/20/2024 10:15 EDT Appointment [facility] Endoscopy [address] [place], [place] [address] Tom Mane MD [address] [place] [address] [address] [place] [address] Health Maintenance Due Date Last Done Comments Eye Exam 1950 Foot Exam 1950 Hemoglobin A1C (Ha1C) 1950 Hepatitis C Screen 1950 RSV Immunization ( o r 60+ Years) (1 - Risk 60-74 years 1-dose series) 2012 Microalbumin/Creatinine Ratio 01/17/2020, 01/16/2019, 10/10/2018, Additional history exists Fall Risk Screening 11/13/2020 11/13/2019, 8 Lipid Profile Screening (Cholesterol) 06/29/2025 06/29/2024 COVID-19 Vaccine Completed 06/29/2024, 01/2021, 01/23/2021, Additional history exists Procedures Procedure Name Priority Date/Time Associated Diagnosis Comments XR LUMBAR SPINE 4+ VIEWS Routine 08/21/2024 16:02 EST Lumbar radiculopathy US THYROID/NECK Routine 07/05/2024 12:38 EDT Nontoxic single thyroid nodule COMPREHENSIVE METABOLIC PANEL (CMP) Routine 06/29/2024 11:15 EDT Diabetes mellitus, stable (HCC-CMS) LIPID PROFILE (INCLUDES CHOLESTEROL, TRIGLYCERIDES, HDL, LDL) Routine 06/29/2024 11:15 EDT Diabetes mellitus, stable (HCC-CMS) URINE [id number] RATIO (ACR) Routine 01/16/2019 10:00 EDT from [...] REGARDING THIS REPORT PLEASE CALL [facility] AT [phone] Narrative 08/23/2024 11:55 EST PROCEDURE INFORMATION: Exam: [...] CONCERNS REGARDING THIS REPORT PLEASE CALL [facility] [phone] us Sangita Doss PA-C IMG DIAGNOSTIC IMAGING ORDER JAGJIT Final Result * [...] TI-RADS guidelines, no follow-up is warranted. REFERENCE: Florindasler FN, Kari WD, Israel EG, et al. ACR Thyroid Imaging, Reporting and Data System (TI-RADS): White Paper of the ACR TI-RADS Committee. J Am [place] Radiol. 2017 January;14(5):587-595 [id number] Narrative 07/05/2024 14:09 EDT US THYROID/NECK ??07/05/2024 [...] ?? Echogenicity: ??Hypoechoic (2 points) ?? Shape: Rnzae-ogzz-dcqk (0 points) ?? Margin: ??Smooth (0 points) ?? Echogenic Foci: ??No echogenic foci (0 points) ?? TI-RADS category: TR 3 (3 points) Nodule 2 ?? Location: Mid-portion of the left thyroid lobe. ?? Size: 0.7 x 0.7 x 0.5 cm. ?? Composition: ??Almost completely solid (2 points) ?? Echogenicity: ??Hypoechoic (2 points) ?? Shape: Wrcrs-jutb-etlz (0 points) ?? Margin: ??Ill-defined (0 points) ?? Echogenic Foci: ??No echogenic foci (0 points) ?? TI-RADS category: TR 4 (4-6 points) Nodule 3 ?? Location: Upper pole of the left thyroid lobe. ?? Size: 0.6 x 0.4 x 0.3 cm. ?? Composition: ??Solid (2 points) ?? Echogenicity: ??Hypoechoic (2 points) ?? Shape: Qlwdm-djdn-ucxq (0 points) ?? Margin: ??Ill-defined (0 points) ?? Echogenic Foci: ??No echogenic foci (0 points) ?? TI-RADS category: TR 4 (4-6 points) Resulting Agency Comment [id number] Procedure Note Jose R Aguilar MD - [...] (1 point) Echogenicity: Hypoechoic (2 points) Shape: Iejep-nqhy-rvcl (0 points) Margin: Smooth (0 points) Echogenic Foci: No echogenic foci (0 points) TI-RADS category: TR 3 (3 points) Nodule 2 Location: Mid-portion of the left thyroid lobe. Size: 0.7 x 0.7 x 0.5 cm. Composition: Almost completely solid (2 points) Echogenicity: Hypoechoic (2 points) Shape: Fyomk-qgwy-fzig (0 points) Margin: Ill-defined (0 points) Echogenic Foci: No echogenic foci (0 points) TI-RADS category: TR 4 (4-6 points) Nodule 3 Location: Upper pole of the left thyroid lobe. Size: 0.6 x 0.4 x 0.3 cm. Composition: Solid (2 points) Echogenicity: Hypoechoic (2 points) Shape: Xkptd-wheb-axqi (0 points) Margin: Ill-defined (0 points) Echogenic [...] TI-RADS guidelines, no follow-up is warranted. REFERENCE: Florindasler FN, Kari WD, Israel EG, et al. ACR Thyroid Imaging,Reporting and Data System (TI-RADS): White Paper of the ACR TI-RADSCommittee. J Am [place] Radiol. 2017 January;14(5):587-595 [id number] us Peter Hou MD [facility] ORDERABLES Final Resul t * (ABNORMAL) LIPID PROFILE (INCLUDES CHOLESTEROL, TRIGLYCERIDES, HDL, LDL) (06/29/2024 11:15 EDT) Cholesterol 123 <200 mg/dL 06/30/2024 8:49 EDT [facility] Comment:Note that therapeuti c goals will differ between patients based on cardiac risk factors and current medical therapy. HDL 47(L) >=50 mg/dl 06/30/2024 8:49 [facility] Comment:Note that therapeuti c goals will differ between patients based on cardiac risk factors and current medical therapy. LDL, Calculated 53 <160 mg/dL 8:49 [facility] Comment:Note that therapeuti c goals will differ between patients based on cardiac risk factors and current medical therapy. Triglyceride 113 <=150 mg/dL 06/30/2024 8:49 [facility] Comment:Note that therapeuti c goals will differ between patients based on cardiac risk factors and current medical therapy. Chol/HDL Ratio 2.6 See Note 06/30/2024 8:49 [facility] Comment: NOTE: Desirable Ratio = <4.1 Patient At Risk Ratio = >5.0(Males) ?>6.0(Females) Non HDL Cholesterol 76 <160 mg/dL 06/30/2024 8:49 [facility] Comment:Note that therapeuti c goals will differ between patients based on cardiac risk factors and current medical therapy. Blood VENOUS BLOOD / Unknown Venipuncture / Unknown 06/29/2024 11:15 EDT 06/30/2024 8:37 EDT Peter Hou MD CHEMISTRY & BLOOD GAS ORDERAB LES Final Result [facility] [address] [place] [address] * COMPREHENSIVE METABOLIC PANEL (CMP) (06/29/2024 11:15 EDT) Sodium 143 136 - 145 mmol/L 06/30/2024 8:49 [facility] Potassium 4.1 3.5 - 5.0 mmol/L 06/30/2024 8:49 [facility] Chloride 104 96 - 110 mmol/L 06/30/2024 8:49 [facility] CO2 Total 31 22 - 32 mmol/L 06/30/2024 8:49 [facility] Glucose 89 70 - 99 mg/dl 06/30/2024 8:49 [facility] BUN 20 10 - 26 mg/dL 06/30/2024 8:49 [facility] Creatinine 0.90 0.52 - 1.04 mg/dL 06/30/2024 8:49 [facility] eGFR 68 >60 mL/min/1.7 3m2 06/30/2024 8:49 [facility] Total Protein 6.6 6.3 - 8.2 g/dL 06/30/2024 8:49 [facility] Albumin 4.1 3.4 - 4.9 g/dL 06/30/2024 8:49 [facility] Alkaline Phosphatase 55 38 - 126 U/L 06/30/2024 8:49 [facility] AST 22 15 - 46 U/L 06/30/2024 8:49 [facility] ALT 17 <35 U/L 06/30/2024 8:49 [facility] Bilirubin, Total 0.5 <1.4 mg/dL 06/30/20 8:49 [facility] Calcium 9.1 8.5 - 10.5 mg/dL 06/30/2024 8:49 [facility] Albumin/Globulin Ratio 1.6 1.0 - 2.5 06/30/2024 8:49 [facility] Anion Gap 8 5 - 14 mmol/L 06/30/2024 8:49 [facility] Blood VENOUS BLOOD / Unknown Venipuncture / Unknown 06/29/2024 11:15 EDT 06/30/2024 8:37 EDT us Peter Hou MD CHEMISTRY & BLOOD GAS ORDERAB LES Final Result [facility] [address] [place] [address] * (ABNORMAL) ALBUMIN, URINE (01/16/2019 10:00 EDT) Albumin, Urine 2.00(H) <1.7 mg/dL 01/16/2019 18:[address] [facility] Urine Albumin to Creatinine Ratio 23.0 ug/mg 01/16/2019 18:[address] [facility] Comment: Normal: <30 ug/mg Creat Microalbuminuria: 30-300 ug/mg Creat Clinical albuminuria: >300 ug/mg Creat Creatinine, Urine 86.60 mg/dL 01/16/2019 18:[address] [facility] 01/16/2019 10:0 0 EDT 01/16/2019 18:[address] [facility] - 01/16/2019 18:50 EDT Does PT Have a Latex Allergy? NO WHAT TYPE OF COLLECTION IS THIS URINE? RANDOM URINE us Jacklyn SCHUSTER CHEMISTRY & BLOOD GAS ORDERAB LES Final Result [facility] from Last 3 Months or Most Recently Relevant to Health Maintenance [place] [address] [place] [address] MEDICARE [facility] MEDICARE [employer] MEDICARE Care Teams Physiological Chemist Relationship Specialty Start Date End Date Jacklyn Clement PA [address] [place] [id number] PCP - General 01/28/18
--- OUTSIDE RECORDS SUMMARY | 2024-09-09 23:04 | XMS_ITS | Encounter Summary ---
Author Organization [facility] Address [address] [place] [address] Care Team Providers Care Prop Drawer Name Role Phone Jacklyn Clement Primary Care Provider [phone] Encounter Details Date Type Department Care Team (Latest Contact Info) Description 11/13/2019 Travel Social History Tobacco Use Types Packs/Day [...] Info) Description 09/14/2024 12:30 EST Initial consult [facility] OBGYN [address] [place] [address] Carolyn Zheng NP CN [address] [facility] [place] [address] 10/10/2024 6:15 EST Appointment [facility] MRI [address] [place] [address] 11/21/2024 13:30 EST Appointment [facility] Xray [address] [place], [place] [address] 11/21/2024 14:45 EST Office Visit [facility] Orthopedics & Spine Medicine [address] [place] [address] Sangita Doss PA-C [address] [facility] [address] [place], [place] [id number] 12/20/2024 10:15 EDT Appointment [facility] Endoscopy [address] [place], [place] [address] Tom Mane MD [address] [place] [address] [address] [place] [phone] documented as of this encounter Visit Diagnoses Not on filedocumented in this encounter Care Teams Prop Drawer Relationship Specialty Start Date End Date Jacklyn Clement PA [address] [place] [address] PCP - General 01/28/18 documented as of this encounter
--- OUTSIDE RECORDS SUMMARY | 2024-09-09 23:04 | XMS_ITS | Encounter Summary ---
Author Organization [facility] Address [address] [place] [address] Care Team Providers Care Health Promotion Coordinator Name Role Phone Jacklyn Clement Primary Care Provider [phone] Reason for Visit * (Routine) - Receiving Office to Obtain Authorization Specialty Diagnoses / Procedures Referred By Gutierrez t Referred To Contact Procedures CT OUTSIDE IMAGES NEURO Unknown, Provider, MD Referral ID Status Reason Start Date Expiration Date Visits Requested Visits Authorized [id number] Receiving Office to Obtain Authorization 11/24/2019 1 1 Encounter Details Date Type Department Care Team (Latest Contact Info) Description 11/21/2019 - 11/21/2019 23:59 EST Hospital Encounter [facility] Radiology - Main [place] [address] [place] [address] Discharge Disposition: Home or Self Care Social History Tobacco Use Types Packs/Day Years [...] 11/13/2019 11:12 EST documented in this encounter Medications at Time of Discharge cholecalciferol, vitamin D3, (VITAMIN D3 ORAL) Take 5,000 Units by mouth daily. losartan (COZAAR) 50 mg tablet Take 1 Tablet by mouth daily. ASPIRIN ORAL Take 81 mg by mouth daily. 08/21/2024 gabapentin (NEURONTIN) 300 mg capsuleIndicatio ns:1 1/2 tab at night Take 1 Capsule by mouth every morning. 08/21/2024 gabapentin (NEURONTIN) 600 mg tablet Take 1 Tablet by mouth 3 times daily. 08/21/2024 MELATONIN ORAL Take 1 Tab by mouth daily. 08/21/2024 metFORMIN (GLUCOPHAGE) 500 mg tablet Take 500 mg by mouth daily. 08/21/2024 metoprolol (LOPRESSOR) 50 mg tablet Take 50 mg by mouth daily. 08/21/2024 TRIAMTERENE ORAL Take 25 mg by mouth daily. 08/21/2024 UNABLE TO FIND Take 600 mg by mouth 2 times daily. Med Name: n acetyl cysteine 08/21/2024 documented as of this encounter Discharge Disposition Disposition Code Departure Means Destination Home or Self Care documented in this encounter Plan of Treatment Upcoming Encounters Date Type Department Care Team (Late st Contact Info) Description 09/14/2024 12:30 EST Initial consult [facility] OBGYN [address] [place] [address] Carolyn Zheng NP CN [address] [facility], [address] [place] [address] 10/10/2024 6:15 EST Appointment [facility] MRI [address] [place], [place] [id number] 11/21/2024 13:30 EST Appointment [facility] Xray [address] [place] [id number] 11/21/2024 14:45 EST Office Visit [facility] Orthopedics & Spine Medicine [address] [place] [address] Sangita Doss PA-C [address] [facility] [address] [place], [place] [phone] 12/20/2024 10:15 EDT Appointment [facility] [place] [address] [place] [address] Tom Mane MD [address] [place] [address] [address] [place] [phone] documented as of this encounter Procedures Procedure Name Priority Date/Time Associated Diagnosis Comments CT OUTSIDE IMAGES NEURO Routine 11/24/2019 15:22 EST documented in this encounter Results * CT OUTSIDE IMAGES NEURO (11/24/2019 15:22 EST) Narrative [facility] - 11/24/2019 15:22 EST This is a non-reportable exam. us Physician Fa_General IMG OTHER IMAGING ORDERA BLES Final Result Performing Organization Address City/State/[facility] Co de Phone Number KATIE documented in this encounter Visit Diagnoses Not on filedocumented in this encounter Care Teams Health Promotion Coordinator Relationship Specialty Start Date End Date Jacklyn Clement PA [address] [place] [address] PCP - General 01/28/18 documented as of this encounter
--- OUTSIDE RECORDS SUMMARY | 2024-09-09 23:04 | XMS_ITS | Encounter Summary ---
Author Organization [facility] Address [address] [place] [address] Care Team Providers Care Mosquito Sprayer Name Role Phone Jacklyn Clement Primary Care Provider [phone] Encounter Details Date Type Department Care Team (Late st Contact Info) Description 07/17/2019 Results Only [facility] Lab - Main [place] [address] [place] [address] Jacklyn Clement PA [address] [place] [address] Social History Tobacco Use Types [...] Info) Description 09/14/2024 12:30 EST Initial consult [facility] OBGYN [address] [place] [address] Carolyn Zheng NP CNM [address] [facility] [place] [address] 10/10/2024 6:15 EST Appointment [facility] MRI [address] [place] [address] 11/21/2024 13:30 EST Appointment [facility] Xray [address] [place] [address] 11/21/2024 14:45 EST Office Visit [facility] Orthopedics & Spine Medicine [address] [place] [address] Sangita Doss PA-C [address] [facility] [address] [place] [address] 12/20/2024 10:15 EDT Appointment [facility] Endoscopy [address] [place] [address] Tom Mane MD [facility] [address] [place] [address] documented as of this encounter Procedures Procedure Name Priority Date/Time Associated Diagnosis Comments [facility] [place] Rout[place] 07/17/2019 10:24 EDT documented in this encounter Results * [facility] [place] (07/17/2019 10:24 EDT) Magnesium 2.10 1.60 - 2.30 MG/DL 07/18/2019 10:25 EDT [facility] 07/17/2019 10:2 4 EDT 07/17/2019 10:24 EDT Jacklyn SCHUSTER CHEMISTRY & BLOOD GAS ORDERAB LES Final Result [facility] documented in this encounter Visit Diagnoses Not on filedocumented in this encounter Care Teams Mosquito Sprayer Relationship Specialty Start Date End Date Jacklyn Clement PA [address] [place] [address] PCP - General 01/28/18 documented as of this encounter
--- OUTSIDE RECORDS SUMMARY | 2024-09-09 23:04 | XMS_ITS | Encounter Summary ---
Author Organization [facility] Address [address] [place] [address] Care Team Providers Care Creative Consultant Name Role Phone Jacklyn Clement Primary Care Provider [phone] Encounter Details Date Type Department Care Team (Late st Contact Info) Description 10/10/2019 Results Only Imaging [facility] Radiology Results [address] [place] [address] Jacklyn Clement PA [address] [place] [address] Social History Tobacco Use Types [...] Info) Description 09/14/2024 12:30 EST Initial consult [facility] OBGYN [address] [place] [address] Carolyn Zheng NP CNM 130 [facility] [place] [address] 10/10/2024 6:15 EST Appointment [facility] MRI [address] [place] [address] 11/21/2024 13:30 EST Appointment [facility] Xray [address] [place] [address] 11/21/2024 14:45 EST Office Visit [facility] Orthopedics & Spine Medicine [address] [place] [address] Sangita Doss PA-C [address] [facility] [address] [place] [address] 12/20/2024 10:15 EDT Appointment [facility] Endoscopy [address] [place] [address] Tom Mane MD [address] [place] [address] [address] [place] [address] documented as of this encounter Procedures Procedure Name Priority Date/Time Associated Diagnosis Comments XR CERVICAL SPINE 4-5 VIEWS 10/10/2019 20:32 EST documented in this encounter Results * XR CERVICAL SPINE 4-5 VIEWS (10/10/2019 20:32 EST) Anatomical Region Laterality Modality Left Other 10/10/2019 20:2 9 EST Narrative 10/10/2019 20:32 EST ? EXAM: RADIOLOGY/CERVICAL SPINE 4 OR 5 VIE EX. D/ (1120) ? CLINICAL INFORMATION: ? M54.2 EPISODIC SEVERE NECK PAIN ASSOCIATED ? W/LOC X 2 ? INDICATION: M54.2 EPISODIC SEVERE NECK PAIN ASSOCIATED, W/LOC X 2 ? NECK PAIN ? TECHNIQUE: 5 views cervical spine ? COMPARISON: None ? FINDINGS: No acute fracture is detected. There is minimal ? degenerative retrolisthesis at C3-C4 and retrolisthesis at C5-C6. The ? spinal alignment is otherwise anatomic. The vertebral body heights ? are maintained. There is no abnormal prevertebral soft tissue ? swelling. There is moderate disc space narrowing at C5-C6 and C6-C7 ? and mild disc space narrowing at C3-C4. Mild facet arthrosis is ? scattered throughout the cervical spine. Note is made of bilateral ? osseous foraminal encroachment at C5-C6 and C6-C7 bilaterally. ? IMPRESSION: ? Degenerative spondylosis of the cervical spine, most advanced at C5-6 ? and C6-C7. ? REPORT SIGNED IN OTHER VENDOR SYSTEM 10/10/2019 ?Reported By: Yobany Lynne MD ? CC: ? Transcribed Date/Time: 10/10/2019 (2031) ? Tin Can Feeder: ? Printed Date/Time: 10/10/2019 (2031) ? PAGE 1 ? Signed Report ? Procedure Note Yobany Lynne MD - 10/10/2019 EXAM: RADIOLOGY/CERVICAL SPINE 4 OR 5 VIE EX. D/ (1120) CLINICAL INFORMATION: M54.2 EPISODIC SEVERE NECK PAIN ASSOCIATED W/LOC X 2 INDICATION: M54.2 EPISODIC SEVERE NECK PAIN ASSOCIATED, W/LOC X 2 NECK PAIN TECHNIQUE: 5 views cervical spine COMPARISON: None FINDINGS: No acute fracture is detected. There is minimal degenerative retrolisthesis at C3-C4 and retrolisthesis at C5-C6.The spinal alignment is otherwise anatomic. The vertebral body heights are maintained. There is no abnormal prevertebral soft tissue swelling. There is moderate disc space narrowing at C5-C6 and C6-C7 and mild disc space narrowing at C3-C4. Mild facet arthrosis is scattered throughout the cervical spine. Note is made of bilateral osseous foraminal encroachment at C5-C6 and C6-C7 bilaterally. IMPRESSION: Degenerative spondylosis of the cervical spine, most advanced atC5-6 and C6-C7. REPORT SIGNED IN OTHER VENDOR SYSTEM 10/10/2019 Reported By: Yobany Lynne MD CC: Transcribed Date/Time: 10/10/2019 (2031) Tin Can Feeder: Printed Date/Time: 10/10/2019 (2031) PAGE 1 Signed Report Jacklyn SCHUSTER IMG DIAGNOSTIC IMAGING ORDERA BLES Final Result documented in this encounter Visit Diagnoses Not on filedocumented in this encounter Care Teams Creative Consultant Relationship Specialty Start Date End Date Jacklyn Clement PA [address] [place] [id number] PCP - General 01/28/18 documented as of this encounter
--- OUTSIDE RECORDS SUMMARY | 2024-09-09 23:04 | XMS_ITS | Encounter Summary ---
Author Organization [facility] Address [address] [place] [address] Care Team Providers Care Seed Cleaning Machine Operator Name Role Phone Jacklyn Clement Primary Care Provider [phone] Encounter Details Date Type Department Care Team (Late st Contact Info) Description 04/17/2019 Historical Results Only [facility] - [place] [address] [place] [address] Jacklyn Clement PA [address] [place] [address] Social History Tobacco Use Types Packs/Day [...] Info) Description 09/14/2024 12:30 EST Initial consult [facility] OBGYN [address] [place], [place] [id number] Carolyn Zheng NP CNM [address] [facility] [address] [place] [address] 10/10/2024 6:15 EST Appointment [facility] MRI [address] [place] [address] 11/21/2024 13:30 EST Appointment [facility] Xray [address] [place] [address] 11/21/2024 14:45 EST Office Visit [facility] Orthopedics & Spine Medicine [address] [place] [address] Sangita Doss PA-C [address] [facility] [address] [place] [address] 12/20/2024 10:15 EDT Appointment [facility] Endoscopy [address] [place] [address] Tom Mane MD [facility] [address] [place] [address] documented as of this encounter Procedures Procedure Name Priority Date/Time Associated Diagnosis Comments GLYCOHEMOGLOBIN POC - [facility] Routine 04/17/2019 14:27 EDT documented in this encounter Results * GLYCOHEMOGLOBIN POC - [facility] (04/17/2019 14:27 EDT) Hemoglobin A1c 5.6 4.0 - 6.0 % 04/17/2019 14:28 EDT [facility] AVG CALCULATED GLUCOSE - [facility] 106 60 - 115 MG/DL 04/17/2019 14:28 EDT [facility] 04/17/2019 14:2 7 EDT 04/17/2019 14:27 EDT Jacklyn SCHUSTER CHEMISTRY & BLOOD GAS ORDERAB LES Final Result [facility] documented in this encounter Visit Diagnoses Not on filedocumented in this encounter Care Teams Seed Cleaning Machine Operator Relationship Specialty Start Date End Date Jacklyn Clement PA [address] [place] [address] PCP - General 01/28/18 documented as of this encounter
--- OUTSIDE RECORDS SUMMARY | 2024-09-09 23:04 | XMS_ITS | Encounter Summary ---
Author Organization [facility] Address [address] [place] [address] Care Team Providers Care Review Engineer Name Role Phone Jacklyn Clement Primary Care Provider [phone] Encounter Details Date Type Department Care Team (Late st Contact Info) Description 06/30/2024 [facility] [address] [place] [address] Peter Hou MD [facility] [address] [place] [address] Diabetes mellitus, stable ([facility]) (Primary Dx) Social History Tobacco Use Types Packs/Day Years Used Date Smoking Tobacco: Never Assessed Interpersonal Safety Answer Date Record ed Physically [...] Info) Description 09/14/2024 12:30 EST Initial consult [facility] OBGYN [address] [place] [address] Carolyn Zheng NP CNM [address] [facility] [address] [place] [address] 10/10/2024 6:15 EST Appointment [facility] MRI [address] [place] [address] 11/21/2024 13:30 EST Appointment [facility] Xray [address] [place], [place] [id number] 11/21/2024 14:45 EST Office Visit [facility] Orthopedics & Spine Medicine [address] [place] [address] Sangita Doss PA-C [address] [facility] [address] [place] [address] 12/20/2024 10:15 EDT Appointment [facility] Endoscopy [address] [place], [place] [phone] Tom Mane MD [address] [place] [address] [address] [place] [address] documented as of this encounter Results * COMPREHENSIVE METABOLIC PANEL (CMP) (06/29/2024 11:15 EDT) Sodium 143 136 - 145 mmol/L 06/30/2024 8:49 [facility] Potassium 4.1 3.5 - 5.0 mmol/L 06/30/2024 8:49 [facility] Chloride 104 96 - 110 mmol/L 06/30/2024 8:49 [facility] CO2 Total 31 22 - 32 mmol/L 06/30/2024 8:49 [facility] Glucose 89 70 - 99 mg/dl 06/30/2024 8:49 [facility] BUN 20 10 - 26 mg/dL 06/30/2024 8:49 [facility] Creatinine 0.90 0.52 - 1.04 mg/dL 06/30/2024 8:49 [facility] eGFR 68 >60 mL/min/1.7 3m2 06/30/2024 8:49 [facility] Total Protein 6.6 6.3 - 8.2 g/dL 06/30/2024 8:49 [facility] Albumin 4.1 3.4 - 4.9 g/dL 06/30/2024 8:49 [facility] Alkaline Phosphatase 55 38 - 126 U/L 06/30/2024 8:49 [facility] AST 22 15 - 46 U/L 06/30/2024 8:49 [facility] ALT 17 <35 U/L 06/30/2024 8:49 [facility] Bilirubin, Total 0.5 <1.4 mg/dL 06/30/20 8:49 [facility] Calcium 9.1 8.5 - 10.5 mg/dL 06/30/2024 8:49 [facility] Albumin/Globulin Ratio 1.6 1.0 - 2.5 06/30/2024 8:49 [facility] Anion Gap 8 5 - 14 mmol/L 06/30/2024 8:49 [facility] Blood VENOUS BLOOD / Unknown Venipuncture / Unknown 06/29/2024 11:15 EDT 06/30/2024 8:37 EDT us Peter Hou MD CHEMISTRY & BLOOD GAS ORDERAB LES Final Result [facility] [address] [place] [address] * (ABNORMAL) LIPID PROFILE (INCLUDES CHOLESTEROL, TRIGLYCERIDES, HDL, LDL) (06/29/2024 11:15 EDT) Cholesterol 123 <200 mg/dL 06/30/2024 8:49 [facility] Comment:Note that therapeuti c goals will differ between patients based on cardiac risk factors and current medical therapy. HDL 47(L) >=50 mg/dl 06/30/2024 8:49 [facility] Comment:Note that therapeuti c goals will differ between patients based on cardiac risk factors and current medical therapy. LDL, Calculated 53 <160 mg/dL 8:49 [facility] Comment:Note that therapeuti c goals will differ between patients based on cardiac risk factors and current medical therapy. Triglyceride 113 <=150 mg/dL 06/30/2024 8:49 [facility] Comment:Note that therapeuti c goals will differ between patients based on cardiac risk factors and current medical therapy. Chol/HDL Ratio 2.6 See Note 06/30/2024 8:49 [facility] Comment: NOTE: Desirable Ratio = <4.1 Patient At Risk Ratio = >5.0(Males) ?>6.0(Females) Non HDL Cholesterol 76 <160 mg/dL 06/30/2024 8:49 [facility] Comment:Note that therapeuti c goals will differ between patients based on cardiac risk factors and current medical therapy. Blood VENOUS BLOOD / Unknown Venipuncture / Unknown 06/29/2024 11:15 EDT 06/30/2024 8:37 EDT us Peter Hou MD CHEMISTRY & BLOOD GAS ORDERAB LES Final Result [facility] [address] [place] [address] documented in this encounter Visit Diagnoses Diagnosis Diabetes mellitus, stable ([facility] Primary Type II or unspecified type diabetes mellitus without mention of complication, not stated as uncontrolled documented in this encounter Care Teams Review Engineer Relationship Specialty Start Date End Date Jacklyn Clement PA [address] [place] [address] PCP - General 01/28/18 documented as of this encounter
--- OUTSIDE RECORDS SUMMARY | 2024-09-09 23:04 | XMS_ITS | Encounter Summary ---
Author Organization [facility] Address [address] [place] [address] Care Team Providers Care Wet Char Conveyor Tender Name Role Phone Jacklyn Clement Primary Care Provider [phone] Reason for Referral * Medication Prior Authorization - Closed Specialty Diagnoses / Procedures Referred By Contac t Referred To Contact Diagnoses Acute left-sided low back pain with left-sided sciatica Sangita Doss PA-C [address] [place] [address] Phone: tel: fax: Referral ID Status Reason Start Date Expiration Date Visits Re quested Visits Authorized [id number] Closed 1 1 * Radiology Services (Routine/Next Available) - New Request Specialty Diagnoses / Procedures Referred By Contac t Referred To Contact Diagnoses Other osteoporosis without current pathological fracture Procedures DXA BONE DENSITY Sangita Doss PA-C [address] [place] [address] Phone: tel: fax: [facility] Referral ID Status Reason Start Date Expiration Date V isits Requested Visits Authorized [id number] New Request 08/21/2024 1 1 * Radiology Services (Routine/Next Available) - Authorized Specialty Diagnoses / Procedures Referred By Contac t Referred To Contact Radiology Diagnoses Lumbar radiculopathy Procedures MR LUMBAR SPINE WO CONTRAST Sangita Doss PA-C [address] [place] [address] Phone: tel: fax: [facility] Referral ID Status Reason Start Date Expiration Date V isits Requested Visits Authorized [id number] Authorized 08/23/2024 11/21/2024 1 1 Reason for Visit * Reason Comments New Patient Visit Pain * Consult (Routine/Next Available) - Authorization Not Required Specialty Diagnoses / Procedures Referred By Contac t Referred To Contact Orthopedic Surgery Diagnoses Acute left-sided low back pain with left-sided sciatica Harry Castaneda MD [address] [place] [address] Phone: tel: fax: [facility] [address] [place] [address] Phone: tel: fax: Referral ID Status Reason Start Date Expiration Date Visits Requested Visits Authorized [id number] Authorization Not Required Specialty Services Required 07/06/20 24 1 1 Encounter Details Date Type Department Care Team (Late st Contact Info) Description 08/21/2024 15:[address] [facility] [address], [address] [place] [address] Sangita Doss PA-C [address] [place] [address] [place] [address] Lumbar radiculopathy (Primary Dx); Other osteoporosis without current pathological fracture; Acute left-sided low back pain with left-sided sciatica Social History Tobacco Use Types Packs/Day Years [...] EST Pulse 77 08/21/2024 1514 EST Temperature - - Respiratory Rate 18 08/21/2024 1514 EST Oxygen Saturation 98% 08/21/2024 1514 EST Inhaled Oxygen Concentration - - Weight 80.9 kg (178 lb 6.4 oz) 08/21/[address] Height 158.1 cm (5' 2.25) 08/21/2024 1514 EST Body Mass Index 32.37 08/21/2024 1514 EST documented in this encounter Functional Status * Are you [...] 11/13/2019 11:12 EST documented in this encounter Ordered Prescriptions Prescription Sig Dispense Quantity Refills Last Filled Start Date End Date cyclobenzaprine (FLEXERIL) 10 mg tabletIndications:A cute left-sided low back pain with left-sided sciatica Take 1 Tablet by mouth 3 times daily as needed for Muscle Spasms. 60 Tablet 1 08/21/2024 DULoxetine (CYMBALTA) 30 mg delayed release capsuleIndications: Lumbar radiculopathy Take 1 Capsule by mouth daily. Take 1 capsule x 2 weeks. Then, take 2 capsules daily. 30 Capsule 2 08/21/2024 gabapentin (NEURONTIN) 600 mg tablet Take 1 capsule q am, 1 capsule q noon, 2 capsules at bedtime 120 Tablet 1 08/21/2024 gabapentin (NEURONTIN) 600 mg tablet Take 1 Tablet by mouth 3 times daily. 90 Tablet 2 08/21/2024 documented in this encounter Progress Notes * Sangita Doss PA-C - 08/21/2024 1515 EST Images from the original note were not included. 08/21/2024 PATIENT: Megan Marie Primary Care Provider: Jacklyn Clement [address] [facility] [address] Referring Provider: Harry Castaneda MD [address] [place] [phone] CHIEF COMPLAINT New Patient Visit and Pain of the Lower Back HISTORY OF PRESENT ILLNESS Megan Marie is a very pleasant 74 y.o. female with a past medical history of hypertension, asthma, diabetes, hip be, depression, memory loss, dementia, peripheral neuropathy who presentswith low back pain with radiation into the left lower extremity. Back pain has been present x 5 years. She [place] 3 [place] and began to develop leg pain. She has some difficulty with urgency with dribbling but no ania urinary retension, bowel/bladder incontinence, or saddle anesthesia. Patient was seen and evaluated in the ED on 07/06/2024. She was treated with prednisone and cyclobenzaprine and discharged. These medications helped for about a week until symptoms returned. Treatments to date for this complaint have included: [x] Physical therapy [] floor care specialist or massage therapy [] Home exercise program [] Anti-inflammatories [] Neuropathic pain medications [] Muscle relaxer [] Steroids [] Opioids [] Pain management evaluation [] Injections or Radiofrequency Ablations [] TENS unit [] Alternative modalities (acupuncture, biofeedback, etc.) MEDICAL HISTORY Patient has a past medical history of Depression, Diabetes mellitus ([facility]), Heart disease, Hepatitis B (05/10/2018), and Hypertension. SURGICAL HISTORY Patient has a past surgical history that includes bladder suspension. MEDICATIONS Patient has a current medication list which includes the following prescription(s): albuterol, amlodipine, atorvastatin, carvedilol, cholecalciferol (vitamin d3), clopidogrel, cyanocobalamin, cyclobenzaprine, duloxetine, gabapentin, losartan, nitroglycerin, ozempic, and trazodone. ALLERGIES Patient is allergic to compazine [prochlorperazine], lisinopril, penicillins, sulfa (sulfonamide antibiotics), and topiramate. FAMILY HISTORY Patient's family history includes Cancer in her father and sister; Dementia in her maternal aunt and mother; Diabetes in her brother, mother, and sister. SOCIAL HISTORY Patient reports that she has quit smoking. She has never used smokeless tobacco. She reports that she does not drink alcohol and does not use drugs. REVIEW OF SYSTEMS Musculoskeletal: Positive for arthralgias, back pain and myalgias. Neurological: Positive for numbness. All other systems reviewed and are negative. DIAGNOSTIC DATA VITALS height is 158.1 cm (62.25) and weight is 80.9 kg (178 lb 6.4 oz). Her blood pressure is 136/84 andher pulse is 77. Her respiration is 18 and oxygen saturation is 98%. PHYSICAL EXAM Musculoskeletal: Cervical back: No tenderness or bony tenderness. No pain with movement. Thoracic back: Deformity and tenderness present. Decreased range of motion. Scoliosis present. Lumbar back: Deformity, tenderness and bony tenderness present. Decreased range of motion. Positiveleft straight leg raise test. Negative right straight leg raise test. Neurological: Mental Status: She is alert. Sensory: Sensation is intact. Motor: Motor function is intact. Gait: Gait abnormal. IMAGING X-ray lumbar 08/21/24: L4-5 spondylolisthesis with instability. Multilevel disc degeneration. Moderate scoliosis. No obvious acute fracture but degenerative and plate deformities noted. Loss of lumbar lordosis. DIAGNOSIS The primary encounter diagnosis was Lumbar radiculopathy. Diagnoses of Other osteoporosis without current pathological fracture and Acute left-sided low back pain with left-sided sciatica were also pertinent to this visit. ASSESSMENT/PLAN Megan was seen today for new patient visit and pain. Diagnoses and all orders for this visit: Lumbar radiculopathy - XR LUMBAR SPINE 4+ VIEWS - MR LUMBAR SPINE WO CONTRAST; Future - DULoxetine (CYMBALTA) 30 mg delayed release capsule; Take 1 Capsule by mouth daily. Take 1 capsule x 2 weeks. Then, take 2 capsules daily. Other osteoporosis without current pathological fracture - DXA BONE DENSITY; Future Acute left-sided low back pain with left-sided sciatica - cyclobenzaprine (FLEXERIL) 10 mg tablet; Take 1 Tablet by mouth 3 times daily as needed for Muscle Spasms. Other orders - clopidogreL (PLAVIX) 75 mg tablet; TAKE 1 TABLET (75 MG) BY ORAL ROUTE ONCE DAILY - atorvastatin (LIPITOR) 40 mg tablet; Take 1 Tablet by mouth daily. - albuterol 90 mcg/actuation HFA aerosol inhaler inhaler; INHALE 2 PUFFS EVERY 4 HOURS NEEDED FOR WHEEZING - amLODIPine (NORVASC) 5 mg tablet; TAKE 1 TABLET EVERY DAY FOR BLOOD PRESSURE - carvediloL (COREG) 6.25 mg tablet; TAKE 1 TABLET (6.25 MG) BY ORAL ROUTE 2 TIMES PER DAY WITH FOOD - Cyanocobalamin (VITAMIN B-12) 1,000 mcg sublingual tablet; Place 1 tablet every day by sublingualroute. - nitroglycerin (NITROSTAT) 0.4 mg SL tablet; PLACE 1 TABLET (0.4 MG) BY SUBLINGUAL ROUTE AT 1ST SIGN OF ATTACK; MAY REPEAT EVERY 5 MINUTES UP TO 3 TABS; IF NO RELIEF SEEK MEDICAL HELP - OZEMPIC 0.25 mg or 0.5 mg (2 mg/3 mL) pen injector; INJECT 0.5 MG BY SUBCUTANEOUS ROUTE ONCE WEEKLY ON THE SAME DAY OF EACH WEEK - traZODone (DESYREL) 50 mg tablet; Take 2-3 tablets by mouth at bedtime as needed for insomnia - Discontinue: gabapentin (NEURONTIN) 600 mg tablet; Take 1 Tablet by mouth 3 times daily. - gabapentin (NEURONTIN) 600 mg tablet; Take 1 capsule q am, 1 capsule q noon, 2 capsules at bedtime Medications listed under other orders are included due to the limitations of [facility] but were not prescribed by me. The patient presents office secondary to chronic low back pain which did resolve with 100 pounds ofweight loss and activity modification until she attempted to lift 3 heavy suitcases while traveling. The patient then developed lumbar radiculopathy affecting the left greater than right lower extremity. Imaging in the form of x-ray was obtained today which does reveal an unstable spondylolisthesisat L4-5 among additional advanced degenerative findings. The patient is additionally noted to have kyphoscoliosis along with a reported history of osteoporosis which is since been untreated and not followed up on. Recommend repeat DEXA scan. The patient's pain is quite severe and she worries she will need to go to the ER if she is not treated. We will increase gabapentin to 600 mg 4 times daily, restart Flexeril, continue Tylenol, start Cymbalta, utilize topical creams, heat, or ice. We will order an MRI for further evaluation and patient will follow-up upon completion. All questions answered. The risks and benefits of these treatments were discussed today in detail. The patient expressed understanding of these risks and is agreeable with proceeding with this plan of care. This note was completed using [employer] speech recognition software. Grammatical errors, random word insertions, pronoun errors, and incomplete sentences are occasional consequences of the system due tosoftware limitation. If you have any questions about the context, text, or information contained within the body of this dication, they should be addressed to the provider for clarification. Any additional questions or concerns, please call our office at . Sangita Doss PA-C [facility] [address] [place] [address] [place] [address] PROMIS Survey No data to display No data to display No data to display Nursing Pre-Charting Note: NPV with KK for acute left-sided low back pain with left-sided sciatica. Referred by Dr. Harry Castaneda on 07/06/2024 s/p ED visit. Per note, x2 weeks L LBP with radiation into LLE. Rx steroid pack, cyclobenzaprine. Previously saw SB in 2019 for neck pain. Imagin11/25/2016: NM bone whole body single zone with SPECT/CT 11/24/2016: XR L spine documented in this encounter Plan of Treatment Upcoming Encounters Date Type Department Care Team (Late st Contact Info) Description 09/14/2024 12:[address] [facility] OBGYN [address] [place] [address] Carolyn Zheng NP [facility] [address] [facility] [place] [address] 10/10/2024 6:[address] [facility] MRI [address] [place], [place] [id number] 11/21/2024 13:[address] [facility] Xray [address] [place], [place] [id number] 11/21/2024 14:[address] [facility] [address] [place] [address] Sangita Doss PA-C [address] [facility] [address] [place], [place] [address] 12/20/2024 10:[address] [facility] Endoscopy [address] [place], [place] [id number] Tom Mane MD [address] [place] [address] [address] [place] [address] Scheduled Orders Name Type Priority Associated Diagnoses Orde r Schedule MR LUMBAR SPINE WO CONTRAST Imaging Routine Lumbar radiculopathy Expected: 08/28/2024 (Approximate), Expires: 02/18/2026 DXA BONE DENSITY Imaging Routine Other osteoporosis without current pathological fracture Expected: 08/28/2024 (Approximate), Expires: 08/21/2026 documented as of this encounter Procedures Procedure Name Priority Date/Time Associated Diagnosis Comments XR LUMBAR SPINE 4+ VIEWS Routine 08/21/2024 16:02 EST Lumbar radiculopathy documented in this encounter Results * XR LUMBAR SPINE 4+ VIEWS [...] REGARDING THIS REPORT PLEASE CALL [facility] AT [phone] Narrative 08/23/2024 11:55 EST PROCEDURE INFORMATION: Exam: [...] CONCERNS REGARDING THIS REPORT PLEASE CALL [facility] [phone] Sangita Doss PA-C IMG DIAGNOSTIC IMAGING ORDER JAGJIT Final Result documented in this encounter Visit Diagnoses Diagnosis Lumbar radiculopathy- Primary Thoracic or lumbosacral neuritis or radiculitis, unspecified Other osteoporosis without current pathological fracture Acute left-sided low back pain with left-sided sciatica documented in this encounter Discontinued Medications Medication Sig Discontinue Reason Start Date End Da te metoprolol (LOPRESSOR) 50 mg tablet Take 50 mg by mouth daily. Patient Stopped Taking 08/21/2024 topiramate (TOPAMAX) 100 mg tablet Take 100 mg by mouth 3 times daily. Patient Stopped Taking 08/21/2024 TRIAMTERENE ORAL Take 25 mg by mouth daily. Patient Stopped Taking 08/21/2024 triamterene-hydrochlor othiazide (MAXZIDE) 37.5-25 mg per tablet Take 1 Tab by mouth daily. Patient Stopped Taking 08/21/2024 UNABLE TO FIND Take 600 mg by mouth 2 times daily. Med Name: n acetyl cysteine Patient Stopped Taking 08/21/2024 metFORMIN (GLUCOPHAGE) 500 mg tablet Take 500 mg by mouth daily. Patient Stopped Taking 08/21/2024 MELATONIN ORAL Take 1 Tab by mouth daily. Patient Stopped Taking 08/21/2024 ASPIRIN ORAL Take 81 mg by mouth daily. Patient Stopped Taking 08/21/2024 gabapentin (NEURONTIN) 300 mg capsuleIndications:1 1/2 tab at night Take 1 Capsule by mouth every morning. 08/21/2024 gabapentin (NEURONTIN) 600 mg tablet Take 1 Tablet by mouth 3 times daily. Reorder 08/21/2024 gabapentin (NEURONTIN) 600 mg tablet Take 1 Tablet by mouth 3 times daily. 08/21/2024 08/21/2024 cyclobenzaprine (FLEXERIL) 10 mg tabletIndications:Acut e left-sided low back pain with left-sided sciatica Take 1 Tablet by mouth 2 times daily as needed for Muscle Spasms. Reorder 07/06/2024 08/21/2024 documented as of this encounter Historical Medications * This list may reflect changes made after this encounter. traZODone (DESYREL) 50 mg tablet Take 2-3 tablets by mouth at bedtime as needed for insomnia 06/29/2024 OZEMPIC 0.25 mg or 0.5 mg (2 mg/3 mL) pen injector INJECT 0.5 MG BY SUBCUTANEOUS ROUTE ONCE WEEKLY ON THE SAME DAY OF EACH WEEK nitroglycerin (NITROSTAT) 0.[address] 1 TABLET (0.4 MG) BY SUBLINGUAL ROUTE AT 1ST SIGN OF ATTACK; MAY REPEAT EVERY 5 MINUTES UP TO 3 TABS; IF NO RELIEF SEEK MEDICAL HELP Cyanocobalamin (VITAMIN B-12) 1,[address] 1 tablet every day by sublingual route. carvediloL (COREG) 6.25 mg tablet TAKE 1 TABLET (6.25 MG) BY ORAL ROUTE 2 TIMES PER DAY WITH FOOD 06/29/2024 amLODIPine (NORVASC) 5 mg tablet TAKE 1 TABLET EVERY DAY FOR BLOOD PRESSURE 10/12/2023 albuterol 90 mcg/actuation HFA aerosol inhaler inhaler INHALE 2 PUFFS EVERY 4 HOURS NEEDED FOR WHEEZING atorvastatin (LIPITOR) 40 mg tablet Take 1 Tablet by mouth daily. 04/27/2023 clopidogreL (PLAVIX) 75 mg tablet TAKE 1 TABLET (75 MG) BY ORAL ROUTE ONCE DAILY 06/29/2023 added in this encounter Care Teams Wet Char Conveyor Tender Relationship Specialty Start Date End Date Jacklyn Clement PA [address] [place] [address] PCP - General 01/28/18 documented as of this encounter
--- OUTSIDE RECORDS SUMMARY | 2024-09-09 23:04 | XMS_ITS | Encounter Summary ---
Author Organization [facility] Address [address] [place] [address] Care Team Providers Care It Applications Manager Name Role Phone Jacklyn Clement Primary Care Provider [phone] Encounter Details Date Type Department Care Team (Late st Contact Info) Description 07/17/2019 Results Only [facility] Lab - Main [place] [address] [place] [address] Jacklyn Clement PA [address] [place] [address] Social History Tobacco Use Types [...] Info) Description 09/14/2024 12:30 EST Initial consult [facility] OBGYN [address] [place] [address] Carolyn Zheng NP CNM [address] [facility] [place] [address] 10/10/2024 6:15 EST Appointment [facility] MRI [address] [place] [address] 11/21/2024 13:30 EST Appointment [facility] Xray [address] [place] [address] 11/21/2024 14:45 EST Office Visit [facility] Orthopedics [facility] Spine Medicine [address] [place] [address] Sangita Doss PA-C [address] [facility] [address] [place] [address] 12/20/2024 10:15 EDT Appointment [facility] Endoscopy [address] [place] [address] Tom Mane MD [address] [place] [address] [address] [place] [address] documented as of this encounter Procedures Procedure Name Priority Date/Time Associated Diagnosis Comments [place]COHEMOGLOBIN [place] [facility] [place] Routine 07/17/2019 10:24 EDT documented in this encounter Results * GL[place]COHEMOGLOBIN P[place] [facility] (07/17/2019 10:24 EDT) Hemoglobin A1c 5.8 4.0 - 6.0 % 07/18/2019 10:25 EDT [facility] AVG CALCULATED GLUCOSE [place] [facility] [place] 113 60 - 115 MG/DL 07/18/2019 10:25 EDT [facility] 07/17/2019 10:2 4 EDT 07/17/2019 10:24 EDT Jacklyn SCHUSTER CHEMISTRY & BLOOD GAS ORDERAB LES Final Result [facility] documented in this encounter Visit Diagnoses Not on filedocumented in this encounter Care Teams It Applications Manager Relationship Specialty Start Date End Date Jacklyn Clement PA [address] [place] [address] PCP - General 01/28/18 documented as of this encounter
--- OUTSIDE RECORDS SUMMARY | 2024-09-09 23:04 | XMS_ITS | Encounter Summary ---
Author Organization [facility] Address [address] [place] [address] Care Team Providers Care Spring Fitter Helper Name Role Phone Jacklyn Clement Primary Care Provider [phone] Encounter Details Date Type Department Care Team (Latest Contact Info) Description 11/23/2019 Travel Social History Tobacco Use Types Packs/Day [...] Info) Description 09/14/2024 12:30 EST Initial consult [facility] OBGYN [address] [place] [address] Carolyn Zheng NP CN [address] [facility] [place] [address] 10/10/2024 6:15 EST Appointment [facility] MRI [address] [place] [address] 11/21/2024 13:30 EST Appointment [facility] Xray [address] [place], [place] [address] 11/21/2024 14:45 EST Office Visit [facility] Orthopedics & Spine Medicine [address] [place] [address] Sangita Doss PA-C [address] [facility] [address] [place], [place] [id number] 12/20/2024 10:15 EDT Appointment [facility] Endoscopy [address] [place], [place] [address] Tom Mane MD [address] [place] [address] [address] [place] [id number] documented as of this encounter Visit Diagnoses Not on filedocumented in this encounter Care Teams Spring Fitter Helper Relationship Specialty Start Date End Date Jacklyn Clement PA [address] [place] [address] PCP - General 01/28/18 documented as of this encounter
--- OUTSIDE RECORDS SUMMARY | 2024-09-09 23:04 | XMS_ITS | Encounter Summary ---
Author Organization [facility] Address [address] [place] [address] Care Team Providers Care Stud Driver Name Role Phone Jacklyn Clement Primary Care Provider [phone] Reason for Referral * Consult (Routine/Next Available) - Authorization Not Required Specialty Diagnoses / Procedures [facility] Referred To Contact Orthopedic Surgery Diagnoses Acute left-sided low back pain with left-sided sciatica Harry Castaneda MD [address] [place] [phone] Phone: tel: fax: [facility]ics [facility] Sp[facility] [address] [place] [address] Phone: tel: fax: Referral ID Status Reason Start Date Expiration Date Visits Requested Visits Authorized [id number] Authorization Not Required Specialty Services Required 07/06/20 24 1 1 Question Answer Reason for Request: ED f/u low back pain, sciatica Reason for Visit * Reason Comments Back Pain C/o sharp low back p ain and L thigh pain s/p lifting heavy bags x 2 weeks ago. Has been to physical therapist and PCP, with no relief in symptoms. Denies loss of bowel or bladder control. Encounter Details Date Type Department Care Team (Late st Contact Info) Description 07/06/2024 18:55 EDT - 07/06/2024 20:02 EDT Emergency [facility] Emergency Department [address] [place], [place] [id number] Harry Castaneda MD [address] [place] [address] Acute left-sided low back pain with left-sided sciatica (Primary Dx) Discharge Disposition: Home or Self Care Social [...] Sign Reading Time Taken Comments Blood Pressure 175/83 07/06/20241816 EDT Pulse 72 07/06/2024 181 EDT Temperature 36.7 ??C (98 ??F) 07/06/2024 181 EDT Respiratory Rate 18 07/06/20241816 EDT Oxygen Saturation 96% 07/06/2024 181 EDT Inhaled Oxygen Concentration - - Weight - - Height - - Body Mass Index - - documented in this encounter Functional Status * [...] 11/13/2019 11:12 EST documented in this encounter Discharge Instructions * Discharge Instructions* Harry Castaneda MD - 07/06/2024 19:37 EDT You were seen in the emergency room today for low back pain and sciatica. I have prescribed you a muscle relaxer called Flexeril and a steroid called prednisone to help withyour pain and inflammation. I have placed a referral to the spine clinic to try to get you an appointment soon. I hope that with time and gentle activity as well as gentle stretching and exercises, your pain will improve. If you notice severe worsening in symptoms, numbness in your groin or difficulty controlling your bowels or bladder, please return immediately to the Emergency Department to be reevaluated. * Attachments The following attachments cannot be sent through Care Everywhere. * Sciatica (Kyrgyz) documented in this encounter Medications at Time of Discharge amLODIPine (NORVASC) 5 mg tablet TAKE 1 TABLET EVERY DAY FOR BLOOD PRESSURE 10/12/2023 atorvastatin (LIPITOR) 40 mg tablet Take 1 Tablet by mouth daily. 04/27/2023 carvediloL (COREG) 6.25 mg tablet TAKE 1 TABLET (6.25 MG) BY ORAL ROUTE 2 TIMES PER DAY WITH FOOD 06/29/2024 cholecalciferol, vitamin D3, (VITAMIN D3 ORAL) Take 5,000 Units by mouth daily. clopidogreL (PLAVIX) 75 mg tablet TAKE 1 TABLET (75 MG) BY ORAL ROUTE ONCE DAILY 06/29/2023 losartan (COZAAR) 50 mg tablet Take 1 Tablet by mouth daily. traZODone (DESYREL) 50 mg tablet Take 2-3 tablets by mouth at bedtime as needed for insomnia 06/29/2024 ASPIRIN ORAL Take 81 mg by mouth daily. 08/21/2024 cyclobenzaprine (FLEXERIL) 10 mg tabletIndication s:Acute left-sided low back pain with left-sided sciatica Take 1 Tablet by mouth 2 times daily as needed for Muscle Spasms. 20 Tablet 07/06/2024 08/21/2024 gabapentin (NEURONTIN) 300 mg capsuleIndicatio ns:1 [...] Take 50 mg by mouth daily. 08/21/2024 predniSONE (DELTASONE) 20 mg tablet Take 2 Tablets by mouth daily for 7 days. 14 Tablet 07/06/2024 07/13/2024 topiramate (TOPAMAX) 100 mg tablet Take 100 mg by mouth 3 times daily. 08/21/2024 TRIAMTERENE ORAL Take 25 mg by mouth daily. 08/21/2024 triamterene-hydr ochlorothiazide (MAXZIDE) 37.5-25 mg per tablet Take 1 Tab by mouth daily. 08/21/2024 UNABLE TO FIND Take 600 mg by mouth 2 times daily. Med Name: n acetyl cysteine 08/21/2024 documented as of this encounter Ordered Prescriptions Prescription Sig Dispense Quantity Refills Last Filled Start Date End Date cyclobenzaprine (FLEXERIL) 10 mg tabletIndications: Acute left-sided low back pain with left-sided sciatica Take 1 Tablet by mouth 2 times daily as needed for Muscle Spasms. 20 Tablet 07/06/2024 predniSONE (DELTASONE) 20 mg tablet Take 2 Tablets by mouth daily for 7 days. 14 Tablet 07/06/2024 documented in this encounter Discharge Disposition Disposition Code Departure Means Destination Comment s Home or Self [facility] documented in this encounter ED Notes * Harry Castaneda MD - 07/06/2024 1808 EDT Emergency Department Visit Medical Decision Making Medical Decision Making Patient presents with 2 weeks of left-sided low back pain radiating down her left leg. She has no red flag symptoms of cauda equina syndrome. I have low concern for acute fracture or dislocation and do not believe that imaging is emergently necessary at this time. Patient is in agreement. We discussed various symptomatic treatments and using shared decision making we decided to try a steroid burst and cyclobenzaprine. Patient will follow-up closely with PCP and I have also placed a new referralto the spine clinic. Strict return precautions reviewed prior to discharge. Discharged in stable condition. Problems Addressed: Acute left-sided low back pain with left-sided sciatica: complicated acute illness or injury Risk OTC drugs. Prescription drug management. Final diagnoses: Acute left-sided low back pain with left-sided sciatica Disposition: Discharged Chief complaint: Low back pain radiating down left leg HPI Megan Marie is a 74 y.o. female with a history of right-sided sciatica who presents tot emergency department for low back pain radiating down the left leg. Patient states that 2 weeksago she [place] 3 [place] During this action she noticedthat she strained her back . She had pain and what felt like a spasm in her left low back, and shortly thereafter began to notice pain radiating down the lateral aspect of her left leg, especially when in a standing or laying flat position. This pain has continued, with subtle progression of her radiating pain down the back of her left thigh occasionally down to her calf. It is much worse with m ovement and walking, and much improved with rest. She has been taking Tylenol and her baseline doseof gabapentin with minimal improvement. Patient has been through 1 or 2 physical therapy sessions, but is concerned that her symptoms may be getting worse from this. Patient denies any numbness or weakness. She denies difficulty controlling her bowels or bladder. She denies fever or chills. History was provided by: Patient Records reviewed include: None Patient's pertinent PMH, FH, SH were reviewed and edited as necessary. Nursing notes reviewed. A medical screening exam was performed. Physical Exam BP (!) 175/83 (BP Cuff Location: Right arm, BP Patient Position: Sitting) Pulse 72 Temp 36.7 ??C (98 ??F) (Oral) Resp 18 SpO2 96% Physical Exam Vitals and nursing note reviewed. Constitutional: General: She is not in acute distress. Appearance: Normal appearance. She is not ill-appearing, toxic-appearing or diaphoretic. HENT: Head: Normocephalic and atraumatic. Right Ear: External ear normal. Left Ear: External ear normal. Nose: Nose normal. No congestion or rhinorrhea. Mouth/Throat: Mouth: Mucous membranes are moist. Pharynx: Oropharynx is clear. No oropharyngeal exudate or posterior oropharyngeal erythema. Eyes: General: No scleral icterus. Right eye: No discharge. Left eye: No discharge. Extraocular Movements: Extraocular movements intact. Conjunctiva/sclera: Conjunctivae normal. Pupils: Pupils are equal, round, and reactive to light. Cardiovascular: Rate and Rhythm: Normal rate and regular rhythm. Pulmonary: Effort: Pulmonary effort is normal. No respiratory distress. Chest: Chest wall: No tenderness. Abdominal: General: Abdomen is flat. There is no distension. Palpations: Abdomen is soft. Musculoskeletal: General: Tenderness present. No swelling, deformity or signs of injury. Normal range of motion. Cervical back: Normal range of motion and neck supple. No rigidity or tenderness. Right lower leg: No edema. Left lower leg: No edema. Comments: Mild tenderness to the left low lumbar paraspinal musculature. Negative logroll bilaterally. Straight leg raise is strongly positive on the right which elicits discomfort at the left low back radiating down the left leg, negative on the left. Patient able to lift either leg off the bed for several seconds without drift. Patient able to reposition self in bed using all 4 extremities and is able to walk around the room without difficulty. Patient able to flex hip and knee to 90 degrees while laying flat without difficulty. Bilateral lower extremities appear well-perfused with DP and PT pulse 2+ bilaterally. Skin: General: Skin is warm and dry. Capillary Refill: Capillary refill takes less than 2 seconds. Coloration: Skin is not jaundiced or pale. Findings: No bruising, erythema or rash. Neurological: General: No focal deficit present. Mental Status: She is alert and oriented to person, place, and time. Mental status is at baseline. Cranial Nerves: No cranial nerve deficit. Sensory: No sensory deficit. Motor: No weakness. Coordination: Coordination normal. Gait: Gait normal. Comments: Neurological Exam: CRANIAL NERVES: II: Pupils equal and reactive, no RAPD, no VF deficits III, IV, : EOM intact, no gaze preference or deviation, no nystagmus. V: normal sensation in V1, V2, and V3 segments bilaterally VII: no asymmetry, no nasolabial fold flattening VIII: normal hearing to speech IX, X: normal palatal elevation, no uvular deviation XI: 5/5 head turn and 5/5 shoulder shrug bilaterally XII: midline tongue protrusion MOTOR: Right side: 5/5 muscle power in Rt shoulder abductors/adductors, elbow flexors/extensors, wrist flexors/extensors, finger abductors/adductors. 5/5 in Rt hip flexors/extensors, knee flexors/extensors, ankle dorsiflexors and planter flexors. Left side: 5/5 muscle power in Lt shoulder abductors/adductors, elbow flexors/extensors, wrist flexors/extensors, finger abductors/adductors. 5/5 in Lt hip flexors/extensors, knee flexors/extensors, ankle dorsiflexors and planter flexors. REFLEXES: 2+ patellar reflex bilaterally. SENSORY: Normal to touch in all limbs No hemineglect (visual & tactile) Romberg absent STATION: normal stance, no truncal ataxia GAIT: Normal. Psychiatric: Mood and Affect: Mood normal. Behavior: Behavior normal. Thought Content: Thought content normal. Judgment: Judgment normal. Procedures Procedures documented in this encounter Plan of Treatment Upcoming Encounters Date Type Department Care Team (Late st Contact Info) Description 09/14/2024 12:30 EST Initial consult [facility] OBGYN [address] [place], [place] [phone] Carolyn Zheng NP CN [address] [facility], [address] [place] [address] 10/10/2024 6:15 EST Appointment [facility] MRI [address], [place] [id number] 11/21/2024 13:30 EST Appointment [facility] Xray [address] [place] [id number] 11/21/2024 14:45 EST Office Visit [facility] [address] [place], [place] [phone] Sangita Doss PA-C [address] [facility] [address] [place], [place] [address] 12/20/2024 10:15 EDT Appointment [facility] Endoscopy [address] [place], [place] [address] Tom Mane MD [address] [place] [address] [address] [place] [phone] Scheduled Referrals Name Type Priority Associated Diagnoses Order Schedule AMB CONS/FOLLOW UP ORTHOPEDICS - [facility] Outpatient Referral Routine/Next Available Acute left-sided low back pain with left-sided sciatica Expected: 07/13/2024 (Approximate), Expires: 07/06/2025 documented as of this encounter Visit Diagnoses Diagnosis Acute left-sided low back pain with left-sided sciatica- Primary documented in this encounter Administered Medications Inactive Administered Medications - up to 3 most recent administrations Medication Order MAR Action Action Date Dose Rate Site cyclobenzaprine (FLEXERIL) tablet 10 mg 10 mg, oral, NOW X1, 1 dose, On Sari 07/06/24 at 1999, STAT Given 07/06/2024 19:51 EDT 10 mg predniSONE (DELTASONE) tablet 40 mg 40 mg, oral, NOW X1, 1 dose, On Sari 07/06/24 at 1999, STAT Given 07/06/2024 19:51 EDT 40 mg documented in this encounter Active and Recently Administered Medications Times are shown in EDT. Scheduled Medication Order 07/04/2024 07/05/2024 07/06/2024 cyclobenzaprine (FLEXERIL) tablet 10 mg (COMPLETED) 10 mg, oral, NOW X1, 1 dose, On Sari 07/06/24 at 1999, STAT 1950 (Given - Provid er: Baldo Bhat RN) predniSONE (DELTASONE) tablet 40 mg (COMPLETED) 40 mg, oral, NOW X1, 1 dose, On Sari 24 at 1999, STAT 1950 (Given - Provid er: Baldo Bhat RN) documented in this encounter Care Teams Stud Driver Relationship Specialty Start Date End Date Jacklyn Clement PA [address] [place] [id number] PCP - General 01/28/18 documented as of this encounter
--- OUTSIDE RECORDS SUMMARY | 2024-09-09 23:04 | XMS_ITS | Encounter Summary ---
Author Organization [facility] Address [address] [place] [address] Care Team Providers Care Pyrometallurgical Engineer Name Role Phone Jacklyn Clement Primary Care Provider [phone] Reason for Referral * Vascular Lab (Routine) - Authorization Not Required Specialty Diagnoses / Procedures [facility] Referred To Contact Diagnoses Syncope and collapse Procedures US UPPER ARTERIAL DUPLEX Caitlyn Thakkar NP Phone: tel: fax: Referral ID Status Reason Start Date Expiration Date Visits Requested Visits Authorized [id number] Authorization Not Required 02/13/2020 1 1 Encounter Details Date Type Department Care Team (Latest Contact Info) Description 02/13/2020 Transcribe Orders Vascular Surgery and Endovascular Therapy - [address] [id number] Caitlyn Thakkar NP [address] [place] [address] [place] [address] Syncope and collapse (Primary Dx) Social History Tobacco Use Types [...] Info) Description 09/14/2024 12:30 EST Initial consult [facility] OBGYN [address] [place], [place] [id number] Carolyn Zheng NP CNM [address] [facility] [place] [address] 10/10/2024 6:15 EST Appointment [facility] MRI [address] [place], [place] [id number] 11/21/2024 13:30 EST Appointment [facility] Xray [address] [place] [id number] 11/21/2024 14:45 EST Office Visit [facility] Orthopedics & Spine Medicine [address] [place] [address] Sangita Doss PA-C [address] [facility] [address] [place], [place] [phone] 12/20/2024 10:15 EDT Appointment [facility] Endoscopy [address] [place], [place] [phone] Tom Mane MD [address] [place] [address] [address] [place] [address] Scheduled Orders Name Type Priority Associated Diagnoses Orde r Schedule US UPPER ARTERIAL DUPLEX Vascular Ultrasound Routine Syncope and collapse Ordered: 02/13/2020 documented as of this encounter Visit Diagnoses Diagnosis Syncope and collapse- Primary documented in this encounter Care Teams Pyrometallurgical Engineer Relationship Specialty Start Date End Date Jacklyn Clement PA [address] [place] [id number] PCP - General 01/28/18 documented as of this encounter
--- OUTSIDE RECORDS SUMMARY | 2024-09-09 23:04 | XMS_ITS | Encounter Summary ---
Author Organization [facility] Address [address] [place] [address] Care Team Providers Care Lead Project Manager Name Role Phone Jacklyn Clement Primary Care Provider [phone] Encounter Details Date Type Department Care Team (Latest Contact Info) Description 06/29/2024 17:33 EDT - 06/29/2024 23:59 EDT Hospital Encounter [facility] - [facility] - Main [place] [address] [place] [address] Certified Orthotist, [facility] Discharge Disposition: Home or Self Care Social [...] Take 50 mg by mouth daily. 08/21/2024 topiramate (TOPAMAX) 100 mg tablet Take [...] consult [facility] OBGYN [address] [place] [address] Carolyn Zheng NP CN [address] [facility], [address] [place] [address] 10/10/2024 6:15 EST Appointment [facility] MRI [address] [place], [place] [address] 11/21/2024 13:30 EST Appointment [facility] Xray [address] [place], [place] [address] 11/21/2024 14:45 EST Office Visit [facility] Orthopedics & Spine Medicine [address] [place], [place] [phone] Sangita Doss PA-C [address] [facility] [address] [place], [place] [address] 12/20/2024 10:15 EDT Appointment [facility] Endoscopy [address] [place], [place] [phone] Tom Mane MD [address] [place] [address] [address] [place] [phone] documented as of this encounter Visit Diagnoses Not on filedocumented in this encounter Care Teams Lead Project Manager Relationship Specialty Start Date End Date Jacklyn Clement PA [address] [place] [address] PCP - General 01/28/18 documented as of this encounter
--- OUTSIDE RECORDS SUMMARY | 2024-09-09 23:04 | XMS_ITS | Encounter Summary ---
Author Organization [facility] Address [address] [place] [address] Care Team Providers Care Waste Machine Operator Name Role Phone Jacklyn Clement Primary Care Provider [phone] Encounter Details Date Type Department Care Team (Late st Contact Info) Description 07/17/2019 Results Only [facility] - Main [place] [address] [place] [address] Jacklyn Clement PA [address] [place] [address] Social History Tobacco Use Types [...] Info) Description 09/14/2024 12:30 EST Initial consult [facility] OBGYN [address] [place] [address] Carolyn Zheng NP CNM [address] [facility] [place] [address] 10/10/2024 6:15 EST Appointment [facility] MRI [address] [place] [address] 11/21/2024 13:30 EST Appointment [facility] Xray [address] [place] [phone] 11/21/2024 14:45 EST Office Visit [facility] Medicine [address] [place] [address] Sangita Doss PA-C [address] [facility] [address] [place] [address] 12/20/2024 10:15 EDT Appointment [facility] Endoscopy [address] [place] [address] Tom Mane MD [address] [place] [address] [address] [place] [address] documented as of this encounter Procedures Procedure Name Priority Date/Time Associated Diagnosis Comments POCT CHOLESTEROL LDL ([facility]) Routine 07/17/2019 10:24 EDT documented in this encounter Results * (ABNORMAL) POCT CHOLESTEROL LDL ([facility]) (07/17/2019 10:24 EDT) LDL CHOLESTEROL - [facility] 132(H) 60 - 100 MG/DL 07/18/2019 10:25 EDT [facility] 07/17/2019 10:2 4 EDT 07/17/2019 10:24 EDT Jacklyn SCHUSTER POINT OF CARE TEST ORDERABLES Final Result [facility] documented in this encounter Visit Diagnoses Not on filedocumented in this encounter Care Teams Waste Machine Operator Relationship Specialty Start Date End Date Jacklyn Clement PA [address] [place] [address] PCP - General 01/28/18 documented as of this encounter
--- OUTSIDE RECORDS SUMMARY | 2024-09-09 23:04 | XMS_ITS | Encounter Summary ---
Author Organization [facility] Address [address] [place] [address] Care Team Providers Care Baby Nurse Name Role Phone Jacklyn Clement Primary Care Provider [phone] Encounter Details Date Type Department Care Team (Late st Contact Info) Description 04/17/2019 Historical Results Only [facility] Lab - Main [place] [address] [place] [address] Jacklyn Clement PA [address] [place] [address] Social History Tobacco Use Types Packs/Day [...] Info) Description 09/14/2024 12:30 EST Initial consult [facility] OBGYN [address] [place], [place] [phone] Carolyn Zheng NP CNM [address] [facility] [place] [address] 10/10/2024 6:15 EST Appointment [facility] MRI [address] [place] [address] 11/21/2024 13:30 EST Appointment [facility] Xray [address] [place] [address] 11/21/2024 14:45 EST Office Visit [facility] Orthopedics & Spine Medicine [address] [place] [address] Sangita Doss PA-C [address] [facility] [address] [place] [address] 12/20/2024 10:15 EDT Appointment [facility] Endoscopy [address] [place] [address] Tom Mane MD [facility] [address] [place] [address] documented as of this encounter Procedures Procedure Name Priority Date/Time Associated Diagnosis Comments MAGNESIUM POC - [facility] Routine 04/17/2019 14:27 EDT documented in this encounter Results * MAGNESIUM POC - [facility] (04/17/2019 14:27 EDT) Magnesium 2.00 1.60 - 2.30 MG/DL 04/17/2019 14:28 EDT [facility] 04/17/2019 14:2 7 EDT 04/17/2019 14:27 EDT Jacklyn SCHUSTER CHEMISTRY & BLOOD GAS ORDERAB LES Final Result [facility] documented in this encounter Visit Diagnoses Not on filedocumented in this encounter Care Teams Baby Nurse Relationship Specialty Start Date End Date Jacklyn Clement PA [address] [place] [address] PCP - General 01/28/18 documented as of this encounter
--- OUTSIDE RECORDS SUMMARY | 2024-09-09 23:04 | XMS_ITS | Encounter Summary ---
Author Organization [facility] Address [address] [place] [address] Care Team Providers Care Cell Repairer Name Role Phone Jacklyn Clement Primary Care Provider [phone] Reason for Referral * Vascular Lab (Routine) - Closed Specialty Diagnoses / Procedures [facility] Referred To Contact Diagnoses Syncope, unspecified syncope type Procedures US UPPER ARTERIAL DUPLEX Caitlyn Thakkar NP Phone: tel: fax: Referral ID Status Reason Start Date Expiration Date Visits Re quested Visits Authorized [id number] Closed 12/11/2019 1 1 Encounter Details Date Type Department Care Team (Late st Contact Info) Description 12/11/2019 Orders Only [facility] Orthopedics & Spine Medicine [address] [place], [place] [address] Caitlyn Thakkar NP 1 [facility] [place] [address] Syncope, unspecified syncope type (Primary Dx) Social History Tobacco Use Types [...] documented in this encounter Progress Notes * Caitlyn Thakkar APRN - 12/11/2019 0515 EDT US Order based on vascular recommendations - see referral notes. documented in this encounter Plan of Treatment Upcoming Encounters Date Type Department Care Team (Late st Contact Info) Description 09/14/2024 12:30 EST Initial consult [facility] OBGYN [address] [place], [place] [address] Carolyn Zheng NP CN 130 [facility], [address] [place] [address] 10/10/2024 6:15 EST Appointment [facility] MRI [address] [place], [place] [address] 11/21/2024 13:30 EST Appointment [facility] Xray [address] [place], [place] [address] 11/21/2024 14:45 EST Office Visit [facility] Orthopedics & Spine Medicine [address] [place], [place] [address] Sangita Doss PA-C 13[address] [facility] [address] [place], [place] [address] 12/20/2024 10:15 EDT Appointment [facility] Endoscopy [address] [place], [place] [address] Tom Mane MD [address] [place] [address] [address] [place] [phone] Scheduled Orders Name Type Priority Associated Diagnoses Orde r Schedule US UPPER ARTERIAL DUPLEX Vascular Ultrasound Routine Syncope, unspecified syncope type Ordered: 12/11/2019 documented as of this encounter Visit Diagnoses Diagnosis Syncope, unspecified syncope type- Primary documented in this encounter Care Teams Cell Repairer Relationship Specialty Start Date End Date Jacklyn Clement PA [address] [place] [address] PCP - General 01/28/18 documented as of this encounter
--- OUTSIDE RECORDS SUMMARY | 2024-09-09 23:04 | XMS_ITS | Encounter Summary ---
Author Organization [facility] Address [address] [place] [address] Care Team Providers Care Classified Ad Clerk Name Role Phone Jacklyn Clement Primary Care Provider [phone] Reason for Referral * Consult (Routine) - Closed Specialty Diagnoses / Procedures [facility] Referred To Contact Vascular Surgery Diagnoses Syncope, unspecified syncope type Caitlyn Thakkar NP Phone: tel: fax: Vascular Surgery and Endovascular Therapy - [address] [address] Phone: tel: fax: Referral ID Status Reason Start Date Expiration Date V isits Requested Visits Authorized [id number] Closed Specialty Services Required 11/23/2019 1 1 Question Answer Reason for Request: syncopal episodes with neck ROM - Ortho Spine evaluation benign - CT angio at [facility] done Comments syncopal episodes with neck ROM - Ortho Spine evaluation benign - CT angio at [facility] done Reason for Visit * Reason Comments Pain Encounter Details Date Type Department Care Team (Late st Contact Info) Description 11/23/2019 11:00 EST Office Visit [facility] Orthopedics & Spine Medicine [address], [address] [place] [address] Caitlyn Thakkar NP [address] [place] [address] [place] [address] Neck pain (Primary Dx); Syncope, unspecified syncope type Social History Tobacco Use Types Packs/Day Years [...] Sign Reading Time Taken Comments Blood Pressure 120/62 11/23/2019 1042 EST Pulse 72 11/23/2019 1042 EST Temperature - - Respiratory Rate - - Oxygen Saturation 94% 11/23/2019 1042 EST Inhaled Oxygen Concentration - - Weight 63.8 kg (140 lb 9.6 oz) 11/23/[address] Height 161.3 cm (5' 3.5) 11/23/2019 1042 EST Body Mass Index 24.52 11/23/2019 1042 EST documented in this encounter Functional Status [...] in this encounter Progress Notes * Caitlyn Thakkar, MYNOR - 11/23/2019 1100 EST HPI: Megan Barone is a 69 y.o. female last seen by me on 11/13/2023 at that time, formal evaluation ofa chief complaint of neck pain with some syncopal episodes with right and left rotation as well as extension. At the time of her last visit, the etiology of her of her symptoms were somewhat unclear but I discussed with the patient that it would not be unreasonable to consider that she has some transient vertebral artery compression with range of motion if they are in somewhat of a tortuous pathway. As such, I recommended moving forward with a CT angiogram of the head and neck for further evaluation of her syncopal episodes with range of motion of the neck and the patient is following up withme today to discuss the results of her imaging studies and options for treatment moving forward. Since her last visit, there have been no significant changes in her overall complaints. She is anxious for the results of her imaging studies and options for treatment moving forward. She continues to report that she has these syncopal episodes with range of motion of her neck most consistent with e xtension, and right and left rotation. Conservative treatment: None ROS: A five-point review of systems was completed today and of note, pertinent positives and negatives are indicated in the HPI Physical Examination: BP 120/62 (BP Cuff Location: Left arm, BP Patient Position: Sitting, BP Cuff Sizes: Adult, regular) Pulse 72 Ht 161.3 cm (63.5) Wt 63.8 kg (140 lb 9.6 oz) SpO2 94% BMI 24.52 kg/m?? Pain: 3-dull headache that is persistent Physical exam is unchanged. Range of motion was not tested today but otherwise, she is intact sensation and strength throughout all muscle groups and dermatomes of the bilateral upper extremities. Reflexes are symmetric at the biceps, triceps, and brachioradialis are 2+ bilaterally and there is a negative Miramontes's. Imaging/Test results: CT angiogram of the head and neck was completed which was benign. Incidentally, she was noted to have a 2 cm right thyroid nodule with recommendations for thyroid ultrasound which I will defer to primary care Imaging was viewed and interpreted by me. Assessment: Megan Barone is a pleasant and relatively straightforward 69-year-old female with a chief complaint today of neck pain but more concerning complaints of syncopal episodes with range of motion of the cervical spine. Her CT angios of the head neck was benign and at this point, I would appreciate [facility] for their opinion. The patient verbalizes understanding of all of the above. I discussed with the patient that I would be happy to see her back when she has this sorted out to discuss potential cervical facet injections for her known neck pain. We did spend at least 25 minutes today in [id number]-[id number] discussion examination and in review of multiple imaging studies with greater than 50% of the visit spent in counseling them with respect to theplan moving forward. They asked appropriate questions today and all questions were answered. They understood and agreed with the plan and will follow-up as mentioned above. Diagnosis: 1. Neck pain 2. Syncope, unspecified syncope type AMB CONS/FOLLOW UP VASCULAR SURGERY with neck ROM Plan: 1. [facility] 2. Follow-up with me on an as-needed basis at this point CC: Primary Care Provider: Jacklyn Shaffer Zozie [facility] [address] Referring Provider: MARIELY Jo DICTATION WAS USED FOR NOTE COMPLETION. PLEASE EXCUSE ALL MISSPELLINGS AND PUNCTUATION ERRORS. GILMER Jiménez 11/23/19 [facility] Orthopedic Spine and Neurosurgery documented in this encounter Plan of Treatment Upcoming Encounters Date Type Department Care Team (Late st Contact Info) Description 09/14/2024 12:30 EST Initial consult [facility] OBGYN [address] [place], [place] [address] Carolyn Zheng NP CNM 130 [facility], [address] [place] [address] 10/10/2024 6:15 EST Appointment [facility] MRI [address] [place], [place] [address] 11/21/2024 13:30 EST Appointment [facility] Xray [address] [place], [place] [address] 11/21/2024 14:45 EST Office Visit [facility] Orthopedics & Spine Medicine [address] [place], [place] [phone] Sangita Doss PA-C 13[address] [facility] [address] [place], [place] [address] 12/20/2024 10:15 EDT Appointment [facility] Endoscopy [address] [place], [place] [address] Tom Mane MD [address] [place] [address] [address] [place] [phone] Scheduled Referrals Name Type Priority Associated Diagnoses Orde r Schedule AMB CONS/FOLLOW UP VASCULAR SURGERY Outpatient Referral Routine Syncope, unspecified syncope type Ordered: 11/23/2019 documented as of this encounter Visit Diagnoses Diagnosis Neck pain- Primary Cervicalgia Syncope, unspecified syncope type documented in this encounter Historical Medications * This list may reflect changes made after this encounter. topiramate (TOPAMAX) 100 mg tablet Take 100 mg by mouth 3 times daily. 08/21/2024 triamterene-hydro chlorothiazide (MAXZIDE) 37.5-25 mg per tablet Take 1 Tab by mouth daily. 08/21/2024 added in this encounter Care Teams Classified Ad Clerk Relationship Specialty Start Date End Date Jacklyn Clement PA [address] [place] [address] PCP - General 01/28/18 documented as of this encounter
--- OUTSIDE RECORDS SUMMARY | 2024-09-09 23:04 | XMS_ITS | Encounter Summary ---
Author Organization [facility] Address [address] [place] [address] Care Team Providers Care Foundry Equipment Mechanic Name Role Phone Jacklyn Clement Primary Care Provider [phone] Encounter Details Date Type Department Care Team (Late st Contact Info) Description 11/21/2019 Results Only [facility] Orthopedics & Spine Medicine [address] [place] [address] Caitlyn Thakkar, LEYDI [address] [place] [address] [place] [id number] Social History Tobacco Use Types Packs/Day Years [...] Info) Description 09/14/2024 12:30 EST Initial consult [facility] OBGYN [address] [place], [place] [address] Carolyn Zheng NP CNM 130 [facility] [address] [place] [address] 10/10/2024 6:15 EST Appointment [facility] MRI 130 [facility] [place] [id number] 11/21/2024 13:30 EST Appointment [facility] Xray [address] [facility]], [place] [id number] 11/21/2024 14:45 EST Office Visit [facility] Orthopedics & Spine Medicine [address] [place] [address] Sangita Doss PA-C 1311 [facility] [address] [place], [place] [phone] 12/20/2024 10:15 EDT Appointment [facility] Endoscopy [address] [facility]], [place] [id number] Tom Mane MD [address] [place] [address] [address] [place] [address] documented as of this encounter Procedures Procedure Name Priority Date/Time Associated Diagnosis Comments CREATININE Routine 11/21/2019 8:10 EST documented in this encounter Results * (ABNORMAL) CREATININE (11/21/2019 8:10 EST) CREATININE 1.05(H) 0.52 - 1.04 mg/dL 11/21/2019 8:37 EST [facility] eGFR 52 11/21/2019 8:37 EST [facility] Comment: Stage 3: Moderate renal impairment is defined as GFR 30-59 Multiply result by 1.210 for patients. eGFR calculated using the IDMS-traceable MDRD Study Equation. ??(effective 07/30/2014) 11/21/2019 8:10 EST 11/21/2019 8:10 EST [facility] - 11/21/2019 8:37 EST Does PT Have a Latex Allergy? NO us Caitlyn Thakkar WINDOW TRIMMER CHEMISTRY & BLOOD GAS ORDERAB LES Final Result [facility] documented in this encounter Visit Diagnoses Not on filedocumented in this encounter Care Teams Foundry Equipment Mechanic Relationship Specialty Start Date End Date Jacklyn Clement PA [address] [place] [address] PCP - General 01/28/18 documented as of this encounter
--- OUTSIDE RECORDS SUMMARY | 2024-09-09 23:04 | XMS_ITS | Encounter Summary ---
Author Organization [facility] Address [address] [place] [address] Care Team Providers Care Paginator Name Role Phone Jacklyn Clement Primary Care Provider [phone] Encounter Details Date Type Department Care Team (Late st Contact Info) Description 07/23/2020 Lab Requisition [facility] Pathology & Laboratory Medicine - [address] [address] Outr Resulting Lab, Provider Social History Tobacco Use Types Packs/Day Years [...] Info) Description 09/14/2024 12:30 EST Initial consult [facility] OBGYN [address] [place], [place] [address] Carolyn Zheng NP CNM 130 [facility] [address] [place] [address] 10/10/2024 6:15 EST Appointment [facility] MRI 130 [facility] [address] 11/21/2024 13:30 EST Appointment [facility] Xray [address] [place], [place] [id number] 11/21/2024 14:45 EST Office Visit [facility] Orthopedics & Spine Medicine [address] [place] [address] Sangita Doss PA-C [address] [facility] [address] [place], [place] [phone] 12/20/2024 10:15 EDT Appointment [facility] Endoscopy [address] [facility] [address] Tom Mane MD [address] [place] [address] [address] [place] [address] documented as of this encounter Procedures Procedure Name Priority Date/Time Associated Diagnosis Comments CHLAMYDIA/N. GONORRHOEAE AMPLIFIED NUCLEIC ACID, THINPREP Routine 07/23/2020 10:30 EDT documented in this encounter Results * CHLAMYDIA/N. GONORRHOEAE AMPLIFIED RNA, THINPREP (07/23/2020 10:30 EDT) Neisseria gonorrhoeae Result Negative Negative 08/19/2020 8:40 EST [facility] Chlamydia trachomatis Result Negative Negative 08/19/2020 8:40 EST [facility] Papanicolaou smear specimen (specimen) CERVIX UTERI STRUCTURE / Unknown 07/23/2020 10:30 EDT 07/24/2020 9:09 EDT us Provider Outr Resulting Lab MICROBIOLOGY - GENER AL ORDERABLES Final Result [facility] [address] [place] [address] documented in this encounter Visit Diagnoses Not on filedocumented in this encounter Care Teams Paginator Relationship Specialty Start Date End Date Jacklyn Clement PA [address] [place] [address] PCP - General 01/28/18 documented as of this encounter
--- OUTSIDE RECORDS SUMMARY | 2024-09-09 23:04 | XMS_ITS | Encounter Summary ---
Author Organization [facility] Address [address] [place] [address] Care Team Providers Care Street Worker Name Role Phone Jacklyn Clement Primary Care Provider [phone] Reason for Visit * Reason Onset Date Comments Orders (Non Pre-visit) 11/16/2019 Encounter Details Date Type Department Care Team (Late st Contact Info) Description 11/16/2019 Telephone [facility] Orthopedics & Spine Medicine [address] [place] [address] Caitlyn Thakkar, LEYDI [address] [place] [address] [place] [phone] Orders (Non Pre-visit) Social History Tobacco Use Types Packs/Day Years [...] encounter Miscellaneous Notes * Telephone Encounter - Caitlyn Thakkar, MYNOR - 11/16/2019 1156 EST Order created * Telephone Encounter - Claudia Monroe - 11/16/2019 1049 EST Pt will needs labs for upcoming CT scan. Please place orders for creatinine/GFR. Thanks documented in this encounter Plan of Treatment Upcoming Encounters Date Type Department Care Team (Late st Contact Info) Description 09/14/2024 12:30 EST Initial consult [facility] OBGYN [address] [place] [address] Carolyn Zheng NP CN 130 [facility], [address] [place] [phone] 10/10/2024 6:15 EST Appointment [facility] MRI [address] [place] [address] 11/21/2024 13:30 EST Appointment [facility] Xray [address] [place] [address] 11/21/2024 14:45 EST Office Visit [facility] Orthopedics & Spine Medicine [address] [place], [place] [phone] Sangita Doss PA-C 13[address] [facility] [address] [place], [place] [address] 12/20/2024 10:15 EDT Appointment [facility] Endoscopy [address] [place], [place] [address] Tom Mane MD [address] [place] [address] [address] [place] [phone] documented as of this encounter Visit Diagnoses Diagnosis Neck pain- Primary Cervicalgia documented in this encounter Care Teams Street Worker Relationship Specialty Start Date End Date Jacklyn Clement PA [address] [place] [address] PCP - General 01/28/18 documented as of this encounter
--- OUTSIDE RECORDS SUMMARY | 2024-09-09 23:04 | XMS_ITS | Encounter Summary ---
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 [address] [place] [address] 10/10/2024 6:15 EST Appointment [facility] MRI [address] [facility], [place] [id number] 11/21/2024 13:30 EST Appointment [facility] Xray [address] [place], [place] [id number] 11/21/2024 14:45 EST Office Visit [facility] Orthopedics & Spine Medicine [address] [place] [address] Sangita Doss PA-C [address] [facility] [address] [place], [place] [address] 12/20/2024 10:15 EDT Appointment [facility] Endoscopy [address] [facility], [place] [id number] Tom Mane MD [address] [place] [address] [address] [place] [address] documented as of this encounter Procedures Procedure Name Priority Date/Time Associated Diagnosis Comments CT ANGIO NECK 11/21/2019 10:[address] ANGIO HEAD 11/21/2019 10:25 EST documented in this encounter Results * CT ANGIO HEAD (11/21/2019 10:25 EST) Anatomical Region Laterality Modality Computed Tomogra phy 11/21/2019 10:2 2 EST Narrative 11/21/2019 10:25 EST ? EXAM: CAT SCAN/CT ANGIOGRAM HEAD ?EX. D/ (0951) ? CLINICAL INFORMATION: ? M54.2 CERVICAL PAIN, ? R55 BLACKOUT SPELLS W CERVICAL SPINE ROM ? RIGHT / LEFT ROTATION AND EXTENSION ? R/O VERTEBRAL ARTERY COMPRESSION ? CT ANGIOGRAM HEAD, CT ANGIOGRAM CAROTID ? Signs and Symptoms/Comments: ??M54.2 CERVICAL PAIN, , R55 BLACKOUT ? SPELLS W CERVICAL SPINE ROM, RIGHT / LEFT ROTATION AND EXTENSION, R/O ? VERTEBRAL ARTERY COMPRESSION ? Comparison: MRI brain open MRI 01/17/2018.. ? Technique: CT angiography of the head and neck were performed with ? the administration of 120 mL Omnipaque 350 contrast. Multiplanar and ? 3-D reconstructions were performed. I have personally reviewed and ? adjusted the images for the 3D rendering on an independent ? workstation, as necessary, prior to interpretation. ? CT head: There is cerebral global volume loss. Patchy low attenuation ? white matter changes are noted throughout the centrum semiovale. No ? clear disruption of the cortical ribbon along the convexities is ? seen. ? No abnormal intra or extra-axial fluid collections are seen. No ? abnormal mass effect is observed. No evidence of cerebral herniation ? is seen. The deep lozada nuclei are symmetric and normal in appearance. ? The thalami are unremarkable. ? The calvarium appears intact. No evidence of cerebral herniation is ? seen. The mastoid air cells and paranasal sinuses are grossly clear. ? The orbits are unremarkable. ? CTA HEAD: ? Distal internal carotid arteries: The petrous segment of the internal ? carotid arteries appear patent. Atherosclerosis is seen within the ? cavernous carotid arteries. No hemodynamically significant distal ICA ? stenosis is seen. The area of the ophthalmic artery origin is ? unremarkable. The area of the posterior communicating artery origin ? is unremarkable bilaterally. ? Middle cerebral arteries: The M1 segment of the middle cerebral ? arteries are patent. The area of the MCA bifurcation is unremarkable. ? The more distal MCA branches are normal in appearance. ? Anterior cerebral arteries: Mild luminal narrowing is seen along the ? course of the left A1 segment of the LORRAINE. The right LORRAINE is patent. ? The anterior communicating artery is unremarkable. The more distal ? anterior cerebral arteries are normal in appearance. ? Distal vertebral arteries and basilar artery: There is a dominant ? left vertebral artery. The distal vertebral arteries appear patent. ? The basilar artery is patent throughout its course. The top of the ? basilar artery is normal in appearance. ? PAGE 1 ? Signed Report ? (CONTINUED) ? Posterior cerebral arteries: Very mild areas of luminal narrowing are ? seen along the P1 course of the left posterior cerebral artery. The ? remaining posterior cerebral arterial circulation is widely patent. ? CT NECK: The lung apices are clear. No superior mediastinal ? adenopathy is noted. Nodular heterogeneous appearance of the right ? thyroid lobe measuring up to 2 cm in diameter (series 6 image 904). ? The left thyroid lobe is normal in appearance. No adenopathy is noted ? within the neck. The parotid glands and submandibular glands are ? symmetric and unremarkable. Multilevel cervical spine degenerative ? disc and facet changes are noted spanning the cervical spine, most ? advanced at C5/6 where there is suspected advanced spinal canal ? narrowing. ? CTA NECK: ? Aortic arch: There is a three-vessel aortic arch. Mild scattered ? atherosclerosis is seen within the area of the aortic arch. ? Visualized portions of the aortic arch maintains a normal caliber. ? The origin of the great vessels are widely patent. ? Carotid circulation: The origin of the common carotid arteries are ? widely patent. No hemodynamically significant common carotid artery ? stenosis is seen. ? Atherosclerosis with low-density plaque is seen at the origin of the ? right internal carotid arteries. There is less than 15% luminal ? narrowing of the right ICA origin. The more distal cervical segment ? of the right internal carotid artery is widely patent. ? Very minimal low density atherosclerotic plaque is seen at the origin ? of the left internal carotid artery. No appreciable left ICA luminal ? narrowing is seen. The more distal cervical segment of the left ? internal carotid artery is widely patent. ? Vertebral arteries: Slight dominance of the left vertebral artery is ? noted. The origin of the vertebral arteries appear widely patent. The ? vertebral arteries are patent distally as well. The area of the PICA ? origin is unremarkable bilaterally. ? IMPRESSION: ? 1. No acute intracranial abnormality detected. ? 2. Cerebral global volume loss and patchy white matter disease. This ? pattern is nonspecific however most commonly reflects small vessel ? ischemic disease of aging. ? 3. Scattered atherosclerosis as described. This includes early ? atherosclerosis at the origin of the internal carotid arteries ? bilaterally. The origin of the right internal carotid artery is ? minimally narrowed (less than 15%), and the origin of the left ? internal carotid artery is widely patent. ? 4. Intracranial atherosclerosis with mild areas of luminal narrowing ? in the left A1 segment of the LORRAINE and left P1 segment of the ARCH SUPPORT TECHNICIAN. No ? hemodynamically significant intracranial arterial stenosis is seen. ? 5. 2 cm suspected right thyroid lobe nodule. Thyroid ultrasound is ? recommended. ? This report has been flagged for a noncritical result requiring ? PAGE 2 ? Signed Report ? (CONTINUED) ? follow-up on the [facility] PACS findings application, to be tracked by ? the [facility] tracking system. ? REPORT SIGNED IN OTHER VENDOR SYSTEM 11/21/2019 ?Reported By: Jose R Aguilar MD ? CC: Caitlyn Thakkar GLOBAL CONSUMER SECTOR VICE PRESIDENT- ? Transcribed Date/Time: 11/21/2019 (1025) ? Back Wedger: ? Printed Date/Time: 11/21/2019 (1025) ? PAGE 3 ? Signed Report ? Procedure Note Jose R Aguilar MD - 11/21/2019 EXAM: CAT SCAN/CT ANGIOGRAM HEAD EX. D/ (0951) CLINICAL INFORMATION: M54.2 CERVICAL PAIN, R55 BLACKOUT SPELLS W CERVICAL SPINE ROM RIGHT / LEFT ROTATION AND EXTENSION R/O VERTEBRAL ARTERY COMPRESSION CT ANGIOGRAM HEAD, CT ANGIOGRAM CAROTID Signs and Symptoms/Comments: M54.2 CERVICAL PAIN, , R55 BLACKOUT SPELLS W CERVICAL SPINE ROM, RIGHT / LEFT ROTATION AND EXTENSION,R/O VERTEBRAL ARTERY COMPRESSION Comparison: MRI brain open MRI 01/17/2018.. Technique: CT angiography of the head and neck were performed with the administration of 120 mL Omnipaque 350 contrast. Multiplanarand 3-D reconstructions were performed. I have personally reviewed and adjusted the images for the 3D rendering on an independent workstation, as necessary, prior to interpretation. CT head: There is cerebral global volume loss. Patchy lowattenuation white matter changes are noted throughout the centrum semiovale. No clear disruption of the cortical ribbon along the convexities is seen. No abnormal intra or extra-axial fluid collections are seen. No abnormal mass effect is observed. No evidence of cerebralherniation is seen. The deep lozada nuclei are symmetric and normal inappearance. The thalami are unremarkable. The calvarium appears intact. No evidence of cerebral herniation is seen. The mastoid air cells and paranasal sinuses are grosslyclear. The orbits are unremarkable. CTA HEAD: Distal internal carotid arteries: The petrous segment of theinternal carotid arteries appear patent. Atherosclerosis is seen within the cavernous carotid arteries. No hemodynamically significant distalICA stenosis is seen. The area of the ophthalmic artery origin is unremarkable. The area of the posterior communicating artery origin is unremarkable bilaterally. Middle cerebral arteries: The M1 segment of the middle cerebral arteries are patent. The area of the MCA bifurcation isunremarkable. The more distal MCA branches are normal in appearance. Anterior cerebral arteries: Mild luminal narrowing is seen alongthe course of the left A1 segment of the LORRAINE. The right LORRAINE is patent. The anterior communicating artery is unremarkable. The more distal anterior cerebral arteries are normal in appearance. Distal vertebral arteries and basilar artery: There is a dominant left vertebral artery. The distal vertebral arteries appear patent. The basilar artery is patent throughout its course. The top of the basilar artery is normal in appearance. PAGE 1 Signed Report (CONTINUED) Posterior cerebral arteries: Very mild areas of luminal narrowingare seen along the P1 course of the left posterior cerebral artery. The remaining posterior cerebral arterial circulation is widely patent. CT NECK: The lung apices are clear. No superior mediastinal adenopathy is noted. Nodular heterogeneous appearance of the right thyroid lobe measuring up to 2 cm in diameter (series 6 image 904). The left thyroid lobe is normal in appearance. No adenopathy isnoted within the neck. The parotid glands and submandibular glands are symmetric and unremarkable. Multilevel cervical spine degenerative disc and facet changes are noted spanning the cervical spine, most advanced at C5/6 where there is suspected advanced spinal canal narrowing. CTA NECK: Aortic arch: There is a three-vessel aortic arch. Mild scattered atherosclerosis is seen within the area of the aortic arch. Visualized portions of the aortic arch maintains a normal caliber. The origin of the great vessels are widely patent. Carotid circulation: The origin of the common carotid arteries are widely patent. No hemodynamically significant common carotid artery stenosis is seen. Atherosclerosis with low-density plaque is seen at the origin ofthe right internal carotid arteries. There is less than 15% luminal narrowing of the right ICA origin. The more distal cervical segment of the right internal carotid artery is widely patent. Very minimal low density atherosclerotic plaque is seen at theorigin of the left internal carotid artery. No appreciable left ICAluminal narrowing is seen. The more distal cervical segment of the left internal carotid artery is widely patent. Vertebral arteries: Slight dominance of the left vertebral arteryis noted. The origin of the vertebral arteries appear widely patent.The vertebral arteries are patent distally as well. The area of thePICA origin is unremarkable bilaterally. IMPRESSION: 1. No acute intracranial abnormality detected. 2. Cerebral global volume loss and patchy white matter disease.This pattern is nonspecific however most commonly reflects small vessel ischemic disease of aging. 3. Scattered atherosclerosis as described. This includes early atherosclerosis at the origin of the internal carotid arteries bilaterally. The origin of the right internal carotid artery is minimally narrowed (less than 15%), and the origin of the left internal carotid artery is widely patent. 4. Intracranial atherosclerosis with mild areas of luminalnarrowing in the left A1 segment of the LORRAINE and left P1 segment of the ARCH SUPPORT TECHNICIAN.No hemodynamically significant intracranial arterial stenosis is seen. 5. 2 cm suspected right thyroid lobe nodule. Thyroid ultrasound is recommended. This report has been flagged for a noncritical result requiring PAGE 2 Signed Report (CONTINUED) follow-up on the [facility] PACS findings application, to be tracked by the [facility] tracking system. REPORT SIGNED IN OTHER VENDOR SYSTEM 11/21/2019 Reported By: Jose R Aguilar MD CC: Caitlyn Thakkar Transcribed Date/Time: 11/21/2019 (1288) Back Wedger: Printed Date/Time: 11/21/2019 (4481) PAGE 3 Signed Report us Caitlyn Thakkar NP IMG CT ORDERABLES Final Resul t * CT ANGIO NECK (11/21/2019 10:25 EST) Anatomical Region Laterality Modality Neck Computed Tomogra phy 11/21/2019 10:2 2 EST Narrative 11/21/2019 10:25 EST ? EXAM: CAT SCAN/CT ANGIOGRAM CAROTID ? EX. D/ (0957) ? CLINICAL INFORMATION: ? M54.2 CERVICAL PAIN, ? R55 BLACKOUT SPELLS W CERVICAL SPINE ROM ? RIGHT / LEFT ROTATION AND EXTENSION ? R/O VERTEBRAL ARTERY COMPRESSION ? CT ANGIOGRAM HEAD, CT ANGIOGRAM CAROTID ? Signs and Symptoms/Comments: ??M54.2 CERVICAL PAIN, , R55 BLACKOUT ? SPELLS W CERVICAL SPINE ROM, RIGHT / LEFT ROTATION AND EXTENSION, R/O ? VERTEBRAL ARTERY COMPRESSION ? Comparison: MRI brain open MRI 01/17/2018.. ? Technique: CT angiography of the head and neck were performed with ? the administration of 120 mL Omnipaque 350 contrast. Multiplanar and ? 3-D reconstructions were performed. I have personally reviewed and ? adjusted the images for the 3D rendering on an independent ? workstation, as necessary, prior to interpretation. ? CT head: There is cerebral global volume loss. Patchy low attenuation ? white matter changes are noted throughout the centrum semiovale. No ? clear disruption of the cortical ribbon along the convexities is ? seen. ? No abnormal intra or extra-axial fluid collections are seen. No ? abnormal mass effect is observed. No evidence of cerebral herniation ? is seen. The deep lozada nuclei are symmetric and normal in appearance. ? The thalami are unremarkable. ? The calvarium appears intact. No evidence of cerebral herniation is ? seen. The mastoid air cells and paranasal sinuses are grossly clear. ? The orbits are unremarkable. ? CTA HEAD: ? Distal internal carotid arteries: The petrous segment of the internal ? carotid arteries appear patent. Atherosclerosis is seen within the ? cavernous carotid arteries. No hemodynamically significant distal ICA ? stenosis is seen. The area of the ophthalmic artery origin is ? unremarkable. The area of the posterior communicating artery origin ? is unremarkable bilaterally. ? Middle cerebral arteries: The M1 segment of the middle cerebral ? arteries are patent. The area of the MCA bifurcation is unremarkable. ? The more distal MCA branches are normal in appearance. ? Anterior cerebral arteries: Mild luminal narrowing is seen along the ? course of the left A1 segment of the LORRAINE. The right LORRAINE is patent. ? The anterior communicating artery is unremarkable. The more distal ? anterior cerebral arteries are normal in appearance. ? Distal vertebral arteries and basilar artery: There is a dominant ? left vertebral artery. The distal vertebral arteries appear patent. ? The basilar artery is patent throughout its course. The top of the ? basilar artery is normal in appearance. ? PAGE 1 ? Signed Report ? (CONTINUED) ? Posterior cerebral arteries: Very mild areas of luminal narrowing are ? seen along the P1 course of the left posterior cerebral artery. The ? remaining posterior cerebral arterial circulation is widely patent. ? CT NECK: The lung apices are clear. No superior mediastinal ? adenopathy is noted. Nodular heterogeneous appearance of the right ? thyroid lobe measuring up to 2 cm in diameter (series 6 image 904). ? The left thyroid lobe is normal in appearance. No adenopathy is noted ? within the neck. The parotid glands and submandibular glands are ? symmetric and unremarkable. Multilevel cervical spine degenerative ? disc and facet changes are noted spanning the cervical spine, most ? advanced at C5/6 where there is suspected advanced spinal canal ? narrowing. ? CTA NECK: ? Aortic arch: There is a three-vessel aortic arch. Mild scattered ? atherosclerosis is seen within the area of the aortic arch. ? Visualized portions of the aortic arch maintains a normal caliber. ? The origin of the great vessels are widely patent. ? Carotid circulation: The origin of the common carotid arteries are ? widely patent. No hemodynamically significant common carotid artery ? stenosis is seen. ? Atherosclerosis with low-density plaque is seen at the origin of the ? right internal carotid arteries. There is less than 15% luminal ? narrowing of the right ICA origin. The more distal cervical segment ? of the right internal carotid artery is widely patent. ? Very minimal low density atherosclerotic plaque is seen at the origin ? of the left internal carotid artery. No appreciable left ICA luminal ? narrowing is seen. The more distal cervical segment of the left ? internal carotid artery is widely patent. ? Vertebral arteries: Slight dominance of the left vertebral artery is ? noted. The origin of the vertebral arteries appear widely patent. The ? vertebral arteries are patent distally as well. The area of the PICA ? origin is unremarkable bilaterally. ? IMPRESSION: ? 1. No acute intracranial abnormality detected. ? 2. Cerebral global volume loss and patchy white matter disease. This ? pattern is nonspecific however most commonly reflects small vessel ? ischemic disease of aging. ? 3. Scattered atherosclerosis as described. This includes early ? atherosclerosis at the origin of the internal carotid arteries ? bilaterally. The origin of the right internal carotid artery is ? minimally narrowed (less than 15%), and the origin of the left ? internal carotid artery is widely patent. ? 4. Intracranial atherosclerosis with mild areas of luminal narrowing ? in the left A1 segment of the LORRAIEN and left P1 segment of the ARCH SUPPORT TECHNICIAN. No ? hemodynamically significant intracranial arterial stenosis is seen. ? 5. 2 cm suspected right thyroid lobe nodule. Thyroid ultrasound is ? recommended. ? This report has been flagged for a noncritical result requiring ? PAGE 2 ? Signed Report ? (CONTINUED) ? follow-up on the [facility] PACS findings application, to be tracked by ? the [facility] tracking system. ? REPORT SIGNED IN OTHER VENDOR SYSTEM 11/21/2019 ?Reported By: Jose R Aguilar MD ? CC: Caitlyn Thakkar GLOBAL CONSUMER SECTOR VICE PRESIDENT-BC ? Transcribed Date/Time: 11/21/2019 (1025) ? Back Wedger: ? Printed Date/Time: 11/21/2019 (1025) ? PAGE 3 ? Signed Report ? Procedure Note Jose R Aguilar MD - 11/21/2019 EXAM: CAT SCAN/CT ANGIOGRAM CAROTID EX. D/ (0957) CLINICAL INFORMATION: M54.2 CERVICAL PAIN, R55 BLACKOUT SPELLS W CERVICAL SPINE ROM RIGHT / LEFT ROTATION AND EXTENSION R/O VERTEBRAL ARTERY COMPRESSION CT ANGIOGRAM HEAD, CT ANGIOGRAM CAROTID Signs and Symptoms/Comments: M54.2 CERVICAL PAIN, , R55 BLACKOUT SPELLS W CERVICAL SPINE ROM, RIGHT / LEFT ROTATION AND EXTENSION,R/O VERTEBRAL ARTERY COMPRESSION Comparison: MRI brain open MRI 01/17/2018.. Technique: CT angiography of the head and neck were performed with the administration of 120 mL Omnipaque 350 contrast. Multiplanarand 3-D reconstructions were performed. I have personally reviewed and adjusted the images for the 3D rendering on an independent workstation, as necessary, prior to interpretation. CT head: There is cerebral global volume loss. Patchy lowattenuation white matter changes are noted throughout the centrum semiovale. No clear disruption of the cortical ribbon along the convexities is seen. No abnormal intra or extra-axial fluid collections are seen. No abnormal mass effect is observed. No evidence of cerebralherniation is seen. The deep lozada nuclei are symmetric and normal inappearance. The thalami are unremarkable. The calvarium appears intact. No evidence of cerebral herniation is seen. The mastoid air cells and paranasal sinuses are grosslyclear. The orbits are unremarkable. CTA HEAD: Distal internal carotid arteries: The petrous segment of theinternal carotid arteries appear patent. Atherosclerosis is seen within the cavernous carotid arteries. No hemodynamically significant distalICA stenosis is seen. The area of the ophthalmic artery origin is unremarkable. The area of the posterior communicating artery origin is unremarkable bilaterally. Middle cerebral arteries: The M1 segment of the middle cerebral arteries are patent. The area of the MCA bifurcation isunremarkable. The more distal MCA branches are normal in appearance. Anterior cerebral arteries: Mild luminal narrowing is seen alongthe course of the left A1 segment of the LORRAINE. The right LORRAINE is patent. The anterior communicating artery is unremarkable. The more distal anterior cerebral arteries are normal in appearance. Distal vertebral arteries and basilar artery: There is a dominant left vertebral artery. The distal vertebral arteries appear patent. The basilar artery is patent throughout its course. The top of the basilar artery is normal in appearance. PAGE 1 Signed Report (CONTINUED) Posterior cerebral arteries: Very mild areas of luminal narrowingare seen along the P1 course of the left posterior cerebral artery. The remaining posterior cerebral arterial circulation is widely patent. CT NECK: The lung apices are clear. No superior mediastinal adenopathy is noted. Nodular heterogeneous appearance of the right thyroid lobe measuring up to 2 cm in diameter (series 6 image 904). The left thyroid lobe is normal in appearance. No adenopathy isnoted within the neck. The parotid glands and submandibular glands are symmetric and unremarkable. Multilevel cervical spine degenerative disc and facet changes are noted spanning the cervical spine, most advanced at C5/6 where there is suspected advanced spinal canal narrowing. CTA NECK: Aortic arch: There is a three-vessel aortic arch. Mild scattered atherosclerosis is seen within the area of the aortic arch. Visualized portions of the aortic arch maintains a normal caliber. The origin of the great vessels are widely patent. Carotid circulation: The origin of the common carotid arteries are widely patent. No hemodynamically significant common carotid artery stenosis is seen. Atherosclerosis with low-density plaque is seen at the origin ofthe right internal carotid arteries. There is less than 15% luminal narrowing of the right ICA origin. The more distal cervical segment of the right internal carotid artery is widely patent. Very minimal low density atherosclerotic plaque is seen at theorigin of the left internal carotid artery. No appreciable left ICAluminal narrowing is seen. The more distal cervical segment of the left internal carotid artery is widely patent. Vertebral arteries: Slight dominance of the left vertebral arteryis noted. The origin of the vertebral arteries appear widely patent.The vertebral arteries are patent distally as well. The area of thePICA origin is unremarkable bilaterally. IMPRESSION: 1. No acute intracranial abnormality detected. 2. Cerebral global volume loss and patchy white matter disease.This pattern is nonspecific however most commonly reflects small vessel ischemic disease of aging. 3. Scattered atherosclerosis as described. This includes early atherosclerosis at the origin of the internal carotid arteries bilaterally. The origin of the right internal carotid artery is minimally narrowed (less than 15%), and the origin of the left internal carotid artery is widely patent. 4. Intracranial atherosclerosis with mild areas of luminalnarrowing in the left A1 segment of the LORRAINE and left P1 segment of the ARCH SUPPORT TECHNICIAN.No hemodynamically significant intracranial arterial stenosis is seen. 5. 2 cm suspected right thyroid lobe nodule. Thyroid ultrasound is recommended. This report has been flagged for a noncritical result requiring PAGE 2 Signed Report (CONTINUED) follow-up on the [employer] PACS findings application, to be tracked by the [facility] tracking system. REPORT SIGNED IN OTHER VENDOR SYSTEM 11/21/2019 Reported By: Jose R Aguilar MD CC: Caitlyn Thakkar GLOBAL CONSUMER SECTOR VICE PRESIDENT-BC Transcribed Date/Time: 11/21/2019 (4402) Back Wedger: Printed Date/Time: 11/21/2019 (1576) PAGE 3 Signed Report us Caitlyn Thakkar DIRECTOR APPOINTMENT IMG CT ORDERABLES Final Resul t documented in this encounter Visit Diagnoses Not on filedocumented in this encounter Care Teams Tipping Machine Operator Automatic Relationship Specialty Start Date End Date Jacklyn Clement PA [address] [place] [address] PCP - General 01/28/18 documented as of this encounter
--- OUTSIDE RECORDS SUMMARY | 2024-09-09 23:04 | XMS_ITS | Encounter Summary ---
Author Organization [facility] Address [address] [place] [address] Care Team Providers Care Real Estate Portfolio Manager Name Role Phone Jacklyn Clement Primary Care Provider Encounter Details Date Type Department Care Team (Latest Contact Info) Description 06/29/2024 23:59 EDT Hospital Encounter [facility] Lab - Main [place] [address] [place], [place] [address] Stem Setter, [facility] Lab Diabetes mellitus, stable ([facility]) Discharge Disposition: Home or Self Care Social [...] Info) Description 09/14/2024 12:30 EST Initial consult [facility] OBGYN [address] [place] [address] Carolyn Zheng NP [facility] [address] [facility], [address] [place] [address] 10/10/2024 6:15 EST Appointment [facility] MRI [address], [place] [id number] 11/21/2024 13:30 EST Appointment [facility] Xray [address], [place] [id number] 11/21/2024 14:45 EST Office Visit [facility] Orthopedics & Spine Medicine [address] [place] [address] Sangita Doss PA-C [address] [facility] [address] [place] [address] 12/20/2024 10:15 EDT Appointment [facility] Endoscopy [address] [place], [place] [address] Tom Mane MD [address] [place] [address] [address] [place] [address] documented as of this encounter Procedures Procedure Name Priority Date/Time Associated Diagnosis Comments LIPID PROFILE (INCLUDES CHOLESTEROL, TRIGLYCERIDES, HDL, LDL) Routine 06/29/2024 11:15 EDT Diabetes mellitus, stable (HCC-CMS) COMPREHENSIVE METABOLIC PANEL (CMP) Routine 06/29/2024 11:15 EDT Diabetes mellitus, stable (HCC-CMS) documented in this encounter Results * COMPREHENSIVE METABOLIC PANEL (CMP) (06/29/2024 11:15 EDT) Sodium 143 136 - 145 mmol/L 06/30/2024 8:49 EDT [facility] Potassium 4.1 3.5 - 5.0 mmol/L 06/30/2024 8:49 [facility] Chloride 104 96 - 110 mmol/L 06/30/2024 8:49 [facility] CO2 Total 31 22 - 32 mmol/L 06/30/2024 8:49 [facility] Glucose 89 70 - 99 mg/dl 06/30/2024 8:49 [facility] BUN 20 10 - 26 mg/dL 06/30/2024 8:49 [facility] Creatinine 0.90 0.52 - 1.04 mg/dL 06/30/2024 8:49 [facility] eGFR 68 >60 mL/min/1.7 3m2 06/30/2024 8:49 [facility] Total Protein 6.6 6.3 - 8.2 g/dL 06/30/2024 8:49 [facility] Albumin 4.1 3.4 - 4.9 g/dL 06/30/2024 8:49 [facility] Alkaline Phosphatase 55 38 - 126 U/L 06/30/2024 8:49 [facility] AST 22 15 - 46 U/L 06/30/2024 8:49 [facility] ALT 17 <35 U/L 06/30/2024 8:49 [facility] Bilirubin, Total 0.5 <1.4 mg/dL 06/30/20 8:49 [facility] Calcium 9.1 8.5 - 10.5 mg/dL 06/30/2024 8:49 [facility] Albumin/Globulin Ratio 1.6 1.0 - 2.5 06/30/2024 8:49 [facility] Anion Gap 8 5 - 14 mmol/L 06/30/2024 8:49 [facility] Blood VENOUS BLOOD / Unknown Venipuncture / Unknown 06/29/2024 11:15 EDT 06/30/2024 8:37 EDT us Peter Hou MD CHEMISTRY & BLOOD GAS ORDERAB LES Final Result [facility] [address] [place] [address] * (ABNORMAL) LIPID PROFILE (INCLUDES CHOLESTEROL, TRIGLYCERIDES, HDL, LDL) (06/29/2024 11:15 EDT) Cholesterol 123 <200 mg/dL 06/30/2024 8:49 [facility] Comment:Note that therapeuti c goals will differ between patients based on cardiac risk factors and current medical therapy. HDL 47(L) >=50 mg/dl 06/30/2024 8:49 [facility] Comment:Note that therapeuti c goals will differ between patients based on cardiac risk factors and current medical therapy. LDL, Calculated 53 <160 mg/dL 8:49 [facility] Comment:Note that therapeuti c goals will differ between patients based on cardiac risk factors and current medical therapy. Triglyceride 113 <=150 mg/dL 06/30/2024 8:49 [facility] Comment:Note that therapeuti c goals will differ between patients based on cardiac risk factors and current medical therapy. Chol/HDL Ratio 2.6 See Note 06/30/2024 8:49 [facility] Comment: NOTE: Desirable Ratio = <4.1 Patient At Risk Ratio = >5.0(Males) ?>6.0(Females) Non HDL Cholesterol 76 <160 mg/dL 06/30/2024 8:49 [facility] Comment:Note that therapeuti c goals will differ between patients based on cardiac risk factors and current medical therapy. Blood VENOUS BLOOD / Unknown Venipuncture / Unknown 06/29/2024 11:15 EDT 06/30/2024 8:37 EDT us Peter Hou MD CHEMISTRY & BLOOD GAS ORDERAB LES Final Result [facility] [address] [place] [address] documented in this encounter Visit Diagnoses Diagnosis Diabetes mellitus, stable ([facility]) Type II or unspecified type diabetes mellitus without mention of complication, not stated as uncontrolled documented in this encounter Care Teams Real Estate Portfolio Manager Relationship Specialty Start Date End Date Jackyln Clement PA [address] [place] [address] PCP - General 01/28/18 documented as of this encounter
--- OUTSIDE RECORDS SUMMARY | 2024-09-09 23:04 | XMS_ITS | Encounter Summary ---
Author Organization [facility] Address [address] [place] [address] Care Team Providers Care Rac Specialist Name Role Phone Jacklyn Clement Primary Care Provider [phone] Encounter Details Date Type Department Care Team (Late st Contact Info) Description 04/17/2019 Historical Results Only [facility] Lab - Main [place] [address] [place] [address] Jacklyn Clement PA [address] [place] [address] Social History Tobacco Use Types Packs/Day [...] consult [facility] OBGYN [address] [place], [place] [id number] Carolyn Zheng NP CNM [address] [facility], [address] [place] [address] 10/10/2024 6:15 EST Appointment [facility] MRI [address] [place] [address] 11/21/2024 13:30 EST Appointment [facility] Xray [address] [place] [address] 11/21/2024 14:45 EST Office Visit [facility] Orthopedics & Spine Medicine [address], [address] [place], [place] [address] Sangita Doss PA-C [address] [facility] [address] [place] [address] 12/20/2024 10:15 EDT Appointment [facility] Endoscopy [address] [place] [address] oTm Mane MD [address] [place] [address] [address] [place] [address] documented as of this encounter Procedures Procedure Name Priority Date/Time Associated Diagnosis Comments LIPID PANEL [facility] Routine 04/17/2019 14:27 EDT documented in this encounter Results * (ABNORMAL) LIPID PANEL [facility] (04/17/2019 14:27 EDT) Triglyceride 258(H) 0.00 - 150.00 MG/DL 04/17/2019 14:[address] [facility] Cholesterol 205(H) 0.00 - 200.00 MG/DL 04/17/2019 14:[address] [facility] HDL 30(L) 40.00 - 60.00 MG/DL 04/17/2019 14:[address] [facility] 04/17/2019 14:2 7 EDT 04/17/2019 14:27 EDT Jacklyn SCHUSTER CHEMISTRY & BLOOD GAS ORDERAB LES Final Result [facility] documented in this encounter Visit Diagnoses Not on filedocumented in this encounter Care Teams Rac Specialist Relationship Specialty Start Date End Date Jacklyn Clement PA [address] [place] [address] PCP - General 01/28/18 documented as of this encounter
--- OUTSIDE RECORDS SUMMARY | 2024-09-09 23:04 | XMS_ITS | Encounter Summary ---
Author Organization [facility] Address [address] [place] [address] Care Team Providers Care Hand Rounder Name Role Phone Jacklyn Clement Primary Care Provider [phone] Reason for Referral * Radiology Services (Routine/Next Available) - Authorization Not Required Specialty Diagnoses / Procedures Referred By Contac t Referred To Contact Diagnoses Nontoxic single thyroid nodule Procedures US THYROID/NECK Peter Hou MD [address] [address] Phone: tel: fax: [facility] Referral ID Status Reason Start Date Expiration Date Visits Requested Visits Authorized [id number] Authorization Not Required 06/29/2024 1 1 Reason for Visit * Radiology Services (Routine/Next Available) - Authorization Not Required Specialty Diagnoses / Procedures Referred By [facility] Referred To Contact Diagnoses Nontoxic single thyroid nodule Procedures US THYROID/NECK Peter Hou MD [address] [address] Phone: tel: fax: [facility] Referral ID Status Reason Start Date Expiration Date Visits Requested Visits Authorized [id number] Authorization Not Required 06/29/2024 1 1 Encounter Details Date Type Department Care Team (Latest Contact Info) Description 07/05/2024 12:17 EDT - 07/05/2024 23:59 EDT Hospital Encounter [facility] Ultrasound [address] [place] [address] Nontoxic single thyroid nodule Discharge Disposition: Home or Self Care Social [facility] [address] [place], [place] [address] Carolyn Zheng NP CN [address] [facility] [address] [place] [address] 10/10/2024 6:15 EST Appointment [facility] MRI [address] [place], [place] [id number] 11/21/2024 13:30 EST Appointment [facility] Xray [address] [place] [id number] 11/21/2024 14:45 EST Office Visit [facility] Orthopedics & Spine Medicine [address], [address] [place], [place] [address] Sangita Doss PA-C 13[address] [facility] [address] [place], [place] [address] 12/20/2024 10:15 EDT Appointment [facility] Endoscopy [address] [place], [place] [address] Tom Mane MD [address] [place] [address] [address] [place] [address] documented as of this encounter Procedures Procedure Name Priority Date/Time Associated Diagnosis Comments US THYROID/NECK Routine 07/05/2024 12:38 EDT Nontoxic single thyroid nodule documented in this encounter Results * US THYROID/NECK (07/05/2024 12:38 EDT) Anatomical [...] Committee. J Am [place] Radiol. 2017 January;14(5):587-595 [id number] Narrative 07/05/2024 14:09 EDT US THYROID/NECK ??07/05/2024 [...] ?? Echogenicity: ??Hypoechoic (2 points) ?? Shape: Fcmho-pkkz-rgvx (0 points) ?? Margin: ??Smooth (0 points) ?? Echogenic Foci: ??No echogenic foci (0 points) ?? TI-RADS category: TR 3 (3 points) Nodule 2 ?? Location: Mid-portion of the left thyroid lobe. ?? Size: 0.7 x 0.7 x 0.5 cm. ?? Composition: ??Almost completely solid (2 points) ?? Echogenicity: ??Hypoechoic (2 points) ?? Shape: Opmki-abio-fhcl (0 points) ?? Margin: ??Ill-defined (0 points) ?? Echogenic Foci: ??No echogenic foci (0 points) ?? TI-RADS category: TR 4 (4-6 points) Nodule 3 ?? Location: Upper pole of the left thyroid lobe. ?? Size: 0.6 x 0.4 x 0.3 cm. ?? Composition: ??Solid (2 points) ?? Echogenicity: ??Hypoechoic (2 points) ?? Shape: Jxxhj-ywiz-algj (0 points) ?? Margin: ??Ill-defined (0 points) ?? Echogenic Foci: ??No echogenic foci (0 points) ?? TI-RADS category: TR 4 (4-6 points) Resulting Agency Comment [id number] Procedure Note Jose R Aguilar MD - [...] (1 point) Echogenicity: Hypoechoic (2 points) Shape: Qhmou-heic-ibaa (0 points) Margin: Smooth (0 points) Echogenic Foci: No echogenic foci (0 points) TI-RADS category: TR 3 (3 points) Nodule 2 Location: Mid-portion of the left thyroid lobe. Size: 0.7 x 0.7 x 0.5 cm. Composition: Almost completely solid (2 points) Echogenicity: Hypoechoic (2 points) Shape: Snumz-gaos-mtca (0 points) Margin: Ill-defined (0 points) Echogenic Foci: No echogenic foci (0 points) TI-RADS category: TR 4 (4-6 points) Nodule 3 Location: Upper pole of the left thyroid lobe. Size: 0.6 x 0.4 x 0.3 cm. Composition: Solid (2 points) Echogenicity: Hypoechoic (2 points) Shape: Envow-jhum-eswo (0 points) Margin: Ill-defined (0 points) Echogenic [...] ACR TI-RADSCommittee. J Am [place] Radiol. 2017 May;14(5):[id number] [id number] Peter Hou MD 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
--- OUTSIDE RECORDS SUMMARY | 2024-09-09 23:05 | XMS_ITS | Encounter Summary ---
Author Organization [facility] Address [address] [place] [address] Care Team Providers Care Twister Tender Paper Name Role Phone Jacklyn Clement Primary Care Provider [phone] Encounter Details Date Type Department Care Team (Late st Contact Info) Description 01/16/2019 Historical Results Only [facility] Lab - Main [place] [address] [place] [address] Jacklyn Clement PA [address] [place] [address] Social History Tobacco Use Types Packs/Day [...] Info) Description 09/14/2024 12:30 EST Initial consult [facility] OBGYN [address] [place], [place] [phone] Carolyn Zheng NP CNM 130 [facility], [address] [place] [address] 10/10/2024 6:15 EST Appointment [facility] MRI [address] [place] [address] 11/21/2024 13:30 EST Appointment [facility] Xray [address] [place] [address] 11/21/2024 14:45 EST Office Visit [facility] Orthopedics & Spine Medicine [address] [place], [place] [address] Sangita Doss PA-C 13[address] [facility] [address] [place] [address] 12/20/2024 10:15 EDT Appointment [facility] Endoscopy [address] [place], [place] [address] Tom Mane MD [address] [place] [address] [address] [place] [address] documented as of this encounter Procedures Procedure Name Priority Date/Time Associated Diagnosis Comments MICROALBUMIN, URINE Routine 01/16/2019 1 0:00 EDT [facility] - [facility] Routine 01/16/2019 10 :00 EDT URINE [id number] NE RATIO (ACR) Routine 01/16/2019 10:00 EDT documented in this encounter Results * (ABNORMAL) MICROALBUMIN, URINE (01/16/2019 10:00 EDT) Albumin, Urine 2.00(H) <1.7 mg/dL 01/16/2019 18:50 EDT [facility] Lab Urine Albumin to Creatinine Ratio 23.0 ug/mg 01/16/2019 18:50 EDT [facility] Comment: Normal: <30 ug/mg Creat Microalbuminuria: 30-300 ug/mg Creat Clinical albuminuria: >300 ug/mg Creat Creatinine, Urine 86.60 mg/dL 01/16/2019 18:50 EDT [facility] 01/16/2019 10:0 0 EDT 01/16/2019 18:09 EDT [facility] - 01/16/2019 18:50 EDT Does PT Have a Latex Allergy? NO WHAT TYPE OF COLLECTION IS THIS URINE? RANDOM URINE us Jacklyn SCHUSTER HEMATOLOGY & PF4 ORDERABLES F inal Result [facility] * EAR CULTURE - [facility] (01/16/2019 10:00 EDT) ENTEROBACTER CLOACAE COMPLEX - [facility] ENTEROBACTER CLOACAE COMPLEX 01/19/2019 7:20 EDT [facility] QUANT - [facility] FEW 01/19/2019 7:20 EDT [facility] USUAL SKIN NORA - [facility] USF 01/19/2019 7:20 EDT [facility] QUANT - [facility] MODERATE 01/19/2019 7:20 EDT [facility] 01/16/2019 10:0 0 EDT 01/16/2019 18:09 EDT Comment:LE Narrative [facility] - 01/19/2019 7:20 EDT Does PT Have a Latex Allergy? NO Organism Antibiotic Method Susceptibility Enterobacter cloacae complex Amoxicillin Clavulanic acid GRAM NEGATIVE SUSCEPTIBILITY - [facility] >=32: Resistant Enterobacter cloacae complex Ceftriaxone GRAM NEGATIVE SUSCEPTIBILITY - [facility] <=1: Susceptible Enterobacter cloacae complex Cefazolin GRAM NEGATIVE SUSCEPTIBILITY - [facility] >=64: Resistant Enterobacter cloacae complex Ciprofloxacin GRAM NEGATIVE SUSCEPTIBILITY - [facility] <=0.25: Susceptible Enterobacter cloacae complex Cefepime GRAM NEGATIVE SUSCEPTIBILITY - [facility] <=1: Susceptible Enterobacter cloacae complex Ertapenem GRAM NEGATIVE SUSCEPTIBILITY - [facility] <=0.5: Susceptible Enterobacter cloacae complex Gentamicin GRAM NEGATIVE SUSCEPTIBILITY - [facility] <=1: Susceptible Enterobacter cloacae complex Imipenem GRAM NEGATIVE SUSCEPTIBILITY - [facility] <=0.25: Susceptible Enterobacter cloacae complex Levofloxacin GRAM NEGATIVE SUSCEPTIBILITY - [facility] <=0.12: Susceptible Enterobacter cloacae complex Piperacillin Tazobactam GRAM NEGATIVE SUSCEPTIBILITY - [facility] <=4: Susceptible Enterobacter cloacae complex Trimethoprim-Sulfamet hoxazole GRAM NEGATIVE SUSCEPTIBILITY - [facility] <=20: Susceptible Enterobacter cloacae complex Tobramycin GRAM NEGATIVE SUSCEPTIBILITY - [facility] <=1: Susceptible Comment:See Reason(s) for St udy us Jacklyn SCHUSTER CHEMISTRY & BLOOD GAS ORDERAB LES Edited Result - Final Performing Organization Address City/[facility]/ZIP Co de Phone Number [facility] * (ABNORMAL) ALBUMIN, URINE (01/16/2019 10:00 EDT) Albumin, Urine 2.00(H) <1.7 mg/dL 01/16/2019 18:50 EDT [facility] Lab Urine Albumin to Creatinine Ratio 23.0 ug/mg 01/16/2019 18:50 EDT [facility] Comment: Normal: <30 ug/mg Creat Microalbuminuria: 30-300 ug/mg Creat Clinical albuminuria: >300 ug/mg Creat Creatinine, Urine 86.60 mg/dL 01/16/2019 18:50 EDT [facility] 01/16/2019 10:0 0 EDT 01/16/2019 18:09 EDT Narrative [facility] - 01/16/2019 18:50 EDT Does PT Have a Latex Allergy? NO WHAT TYPE OF COLLECTION IS THIS URINE? RANDOM URINE us Jacklyn SCHUSTER CHEMISTRY & BLOOD GAS ORDERAB LES Final Result Performing Organization Address [facility] Co de Phone Number [facility] documented in this encounter Visit Diagnoses Not on filedocumented in this encounter Care Teams Twister Tender Paper Relationship Specialty Start Date End Date Jacklyn Clement PA [address] [place] [address] PCP - General 01/28/18 documented as of this encounter
--- OUTSIDE RECORDS SUMMARY | 2024-09-09 23:05 | XMS_ITS | Encounter Summary ---
Author Organization [facility] Address [address] [place] [address] Care Team Providers Care Pharmaceutical Engineer Name Role Phone Jason Velez MD Primary Care Provider [phone] Jacklyn Clement Primary Care Provider Encounter Details Date Type Department Care Team (Late st Contact Info) Description 12/23/[address] [facility] Lab - Main [place] [address] [place] [address] Jacklyn Clement PA [address] [place] [address] Social History Tobacco Use Types Packs/Day Years Used Date Smoking Tobacco: Never Assessed Comments Unknown Sex and Gender Information Value Date Recorded Sex Assigned at Female 08/21/2024 14:53 EST Legal Sex Female 18:57 EST Gender Identity Not on file Sexual Orientation Not on file documented as of this encounter Plan of Treatment Upcoming Encounters Date Type Department Care Team (Late st Contact Info) Description 09/14/2024 12:[address] [facility] OBGYN [address] [place] [address] Carolyn Zheng NP CNM 130 [facility], [address] [place] [address] 10/10/2024 6:[address] [facility] MRI [address] [place] [address] 11/21/2024 13:[address] [facility] Xray [address] [place] [address] 11/21/2024 14:[address] [facility] Orthopedics & Spine Medicine [address] [place] [address] Sangita Doss PA-C [address] [facility] [address] [place] [address] 12/20/2024 10:[address] [facility] Endoscopy [address] [place] [address] Tom Mane MD [address] [place] [address] [address] [place] [address] documented as of this encounter Procedures Procedure Name Priority Date/Time Associated Diagnosis Comments FREE T4 [facility] Routine 12/23/2016 11 :36 EDT documented in this encounter Results * FREE T4 [facility] (12/23/2016 11:36 EDT) [address] 0.66 0.58 - 1.64 NG/DL 12/24/2016 11:38 EDT [facility] 12/23/2016 11:3 6 EDT 12/23/2016 11:36 EDT Jacklyn SCHUSTER CHEMISTRY & BLOOD GAS ORDERAB LES Final Result [facility] documented in this encounter Visit Diagnoses Not on filedocumented in this encounter Care Teams Pharmaceutical Engineer Relationship Specialty Start Date End Date Jason Velez MD [address] [facility] [address] [place], [place] [address] PCP - General 09/05/12 01/27/18 Jacklyn Clement PA [address] [place], [place] [address] PCP - General 01/28/18 documented as of this encounter
--- OUTSIDE RECORDS SUMMARY | 2024-09-09 23:05 | XMS_ITS | Encounter Summary ---
Author Organization [facility] Address [address] [place] [address] Care Team Providers Care Mba Intern Name Role Phone Jacklyn Clement Primary Care Provider [phone] Encounter Details Date Type Department Care Team (Late st Contact Info) Description 10/10/2018 Historical Results Only [facility] Lab - Main [place] [address] [place] [address] Jacklyn Clement PA [address] [place] [address] Social History Tobacco Use Types Packs/Day [...] consult [facility] OBGYN [address] [place], [place] [id number] Carolyn Zheng NP CNM 130 [facility] [address], [address] [place] [address] 10/10/2024 6:15 EST Appointment [facility] MRI [address] [place] [address] 11/21/2024 13:30 EST Appointment [facility] Xray [address] [place] [address] 11/21/2024 14:45 EST Office Visit [facility] Orthopedics & Spine Medicine [address] [place], [place] [address] Sangita Doss PA-C [address] [facility] [address] [place] [address] 12/20/2024 10:15 EDT Appointment [facility] Endoscopy [address] [place] [address] Tom Mane MD [address] [place] [address] [address] [place] [address] documented as of this encounter Procedures Procedure Name Priority Date/Time Associated Diagnosis Comments VITAMIN D 25 POC - [facility] Routine 10/10/19 19 13:10 EST LIPID PANEL POC - [facility] Routine 9 13:10 EST COMPREHENSIVE METABOLIC POC - [facility] Routine 10/10/2018 13:10 EST GLYCOHEMOGLOBIN POC - [facility] Routine 10/10/2018 13:10 EST POCT CHOLESTEROL LDL ([facility]) Routine 10/10/2018 13:10 EST MICROALBUMIN, URINE Routine 10/10/2018 8 :20 EST URINE [id number] RATIO (ACR) Routine 10/10/2018 8:20 EST documented in this encounter Results * VITAMIN D 25 POC - [facility] (10/10/2018 13:10 EST) VIT D, 25 HYDROXY - [facility] 49 30 - 100 NG/ML 10/10/2018 13:11 EST [facility] 10/10/2018 13:1 0 EST 10/10/2018 13:10 EST us Jacklyn SCHUSTER CHEMISTRY & BLOOD GAS ORDERAB LES Final Result Performing Organization Address [facility]/ZIP Co de Phone Number [facility] * (ABNORMAL) LIPID PANEL POC - [facility] (10/10/2018 13:10 EST) Triglyceride 324(H) 0.00 - 150.00 MG/DL 10/10/2018 13:11 [facility] Cholesterol 189 0.00 - 200.00 MG/DL 10/10/2018 13:11 [facility] HDL 32(L) 40.00 - 60.00 MG/DL 10/10/2018 13:11 [facility] 10/10/2018 13:1 0 EST 10/10/2018 13:10 EST us Jacklyn SCHUSTER CHEMISTRY & BLOOD GAS ORDERAB LES Final Result Performing Organization Address [facility]/ZIP Co de Phone Number [facility] * POCT CHOLESTEROL LDL ([facility] (10/10/2018 13:10 EST) LDL CHOLESTEROL - [facility] 92 60 - 100 MG/DL 10/10/2018 13:11 EST [facility] 10/10/2018 13:1 0 EST 10/10/2018 13:10 EST us Jacklyn SCHUSTER POINT OF CARE TEST ORDERABLES Final Result Performing Organization Address [facility] Co de Phone Number [facility] * (ABNORMAL) GLYCOHEMOGLOBIN POC - [facility] (10/10/2018 13:10 EST) Hemoglobin A1c 6.4(H) 4.0 - 6.0 % 10/10/2018 13:11 [facility] AVG CALCULATED GLUCOSE - [facility] 133(H) 60 - 115 MG/DL 10/10/2018 13:11 [facility] 10/10/2018 13:1 0 EST 10/10/2018 13:10 EST us Jacklyn SCHUSTER CHEMISTRY & BLOOD GAS ORDERAB LES Final Result [facility] * (ABNORMAL) COMPREHENSIVE METABOLIC POC - [facility] (10/10/2018 13:10 EST) Albumin % 4.2 3.50 - 5.00 G/DL 10/10/2018 13:11 [facility] ALKALINE PHOSPHATASE - [facility] 64 38.00 - 126.00 U/L 10/10/2018 13:11 [facility] BILIRUBIN TOTAL 0.3 0.20 - 1.30 MG/DL 10/10/2018 13:11 [facility] BUN - [facility] 25(H) 7.00 - 20.00 MG/DL 10/10/2018 13:11 [facility] CALCIUM - [facility] 10.3 8.50 - 10.50 MG/DL 10/10/2018 13:11 [facility] Chloride 104 98.00 - 107.00 MMOL/L 10/10/2018 13:11 [facility] CO2 Total 25 22.00 - 30.00 MMOL/L 10/10/2018 13:11 [facility] CREATININE 1.1 0.70 - 1.50 MG/DL 10/10/2018 13:11 [facility] Anion Gap 13 7 - 17 MMOL/L 10/10/2018 13:11 [facility] GLUCOSE - [facility] 127(H) 70.00 - 100.00 MG/DL 10/10/2018 13:11 [facility] Potassium 4.1 3.50 - 5.10 MMOL/L 10/10/2018 13:11 [facility] Sodium 142 137.00 - 145.00 MMOL/L 10/10/2018 13:11 [facility] TOTAL PROTEIN - [facility] 7.1 6.30 - 8.20 G/DL 10/10/2018 13:11 [facility] SGOT/AST - [facility] 24 15.00 - 46.00 U/L 10/10/2018 13:11 [facility] SGPT/ALT - [facility] 56 13.00 - 69.00 U/L 10/10/2018 13:11 [facility] 10/10/2018 13:1 0 EST 10/10/2018 13:10 EST Jacklyn SCHUSTER CHEMISTRY & BLOOD GAS ORDERAB LES Final Result Performing Organization Address [facility] de Phone Number [facility] * (ABNORMAL) MICROALBUMIN, URINE (10/10/2018 8:20 EST) Albumin, Urine 2.50(H) <1.7 mg/dL 10/10/2018 14:51 [facility] Lab Urine Albumin to Creatinine Ratio 17.6 ug/mg 10/10/2018 14:51 [facility] Comment: Normal: <30 ug/mg Creat Microalbuminuria: 30-300 ug/mg Creat Clinical albuminuria: >300 ug/mg Creat Creatinine, Urine 141.30 mg/dL 10/10/2018 14:51 [facility] 10/10/2018 8:20 EST 10/10/2018 13:32 EST Narrative [facility] - 10/10/2018 14:51 EST Does PT Have a Latex Allergy? NO WHAT TYPE OF COLLECTION IS THIS URINE? RANDOM URINE Jacklyn SCHUSTER HEMATOLOGY & PF4 ORDERABLES F inal Result Performing Organization Address [facility] Co de Phone Number [facility] * (ABNORMAL) ALBUMIN, URINE (10/10/2018 8:20 EST) Albumin, Urine 2.50(H) <1.7 mg/dL 10/10/2018 14:51 [facility] Lab Urine Albumin to Creatinine Ratio 17.6 ug/mg 10/10/2018 14:51 [facility] Comment: Normal: <30 ug/mg Creat Microalbuminuria: 30-300 ug/mg Creat Clinical albuminuria: >300 ug/mg Creat Creatinine, Urine 141.30 mg/dL 10/10/2018 14:51 EST [facility] 10/10/2018 8:20 EST 10/10/2018 13:32 EST Narrative [facility] - 10/10/2018 14:51 EST Does PT Have a Latex Allergy? NO WHAT TYPE OF COLLECTION IS THIS URINE? RANDOM URINE us Jacklyn SCHUSTER CHEMISTRY & BLOOD GAS ORDERAB LES Final Result [facility] documented in this encounter Visit Diagnoses Not on filedocumented in this encounter Care Teams Mba Intern Relationship Specialty Start Date End Date Jacklyn Clement PA [address] [place] [address] PCP - General 01/28/18 documented as of this encounter
--- OUTSIDE RECORDS SUMMARY | 2024-09-09 23:05 | XMS_ITS | Encounter Summary ---
Author Organization [facility] Address [address] [place] [address] Care Team Providers Care Admitting Coordinator Name Role Phone Jason Velez MD Primary Care Provider [phone] Jacklyn Clement Primary Care Provider [phone] Encounter Details Date Type Department Care Team (Late st Contact Info) Description 10/13/2016 Historical Results Only [facility] Lab - Main [place] [address] [place] [address] Jacklyn Clement PA [address] [place] [address] Social History Tobacco Use Types Packs/Day [...] Info) Description 09/14/2024 12:30 EST Initial consult [facility] OBGYN [address] [place] [address] Carolyn Zheng NP CNM 130 [facility] [address] [place] [address] 10/10/2024 6:15 EST Appointment [facility] MRI [address] [place] [address] 11/21/2024 13:30 EST Appointment [facility] Xray [address] [place] [address] 11/21/2024 14:45 EST Office Visit [facility] Orthopedics & Spine Medicine [address] [place] [address] Sangita Doss PA-C 13[address] [facility] [address] [place] [address] 12/20/2024 10:15 EDT Appointment [facility] Endoscopy [address] [place], [place] [address] Tom Maen MD [address] [place] [address] [address] [place] [address] documented as of this encounter Procedures Procedure Name Priority Date/Time Associated Diagnosis Comments COMPREHENSIVE METABOLIC POC - [facility] Routine 10/13/2016 13:22 EST documented in this encounter Results * (ABNORMAL) COMPREHENSIVE METABOLIC POC - [facility] (10/13/2016 13:22 EST) Albumin % 4.3 3.50 - 5.00 G/DL 10/13/2016 13:23 [facility] ALKALINE PHOSPHATASE - [facility] 59 38.00 - 126.00 U/L 10/13/2016 13:23 [facility] BILIRUBIN TOTAL 0.4 0.20 - 1.30 MG/DL 10/13/2016 13:23 [facility] BUN - [facility] 14 7.00 - 20.00 MG/DL 10/13/2016 13:23 [facility] CALCIUM - [facility] 9.9 8.50 - 10.50 MG/DL 10/13/2016 13:23 [facility] Chloride 105 98.00 - 107.00 MMOL/L 10/13/2016 13:23 [facility] CO2 Total 30 22.00 - 30.00 MMOL/L 10/13/2016 13:23 [facility] CREATININE 0.8 0.70 - 1.50 MG/DL 10/13/2016 13:23 [facility] Anion Gap 13 7 - 17 10/13/2016 13:23 [facility] GLUCOSE - [facility] 161(H) 70.00 - 100.00 MG/DL 10/13/2016 13:23 [facility] Potassium 4.1 3.50 - 5.10 MMOL/L 10/13/2016 13:23 [facility] Sodium 148(H) 137.00 - 145.00 MMOL/L 10/13/2016 13:23 [facility] TOTAL PROTEIN - [facility] 7.1 6.30 - 8.20 G/DL 10/13/2016 13:23 [facility] SGOT/AST - [facility] 21 15.00 - 46.00 U/L 10/13/2016 13:23 [facility] SGPT/ALT - [facility] 34 13.00 - 69.00 U/L 10/13/2016 13:23 [facility] 10/13/2016 13:2 2 EST 10/13/2016 13:22 EST Jacklyn SCHUSTER CHEMISTRY & BLOOD GAS ORDERAB LES Final Result [facility] documented in this encounter Visit Diagnoses Not on filedocumented in this encounter Care Teams Admitting Coordinator Relationship Specialty Start Date End Date Jason Velez MD 74 [facility] 100 [place] [address] PCP - General 09/05/12 01/27/18 Jacklyn Clement PA [address] [place] [address] PCP - General 01/28/18 documented as of this encounter
--- OUTSIDE RECORDS SUMMARY | 2024-09-09 23:05 | XMS_ITS | Encounter Summary ---
Author Organization [facility] Address [address] [place] [address] Care Team Providers Care Head Of Digital Advertising & Integration Name Role Phone Jason Velez MD Primary Care Provider [phone] Jacklyn Clement Primary Care Provider [phone] Encounter Details Date Type Department Care Team (Late st Contact Info) Description 12/23/2016 Historical Results Only [facility] Lab - Main [place] [address] [place] [address] Jacklyn Clement PA [address] [place] [address] Social History Tobacco Use Types Packs/Day [...] consult [facility] OBGYN [address] [place] [address] Carolyn Zheng NP CNM 130 [facility] [address] [place] [address] 10/10/2024 6:15 EST Appointment [facility] MRI [address] [place] [address] 11/21/2024 13:30 EST Appointment [facility] Xray [address] [place] [address] 11/21/2024 14:45 EST Office Visit [facility] Orthopedics & Spine Medicine [address] [place] [address] Sangita Doss PA-C 13[address] [facility] [address] [place] [address] 12/20/2024 10:15 EDT Appointment [facility] Endoscopy [address] [place] [address] Tom Mane MD [address] [place] [address] [address] [place] [address] documented as of this encounter Procedures Procedure Name Priority Date/Time Associated Diagnosis Comments FREE T3 [facility] Routine 12/23/2016 11 :36 EDT documented in this encounter Results * FREE T3 POC - [facility] (12/23/2016 11:36 EDT) Pathologist [place] [address],[facility] 2.87 2.40 - 4.00 PG/ML 12/24/2016 11:38 EDT [facility] 12/23/2016 11:3 6 EDT 12/23/2016 11:36 EDT Jacklyn SCHUSTER CHEMISTRY & BLOOD GAS ORDERAB LES Final Result [facility] documented in this encounter Visit Diagnoses Not on filedocumented in this encounter Care Teams Head Of Digital Advertising & Integration Relationship Specialty Start Date End Date Jason Velez MD 74 [facility] [address] [place] [address] PCP - General 09/05/12 01/27/18 Jacklyn Clement PA [address] [place], [place] [address] PCP - General 01/28/18 documented as of this encounter
--- OUTSIDE RECORDS SUMMARY | 2024-09-09 23:05 | XMS_ITS | Encounter Summary ---
Author Organization [facility] Address [address] [place] [address] Care Team Providers Care Item Repair Manager Name Role Phone Jason Velez MD Primary Care Provider [phone] Jacklyn Clement Primary Care Provider Encounter Details Date Type Department Care Team (Late st Contact Info) Description 01/27/2018 Historical Results Only [facility] Lab - Main [place] [address] [place] [address] Jorge Rodriguez [place] [address] [address] Social History Tobacco Use Types Packs/Day Years [...] Info) Description 09/14/2024 12:30 EST Initial consult [facility] OBGYN [address] [place] [address] Carolyn Zheng NP CNM 130 [facility] [address] [place] [address] 10/10/2024 6:15 EST Appointment [facility] MRI [address] [place] [address] 11/21/2024 13:30 EST Appointment [facility] Xray [address] [place] [address] [place] [address] 11/21/2024 14:45 EST Office Visit [facility] Orthopedics & Spine Medicine [address] [place] [address] Sangita Doss PA-C 1311 [facility] [address] [place] [address] 12/20/2024 10:15 EDT Appointment [facility] Endoscopy 130 [place] [address] Tom Mane MD [address] [place] [address] [address] [place] [address] documented as of this encounter Procedures Procedure Name Priority Date/Time Associated Diagnosis Comments RAPID PLASMA REAGIN (RPR) WITH REFLEX, S Routine 01/27/2018 14:27 EDT TSH Routine 01/27/2018 14:27 EDT VITAMIN B12 Routine 01/27/2018 14:27 EDT documented in this encounter Results * TSH (01/27/2018 14:27 EDT) [facility] THYROID STIM HORMONE [facility] 1.92 0.46 - 4.68 uIU/ml 01/27/2018 15:52 EDT [facility] 01/27/2018 14:2 7 EDT 01/27/2018 14:27 EDT Narrative [facility] - 01/27/2018 15:52 EDT Does PT Have a Latex Allergy? NO us Jorge Rodriguez MD CHEMISTRY & BLOOD GAS ORDERABL ES Final Result [facility] * VITAMIN B12 (01/27/2018 14:27 EDT) [facility] VITAMIN B12 [facility] 546 239 - 931 pg/mL 01/27/2018 15:52 EDT [facility] 01/27/2018 14:2 7 EDT 01/27/2018 14:27 EDT Narrative [facility] - 01/27/2018 15:52 EDT Does PT Have a Latex Allergy? NO us Jorge Rodriguez MD CHEMISTRY & BLOOD GAS ORDERABL ES Final Result [facility] * RAPID PLASMA REAGIN (RPR) WITH REFLEX, S (01/27/2018 14:27 EDT) APID PLASMA REAGIN [place] [facility] Nonreactive NEG 02/03/2018 7:58 EDT [facility] 01/27/2018 14:2 7 EDT 01/27/2018 14:27 EDT Narrative [facility] - 02/03/2018 7:58 EDT Does PT Have a Latex Allergy? NO us Jorge Rodriguez MD IMMUNOLOGY AND SEROLOGY ORDERA BLES Final Result [facility] documented in this encounter Visit Diagnoses Not on filedocumented in this encounter Care Teams Item Repair Manager Relationship Specialty Start Date End Date Jason Velez MD 74 [facility] 100 [place] [address] PCP - General 09/05/12 01/27/18 Jacklyn Clement PA [address] [place] [address] PCP - General 01/28/18 documented as of this encounter
--- OUTSIDE RECORDS SUMMARY | 2024-09-09 23:05 | XMS_ITS | Encounter Summary ---
Author Organization [facility] Address [address] [place] [address] Care Team Providers Care Seamstress Fitter Name Role Phone Jason Velez MD Primary Care Provider [phone] Jacklyn Clement Primary Care Provider [phone] Encounter Details Date Type Department Care Team (Late st Contact Info) Description 01/05/2018 Historical Results Only [facility] Lab - Main [place] [address] [place] [address] Jacklyn Clement PA [address] [place] [address] Social History Tobacco Use Types Packs/Day [...] Info) Description 09/14/2024 12:30 EST Initial consult [facility] OBGYN [address] [place] [address] Carolyn Zheng NP CNM 130 [facility] [address] [place] [address] 10/10/2024 6:15 EST Appointment [facility] MRI [address] [place] [address] 11/21/2024 13:30 EST Appointment [facility] Xray [address] [place] [address] 11/21/2024 14:45 EST Office Visit [facility] Orthopedics & Spine Medicine [address] [place] [address] Sangita Doss PA-C 1311 [facility] [address] [place] [address] 12/20/2024 10:15 EDT Appointment [facility] Endoscopy [address] [place], [place] [address] Tom Mane MD [address] [place] [address] [address] [place] [address] documented as of this encounter Procedures Procedure Name Priority Date/Time Associated Diagnosis Comments FOLATE Routine 01/05/2018 11:20 EDT VITAMIN B12 Routine 01/05/2018 11:20 EDT COMPREHENSIVE METABOLIC PANEL (CMP) Routine 01/05/2018 11:20 EDT documented in this encounter Results * FOLATE (01/05/2018 11:20 EDT) [facility] FOLIC ACID [facility] 14.10 2.76- >20.0 ng/mL 01/05/2018 19:40 EDT [facility] 01/05/2018 11:2 0 EDT 01/05/2018 18:01 EDT Narrative [facility] - 01/05/2018 19:40 EDT Does PT Have a Latex Allergy? NO us Jacklyn SCHUSTER CHEMISTRY & BLOOD GAS ORDERAB LES Final Result [facility] * VITAMIN B12 (01/05/2018 11:20 EDT) [facility] VITAMIN B12 [facility] 438 239 - 931 pg/mL 01/05/2018 19:40 EDT [facility] 01/05/2018 11:2 0 EDT 01/05/2018 18:01 EDT Narrative [facility] - 01/05/2018 19:40 EDT Does PT Have a Latex Allergy? NO us Jacklyn SCHUSTER CHEMISTRY & BLOOD GAS ORDERAB LES Final Result [facility] * (ABNORMAL) COMPREHENSIVE METABOLIC PANEL (CMP) (01/05/2018 11:20 EDT) Albumin % 4.7 3.4 - 4.9 g/dL 01/05/2018 18:38 [facility] ALKALINE PHOSPHATASE - [facility] 70 38 - 126 U/L 01/05/2018 18:38 [facility] BILIRUBIN TOTAL 0.4 0.2 - 1.3 mg/dL 01/05/2018 18:38 [facility] BUN - [facility] 21 10 - 26 mg/dL 01/05/2018 18:38 [facility] CALCIUM - [facility] 10.4 8.5 - 10.5 mg/dL 01/05/2018 18:38 [facility] Chloride 103 96 - 110 mmol/L 01/05/2018 18:38 [facility] CO2 Total 22 22 - 32 mEq/L 01/05/2018 18:38 [facility] CREATININE 1.05(H) 0.52 - 1.04 mg/dL 01/05/2018 18:38 [facility] eGFR 53 01/05/2018 18:38 [facility] Comment: Stage 3: Moderate renal impairment is defined as GFR 30-59 Multiply result by 1.210 for patients. eGFR calculated using the IDMS-traceable MDRD Study Equation. ??(effective 07/30/2014) Anion Gap 15 0 - 18 01/05/2018 18:38 [facility] GLUCOSE - [facility] 129(H) 70 - 100 mg/dL 01/05/2018 18:38 [facility] Potassium 4.6 3.5 - 5.0 mEq/L 01/05/2018 18:38 EDT [facility] Sodium 140 136 - 145 mEq/L 01/05/2018 18:38 EDT [facility] TOTAL PROTEIN - [facility] 8.2 6.2 - 8.2 gm/dL 01/05/2018 18:38 EDT [facility] SGOT/AST - [facility] 22 14 - 36 U/L 01/05/2018 18:38 EDT [facility] SGPT/ALT - [facility] 26 9 - 52 U/L 8 18:38 EDT [facility] 01/05/2018 11:2 0 EDT 01/05/2018 18:01 EDT Narrative [facility] - 01/05/2018 18:38 EDT Does PT Have a Latex Allergy? NO us Jacklyn SCHUSTER CHEMISTRY & BLOOD GAS ORDERAB LES Final Result [facility] documented in this encounter Visit Diagnoses Not on filedocumented in this encounter Care Teams Seamstress Fitter Relationship Specialty Start Date End Date Jason Velez MD 74 [facility] 100 [place], [place] [address] PCP - General 09/05/12 01/27/18 Jacklyn Clement PA [address] [place] [address] PCP - General 01/28/18 documented as of this encounter
--- OUTSIDE RECORDS SUMMARY | 2024-09-09 23:05 | XMS_ITS | Encounter Summary ---
Author Organization [facility] Address [address] [place] [address] Care Team Providers Care Facility Practice Specialist Name Role Phone Jason Velez MD Primary Care Provider [phone] Jacklyn Clement Primary Care Provider Encounter Details Date Type Department Care Team (Late st Contact Info) Description 03/23/2017 Historical Results Only [facility] Lab - Main [place] [address] [place] [address] Jacklyn Clement PA [address] [place] [address] Social History Tobacco Use Types Packs/Day [...] Info) Description 09/14/2024 12:30 EST Initial consult [facility] OBGYN [address] [place] [address] Carolyn Zheng NP CNM [address] [facility] [address] [place] [address] 10/10/2024 6:15 EST Appointment [facility] MRI [address] [place] [address] 11/21/2024 13:30 EST Appointment [facility] [address] [place] [address] 11/21/2024 14:45 EST Office Visit [facility] Orthopedics & Spine Medicine [address] [place] [address] Sangita Doss PA-C [address] [facility] [address] [place] [address] 12/20/2024 10:15 EDT Appointment [facility] Endoscopy [address] [place], [place] [address] Tom Mane MD [address] [place] [address] [address] [place] [address] documented as of this encounter Procedures Procedure Name Priority Date/Time Associated Diagnosis Comments GLYCOHEMOGLOBIN POC - [facility] [place] [facility] Routine 03/23/2017 11:57 EDT documented in this encounter Results * (ABNORMAL) GLYCOHEMOGLOBIN POC - [facility] (03/23/2017 11:57 EDT) Hemoglobin A1c 6.2(H) 4.0 - 6.0 % 03/23/2017 11:58 EDT [facility] AVG CALCULATED GLUCOSE - [facility] 126(H) 60 - 115 MG/DL 03/23/2017 11:58 EDT [facility] 03/23/2017 11:5 7 EDT 03/23/2017 11:57 EDT us Jacklyn SCHUSTER CHEMISTRY & BLOOD GAS ORDERAB LES Final Result [facility] documented in this encounter Visit Diagnoses Not on filedocumented in this encounter Care Teams Facility Practice Specialist Relationship Specialty Start Date End Date Jason Velez MD [address] [facility] [place] [address] PCP - General 09/05/12 01/27/18 Jacklyn Clement PA [address] [place] [address] PCP - General 01/28/18 documented as of this encounter
--- OUTSIDE RECORDS SUMMARY | 2024-09-09 23:05 | XMS_ITS | Encounter Summary ---
Author Organization [facility] Address [address] [place] [address] Care Team Providers Care Abstracter Name Role Phone Jason Velez MD Primary Care Provider [phone] Jacklyn Clement Primary Care Provider [phone] Encounter Details Date Type Department Care Team (Late st Contact Info) Description 11/25/2016 Historical Results Only [facility] Radiology Results [address] [place] [address] Caitlyn Thakkar NP [address] [place] [address] [place] [id number] Social History Tobacco Use Types Packs/Day Years [...] Info) Description 09/14/2024 12:30 EST Initial consult [facility] OBGYN [address] [place] [address] Carolyn Zheng NP CNM 130 [facility] [address] [place] [address] 10/10/2024 6:15 EST Appointment [facility] MRI [address] [place] [address] 11/21/2024 13:30 EST Appointment [facility] Xray [address] [place] [address] 11/21/2024 14:45 EST Office Visit [facility] Orthopedics & Spine Medicine [address] [place], [place] [address] Sangita Doss PA-C [address] [facility] [address] [place] [address] 12/20/2024 10:15 EDT Appointment [facility] Endoscopy [address] [place] [address] Tom Mane MD [address] [place] [address] [address] [place] [address] documented as of this encounter Procedures Procedure Name Priority Date/Time Associated Diagnosis Comments NM BONE WHOLE BODY SINGLE ZONE WITH SPECT/CT 11/25/2016 12:35 EST documented in this encounter Results * NM BONE WHOLE BODY WITH SPECT (11/25/2016 12:35 EST) Anatomical Region Laterality Modality Body Other 11/25/2016 12:3 5 EST Narrative 11/25/2016 12:49 EST ? EXAM: NUCLEAR MEDICINE/BONE SPECT WITH WH EX. D/ (1338) ? CLINICAL INFORMATION: ? M54.41 LUMBAGO W/ SCIATICA, RIGHT SIDE ? M54.42 LUMBAGO W/ SCIATICA, LEFT SIDE ? R>L LOWER EXTREMITY PAIN IN L5 DISTRIBUTION W/ ? SPONDYLOLISTHESIS @ L4-5 NOTED ON XRAY ? BONE SPECT WITH WHOLE BODY ??11/24/2016 1:38 PM ? Signs and Symptoms: LUMBAGO M54.41 LUMBAGO W/ SCIATICA, RIGHT SIDE: ? M54.42 LUMBAGO W/ SCIATICA, LEFT SIDE ? Comparison: Lumbar sprain spine radiographs 09/11/2016 ? Technique: ? Approximately 2.5 hours after the IV administration of 21 mCi of ? technetium 99m MDP, planar images of the whole body were obtained. ? Also obtained were SPECT images over a [id number] including ??the ? lower thoracic and lumbar spine ??which were fused to the low-dose CT ? obtained for attenuation correction and co-registration. ? Findings: ? Whole body bone scan: ? Whole-body bone scan shows asymmetric degenerative type uptake, right ? greater than left centered on the acromioclavicular joints. There is ? also what is likely degenerative uptake noted along the right aspect ? of the mid thoracic spine. Finally, linear uptake seen in the mid ? lumbar spine may reflect discogenic disease. Degenerative uptake is ? also identified within the right foot. A single small focus of uptake ? noted just inferior to the right ischial tuberosity on posterior ? projection only likely reflects urinary contamination. ? There is symmetric excretion of radiotracer from the kidneys. ? SPECT CT: ? Marked discogenic uptake is present associated with the right aspect ? of the L2-3 disc. Marked discogenic uptake is also identified ? associated with the L5-S1 disc with vacuum phenomenon noted on ? low-dose CT. There is mild facetogenic uptake uptake associated with ? the right L4-5 facet. Mild facetogenic uptake is noted associated ? with the left L5-S1 facet. No additional foci of abnormal increased ? bone tracer uptake are identified. ? Low-dose CT obtained for attenuation correction and co-registration ? show atherosclerotic vascular calcifications in the descending aorta ? and iliac arteries. Diverticulosis is present without evidence of ? diverticulitis. Grade 1 anterolisthesis of L4 on L5 is again noted. ? No additional abnormality is noted. ? Impression: ? 1. ??Marked uptake at L2-3 and L5-S1, the latter associated with ? vacuum phenomenon. ? 2. ??Mild facetogenic uptake associated with the right L4-5 and L5-S1 ? facets. ? 3. ??Asymmetric acromioclavicular joint uptake is likely degenerative. ? PAGE 1 ? Signed Report ? (CONTINUED) ? 4. ??Chronic findings on low-dose CT as described above. ? REPORT SIGNED IN OTHER VENDOR SYSTEM 11/25/2016 ?Reported By: Tera Gutierrez MD ? CC: ? Transcribed Date/Time: 11/25/2016 (5069) ? Customer Service Technician: ? Printed Date/Time: 03/11/2019 (2542) ? PAGE 2 ? Signed Report ? Procedure Note Tera Gutierrez MD - 08/02/2019 EXAM: NUCLEAR MEDICINE/BONE SPECT WITH WH EX. D/ (1338) CLINICAL INFORMATION: M54.41 LUMBAGO W/ SCIATICA, RIGHT SIDE M54.42 LUMBAGO W/ SCIATICA, LEFT SIDE R>L LOWER EXTREMITY PAIN IN L5 DISTRIBUTION W/ SPONDYLOLISTHESIS @ L4-5 NOTED ON XRAY BONE SPECT WITH WHOLE BODY 11/24/2016 1:38 PM Signs and Symptoms: LUMBAGO M54.41 LUMBAGO W/ SCIATICA, RIGHT SIDE: M54.42 LUMBAGO W/ SCIATICA, LEFT SIDE Comparison: Lumbar sprain spine radiographs 09/11/2016 Technique: Approximately 2.5 hours after the IV administration of 21 mCi of technetium 99m MDP, planar images of the whole body were obtained. Also obtained were SPECT images over a [id number] including the lower thoracic and lumbar spine which were fused to the low-doseCT obtained for attenuation correction and co-registration. Findings: Whole body bone scan: Whole-body bone scan shows asymmetric degenerative type uptake,right greater than left centered on the acromioclavicular joints. Thereis also what is likely degenerative uptake noted along the rightaspect of the mid thoracic spine. Finally, linear uptake seen in the mid lumbar spine may reflect discogenic disease. Degenerative uptake is also identified within the right foot. A single small focus ofuptake noted just inferior to the right ischial tuberosity on posterior projection only likely reflects urinary contamination. There is symmetric excretion of radiotracer from the kidneys. SPECT CT: Marked discogenic uptake is present associated with the rightaspect of the L2-3 disc. Marked discogenic uptake is also identified associated with the L5-S1 disc with vacuum phenomenon noted on low-dose CT. There is mild facetogenic uptake uptake associatedwith the right L4-5 facet. Mild facetogenic uptake is noted associated with the left L5-S1 facet. No additional foci of abnormal increased bone tracer uptake are identified. Low-dose CT obtained for attenuation correction and co-registration show atherosclerotic vascular calcifications in the descendingaorta and iliac arteries. Diverticulosis is present without evidence of diverticulitis. Grade 1 anterolisthesis of L4 on L5 is again noted. No additional abnormality is noted. Impression: 1. Marked uptake at L2-3 and L5-S1, the latter associated with vacuum phenomenon. 2. Mild facetogenic uptake associated with the right L4-5 andL5-S1 facets. 3. Asymmetric acromioclavicular joint uptake is likelydegenerative. PAGE 1 Signed Report (CONTINUED) 4. Chronic findings on low-dose CT as described above. REPORT SIGNED IN OTHER VENDOR SYSTEM 11/25/2016 Reported By: Tera Gutierrez MD CC: Transcribed Date/Time: 11/25/2016 (1339) Customer Service Technician: Printed Date/Time: 03/11/2019 (9458) PAGE 2 Signed Report Caitlyn L Thakkar ETHANOL QUALITY LEADER IMG NM ORDERABLES Final Resul t documented in this encounter Visit Diagnoses Not on filedocumented in this encounter Care Teams Abstracter Relationship Specialty Start Date End Date Jason Velez MD [address] [address] PCP - General 09/05/12 01/27/18 Jacklyn Clement PA [address] [place] [address] PCP - General 01/28/18 documented as of this encounter
--- OUTSIDE RECORDS SUMMARY | 2024-09-09 23:05 | XMS_ITS | Encounter Summary ---
Author Organization [facility] Address [address] [place] [address] Care Team Providers Care Coke Drawer Name Role Phone Jason Velez MD Primary Care Provider [phone] Encounter Details Date Type Department Care Team (Late st Contact Info) Description 02/28/2014 Results Only [facility] [phone] Rj Aguirre MD [address] [place] [address] Social History Tobacco Use Types Packs/Day Years [...] Info) Description 09/14/2024 12:30 EST Initial consult [facility] OBGYN [address] [place], [place] [id number] Carolyn Zheng NP CNM 130 [facility] [address] [place] [address] 10/10/2024 6:15 EST Appointment [facility] MRI [address] [place] [address] 11/21/2024 13:30 EST Appointment [facility] Xray [address] [place] [address] 11/21/2024 14:45 EST Office Visit [facility] Orthopedics & Spine Medicine [address] [place] [address] Sangita Doss PA-C [address] [facility] [address] [place] [address] 12/20/2024 10:15 EDT Appointment [facility] Endoscopy [address] [place] [address] Tom Mane MD [address] [place] [address] [address] [place] [address] documented as of this encounter Procedures Procedure Name Priority Date/Time Associated Diagnosis Comments PAP TEST- RESULT ONLY Routine 02/28/2014 0:00 EDT documented in this encounter Results * PAP TEST- RESULT ONLY (02/28/2014 0:00 EDT) Pathology Report: CYTOPATHOLOGY REPORT Reports generated via electronic interface contain original data; however they are lacking the format of the original report. Caution should be taken when reading/interpreti ng unformatted reports. Name: ? ESMER CRUZ ? Accession #: ? [id number] ? : ? 1950 (Age: 63) ??F ?Collect Date: ? 02/28/2014 ? Location: ? [facility] ? Receive Date: ? 03/01/2014 ? Provider: RJ AGUIRRE MD Copy to: SHIRLEY JOSHUA MD ? Final Report SPECIMEN ADEQUACY ? Satisfactory for Evaluation - transformation zone component present GENERAL CATEGORIZATION ? Negative for Intraepithelial Lesion or Malignancy ?? Treatment History: Cryotherapy: Hx of 20 years ago Other: Additional clinical information: Last pap > 10 years ago Specimen/Source: ??Pap Test, Cervix/Endocervix, ThinPrep Imaging System with manual evaluation Document reviewed and electronically signed by: ? Anabel Johnson, CT(ASCP) ? Report ??Date: 03/07/2014 10:55 HPV with Pap Test ? Date Ordered: ? 03/07/2014 ? Status: ?? Signed Out ?Date Complete: ? 03/09/2014 ? By: ??System Interface ? Date Reported: ? 03/09/2014 ? Interpretation RESULT: Negative for HPV. No E6 or E7 mRNA is detected from HPV types 16,18,31,33,35, 39,45,51,52,56,58, 59,66, and 68 by training executive mediated amplification. Comments Document reviewed and electronically signed by: ? System Interface ? Report date: 03/09/2014 By the signature above, the attending physician certifies that he/she has personally conducted a gross and/or microscopic examination of the described specimens and rendered or confirmed the above diagnosis. End of Report [facility] 02/28/2014 03/01/2014 us Rj Aguirre MD PATHOLOGY ORDERABLES Final Resu lt [facility] [address] [place] [address] documented in this encounter Visit Diagnoses Not on filedocumented in this encounter Care Teams Coke Drawer Relationship Specialty Start Date End Date Jason Velez MD [address] [facility] [place] [address] PCP - General 09/05/12 01/27/18 documented as of this encounter
--- OUTSIDE RECORDS SUMMARY | 2024-09-09 23:05 | XMS_ITS | Encounter Summary ---
Author Organization [facility] Address [address] [place] [address] Care Team Providers Care Director Of Financial Reporting Name Role Phone Jacklyn Clement Primary Care Provider [phone] Encounter Details Date Type Department Care Team (Late st Contact Info) Description 01/10/[address] [facility] Lab - Main [place] [address] [place] [address] Jacklyn Clement PA [address] [place] [address] Social History Tobacco Use Types Packs/Day [...] Description 09/14/2024 12:[address] [facility] OBGYN [address] [place], [place] [id number] Carolyn Zheng NP CNM 130 [facility] [address] [place] [address] 10/10/2024 6:[address] [facility] MRI [address] [place] [address] 11/21/2024 13:[address] [facility] Xray [address] [place] [address] 11/21/2024 14:[address] [facility] Orthopedics & Spine Medicine [address] [place], [place] [address] Sangita Doss PA-C [address] [facility] [address] [place] [address] 12/20/2024 10:[address] [facility] Endoscopy [address] [place] [address] Tom Mane MD [facility] [address] [place] [address] documented as of this encounter Procedures Procedure Name Priority Date/Time Associated Diagnosis Comments LIPID PANEL [facility] Routine 01/10/2019 12:36 EDT documented in this encounter Results * (ABNORMAL) LIPID PANEL POC - [place] [facility] (01/10/2019 12:36 EDT) Triglyceride 383(H) 0.00 - 150.00 MG/DL 01/10/2019 12:38 EDT [facility] Cholesterol 207(H) 0.00 - 200.00 MG/DL 01/10/2019 12:38 EDT [facility] HDL 32(L) 40.00 - 60.00 MG/DL 01/10/2019 12:38 EDT [facility] 01/10/2019 12:3 6 EDT 01/10/2019 12:36 EDT Jacklyn SCHUSTER CHEMISTRY & BLOOD GAS ORDERAB LES Final Result [facility] documented in this encounter Visit Diagnoses Not on filedocumented in this encounter Care Teams Director Of Financial Reporting Relationship Specialty Start Date End Date Jacklyn Clement PA [address] [place] [address] PCP - General 01/28/18 documented as of this encounter
--- OUTSIDE RECORDS SUMMARY | 2024-09-09 23:05 | XMS_ITS | Encounter Summary ---
Author Organization [facility] Address [address] [place] [address] Care Team Providers Care .Net Architect Name Role Phone Jason Velez MD Primary Care Provider [phone] Encounter Details Date Type Department Care Team (Latest Contact Info) Description 11/24/2016 21:27 EST - 11/24/2016 23:59 EST Hospital Encounter [address] [address] Unknown, Provider, MD Discharge Disposition: Home or Self Care Social History Tobacco Use Types Packs/Day Years Used Date Smoking Tobacco: Never Assessed Comments Unknown Sex and Gender Information Value Date Recorded Sex Assigned at Female 08/21/2024 14:53 EST Legal Sex Female 18:57 EST Gender Identity Not on file Sexual Orientation Not on file documented as of this encounter Discharge Disposition Disposition Code Departure Means Destination Home or Self Nursing Home documented in this encounter Plan of Treatment Upcoming Encounters Date Type Department Care Team (Late st Contact Info) Description 09/14/2024 12:30 EST Initial consult [facility] OBGYN [address] [place] [address] Carolyn Zheng NP CNM 130 [facility] [address] [place] [address] 10/10/2024 6:15 EST Appointment [facility] MRI [address] [place] [address] 11/21/2024 13:30 EST Appointment [facility] Xray [address] [place] [address] 11/21/2024 14:45 EST Office Visit [facility] Orthopedics & Spine Medicine [address] [place], [place] [address] Sangita Doss PA-C [address] [facility] [address] [place], [place] [address] 12/20/2024 10:15 EDT Appointment [facility] End[facility] [address] [place], [place] [address] Tom Mane MD [address] [place] [address] [address] [place] [address] documented as of this encounter Visit Diagnoses Not on filedocumented in this encounter Care Teams .Net Architect Relationship Specialty Start Date End Date Jason Velez MD [address] [facility] [place], [place] [address] PCP - General 09/05/12 01/27/18 documented as of this encounter
--- OUTSIDE RECORDS SUMMARY | 2024-09-09 23:05 | XMS_ITS | Encounter Summary ---
Author Organization [facility] Address [address] [place] [address] Care Team Providers Care Distribution Estimator Name Role Phone Jacklyn Clement Primary Care Provider [phone] Encounter Details Date Type Department Care Team (Late st Contact Info) Description 01/10/2019 Historical Results Only [facility] Lab - Main [place] [address] [place] [address] Jacklyn Clement PA [address] [place] [address] Social History Tobacco Use Types Packs/Day [...] Info) Description 09/14/2024 12:30 EST Initial consult [facility] OBGYN [address] [place], [place] [phone] Carolyn Zheng NP CNM 130 [facility] [address] [place] [address] 10/10/2024 6:15 EST Appointment [facility] MRI [address] [place] [address] 11/21/2024 13:30 EST Appointment [facility] Xray [address] [place] [address] 11/21/2024 14:45 EST Office Visit [facility] Orthopedics & Spine Medicine [address] [place] [address] Sangita Doss PA-C [address] [facility] [address] [place] [address] 12/20/2024 10:15 EDT Appointment [facility] Endoscopy [address] [place] [address] Tom Mane MD [facility] [address] [place] [address] documented as of this encounter Procedures Procedure Name Priority Date/Time Associated Diagnosis Comments MAGNESIUM POC [place] [facility] [place] Routine 01/10/2019 12:36 EDT documented in this encounter Results * MAGNESIUM POC - [facility] [place] (01/10/2019 12:36 EDT) Magnesium 2.10 1.60 - 2.30 MG/DL 01/10/2019 12:38 EDT [facility] 01/10/2019 12:3 6 EDT 01/10/2019 12:36 EDT Jacklyn SCHUSTER CHEMISTRY & BLOOD GAS ORDERAB LES Final Result [facility] documented in this encounter Visit Diagnoses Not on filedocumented in this encounter Care Teams Distribution Estimator Relationship Specialty Start Date End Date Jacklyn Clement PA [address] [place], [place] [address] PCP - General 01/28/18 documented as of this encounter
--- OUTSIDE RECORDS SUMMARY | 2024-09-09 23:05 | XMS_ITS | Encounter Summary ---
Author Organization [facility] Address [address] [place] [address] Care Team Providers Care Printing Shop Supervisor Name Role Phone Jacklyn Clement Primary Care Provider [phone] Encounter Details Date Type Department Care Team (Late st Contact Info) Description 01/28/2018 Orders Only [facility] Memory Program - Medical Office Building [address] [place] [address] Lee Maher MD [address] [facility] Medical Office Building, [address] [place] [address] Memory loss (Primary Dx) Social History Tobacco Use Types [...] Info) Description 09/14/2024 12:30 EST Initial consult [facility] OBGYN [address] [place], [place] [id number] Carolyn Zheng NP CNM [address] [facility] [address] [place] [address] 10/10/2024 6:15 EST Appointment [facility] MRI [address] [place] [address] 11/21/2024 13:30 EST Appointment [facility] Xray [address] [place] [address] 11/21/2024 14:45 EST Office Visit [facility] Orthopedics & Spine Medicine [address] [place], [place] [id number] Sangita Doss PA-C [address] [facility] [address] [place] [address] 12/20/2024 10:15 EDT Appointment [facility] Endoscopy [address] [place], [place] [address] Tom Mane MD [address] [place] [address] [address] [place] [address] documented as of this encounter Results * HEMAGRAM AND DIFFERENTIAL (05/02/2018 11:29 EDT) WBC 8.68 4.0 - 12.4 K/cmm 05/02/2018 13:08 [facility] RBC 4.01 3.86 - 5.04 M/cmm 05/02/2018 13:08 [facility] Hemoglobin 12.1 11.6 - 15.2 gm/dl 05/02/2018 13:08 [facility] HCT 36.2 34.9 - 44.4 % 05/02/2018 13:08 [facility] MCV 90 81 - 98 fl 05/02/2018 13:08 [facility] MCH 30.2 26.7 - 33.3 pg 05/02/2018 13:08 [facility] MCHC 33.4 32.1 - 35.9 gm/dl 05/02/2018 13:08 [facility] RDW-CV 12.8 <14.7 % 05/02/2018 13:08 [facility] RDW-SD 41.9 <50.4 fl 05/02/2018 13:08 [facility] PLT 265 141 - 377 K/cmm 05/02/2018 13:08 [facility] MPV 10.8 9.5 - 12.7 fl 05/02/2018 13:08 [facility] % Neutrophils 56.0 % 05/02/2018 13:08 [facility] % Lymphocytes 28.8 % 05/02/2018 13:08 [facility] % Monocytes 7.4 % 05/02/2018 13:08 [facility] % Eosinophils 6.6 % 05/02/2018 13:08 [facility] % Basophils 0.7 % 05/02/2018 13:08 [facility] % Immature Grans 0.5 % 05/02/2018 13:08 [facility] ABS Neutrophils 4.87 2.20 - 8.85 K/cmm 05/02/2018 13:08 [facility] ABS Lymphs 2.50 1.09 - 3.30 K/cmm 05/02/2018 13:08 [facility] ABS Monocytes 0.64 0.1 - 0.8 K/cmm 05/02/2018 13:08 [facility] ABS Eosinophils 0.57 0.03 - 0.61 K/cmm 05/02/2018 13:08 [facility] ABS Basophils 0.06 0.01 - 0.11 K/cmm 05/02/2018 13:08 [facility] ABS Immature Grans 0.04 0 - 0.06 K/cmm 05/02/2018 13:08 [facility] Type of Diff: Automated 05/02/2018 13:08 [facility] Blood specimen (specimen) BLOOD SPECIMEN / Unknown 05/02/2018 11:29 EDT 05/02/2018 12:58 EDT us Lee Maher MD PACKAGES & DNA PROBE ORD ERABLES Final Result [facility] [address] [place] [address] * (ABNORMAL) COMPREHENSIVE METABOLIC PANEL (CMP) (05/02/2018 11:29 EDT) Potassium 4.1 3.5 - 5.0 mEq/L 05/02/2018 13:33 [facility] Sodium 139 136 - 145 mEq/L 05/02/2018 13:33 [facility] Chloride 101 96 - 110 mEq/L 05/02/2018 13:33 [facility] CO2 27 22 - 32 mEq/L 05/02/2018 13:33 [facility] Total Alkaline Phosphatase 56 38 - 126 U/L 05/02/2018 13:33 [facility] Bilirubin, Total <0.5 <1.4 mg/dl 05/02/20 18 13:33 [facility] AST 15 15 - 46 U/L 05/02/2018 13:33 [facility] ALT 24 <53 U/L 05/02/2018 13:33 [facility] Albumin 4.3 3.4 - 4.9 g/dl 05/02/2018 13:33 [facility] Total Protein 6.8 6.3 - 8.2 g/dl 05/02/2018 13:33 [facility] Creatinine 0.96 0.52 - 1.04 mg/dl 05/02/2018 13:33 [facility] GFR, Calculated 62 >60 ml/min/1.7 3m2 05/02/2018 13:33 [facility] Comment: eGFR calculated using CKD-EPI equation for non Americans. Multiply eGFR by 1.16 for Americans. BUN 22 10 - 26 mg/dl 05/02/2018 13:33 [facility] Calcium 9.3 8.5 - 10.5 mg/dl 05/02/2018 13:33 [facility] Calculated Calcium 9.1 8.5 - 10.5 mg/dl 05/02/2018 13:33 [facility] Glucose, Serum 196(H) 70 - 100 mg/dl 05/02/2018 13:33 [facility] Fasting? No 05/02/2018 11:25 [facility] Blood specimen (specimen) BLOOD SPECIMEN / Unknown 05/02/2018 11:29 EDT 05/02/2018 12:58 EDT us Lee Maher MD CHEMISTRY & BLOOD GAS OR DERABLES Final Result [facility] [address] [place] [address] documented in this encounter Visit Diagnoses Diagnosis Memory loss- Primary documented in this encounter Care Teams Printing Shop Supervisor Relationship Specialty Start Date End Date Jacklyn Clement PA [address] [place] [id number] PCP - General 01/28/18 documented as of this encounter
--- OUTSIDE RECORDS SUMMARY | 2024-09-09 23:05 | XMS_ITS | Encounter Summary ---
Author Organization [facility] Address [address] [place] [address] Care Team Providers Care Principal Technical Writer Name Role Phone Jason Velez MD Primary Care Provider [phone] Jacklyn Clement Primary Care Provider [phone] Encounter Details Date Type Department Care Team (Late st Contact Info) Description 03/23/2017 Historical Results Only [facility] - Main [place] [address] [place] [address] Jacklyn Clement PA [address] [place] [address] Social History Tobacco Use Types Packs/Day [...] Info) Description 09/14/2024 12:30 EST Initial consult [facility] OBGYN [address] [place] [address] Carolyn Zheng NP CNM 130 [facility] [address] [place] [address] 10/10/2024 6:15 EST Appointment [facility] MRI [address] [place] [address] 11/21/2024 13:30 EST Appointment [facility] Xray [address] [place] [address] 11/21/2024 14:45 EST Office Visit [facility] Orthopedics & Spine Medicine [address] [place] [address] Sangita Doss PA-C [address] [facility] [address] [place] [address] 12/20/2024 10:15 EDT Appointment [facility] Endoscopy [address] [place], [place] [address] Tom Mane MD [address] [place] [address] [address] [place] [address] documented as of this encounter Procedures Procedure Name Priority Date/Time Associated Diagnosis Comments LIPID PANEL POC - [facility] Routine 03/23/2017 11:57 EDT documented in this encounter Results * (ABNORMAL) LIPID PANEL POC - [facility] (03/23/2017 11:57 EDT) Triglyceride 236(H) 0.00 - 150.00 MG/DL 03/23/2017 11:58 EDT [facility] Cholesterol 148 0.00 - 200.00 MG/DL 03/23/2017 11:58 EDT [facility] HDL 42 40.00 - 60.00 MG/DL 03/23/2017 11:58 EDT [facility] 03/23/2017 11:5 7 EDT 03/23/2017 11:57 EDT us Jacklyn SCHUSTER CHEMISTRY & BLOOD GAS ORDERAB LES Final Result [facility] documented in this encounter Visit Diagnoses Not on filedocumented in this encounter Care Teams Principal Technical Writer Relationship Specialty Start Date End Date Jason Velez MD [address] [facility] [place] [address] PCP - General 09/05/12 01/27/18 Jacklyn Clement PA [address] [place] [address] PCP - General 01/28/18 documented as of this encounter
--- OUTSIDE RECORDS SUMMARY | 2024-09-09 23:05 | XMS_ITS | Encounter Summary ---
Author Organization [facility] Address [address] [place] [address] Care Team Providers Care Yarn Dumper Name Role Phone Jason Velez MD Primary Care Provider [phone] Jacklyn Clement Primary Care Provider [phone] Encounter Details Date Type Department Care Team (Late st Contact Info) Description 09/11/2016 Historical Results Only [facility] Radiology Results [address] [place] [address] Jacklyn Clement PA [address] [place] [address] Social History Tobacco Use Types [...] Info) Description 09/14/2024 12:30 EST Initial consult [facility] OBGYN [address] [place] [address] Carolyn Zheng NP CNM 130 [facility] [address] [place] [address] 10/10/2024 6:15 EST Appointment [facility] MRI [address] [place], [place] [id number] 11/21/2024 13:30 EST Appointment [facility] Xray [address] [place], [place] [id number] 11/21/2024 14:45 EST Office Visit [facility] Orthopedics & Spine Medicine [address] [place] [address] Sangita Doss PA-C [address] [facility] [address] [place] [address] 12/20/2024 10:15 EDT Appointment [facility] Endoscopy [address] [place] [address] Tom Mane MD [address] [place] [address] [address] [place] [address] documented as of this encounter Procedures Procedure Name Priority Date/Time Associated Diagnosis Comments XR LUMBAR SPINE 2-3 VIEWS 09/11/2016 12:25 EST XR THORACIC SPINE 3 VIEWS 09/11/2016 12:08 EST documented in this encounter Results * XR LUMBAR SPINE 2-3 VIEWS (09/11/2016 12:25 EST) Anatomical Region Laterality Modality Other 09/11/2016 12:2 5 EST Narrative 09/11/2016 12:29 EST ? EXAM: RADIOLOGY/LUMBAR SPINE 2 OR 3 VIEWS EX. D/ (1055) ? CLINICAL INFORMATION: ? M54.9 WORSENING CHRONIC BACK PAIN ? INDICATION: M54.9 WORSENING CHRONIC BACK PAIN CHRONIC BACK PAIN ? TECHNIQUE: Two-view lumbar spine. ? COMPARISON: None ? FINDINGS: ? There is a mild convex left lumbar spine scoliosis. There is a trace ? anterolisthesis of L4 on L5. Disc space narrowing and endplate ? osteophytes span the lumbar spine. Advanced hypertrophic facet ? disease is seen throughout the lumbar spine. The sacroiliac joints ? are symmetric. ? IMPRESSION: ? 1. Mild convex left lumbar spine scoliosis with advanced superimposed ? multilevel degenerative disc and facet disease. ? REPORT SIGNED IN OTHER VENDOR SYSTEM 09/11/2016 ?Reported By: Jose R Aguilar MD ? CC: Jacklyn Clement ? Transcribed Date/Time: 09/11/2016 (1229) ? Last Pattern Grader: ? Printed Date/Time: 03/10/2019 (0751) ? PAGE 1 ? Signed Report ? Procedure Note Jose R Aguilar MD - 08/02/2019 EXAM: RADIOLOGY/LUMBAR SPINE 2 OR 3 VIEWS EX. D/ (1055) CLINICAL INFORMATION: M54.9 WORSENING CHRONIC BACK PAIN INDICATION: M54.9 WORSENING CHRONIC BACK PAIN CHRONIC BACK PAIN TECHNIQUE: Two-view lumbar spine. COMPARISON: None FINDINGS: There is a mild convex left lumbar spine scoliosis. There is atrace anterolisthesis of L4 on L5. Disc space narrowing and endplate osteophytes span the lumbar spine. Advanced hypertrophic facet disease is seen throughout the lumbar spine. The sacroiliac joints are symmetric. IMPRESSION: 1. Mild convex left lumbar spine scoliosis with advancedsuperimposed multilevel degenerative disc and facet disease. REPORT SIGNED IN OTHER VENDOR SYSTEM 09/11/2016 Reported By: Jose R Aguilar MD CC: Jacklyn Clement Transcribed Date/Time: 09/11/2016 (1229) Last Pattern Grader: Printed Date/Time: 03/10/2019 (2007) PAGE 1 Signed Report Jacklyn SCHUSTER IMG DIAGNOSTIC IMAGING ORDERA BLES Final Result * XR THORACIC SPINE 3 VIEWS (09/11/2016 12:08 EST) Anatomical Region Laterality Modality Spine Other 09/11/2016 12:0 8 EST Narrative 09/11/2016 12:12 EST ? EXAM: RADIOLOGY/THORACIC SPINE 2 VIEW ? EX. D/ (1055) ? CLINICAL INFORMATION: ? M54.9 WORSENING CHRONIC BACK PAIN ? INDICATION: M54.9 WORSENING CHRONIC BACK PAIN CHRONIC BACK PAIN ? TECHNIQUE: 2 view thoracic spine. ? COMPARISON: None ? FINDINGS: ?There is a minimal convex right thoracic scoliosis. ? Diffuse disc space narrowing spans the thoracic spine with endplate ? osteophytes. The paraspinal soft tissues are normal in appearance. ? IMPRESSION: ? 1. Diffuse thoracic spine degenerative disc disease, spanning the ? thoracic spine. ? REPORT SIGNED IN OTHER VENDOR SYSTEM 09/11/2016 ?Reported By: Jose R Aguilar MD ? CC: Jacklyn Clement ? Transcribed Date/Time: 09/11/2016 (1212) ? Last Pattern Grader: ? Printed Date/Time: 03/10/2019 (2720) ? PAGE 1 ? Signed Report ? Procedure Note Jose R Aguilar MD - 08/02/2019 EXAM: RADIOLOGY/THORACIC SPINE 2 VIEW EX. D/ (1055) CLINICAL INFORMATION: M54.9 WORSENING CHRONIC BACK PAIN INDICATION: M54.9 WORSENING CHRONIC BACK PAIN CHRONIC BACK PAIN TECHNIQUE: 2 view thoracic spine. COMPARISON: None FINDINGS: There is a minimal convex right thoracic scoliosis. Diffuse disc space narrowing spans the thoracic spine with endplate osteophytes. The paraspinal soft tissues are normal in appearance. IMPRESSION: 1. Diffuse thoracic spine degenerative disc disease, spanning the thoracic spine. REPORT SIGNED IN OTHER VENDOR SYSTEM 09/11/2016 Reported By: Jose R Aguilar MD CC: Jacklyn Clement Transcribed Date/Time: 09/11/2016 (1215) Last Pattern Grader: Printed Date/Time: 03/10/2019 (3134) PAGE 1 Signed Report Jacklyn SCHUSTER IMG DIAGNOSTIC IMAGING ORDERA BLES Final Result documented in this encounter Visit Diagnoses Not on filedocumented in this encounter Care Teams Yarn Dumper Relationship Specialty Start Date End Date Jason Velez MD [address] [facility] [address] [place] [address] PCP - General 09/05/12 01/27/18 Jacklyn Clement PA [address] [place] [address] PCP - General 01/28/18 documented as of this encounter
--- OUTSIDE RECORDS SUMMARY | 2024-09-09 23:05 | XMS_ITS | Encounter Summary ---
Author Organization [facility] Address [address] [place] [address] Care Team Providers Care Bar Porter Name Role Phone Jacklyn Clement Primary Care Provider [phone] Encounter Details Date Type Department Care Team (Late st Contact Info) Description 04/17/2019 Historical Results Only [facility] Lab - Main [place] [address] [place] [address] Jacklyn Clement PA [address] [place] [address] Social History Tobacco Use Types Packs/Day [...] Info) Description 09/14/2024 12:30 EST Initial consult [facility] OBGYN [address] [place], [place] [id number] Carolyn Zheng NP CNM 130 [facility] [address] [place] [address] 10/10/2024 6:15 EST Appointment [facility] MRI [address] [place] [address] 11/21/2024 13:30 EST Appointment [facility] Xray [address] [place] [address] 11/21/2024 14:45 EST Office Visit [facility] Orthopedics & Spine Medicine [address] [place], [place] [phone] Sangita Doss PA-C [address] [facility] [address] [place] [address] 12/20/2024 10:15 EDT Appointment [facility] Endoscopy [address] [place] [address] Tom Mane MD [address] [place] [address] [address] [place] [address] documented as of this encounter Procedures Procedure Name Priority Date/Time Associated Diagnosis Comments COMPREHENSIVE METABOLIC POC - [facility] Routine 04/17/2019 14:27 EDT documented in this encounter Results * (ABNORMAL) COMPREHENSIVE METABOLIC POC - [facility] (04/17/2019 14:27 EDT) Albumin % 4.0 3.50 - 5.00 G/DL 04/17/2019 14:28 [facility] ALKALINE PHOSPHATASE - [facility] 42 38.00 - 126.00 U/L 04/17/2019 14:28 [facility] BILIRUBIN TOTAL 0.5 0.20 - 1.30 MG/DL 04/17/2019 14:28 [facility] BUN - [facility] 24(H) 7.00 - 20.00 MG/DL 04/17/2019 14:28 [facility] CALCIUM - [facility] 9.8 8.50 - 10.50 MG/DL 04/17/2019 14:28 [facility] Chloride 107 98.00 - 107.00 MMOL/L 04/17/2019 14:28 [facility] CO2 Total 26 22.00 - 30.00 MMOL/L 04/17/2019 14:28 [facility] CREATININE 1.1 0.70 - 1.50 MG/DL 04/17/2019 14:28 EDT [facility] Anion Gap 11 7 - 17 MMOL/L 04/17/2019 14:28 [facility] GLUCOSE - [facility] 123(H) 70.00 - 100.00 MG/DL 04/17/2019 14:28 [facility] Potassium 3.6 3.50 - 5.10 MMOL/L 04/17/2019 14:28 EDT [facility] Sodium 144 137.00 - 145.00 MMOL/L 04/17/2019 14:28 EDT [facility] TOTAL PROTEIN - [facility] 6.6 6.30 - 8.20 G/DL 04/17/2019 14:28 [facility] SGOT/AST - [facility] 16 15.00 - 46.00 U/L 04/17/2019 14:28 [facility] SGPT/ALT - [facility] 16 13.00 - 69.00 U/L 04/17/2019 14:28 [facility] 04/17/2019 14:2 7 EDT 04/17/2019 14:27 EDT us Jacklyn SCHUSTER CHEMISTRY & BLOOD GAS ORDERAB LES Final Result [facility] documented in this encounter Visit Diagnoses Not on filedocumented in this encounter Care Teams Bar Porter Relationship Specialty Start Date End Date Jacklyn Clement PA [address] [place] [address] PCP - General 01/28/18 documented as of this encounter
--- OUTSIDE RECORDS SUMMARY | 2024-09-09 23:05 | XMS_ITS | Encounter Summary ---
Author Organization [facility] Address [address] [place] [address] Care Team Providers Care Architectural Drafting Instructor Name Role Phone Jacklyn Clement Primary Care Provider [phone] Reason for Visit * Reason Comments Memory Loss * Referral (Routine) - Closed Specialty Diagnoses / Procedures Referred By Gutierrez caleor Referred To Contact Psychology Jorge Rodriguez MD Phone: tel: fax: [facility] [address] [place] [address] Phone: tel: fax: Referral ID Status Reason Start Date Expiration Date Visits Re quested Visits Authorized [id number] Closed 2 2 Encounter Details Date Type Department Care Team (Late st Contact Info) Description 05/02/2018 9:30 EDT Office Visit [facility] [address] [place] [address] [phone] Ned Mckeon, PhD [address] [facility] Medical Office Building, [address] [place] [address] Memory loss (Primary Dx); Family history of dementia Social History Tobacco Use Types Packs/Day Years Used Date Smoking Tobacco: Never Assessed Comments Unknown Sex and Gender Information Value Date Recorded Sex Assigned at Female 08/21/2024 14:53 EST Legal Sex Female 18:57 EST Gender Identity Not on file Sexual Orientation Not on file documented as of this encounter Discharge Diagnoses Diagnosis R41.3 Other amnesia-R41.3[ICD-10-CM] documented in this encounter Progress Notes * Ned Mckeon PhD - 05/02/2018 4828 EDT PSYCHIATRIC INTERVIEW AND NEUROPSYCHOLOGICAL TESTING Megan Barone was seen for interview and testing on 05/02/2018. She was referred by Dr. Jorge Salvador ([facility] [place]rology) and was seen as an outpatient at the Medical Office Building on the [facility]. PATIENT PROFILE: Ms. Barone was born and grew up in [place] [facility]. Her mother at about age 90 with Alzheimer's disease, and her father at about age 70 of cancer. She has one sibling, a younger brother living in [place]. She graduated from high school in 1969 and obtained her undergraduatedegree from the [employer] in 1977 in Biology and Chemistry. 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 She has been retiredfor about 2 years. She currently resides in [facility] [place] [facility] with Crow Mera, her of 41 years. Theyhave two adult children, 39 year-old son and a 38 year-old daughter who has Rett syndrome. Her medical history is noteworthy chronic low back pain and for past hepatitis B and hepatitis C, contracteddue to work-related exposure as a medical insurance claims specialist. She has experienced onset of bilateral upper extremity tremor, for which she recently was seen by Dr. Rodriguez for neurological consultation. At th at point, she brought up concerns about memory loss, resulting in her referral to this service for neuropsychological testing. Her family history is noteworthy for her mother having early onset dementia, a maternal aunt also having apparent dementia, and her daughter having the previously mentionedRett syndrome. HISTORY OF PRESENTING ILLNESS: Ms. Barone indicated that she is being seen today at the Memory Program due to concerns about her cognitive functioning, which are magnified by having experienced her mother's declines from dementia. She reports that her recall of remote information is still pretty good, although adds that her brother's seems to be better than hers. Her recall of recent events is generally okay, but not 100% reliable. Her recall of conversations is inconsistent, with information sometimes forgotten within the same day. She does struggle some with prospective information, such asfor appointments and other planned activities; she attempts to use her phone calendar to keep trackof this information, but is still not completely reliable. She reports some procedural memory issues, some of which dated back to when she was still working, and more recently she reports some difficulties with complex meal preparations. She believes that she is misplacing belongings at increased frequency. She does have some difficulties with keeping mental focus, sometimes leaving food cooking on the stove, forgetting what she is doing mid-task, and forgetting what she is saying mid-sentence. Ms. Mera reports having word retrieval difficulties for some time when speaking, and indicates that this seems to be getting worse. She also reports some difficulties formulating her thoughts into speech. Likewise, she indicates some struggles with auditory comprehension when listening to the conversations of others, sometimes only getting the gist, but not the details. She has loved to read throughout her life, but is no longer reading books due to problems maintaining concentration, stickingmostly to newspaper and magazines now. Her handwriting has declined over time. Her math computationskills have declined. She believes her decision making and reasoning skills are still pretty good. She reports some significant issues with geographic orientation, getting really mixed up when traveling in the community. Crow Barone () was available to provide additional information about Ms. Barone's cognitive functioning and daily activities. He reports being aware of her memory issues for 3-4 months (although medical notes suggest that he may be going on longer than this). He notes that there was a gradualonset, and believes that she may actually been doing better over the last month or so, which he attributes to medication changes. He reports that she is able to recall most remote information, although there are some apparent gaps. He notes no problems with her recall of recent events or recent conversations. He has noted that she can have difficulties keeping track of appointments and other prospective information, and he is now attempting to help some with this. The only procedural memory issues noted by him involved her having problems balancing her checkbook now. He thinks she may be misplacing belongings at slightly increased frequency. He notes no problems with her reasoning or decision making. Mr. Barone reports that his continues to manage her basic self-care and ADLs just fine. She isindependent with medication taking and no apparent problems are noted. She does the cooking, while he does the yard work, and cleaning, shopping, and laundry are shared. She continues to do the bill paying for them, no problems are noted other than struggles balancing the checkbook. She has driven very little over the last 6 months, but he notes no safety issues when she does drive. He confirms that she does have problems with geographic orientation when out navigating in the community, but adds that this is a long- standing problem. Community activity is limited mostly to going to holiness occas ionally, and other activities with her . He does not think that she is depressed, and no major issues are noted for anxiety, irritability, safety, or behavior. BEHAVIORAL OBSERVATION AND MENTAL STATUS EXAMINATION: Ms. Barone presented as a 67 year-old, right-handed woman who arrived early for her appointment, accompanied by her . She was casually dressed and adequately groomed. Her affect was within normal limits, and her eye contact was acceptable. She was a reasonable historian upon interview and participated fully in the formal cognitive testing portion of the evaluation. She describes her mood as being up and down, which she attributes tosome recent family stressors. She apparently had major depressive episode in the past, but denies current depression and indicates that her anxiety is not too bad. She does experience some elevated ir ritability at times. Anhedonia, current passive wishes for and current suicidal ideation are all denied. She describes her sleep as being horrible which she attributes to back pain and leg cramping, resulting in onset insomnia and nocturnal awakenings. Her energy is reduced. She reports that she tends to eat too much; her weight is stable, but she does need to lose some before she can have needed back surgery. Hallucinations and delusions are not noted. She quit smoking tobacco about 15 years ago and uses no alcohol or recreational drugs. She obtained a score of 5 on the Geriatric Depression Scale, which falls in the borderline range. NEUROPSYCHOLOGICAL FINDINGS: Ms. Barone was administered a battery of neuropsychological tests, evaluating a range of cognitive functions. Her performance on these measures is reviewed below. 1. Orientation: She was adequately oriented to self and situation but was a little off for date/time and place. She was able to recall the names of the president, vice president of consulting services, and state governor. 2. Attention/processing: She could repeat 5 digits forward and 4 digits backward, which falls in the low average range for her age. She made no errors performing serial 7s or spelling world backward. Visual scanning and sequencing was performed in the low average range for her age. 3. Communication skills: Her spontaneous speech was intelligible in form, but a little tangential in content at times, requiring redirection. Upon testing, confrontation naming was acceptable; she was able to name 25 of 26 pictures and 13 of 14 objects. Her oral fluency was low average; she was able to generate 15 animal names in one minute. She had no problems following multiple-step commands. Her word recognition reading fell at the upper end of the low average range. 4. Memory functioning: She could correctly recall 3 of 3 words after a brief delay. Immediate recall of short stories was average to high average (75th percentile). 30-minute delayed recall of short stories fell in the average range (63rd percentile). Immediate recall of visually-presented spatial material was low average to average (25th percentile). 30-minute delayed recall of visuospatial information fell squarely in the average range (50th percentile). Delayed recognition memory was averagefor short stories (51-75th percentile) and high average for visuospatial material (> 75th percentile). She showed good capacity to improve memory retention over repeated learning trials on a 10-word recall task (6-9-10 of 10). 5. Spatial organization skills: Her block design reproductions were performed in the average range for her age. Her clock drawing was well executed, and her other figure drawings were intact. 6. Reasoning skills: She correctly solved 3 of 3 word-pair similarities, 2 of 3 functional verbal problems and 3 of 4 proverb interpretations. 7. Index scores: She achieved a score of 25 on the Mini-Mental State Examination (MMSE), which falls in the borderline range, and a score of 4 on the Alzheimer???s Disease Assessment Scale (ADAS), which falls in the unimpaired range. SUMMARY AND IMPRESSION: Ms. Megan Barone is a 67 year-old, right-handed, woman with 16 years of education. She comes to the Memory Program with an approximate one year history of memory difficulties and seemingly modest associated declines an adaptive daily functioning. She does have a family history of dementia, with her mother apparently having early onset disease. Upon testing she was found to be largely oriented and functioning in the average range for most aspects of attention/concentration, communication skills, verbal reasoning, and spatial organization. Her mental processing speed was low average for visuomotor speed and also for verbal processing. Her new learning and mem ory functions were average overall for both verbal and visuospatial material. There is nothing in this test profile that would suggest an emerging neurodegenerative disorder at this time. However, given her subjective reported concerns and her family history of dementia, it iscertainly worth seeing her for retesting in a year or so. It is conceivable that other factors are c ontributing to her cognitive inefficiency, most noticeably sleep disorder and chronic pain. I do not have reason to believe that depression is currently a contributing factor. PLAN: Ms. Barone will be seen for neurological consultation by Dr. Lee Maher on 05/09/2018 for the second part of her Memory Program work-up. DIAGNOSIS: Memory Loss (R41.3) Family history of dementia (Z81.8) TOTAL TIME: 3.0 hrs Time includes 2 hours [place] [address] performed by a psychologist and 1 [place] [address] performed by a sound recording technician (this time was separate from that of the psychologist). Ned Mckeon, PhD Psychologist - Doctorate documented in this encounter Plan of Treatment Upcoming Encounters Date Type Department Care Team (Late st Contact Info) Description 09/14/2024 12:30 EST Initial consult [facility] OBGYN [address] [place] [address] Carolyn Zheng NP CN [address] [facility], [address] [place] [address] 10/10/2024 6:15 EST Appointment [facility] MRI [address] [place] [address] 11/21/2024 13:30 EST Appointment [facility] Xray [address] [place] [address] 11/21/2024 14:45 EST Office Visit [facility] Orthopedics & Spine Medicine [address] [place] [address] Sangita Doss PA-C [address] [facility] [address] [place] [address] 12/20/2024 10:15 EDT Appointment [facility] Endoscopy [address] [place] [address] Tom Mane MD [address] [place] [address] [address] [place] [address] documented as of this encounter Visit Diagnoses Diagnosis Memory loss- Primary Family history of dementia Family history of other neurological diseases documented in this encounter Care Teams Architectural Drafting Instructor Relationship Specialty Start Date End Date Jacklyn Clement PA [address] [place] [address] PCP - General 01/28/18 documented as of this encounter
--- OUTSIDE RECORDS SUMMARY | 2024-09-09 23:05 | XMS_ITS | Encounter Summary ---
Author Organization [facility] Address [address] [place] [address] Care Team Providers Care Street Light Cleaner Name Role Phone Jacklyn Clement Primary Care Provider [phone] Encounter Details Date Type Department Care Team (Late st Contact Info) Description 01/10/[address] [facility] - Main [facility] [address] [place] [address] Jacklyn Clement PA [address] [place] [address] Social History Tobacco Use Types Packs/Day [...] Description 09/14/2024 12:[address] [facility] OBGYN [address] [place], [place] [id number] Carolyn Zheng NP CNM [address] [facility] [place] [address] 10/10/2024 6:[address] [facility] MRI [address] [place] [address] 11/21/2024 13:[address] [facility] Xray [address] [place] [address] 11/21/2024 14:[address] [facility] Orthopedics & Spine Medicine [address] [place], [place] [phone] Sangita Doss PA-C [address] [facility] [address] [place] [address] 12/20/2024 10:[address] [facility] Endoscopy [address] [place], [place] [address] Tom Mane MD [address] [place] [address] [address] [place] [address] documented as of this encounter Procedures Procedure Name Priority Date/Time Associated Diagnosis Comments COMPREHENSIVE METABOLIC POC - [facility] Routine 01/10/2019 12:36 EDT documented in this encounter Results * (ABNORMAL) COMPREHENSIVE METABOLIC POC - [facility] (01/10/2019 12:36 EDT) Albumin % 4.3 3.50 - 5.00 G/DL 01/10/2019 12:38 [facility] ALKALINE PHOSPHATASE - [facility] 52 38.00 - 126.00 U/L 01/10/2019 12:38 [facility] BILIRUBIN TOTAL 0.3 0.20 - 1.30 MG/DL 01/10/2019 12:38 [facility] BUN - [facility] 22(H) 7.00 - 20.00 MG/DL 01/10/2019 12:38 [facility] CALCIUM - [facility] 10.1 8.50 - 10.50 MG/DL 01/10/2019 12:38 [facility] Chloride 109(H) 98.00 - 107.00 MMOL/L 01/10/2019 12:38 [facility] CO2 Total 28 22.00 - 30.00 MMOL/L 01/10/2019 12:38 [facility] CREATININE 1.4 0.70 - 1.50 MG/DL 01/10/2019 12:38 EDT [facility] Anion Gap 11 7 - 17 MMOL/L 01/10/2019 12:38 [facility] GLUCOSE - [facility] 111(H) 70.00 - 100.00 MG/DL 01/10/2019 12:38 [facility] Potassium 4.2 3.50 - 5.10 MMOL/L 01/10/2019 12:38 T [facility] Sodium 148(H) 137.00 - 145.00 MMOL/L 01/10/2019 12:38 T [facility] TOTAL PROTEIN - [facility] 7.2 6.30 - 8.20 G/DL 01/10/2019 12:38 [facility] SGOT/AST - [facility] 23 15.00 - 46.00 U/L 01/10/2019 12:38 [facility] SGPT/ALT - [facility] 27 13.00 - 69.00 U/L 01/10/2019 12:38 [facility] 01/10/2019 12:3 6 EDT 01/10/2019 12:36 EDT Jacklyn SCHUSTER CHEMISTRY & BLOOD GAS ORDERAB LES Final Result [facility] documented in this encounter Visit Diagnoses Not on filedocumented in this encounter Care Teams Street Light Cleaner Relationship Specialty Start Date End Date Jacklyn Clement PA [address] [place] [address] PCP - General 01/28/18 documented as of this encounter
--- OUTSIDE RECORDS SUMMARY | 2024-09-09 23:05 | XMS_ITS | Encounter Summary ---
Author Organization [facility] Address [address] [place] [address] Care Team Providers Care Cable Engineer Name Role Phone Jason Velez MD Primary Care Provider [phone] Jacklyn Clement Primary Care Provider [phone] Encounter Details Date Type Department Care Team (Late st Contact Info) Description 10/13/2016 Historical Results Only [facility] - Main [place] [address] [place] [address] Jacklyn Clement PA [address] [place] [address] Social History Tobacco Use Types Packs/Day [...] Info) Description 09/14/2024 12:30 EST Initial consult [facility] OBGYN [address] [place] [address] Carolyn Zheng NP CNM [address] [facility], [address] [place] [address] 10/10/2024 6:15 EST Appointment [facility] MRI [address] [place] [address] 11/21/2024 13:30 EST Appointment [facility] Xray [address] [place] [address] 11/21/2024 14:45 EST Office Visit [facility] Orthopedics & Spine Medicine [address] [place] [address] Sangita Doss PA-C [address] [facility] [address] [place] [address] 12/20/2024 10:15 EDT Appointment [facility] Endoscopy [address] [place], [place] [phone] Tom Mane MD [address] [place] [address] [address] [place] [address] documented as of this encounter Procedures Procedure Name Priority Date/Time Associated Diagnosis Comments LIPID PANEL POC - [facility] Routine 10/13/2016 13:22 EST documented in this encounter Results * (ABNORMAL) LIPID PANEL POC - [facility] (10/13/2016 13:22 EST) Triglyceride 274(H) 0.00 - 150.00 MG/DL 10/13/2016 13:23 EST [facility] Cholesterol 157 0.00 - 200.00 MG/DL 10/13/2016 13:23 EST [facility] HDL 39(L) 40.00 - 60.00 MG/DL 10/13/2016 13:23 EST [facility] 10/13/2016 13:2 2 EST 10/13/2016 13:22 EST us Jacklyn SCHUSTER CHEMISTRY & BLOOD GAS ORDERAB LES Final Result [facility] documented in this encounter Visit Diagnoses Not on filedocumented in this encounter Care Teams Cable Engineer Relationship Specialty Start Date End Date Jason Velez MD [address] [facility] [place] [address] PCP - General 09/05/12 01/27/18 Jacklyn Clement PA [address] [place] [address] PCP - General 01/28/18 documented as of this encounter
--- OUTSIDE RECORDS SUMMARY | 2024-09-09 23:05 | XMS_ITS | Encounter Summary ---
Author Organization [facility] Address [address] [place] [address] Care Team Providers Care Flake Miller Helper Name Role Phone Jason Velez MD Primary Care Provider [phone] Jacklyn Clement Primary Care Provider [phone] Encounter Details Date Type Department Care Team (Late st Contact Info) Description 11/24/2016 Historical Results Only [facility] Radiology Results [address] [place] [address] Caitlyn Thakkar NP [address] [place] [address] [place] [id number] Social History Tobacco Use Types Packs/Day Years [...] Info) Description 09/14/2024 12:30 EST Initial consult [facility] OBGYN [address] [place] [address] Carolyn Zheng NP CNM [address] [facility] [address], [address] [place] [address] 10/10/2024 6:15 EST Appointment [facility] MRI [address] [place] [address] 11/21/2024 13:30 EST Appointment [facility] Xray [address] [place] [address] 11/21/2024 14:45 EST Office Visit [facility] Orthopedics & Spine Medicine [address] [place], [place] [address] Sangita Doss PA-C [address] [facility] [address] [place] [address] 12/20/2024 10:15 EDT Appointment [facility] Endoscopy [address] [place] [address] Tom Mane MD [address] [place] [address] [address] [place] [address] documented as of this encounter Procedures Procedure Name Priority Date/Time Associated Diagnosis Comments XR LUMBAR SPINE BENDING VIEWS, 2 OR 3 VIEWS 11/24/2016 14:28 EST documented in this encounter Results * XR LUMBAR SPINE BENDING VIEWS, 2 OR 3 VIEWS (11/24/2016 14:28 EST) Anatomical Region Laterality Modality Other 11/24/2016 14:2 8 EST Narrative 11/24/2016 14:35 EST ? EXAM: RADIOLOGY/LS SPINE FLEX/EXT ONLY 2 ??EX. D/ (1342) ? CLINICAL INFORMATION: ? M54.41 LUMBAGO W/ SCIATICA, RIGHT SIDE ? M54.42 LUMBAGO W/ SCIATICA, LEFT SIDE ? R>L LOWER EXTREMITY PAIN IN L5 DISTRIBUTION W/ ? SPONDYLOLISTHESIS @ L4-5 NOTED ON XRAY ? LS SPINE FLEX/EXT ONLY 2 OR 3V ? Signs and Symptoms/Comments: LUMBAGO M54.41 LUMBAGO W/ SCIATICA, ? RIGHT SIDE: M54.42 LUMBAGO W/ SCIATICA, LEFT SIDE ? Comparison: 09/11/2016 ? Findings: ? Lateral flexion and lateral extension views of the lumbar spine were ? obtained. ?There is grade 1 retrolisthesis of L2 on L3. There is grade 1 ? anterolisthesis of L4 on L5. There is no change in either ? spondylolisthesis with flexion in comparison to extension or the ? neutral lateral radiographs. Multilevel degenerative disc disease is ? again noted. There is vacuum phenomenon at L1-2 and L2-3. ? Facet arthrosis is present in the inferior lumbar spine. There is ? narrowing of the interspinous distances at L3-4 and L4-5 as well as ? sclerosis of the vertebral spines which may reflect Baastrup's ? disease. ? Impression: ? 1. ??Retrolisthesis of L2 on L3 and grade 1 anterolisthesis of L4 on ? L5 without evidence of dynamic instability. ? 2. ??Unchanged multilevel degenerative disc and facet disease. ? 3. 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 ? REPORT SIGNED IN OTHER VENDOR SYSTEM 11/24/2016 ?Reported By: Tera Gutierrez MD ? CC: ? Transcribed Date/Time: 11/24/2016 (1435) ? Knockdown Man: ? Printed Date/Time: 03/11/2019 (3464) ? PAGE 1 ? Signed Report ? Procedure Note Tera Gutierrez MD - 08/02/2019 EXAM: RADIOLOGY/LS SPINE FLEX/EXT ONLY 2 EX. D/ (1342) CLINICAL INFORMATION: M54.41 LUMBAGO W/ SCIATICA, RIGHT SIDE M54.42 LUMBAGO W/ SCIATICA, LEFT SIDE R>L LOWER EXTREMITY PAIN IN L5 DISTRIBUTION W/ SPONDYLOLISTHESIS @ L4-5 NOTED ON XRAY LS SPINE FLEX/EXT ONLY 2 OR 3V Signs and Symptoms/Comments: LUMBAGO M54.41 LUMBAGO W/ SCIATICA, RIGHT SIDE: M54.42 LUMBAGO W/ SCIATICA, LEFT SIDE Comparison: 09/11/2016 Findings: Lateral flexion and lateral extension views of the lumbar spinewere obtained. There is grade 1 retrolisthesis of L2 on L3. There is grade 1 anterolisthesis of L4 on L5. There is no change in either spondylolisthesis with flexion in comparison to extension or the neutral lateral radiographs. Multilevel degenerative disc diseaseis again noted. There is vacuum phenomenon at L1-2 and L2-3. Facet arthrosis is present in the inferior lumbar spine. There is narrowing of the interspinous distances at L3-4 and L4-5 as well as sclerosis of the vertebral spines which may reflect Baastrup's disease. Impression: 1. Retrolisthesis of L2 on L3 and grade 1 anterolisthesis of L4 on L5 without evidence of dynamic instability. 2. Unchanged multilevel degenerative disc and facet disease. 3. 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 REPORT SIGNED IN OTHER VENDOR SYSTEM 11/24/2016 Reported By: Tera Gutierrez MD CC: Transcribed Date/Time: 11/24/2016 (6453) Knockdown Man: Printed Date/Time: 03/11/2019 (2463) PAGE 1 Signed Report us Caitlyn Thakkar ELECTRICAL INSTALLATION INSPECTOR IMG DIAGNOSTIC IMAGING ORDERA BLES Final Result documented in this encounter Visit Diagnoses Not on filedocumented in this encounter Care Teams Flake Miller Helper Relationship Specialty Start Date End Date Jason Velez MD [address] [facility] [place] [address] PCP - General 09/05/12 01/27/18 Jacklyn Clement PA [address] [place] [address] PCP - General 01/28/18 documented as of this encounter
--- OUTSIDE RECORDS SUMMARY | 2024-09-09 23:05 | XMS_ITS | Encounter Summary ---
Author Organization [facility] Address [address] [place] [address] Care Team Providers Care Electron Beam Photo Mask Maker Name Role Phone Jason Velez MD Primary Care Provider [phone] Jacklyn Clement Primary Care Provider [phone] Encounter Details Date Type Department Care Team (Late st Contact Info) Description 10/13/2016 Historical Results Only [facility] - Main [place] [address] [place] [address] Jacklyn Clement PA [address] [place] [address] Social History Tobacco Use Types Packs/Day [...] Initial consult [facility] OBGYN [address] [place] [address] Carolyn Zheng NP CNM 130 [facility] [address] [place] [address] 10/10/2024 6:15 EST Appointment [facility] MRI [address] [place] [address] 11/21/2024 13:30 EST Appointment [facility] Xray [address] [place] [address] 11/21/2024 14:45 EST Office Visit [facility] Orthopedics & Spine Medicine [address] [place] [address] Sangita Doss PA-C [address] [facility] [address] [place] [address] 12/20/2024 10:15 EDT Appointment [facility] Endoscopy [address] [place], [place] [address] Tom Mane MD [address] [place] [address] [address] [place] [address] documented as of this encounter Procedures Procedure Name Priority Date/Time Associated Diagnosis Comments GLYCOHEMOGLOBIN POC - [facility] Routine 10/13/2016 13:22 EST documented in this encounter Results * (ABNORMAL) GLYCOHEMOGLOBIN POC - [facility] (10/13/2016 13:22 EST) Hemoglobin A1c 6.7(H) 4.0 - 6.0 % 10/13/2016 13:[address] [facility] AVG CALCULATED GLUCOSE - [facility] 143(H) 60 - 115 MG/DL 10/13/2016 13:[address] [facility] 10/13/2016 13:2 2 EST 10/13/2016 13:22 EST Jacklyn SCHUSTER CHEMISTRY & BLOOD GAS ORDERAB LES Final Result [facility] documented in this encounter Visit Diagnoses Not on filedocumented in this encounter Care Teams Electron Beam Photo Mask Maker Relationship Specialty Start Date End Date Jason Velez MD [address] [facility] [place], [place] [id number] PCP - General 09/05/12 01/27/18 Jacklyn Clement PA [address] [place] [address] PCP - General 01/28/18 documented as of this encounter
--- OUTSIDE RECORDS SUMMARY | 2024-09-09 23:05 | XMS_ITS | Encounter Summary ---
Author Organization [facility] Address [address] [place] [address] Care Team Providers Care President + Publisher Name Role Phone Jason Velez MD Primary Care Provider [phone] Jacklyn Clement Primary Care Provider [phone] Encounter Details Date Type Department Care Team (Late st Contact Info) Description 12/23/2016 Historical Results Only [facility] - Main [place] [address] [place] [address] Jacklyn Clement PA [address] [place] [address] Social History Tobacco Use Types Packs/Day [...] Info) Description 09/14/2024 12:30 EST Initial consult [facility] OBGYN [address] [place] [address] Carolyn Zheng NP CNM [address] [facility] [address] [place] [address] 10/10/2024 6:15 EST Appointment [facility] MRI [address] [place] [address] 11/21/2024 13:30 EST Appointment [facility] Xray [address] [place] [address] 11/21/2024 14:45 EST Office Visit [facility] Orthopedics & Spine Medicine [address] [place] [address] Sangita Doss PA-C [address] [facility] [address] [place] [address] 12/20/2024 10:15 EDT Appointment [facility] Endoscopy [address] [place], [place] [address] Tom Mane MD [address] [place] [address] [address] [place] [address] documented as of this encounter Procedures Procedure Name Priority Date/Time Associated Diagnosis Comments VITAMIN D 25 POC - CV Routine 12/24/19 17 14:37 EDT LIPID PANEL POC - [facility] Routine 7 14:37 EDT COMPREHENSIVE METABOLIC POC - [facility] Routine 12/23/2016 14:37 EDT GLYCOHEMOGLOBIN POC - CV Routine 12/23/2016 14:37 EDT MAGNESIUM POC - CV Routine 12/23/2016 14:37 EDT CBC W/PLT & DIFF,POINT OF CARE - CV Routine 12/23/2016 14:37 EDT POCT CHOLESTEROL LDL (CV) Routine 12/23/2016 14:37 EDT FOLATE Routine 12/23/2016 12:30 EDT VITAMIN B12 Routine 12/23/2016 12:30 EDT THYROID STIM HORMONE POC - CV Routine 12/23/2016 11:36 EDT documented in this encounter Results * VITAMIN D 25 POC - CV (12/23/2016 14:37 EDT) VIT D, 25 HYDROXY - [facility] 73 30 - 100 NG/ML 12/23/2016 14:38 EDT [facility] 12/23/2016 14:3 7 EDT 12/23/2016 14:37 EDT Jacklyn SCHUSTER CHEMISTRY & BLOOD GAS ORDERAB LES Final Result [facility] * MAGNESIUM POC - [facility] (12/23/2016 14:37 EDT) Pathologist [facility] Magnesium 1.90 1.60 - 2.30 MG/DL 12/23/2016 14:38 EDT [facility] 12/23/2016 14:3 7 EDT 12/23/2016 14:37 EDT Jacklyn SCHUSTER CHEMISTRY & BLOOD GAS ORDERAB LES Final Result [facility] * (ABNORMAL) LIPID PANEL POC - [facility] (12/23/2016 14:37 EDT) Pathologist [facility] Triglyceride 173(H) 0.00 - 150.00 MG/DL 12/23/2016 14:38 EDT [facility] Cholesterol 175 0.00 - 200.00 MG/DL 12/23/2016 14:38 EDT [facility] HDL 63(H) 40.00 - 60.00 MG/DL 12/23/2016 14:38 EDT [facility] 12/23/2016 14:3 7 EDT 12/23/2016 14:37 EDT Jacklyn SCHUSTER CHEMISTRY & BLOOD GAS ORDERAB LES Final Result [facility] * POCT CHOLESTEROL LDL ([facility]) (12/23/2016 14:37 EDT) [facility] LDL CHOLESTEROL - [facility] 77 60 - 100 mg/dl 12/23/2016 14:38 EDT [facility] 12/23/2016 14:3 7 EDT 12/23/2016 14:37 EDT Jacklyn SCHUSTER POINT OF CARE TEST ORDERABLES Final Result [facility] * (ABNORMAL) GLYCOHEMOGLOBIN POC - [facility] (12/23/2016 14:37 EDT) [facility] Hemoglobin A1c 6.6(H) 4.0 - 6.0 % 12/23/2016 14:38 [facility] AVG CALCULATED GLUCOSE - [facility] 140(H) 60 - 115 MG/DL 12/23/2016 14:38 [facility] 12/23/2016 14:3 7 EDT 12/23/2016 14:37 EDT us Jacklyn SCHUSTER CHEMISTRY & BLOOD GAS ORDERAB LES Final Result [facility] * (ABNORMAL) COMPREHENSIVE METABOLIC POC - [facility] (12/23/2016 14:37 EDT) [facility] Albumin % 4.6 3.50 - 5.00 G/DL 12/23/2016 14:38 T [facility] ALKALINE PHOSPHATASE - [facility] 56 38.00 - 126.00 U/L 12/23/2016 14:38 [facility] BILIRUBIN TOTAL 0.6 0.20 - 1.30 MG/DL 12/23/2016 14:38 [facility] BUN - [facility] 21(H) 7.00 - 20.00 MG/DL 12/23/2016 14:38 [facility] CALCIUM - [facility] 9.8 8.50 - 10.50 MG/DL 12/23/2016 14:38 [facility] Chloride 102 98.00 - 107.00 MMOL/L 12/23/2016 14:38 EDT [facility] CO2 Total 26 22.00 - 30.00 MMOL/L 12/23/2016 14:38 T [facility] CREATININE 0.7 0.70 - 1.50 MG/DL 12/23/2016 14:38 [facility] Anion Gap 16 7 - 17 12/23/2016 14:38 [facility] GLUCOSE - [facility] 122(H) 70.00 - 100.00 MG/DL 12/23/2016 14:38 [facility] Potassium 4.3 3.50 - 5.10 MMOL/L 12/23/2016 14:38 [facility] Sodium 144 137.00 - 145.00 MMOL/L 12/23/2016 14:38 [facility] TOTAL PROTEIN - [facility] 7.6 6.30 - 8.20 G/DL 12/23/2016 14:38 [facility] SGOT/AST - [facility] 20 15.00 - 46.00 U/L 12/23/2016 14:38 [facility] SGPT/ALT - [facility] 30 13.00 - 69.00 U/L 12/23/2016 14:38 [facility] 12/23/2016 14:3 7 EDT 12/23/2016 14:37 EDT us Jacklyn SCHUSTER CHEMISTRY & BLOOD GAS ORDERAB LES Final Result [facility] * (ABNORMAL) CBC W/PLT & DIFF,POINT OF CARE - [facility] (12/23/2016 14:37 EDT) Gran # 9.0(H) 1.4 - 6.5 X10E3/UL 12/23/2016 14:38 [facility] GRAN % - [facility] 75.6(H) 42.2 - 75.2 % 12/23/2016 14:38 [facility] HEMATOCRIT - [facility] 43.3 35.0 - 60.0 % 12/23/2016 14:38 [facility] HEMOGLOBIN - [facility] 14.0 11.0 - 18.0 G/DL 12/23/2016 14:38 [facility] LYMPH # - [facility] 2.7 1.2 - 3.4 X10E3/UL 12/23/2016 14:38 [facility] LYMPH% - [facility] 22.4 20.5 - 51.1 % 12/23/2016 14:38 [facility] MEAN CORPUSCULAR HGB - [facility] 28.7 27.0 - 31.0 PG 12/23/2016 14:38 [facility] MEAN CORPUSCULAR HGB CONC - [facility] 32.3(L) 33.0 - 37.0 G/DL 12/23/2016 14:38 [facility] MEAN CELL VOLUME - [facility] 89.0 80.0 - 99.9 FL 12/23/2016 14:38 [facility] MONO # - [facility] 0.2 0.1 - 0.6 X10E3/UL 12/23/2016 14:38 [facility] MONO% - [facility] 2.0 1.7 - 9.3 % 12/23/2016 14:38 [facility] MEAN PLATELET VOLUME - [facility] 8.0 7.8 - 11.0 FL 12/23/2016 14:38 [facility] PLATELET COUNT 231 150 - 450 X10E3/UL 12/23/2016 14:38 [facility] RED BLOOD COUNT - [facility] 4.86 4.00 - 6.00 X10E6/UL 12/23/2016 14:38 [facility] RED CELL DISTRI WIDTH - [facility] 13.6 11.6 - 13.7 % 12/23/2016 14:38 [facility] WHITE BLOOD COUNT - [facility] 11.9(H) 4.5 - 10.5 X10E3/UL 12/23/2016 14:38 [facility] 12/23/2016 14:3 7 EDT 12/23/2016 14:37 EDT Jacklyn SCHUSTER CHEMISTRY & BLOOD GAS ORDERAB LES Final Result Performing Organization Address [facility]/ZIP Co de Phone Number [facility] * FOLATE (12/23/2016 12:30 EDT) [facility] FOLIC ACID [facility] 6.19 ng/mL 12/23/2016 18:46 EDT [facility] Comment: Reference Range/Expected Values: Normal Serum Folate: ?>5.38 ng/mL ? Deficient Serum Folate: ? 0.35 - 3.34 ng/mL Indeterminate Serum Folate: ?? 3.38 - 5.38 ng/mL 12/23/2016 12:3 0 EDT 12/23/2016 17:42 EDT Narrative [facility] - 12/23/2016 18:46 EDT Does PT Have a Latex Allergy? NO Jacklyn SCHUSTER CHEMISTRY & BLOOD GAS ORDERAB LES Final Result Performing Organization Address [facility]/RUST Co de Phone Number [facility] * VITAMIN B12 (12/23/2016 12:30 EDT) [facility] VITAMIN B12 [facility] 422 211 - 911 pg/mL 12/23/2016 18:45 EDT [facility] 12/23/2016 12:3 0 EDT 12/23/2016 17:42 EDT Narrative [facility] - 12/23/2016 18:46 EDT Does PT Have a Latex Allergy? NO Jacklyn SCHUSTER CHEMISTRY & BLOOD GAS ORDERAB LES Final Result Performing Organization Address City/[facility]/ZIP Co de Phone Number [facility] * THYROID STIM HORMONE POC - [facility] (12/23/2016 11:36 EDT) [facility] THYROID STIM HORMONE [facility] 2.16 0.34 - 5.60 UIU/ML 12/24/2016 11:38 EDT [facility] 12/23/2016 11:3 6 EDT 12/23/2016 11:36 EDT us Jacklyn SCHUSTER CHEMISTRY & BLOOD GAS ORDERAB LES Final Result [facility] documented in this encounter Visit Diagnoses Not on filedocumented in this encounter Care Teams President + Publisher Relationship Specialty Start Date End Date Jason Velez MD [address] [facility] [address] [place] [address] PCP - General 09/05/12 01/27/18 Jacklyn Clement PA [address] [place] [address] PCP - General 01/28/18 documented as of this encounter
--- OUTSIDE RECORDS SUMMARY | 2024-09-09 23:05 | XMS_ITS | Encounter Summary ---
Author Organization [facility] Address [address] [place] [address] Care Team Providers Care Skills Trainer Name Role Phone Jason Velez MD Primary Care Provider Jacklyn Clement Primary Care Provider [phone] Encounter Details Date Type Department Care Team (Late st Contact Info) Description 01/21/2017 Historical Results Only [facility] Radiology Results [address] [place] [address] Jami Newman MD [address] [place] [address] [place] [address] Social History Tobacco Use Types Packs/Day Years [...] Info) Description 09/14/2024 12:30 EST Initial consult [facility] OBGYN [address] [place] [address] Carolyn Zheng NP CNM [address] [facility] [address] [place] [address] 10/10/2024 6:15 EST Appointment [facility] MRI [address] [place] [address] 11/21/2024 13:30 EST Appointment [facility] Xray [address] [place] [address] 11/21/2024 14:45 EST Office Visit [facility] Orthopedics & Spine Medicine [address] [place], [place] [address] Sangita Doss PA-C [address] [facility] [address] [place] [address] 12/20/2024 10:15 EDT Appointment [facility] Endoscopy [address] [place] [address] Tom Mane MD [address] [place] [address] [address] [place] [address] documented as of this encounter Procedures Procedure Name Priority Date/Time Associated Diagnosis Comments FL C-ARM BLOCK/INJECTION 01/21/2017 14:12 EDT documented in this encounter Results * FL C-ARM BLOCK/INJECTION (01/21/2017 14:12 EDT) Anatomical Region Laterality Modality Left Other 01/21/2017 14:1 2 EDT Narrative 01/21/2017 14:16 EDT ? EXAM: RADIOLOGY/C-ARM BLOCK INJECTION ? EX. D/ (1403) ? CLINICAL INFORMATION: ? LUMBAR FACETS W/ FLUORO,NO IV ? C-ARM BLOCK INJECTION ? Signs and Symptoms/Comments: LUMBAR FACETS W/ FLUORO,NO IV ? Comparison: 12/17/2016 ? FINDINGS: ? Fluoroscopy services were provided during injection procedure ? performed by Dr. Jami Newman. ? Fluoroscopy: 10.0 seconds ? IMPRESSION: ? As above. ? REPORT SIGNED IN OTHER VENDOR SYSTEM 01/21/2017 ?Reported By: Shakir Abernathy MD ? CC: ? Transcribed Date/Time: 01/21/2017 (1416) ? Tetryl Nitrator Operator: ? Printed Date/Time: 03/11/2019 (7381) ? PAGE 1 ? Signed Report ? Procedure Note Shakir Abernathy MD - 08/02/2019 EXAM: RADIOLOGY/C-ARM BLOCK INJECTION EX. D/ (1403) CLINICAL INFORMATION: LUMBAR FACETS W/ FLUORO,NO IV C-ARM BLOCK INJECTION Signs and Symptoms/Comments: LUMBAR FACETS W/ FLUORO,NO IV Comparison: 12/17/2016 FINDINGS: Fluoroscopy services were provided during injection procedure performed by Dr. Jami Newman. Fluoroscopy: 10.0 seconds IMPRESSION: As above. REPORT SIGNED IN OTHER VENDOR SYSTEM 01/21/2017 Reported By: Shakir Abernathy MD CC: Transcribed Date/Time: 01/21/2017 (1416) Tetryl Nitrator Operator: Printed Date/Time: 03/11/2019 (8986) PAGE 1 Signed Report us Jami Newman MD IMG FLUOROSCOPY ORDERABLES Final Result documented in this encounter Visit Diagnoses Not on filedocumented in this encounter Care Teams Skills Trainer Relationship Specialty Start Date End Date Jason Velez MD [address] [facility] [place] [address] PCP - General 09/05/12 01/27/18 Jacklyn Clement PA [address] [place] [address] PCP - General 01/28/18 documented as of this encounter
--- OUTSIDE RECORDS SUMMARY | 2024-09-09 23:05 | XMS_ITS | Encounter Summary ---
Author Organization [facility] Address [address] [place] [address] Care Team Providers Care Gravity Prospecting Operator Name Role Phone Jacklyn Clement Primary Care Provider Reason for Visit * Reason Comments Memory Loss * Referral (Routine) - Closed Specialty Diagnoses / Procedures Referred By Gutierrez calero Referred To Contact Psychology Jorge Rodriguez MD Phone: tel: fax: [facility] - Medical Office Building [address] [place] [address] Phone: tel: fax: Referral ID Status Reason Start Date Expiration Date Visits Re quested Visits Authorized [id number] Closed 2 2 Encounter Details Date Type Department Care Team (Late st Contact Info) Description 05/10/2018 16:00 EDT Office Visit [facility] - Medical Office Building [address] [place], [place] [address] Lee Maher MD [address] [place] [address] Medical Office Building, [address] [place] [address] Memory loss (Primary Dx) Social [...] Sign Reading Time Taken Comments Blood Pressure 135/85 05/10/2018 1632 EDT Pulse 72 05/10/2018 1632 EDT Temperature - - Respiratory Rate - - Oxygen Saturation - - Inhaled Oxygen Concentration - - Weight - - Height - - Body Mass Index - - documented in this encounter Discharge Diagnoses Diagnosis R41.3 Other amnesia-R41.3[ICD-10-CM] documented in this encounter Progress Notes * Wm Declan Maher MD - 05/10/2018 1600 EDT The remainder of this office note has been dictated. ROS: Constitutional:Yes, Night sweats Breathing Problems: Yes, Wheezing Vision: No Endocrine: Yes, Fatigue Ears/Nose/Throat: Yes, Decreased hearing Blood/Lymph:No Heart Problems:Yes, Palpitations (rapid heart beat) Skin:No Stomach or Bowel Problems: Yes, Nausea Psychiatric: Yes, Sadness, Anxiety Bladder Problems: Yes, Incontinence Sleep: Yes, Difficulty getting to sleep, Staying asleep, Daytime sleepiness, Restless sleep Muscle/Joint: Yes, Cramping Other (Specify): No Neurological Symptoms: Yes, Problem with memory, Speaking, Balance, Weakness, Numbness or tingling,Clumsiness, Unsteady gait I personally reviewed this data with the patient and/or family Lee Maher M.D. 05/10/2018 documented in this encounter Consult Notes * Wm Declan Maher MD - 05/10/2018 0000 EDT [facility] CONSULTATION - 05/10/2018 REASON FOR CONSULTATION: The patient's concern about memory symptoms, family history of Alzheimer'sdisease/dementia. CONSULTATIVE SOURCE: I was asked to see this patient in consultation by MARIELY Jo. INFORMANTS: Mr and Mrs Barone, records provided for review and review of PRISM. PATIENT PROFILE: Megan Barone is a 67-year-old right-handed woman, currently living in [place] with her of 41 years. Mrs Barone indicates that she was born and grew up in [place], [place]. She graduated from high school in 1969 and earned an undergraduate degree from the [employer] in 1977 in biology and chemistry. 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 She has been retired for about 2 years. The couple have 2 adult children, a 39-year-old son and a 38-year-old daughter who has Rett syndrome. Psychiatric history is generally negative. ALLERGIES: COMPAZINE, LISINOPRIL, PENICILLINS. MEDICATIONS: Aspirin 81 mg. Vitamin D3 5000 units. Gabapentin 600 mg b.i.d. Losartan 50 mg. Melatonin 1 tablet daily. Metformin 500 mg b.i.d. Metoprolol 50 mg. Triamterene 25 mg. N-acetylcysteine 600 mg b.i.d. HISTORY OF PRESENT ILLNESS: Mrs Barone indicated that she is being seen at the Memory Program due to concerns [...] does struggle some with prospective information, such as for appointments and other planned activities; she attempts to use her phone calendar to keep track of this information, but is still not completely reliable. She reports some procedural memory issues, some of which dated back to when she was still working, and more recently she reports some difficulties with complex meal preparations. She believes that she is misplacing belongings at increased frequency.She does have some difficulties with keeping mental focus, sometimes leaving food cooking on the stove, forgetting what she is doing mid-task, and forgetting what she is saying mid-sentence. ?? Mrs Mera reports having word retrieval difficulties for [...] mixed up when traveling in the community. ?? Crow Barone () was available to provide additional information about Mrs Barone's cognitive functioning and daily activities. He [...] problems with her reasoning or decision making. ?? Mr Barone reports that his continues to manage her basic self-care and ADLs just fine. She is independent with medication taking and no apparent problems [...] when out navigating in the community, but addsthat this is a long- standing problem. Community activity is limited mostly to going to [facility], and other activities with her . He does not think that she is depressed, and no major issues are noted for anxiety, irritability, safety, or behavior. MEDICAL HISTORY: History of depression, hypertension, dyslipidemia, type 2 diabetes, history of hepatitis B, history of hepatitis C treated, chronic low back pain, history of asthma, and overweight. Mrs Barone has had bladder suspension surgery and is not aware of other surgical procedures. She is a former smoker. She currently drinks no alcohol. REVIEW OF SYSTEMS: A 14-system inventory was completed and reviewed at the time of the evaluation. No symptoms in need of additional medical assessment were identified, and the template can be found in the progress note associated with this encounter. FAMILY HISTORY: Mrs Barone indicates that her mother at about age 90 with a diagnosis of dementia. Her father at about the age of 70 with a diagnosis of colon cancer. She is one of 7 children. She has a brother who has diabetes and heart disease. She has a sister who has diabetes and heart disease. She has another sister who she knows very little about in terms of medical history. She had a sister age 2 who of meningitis, another sister who of ovarian cancer and another sister who of lung cancer. The family history also indicates a maternal aunt with possible dementia. PHYSICAL EXAMINATION: General: The blood pressure in the left upper extremity while sitting was 135/85. Pulse was 72 and regular. The patient appeared her stated age, was in no acute distress, and was cooperative for the interview and examination. Grooming and hygiene were unremarkable. There were no hallucinations, delusions or evidence of depression. Carotid bruits were not heard. Cardiac exam revealed no abnormalities and lung singletary were clear. Examination of head and neck functions revealed no thyromegaly and no evidence of lymph nodes. The throat was clear as were the eardrums. Extremities were nontender, as were joints. The skin was clear. NEUROLOGIC: The Hachinski ischemic score was 1. Cranial nerve examination revealed the following. Pupils were equal and reactive to light and accommodation. EOMs were full without nystagmus. Singletary were full to confrontation. The face was symmetric at rest and moved symmetrically. Jaw power was full and there was no evidence of weakness of the tongue or fasciculations. Shoulder shrugging was full. Motor exam revealed full strength, no abnormalities of tone and normal bulk. No involuntary movements were noted. Reflexes were trace symmetric with downgoing toes. Gross sensory examination to pin and cotton was unremarkable. Coordination as tested by finger to nose, rapid rhythmic alternating movements was normal. Station and gait were unremarkable. ADDITIONAL PERTINENT INFORMATION: Mrs Barone was previously seen by a neurolog[facility] [place] [facility]. His note indicates that an MRI scan of the brain performed in December 2017 showed global volume loss and patchy white matter changes. Laboratory testing germane to a memory e valuation has been unremarkable or nonspecific. ASSESSMENT: Mrs Barone scored 25 on the Mini-Mental State Exam and 4 on the Alzheimer's Disease Assessment Scale. There is nothing about her neurocognitive profile that suggests dementia, Alzheimer'sdisease or related disorder. She feels that since coming off Wellbutrin and Zoloft, her episodic confusion and lack of concentration have improved. I would think there is no reason to make any specific diagnosis at this point, but I will suggest that Mrs Barone undergo a comprehensive repeat evaluation in about 9 months. PLAN: 1. I met with Mrs Barone and her for 45 minutes of [id number] conversation and discussion, with more than 50% of that time used for counseling and coordination of care. 2. I addressed questions. 3. I provided my assessment as above. 4. A comprehensive reevaluation was scheduled for 9 months from now. Lee Maher MD 05 12 PM - Lee Maher MD en Dictation ID: [id number] cc: Jacklyn SCHUSTER, [facility] [address], [place] [address] documented in this encounter Plan of Treatment Upcoming Encounters Date Type Department Care Team (Late st Contact Info) Description 09/14/2024 12:30 EST Initial consult [facility] OBGYN [address] [place] [address] Carolyn Zheng NP CNM [address] [facility], [address] [place] [address] 10/10/2024 6:15 EST Appointment [facility] MRI [address] [place] [address] 11/21/2024 13:30 EST Appointment [facility] Xray [address] [place] [address] 11/21/2024 14:45 EST Office Visit [facility] Orthopedics & Spine Medicine [address] [place] [address] Sangita Doss PA-C [address] [facility] [address] [place], [place] [address] 12/20/2024 10:15 EDT Appointment [facility] Endoscopy [address] [place], [place] [address] Tom Mane MD [address] [place] [address] [address] [place] [address] documented as of this encounter Visit Diagnoses Diagnosis Memory loss- Primary documented in this encounter Care Teams Gravity Prospecting Operator Relationship Specialty Start Date End Date Jacklyn Clement PA [address] [place] [address] PCP - General 01/28/18 documented as of this encounter
--- OUTSIDE RECORDS SUMMARY | 2024-09-09 23:05 | XMS_ITS | Encounter Summary ---
Author Organization [facility] Address [address] [place] [address] Care Team Providers Care Barrel Rifler Button Name Role Phone Jason Velez MD Primary Care Provider [phone] Jacklyn Clement Primary Care Provider [phone] Encounter Details Date Type Department Care Team (Late st Contact Info) Description 10/13/2016 Historical Results Only [facility] - Main [place] [address] [place] [address] Jacklyn Clement PA [address] [place] [address] Social History Tobacco Use Types Packs/Day [...] Info) Description 09/14/2024 12:30 EST Initial consult [facility] OBGYN [address] [place] [address] Carolyn Zheng NP CNM 130 [facility], [address] [place] [address] 10/10/2024 6:15 EST Appointment [facility] MRI [address] [place] [address] 11/21/2024 13:30 EST Appointment [facility] Xray [address] [place] [address] 11/21/2024 14:45 EST Office Visit [facility] Orthopedics & Spine Medicine [address] [place] [address] Sangita Doss PA-C [address] [facility] [address] [place] [address] 12/20/2024 10:15 EDT Appointment [facility] Endoscopy [address] [place], [place] [address] Tmo Mane MD [address] [place] [address] [address] [place] [address] documented as of this encounter Procedures Procedure Name Priority Date/Time Associated Diagnosis Comments MICROALBUMIN POC - [facility] Routine 10/13/2016 13:22 EST documented in this encounter Results * (ABNORMAL) MICROALBUMIN POC - [facility] (10/13/2016 13:22 EST) MICROALBUMIN POC - [facility] 50(A) 0-20 MG/L MG/L 10/13/2016 13:23 EST [facility] 10/13/2016 13:2 2 EST 10/13/2016 13:22 EST Jacklyn SCHUSTER CHEMISTRY & BLOOD GAS ORDERAB LES Final Result [facility] documented in this encounter Visit Diagnoses Not on filedocumented in this encounter Care Teams Barrel Rifler Button Relationship Specialty Start Date End Date Jason Velez MD [address] [facility] [address],[facility] [address] [place] [address] PCP - General 09/05/12 01/27/18 Jacklyn Clement PA [address] [place], [place] [address] PCP - General 01/28/18 documented as of this encounter
--- OUTSIDE RECORDS SUMMARY | 2024-09-09 23:05 | XMS_ITS | Encounter Summary ---
Author Organization [facility] Address [address] [place] [address] Care Team Providers Care Time Checker Name Role Phone Jason Velez MD Primary Care Provider [phone] Jacklyn Clement Primary Care Provider [phone] Encounter Details Date Type Department Care Team (Late st Contact Info) Description 03/23/2017 Historical Results Only [facility] - Main [place] [address] [place] [address] Jacklyn Clement PA [address] [place] [address] Social History Tobacco Use Types Packs/Day [...] Info) Description 09/14/2024 12:30 EST Initial consult [facility] OBGYN [address] [place] [address] Carolyn Zheng NP CNM [address] [facility], [address] [place] [address] 10/10/2024 6:15 EST Appointment [facility] MRI [address] [place] [address] 11/21/2024 13:30 EST Appointment [facility] Xray [address] [place] [address] 11/21/2024 14:45 EST Office Visit [facility] Orthopedics & Spine Medicine [address] [place] [address] Sangita Doss PA-C [address] [facility] [address] [place] [address] 12/20/2024 10:15 EDT Appointment [facility] Endoscopy [address] [place], [place] [address] Tom Mane MD [address] [place] [address] [address] [place] [address] documented as of this encounter Procedures Procedure Name Priority Date/Time Associated Diagnosis Comments COMPREHENSIVE METABOLIC POC - [facility] Routine 03/23/2017 11:57 EDT documented in this encounter Results * (ABNORMAL) COMPREHENSIVE METABOLIC POC - [facility] (03/23/2017 11:57 EDT) Albumin % 4.7 3.50 - 5.00 G/DL 03/23/2017 11:58 [facility] ALKALINE PHOSPHATASE - [facility] 65 38.00 - 126.00 U/L 03/23/2017 11:58 [facility] BILIRUBIN TOTAL 0.7 0.20 - 1.30 MG/DL 03/23/2017 11:58 [facility] BUN - [facility] 17 7.00 - 20.00 MG/DL 03/23/2017 11:58 [facility] CALCIUM - [facility] 9.8 8.50 - 10.50 MG/DL 03/23/2017 11:58 [facility] Chloride 103 98.00 - 107.00 MMOL/L 03/23/2017 11:58 [facility] CO2 Total 27 22.00 - 30.00 MMOL/L 03/23/2017 11:58 [facility] CREATININE 0.8 0.70 - 1.50 MG/DL 03/23/2017 11:58 EDT [facility] Anion Gap 14 7 - 17 03/23/2017 11:58 EDT [facility] GLUCOSE - [facility] 137(H) 70.00 - 100.00 MG/DL 03/23/2017 11:58 EDT [facility] Potassium 4.3 3.50 - 5.10 MMOL/L 03/23/2017 11:58 EDT [facility] Sodium 144 137.00 - 145.00 MMOL/L 03/23/2017 11:58 EDT [facility] TOTAL PROTEIN - [facility] 7.4 6.30 - 8.20 G/DL 03/23/2017 11:58 T [facility] SGOT/AST - [facility] 25 15.00 - 46.00 U/L 03/23/2017 11:58 T [facility] SGPT/ALT - [facility] 30 13.00 - 69.00 U/L 03/23/2017 11:58 EDT [facility] 03/23/2017 11:5 7 EDT 03/23/2017 11:57 EDT us Jacklyn SCHUSTER CHEMISTRY & BLOOD GAS ORDERAB LES Final Result [facility] documented in this encounter Visit Diagnoses Not on filedocumented in this encounter Care Teams Time Checker Relationship Specialty Start Date End Date Jason Velez MD [address] [facility] [address] [place], [place] [address] PCP - General 09/05/12 01/27/18 Jacklyn Clement PA [address] [place] [address] PCP - General 01/28/18 documented as of this encounter
--- OUTSIDE RECORDS SUMMARY | 2024-09-09 23:05 | XMS_ITS | Encounter Summary ---
Author Organization [facility] Address [address] [place] [address] Care Team Providers Care Debug Technician Name Role Phone Jacklyn Clement Primary Care Provider [phone] Encounter Details Date Type Department Care Team (Late st Contact Info) Description 05/02/2018 Phlebotomy Only [address] [address] Tankage Supervisor, Outpatient Memory loss (Primary Dx) Social History Tobacco [...] Info) Description 09/14/2024 12:30 EST Initial consult [facility] OBGYN [address] [place] [address] Carolyn Zheng NP CNM 130 [facility], [address] [place] [address] 10/10/2024 6:15 EST Appointment [facility] MRI [address] [place] [address] 11/21/2024 13:30 EST Appointment [facility] Xray [address] [place] [address] 11/21/2024 14:45 EST Office Visit [facility] Orthopedics & Spine Medicine [address] [place] [address] Sangita Doss PA-C 13[address] [facility] [address] [place], [place] [address] 12/20/2024 10:15 EDT Appointment [facility] Endoscopy [address] [place] [address] Tom Mane MD [address] [place] [address] [address] [place] [address] documented as of this encounter Procedures Procedure Name Priority Date/Time Associated Diagnosis Comments COMPLETE BLOOD COUNT AND DIFFERENTIAL Routine 05/02/2018 11:29 EDT Memory loss COMPREHENSIVE METABOLIC PANEL (CMP) Routine 05/02/2018 11:29 EDT Memory loss documented in this encounter Results * HEMAGRAM AND DIFFERENTIAL (05/02/2018 11:29 EDT) WBC 8.68 4.0 - 12.4 K/cmm 05/02/2018 13:08 [facility] RBC 4.01 3.86 - 5.04 M/cmm 05/02/2018 13:08 [facility] Hemoglobin 12.1 11.6 - 15.2 gm/dl 05/02/2018 13:08 [facility] HCT 36.2 34.9 - 44.4 % 05/02/2018 13:08 [facility] MCV 90 81 - 98 fl 05/02/2018 13:08 [facility] MCH 30.2 26.7 - 33.3 pg 05/02/2018 13:08 [facility] MCHC 33.4 32.1 - 35.9 gm/dl 05/02/2018 13:08 [facility] RDW-CV 12.8 <14.7 % 05/02/2018 13:08 [facility] RDW-SD 41.9 <50.4 fl 05/02/2018 13:08 [facility] PLT 265 141 - 377 K/cmm 05/02/2018 13:08 [facility] MPV 10.8 9.5 - 12.7 fl 05/02/2018 13:08 [facility] % Neutrophils 56.0 % 05/02/2018 13:08 [facility] % Lymphocytes 28.8 % 05/02/2018 13:08 [facility] % Monocytes 7.4 % 05/02/2018 13:08 [facility] % Eosinophils 6.6 % 05/02/2018 13:08 [facility] % Basophils 0.7 % 05/02/2018 13:08 [facility] % Immature Grans 0.5 % 05/02/2018 13:08 [facility] ABS Neutrophils 4.87 2.20 - 8.85 K/cmm 05/02/2018 13:08 [facility] ABS Lymphs 2.50 1.09 - 3.30 K/cmm 05/02/2018 13:08 [facility] ABS Monocytes 0.64 0.1 - 0.8 K/cmm 05/02/2018 13:08 [facility] ABS Eosinophils 0.57 0.03 - 0.61 K/cmm 05/02/2018 13:08 [facility] ABS Basophils 0.06 0.01 - 0.11 K/cmm 05/02/2018 13:08 [facility] ABS Immature Grans 0.04 0 - 0.06 K/cmm 05/02/2018 13:08 [facility] Type of Diff: Automated 05/02/2018 13:08 [facility] Blood specimen (specimen) BLOOD SPECIMEN / Unknown 05/02/2018 11:29 EDT 05/02/2018 12:58 EDT us Lee Maher MD PACKAGES & DNA PROBE ORD ERABLES Final Result [facility] [address] [place] [address] * (ABNORMAL) COMPREHENSIVE METABOLIC PANEL (CMP) (05/02/2018 11:29 EDT) Potassium 4.1 3.5 - 5.0 mEq/L 05/02/2018 13:33 [facility] Sodium 139 136 - 145 mEq/L 05/02/2018 13:33 [facility] Chloride 101 96 - 110 mEq/L 05/02/2018 13:33 [facility] CO2 27 22 - 32 mEq/L 05/02/2018 13:33 [facility] Total Alkaline Phosphatase 56 38 - 126 U/L 05/02/2018 13:33 [facility] Bilirubin, Total <0.5 <1.4 mg/dl 05/02/20 18 13:33 [facility] AST 15 15 - 46 U/L 05/02/2018 13:33 [facility] ALT 24 <53 U/L 05/02/2018 13:33 [facility] Albumin 4.3 3.4 - 4.9 g/dl 05/02/2018 13:33 [facility] Total Protein 6.8 6.3 - 8.2 g/dl 05/02/2018 13:33 [facility] Creatinine 0.96 0.52 - 1.04 mg/dl 05/02/2018 13:33 [facility] GFR, Calculated 62 >60 ml/min/1.7 3m2 05/02/2018 13:33 [facility] Comment: eGFR calculated using CKD-EPI equation for non Americans. Multiply eGFR by 1.16 for Americans. BUN 22 10 - 26 mg/dl 05/02/2018 13:33 [facility] Calcium 9.3 8.5 - 10.5 mg/dl 05/02/2018 13:33 [facility] Calculated Calcium 9.1 8.5 - 10.5 mg/dl 05/02/2018 13:33 [facility] Glucose, Serum 196(H) 70 - 100 mg/dl 05/02/2018 13:33 [facility] Fasting? No 05/02/2018 11:25 EDT [facility] Blood specimen (specimen) BLOOD SPECIMEN / Unknown 05/02/2018 11:29 EDT 05/02/2018 12:58 EDT us Lee Maher MD CHEMISTRY & BLOOD GAS OR DERABLES Final Result [facility] [address] [place] [address] documented in this encounter Visit Diagnoses Diagnosis Memory loss- Primary documented in this encounter Care Teams Debug Technician Relationship Specialty Start Date End Date Jacklyn Clement PA [address] [place] [address] PCP - General 01/28/18 documented as of this encounter
--- OUTSIDE RECORDS SUMMARY | 2024-09-09 23:05 | XMS_ITS | Encounter Summary ---
Author Organization [facility] Address [address] [place] [address] Care Team Providers Care Pleasure Craft Sailor Name Role Phone Jacklyn Clement Primary Care Provider [phone] Encounter Details Date Type Department Care Team (Late st Contact Info) Description 01/10/2019 Historical Results Only [facility] Lab - Main [place] [address] [place] [address] Jacklyn Clement PA [address] [place] [address] Social History Tobacco Use Types Packs/Day [...] Initial consult [facility] OBGYN [address] [place], [place] [id number] Carolyn Zheng NP CNM 130 [facility] [address] [place] [address] 10/10/2024 6:15 EST Appointment [facility] MRI [address] [place] [address] 11/21/2024 13:30 EST Appointment [facility] Xray [address] [place] [address] 11/21/2024 14:45 EST Office Visit [facility] Orthopedics & Spine Medicine [address] [place] [address] Sangita Doss PA-C 13[address] [facility] [address] [place] [address] 12/20/2024 10:15 EDT Appointment [facility] Endoscopy [address] [place] [address] Tom Mane MD [facility] [address] [place] [address] documented as of this encounter Procedures Procedure Name Priority Date/Time Associated Diagnosis Comments POCT CHOLESTEROL LDL ([facility]) Routine 01/10/2019 12:36 EDT documented in this encounter Results * POCT CHOLESTEROL LDL ([facility]) (01/10/2019 12:36 EDT) LDL CHOLESTEROL - [facility] 98 60 - 100 MG/DL 01/10/2019 12:38 EDT [facility] 01/10/2019 12:3 6 EDT 01/10/2019 12:36 EDT Jacklyn SCHUSTER POINT OF CARE TEST ORDERABLES Final Result [facility] documented in this encounter Visit Diagnoses Not on filedocumented in this encounter Care Teams Pleasure Craft Sailor Relationship Specialty Start Date End Date Jacklyn Clement PA [address] [place], [place] [address] PCP - General 01/28/18 documented as of this encounter
--- OUTSIDE RECORDS SUMMARY | 2024-09-09 23:05 | XMS_ITS | Encounter Summary ---
Author Organization [facility] Address [address] [place] [address] Care Team Providers Care Feather Duster Winder Name Role Phone Jacklyn Clement Primary Care Provider Reason for Visit * Reason Onset Date Comments Appointment Related 04/18/2018 Encounter Details Date Type Department Care Team (Late st Contact Info) Description 04/18/2018 Telephone [facility] Memory Program - Medical Office Building [address] [place], [place] [id number] Ned Mckeon, PhD 2 [facility] Medical Office Building, [address] [place] [address] Appointment Related Social History Tobacco Use Types Packs/Day Years Used Date Smoking Tobacco: Never Assessed Comments Unknown Sex and Gender Information Value Date Recorded Sex Assigned at Female 08/21/2024 14:53 EST Legal Sex Female 18:57 EST Gender Identity Not on file Sexual Orientation Not on file documented as of this encounter Miscellaneous Notes * Telephone Encounter - Naima Rodriguez - 04/18/2018 0157 EDT PAS Message: Megan called to cancel appointment with Ned Mckeon, PhD on 04/18 at 08:30 due to family emergency. Patient would like a call back to reschedule? She will call documented in this encounter Plan of Treatment Upcoming Encounters Date Type Department Care Team (Late st Contact Info) Description 09/14/2024 12:30 EST Initial consult [facility] OBGYN [address] [place], [place] [id number] Carolyn Zheng NP CNM 130 [facility] [address] [place] [address] 10/10/2024 6:15 EST Appointment [facility] MRI 130 [facility], [place] [address] 11/21/2024 13:30 EST Appointment [facility] Xray [address] [place] [address] 11/21/2024 14:45 EST Office Visit [facility] Orthopedics & Spine Medicine [address] [place] [address] Sangita Doss PA-C 1311 [facility] [address] [place], [place] [address] 12/20/2024 10:15 EDT Appointment [facility] Endoscopy 130 [facility], [place] [phone] Tom Mane MD [address] [place] [address] [address] [place] [address] documented as of this encounter Visit Diagnoses Not on filedocumented in this encounter Care Teams Feather Duster Winder Relationship Specialty Start Date End Date Jacklyn Clement PA [address] [place] [address] PCP - General 01/28/18 documented as of this encounter
--- OUTSIDE RECORDS SUMMARY | 2024-09-09 23:05 | XMS_ITS | Encounter Summary ---
Author Organization [facility] Address [address] [place] [address] Care Team Providers Care Production Control Technologist Name Role Phone Jason Velez MD Primary Care Provider [phone] Encounter Details Date Type Department Care Team (Latest Contact Info) Description 09/11/2016 7:38 EST - 09/11/2016 23:59 EST Hospital Encounter [address] [address] Unknown, Provider, MD Discharge Disposition: Home or [...] Code Departure Means Destination Home or Self Residential documented in this encounter Plan of Treatment Upcoming Encounters Date Type Department Care Team (Late st Contact Info) Description 09/14/2024 12:30 EST Initial consult [facility] OBGYN [address] [place] [address] Carolyn Zheng NP CNM 130 [facility] [address] [place] [address] 10/10/2024 6:15 EST Appointment [facility] MRI [address] [place] [address] 11/21/2024 13:30 EST Appointment [facility] Xray [address] [place] [address] 11/21/2024 14:45 EST Office Visit [facility] Orthopedics & Spine Medicine [address] [place], [place] [address] Sangita Doss PA-C 1311 [facility] [address] [place], [place] [address] 12/20/2024 10:15 EDT Appointment [facility] End[facility] [address] [place], [place] [address] Tom Mane MD [address] [place] [address] [address] [place] [phone] documented as of this encounter Visit Diagnoses Not on filedocumented in this encounter Care Teams Production Control Technologist Relationship Specialty Start Date End Date Jason Velez MD [address] [facility] [place], [place] [address] PCP - General 09/05/12 01/27/18 documented as of this encounter
--- OUTSIDE RECORDS SUMMARY | 2024-09-09 23:05 | XMS_ITS | Encounter Summary ---
Author Organization [facility] Address [address] [place] [address] Care Team Providers Care Foreclosure Paralegal Name Role Phone Jacklyn Clement Primary Care Provider [phone] Encounter Details Date Type Department Care Team (Late st Contact Info) Description 01/10/2019 Historical Results Only [facility] Lab - Main [place] [address] [place] [address] Jacklyn Clement PA [address] [place] [address] Social History Tobacco Use Types Packs/Day [...] [facility] [address] [place], [place] [id number] Carolyn Zheng NP CNM 130 [facility] [address] [place] [address] 10/10/2024 6:15 EST Appointment [facility] MRI [address] [place] [address] 11/21/2024 13:30 EST Appointment [facility] Xray [address] [place] [address] 11/21/2024 14:45 EST Office Visit [facility] Orthopedics & Spine Medicine [address] [place] [address] Sangita Doss PA-C 13[address] [facility] [address] [place] [address] 12/20/2024 10:15 EDT Appointment [facility] Endoscopy [address] [place] [address] Tom Mane MD [facility] [address] [place] [address] documented as of this encounter Procedures Procedure Name Priority Date/Time Associated Diagnosis Comments GLYCOHEMOGLOBIN POC - [facility] Routine 01/10/2019 12:36 EDT documented in this encounter Results * GLYCOHEMOGLOBIN POC - [facility] (01/10/2019 12:36 EDT) Hemoglobin A1c 5.6 4.0 - 6.0 % 01/10/2019 12:38 EDT [facility] AVG CALCULATED GLUCOSE - [facility] 106 60 - 115 MG/DL 01/10/2019 12:38 EDT [facility] 01/10/2019 12:3 6 EDT 01/10/2019 12:36 EDT Jacklyn SCHUSTER CHEMISTRY & BLOOD GAS ORDERAB LES Final Result [facility] documented in this encounter Visit Diagnoses Not on filedocumented in this encounter Care Teams Foreclosure Paralegal Relationship Specialty Start Date End Date Jacklyn Clement PA [address] [place] [address] PCP - General 01/28/18 documented as of this encounter
--- OUTSIDE RECORDS SUMMARY | 2024-09-09 23:05 | XMS_ITS | Encounter Summary ---
Author Organization [facility] Address [address] [place] [address] Care Team Providers Care Fire Extinguisher Mechanic Name Role Phone Jason Velez MD Primary Care Provider [phone] Jacklyn Clement Primary Care Provider [phone] Encounter Details Date Type Department Care Team (Late st Contact Info) Description 10/13/2016 Historical Results Only [facility] Lab - Main [place] [address] [place] [address] Jacklyn Clement PA [address] [place] [address] Social History Tobacco Use Types Packs/Day [...] Info) Description 09/14/2024 12:30 EST Initial consult [facility] OBGYN [address] [place] [address] Carolyn Zheng NP CNM 130 [facility] [address] [place] [address] 10/10/2024 6:15 EST Appointment [facility] MRI [address] [place] [address] 11/21/2024 13:30 EST Appointment [facility] Xray [address] [place] [address] 11/21/2024 14:45 EST Office Visit [facility] Orthopedics & Spine Medicine [address] [place] [address] Sangita Doss PA-C 1311 [facility] [address] [place] [address] 12/20/2024 10:15 EDT Appointment [facility] Endoscopy [address] [place], [place] [address] Tom Mane MD [address] [place] [address] [address] [place] [address] documented as of this encounter Procedures Procedure Name Priority Date/Time Associated Diagnosis Comments POCT CHOLESTEROL LDL ([facility]) Routine 10/13/2016 13:22 EST documented in this encounter Results * POCT CHOLESTEROL LDL ([facility]) (10/13/2016 13:22 EST) LDL CHOLESTEROL - [facility] 63 60 - 100 mg/dl 10/13/2016 13:23 EST [facility] 10/13/2016 13:2 2 EST 10/13/2016 13:22 EST Jacklyn SCHUSTER POINT OF CARE TEST ORDERABLES Final Result [facility] documented in this encounter Visit Diagnoses Not on filedocumented in this encounter Care Teams Fire Extinguisher Mechanic Relationship Specialty Start Date End Date Jason Velez MD 74 [facility] 100 [place], [place] [address] PCP - General 09/05/12 01/27/18 Jacklyn Clement PA [address] [place], [place] [address] PCP - General 01/28/18 documented as of this encounter
--- OUTSIDE RECORDS SUMMARY | 2024-09-09 23:05 | XMS_ITS | Encounter Summary ---
Author Organization [facility] Address [address] [place] [address] Care Team Providers Care Veterinary Radiologist Name Role Phone Jason Velez MD Primary Care Provider [phone] Jacklyn Clement Primary Care Provider [phone] Encounter Details Date Type Department Care Team (Late st Contact Info) Description 03/23/2017 Historical Results Only [facility] - Main [place] [address] [place] [address] Jacklyn Clement PA [address] [place] [address] Social History Tobacco Use Types Packs/Day [...] 12:30 EST Initial consult [facility] OBGYN [address] [place] [address] Carolyn Zheng NP CNM 130 [facility] [address] [place] [address] 10/10/2024 6:15 EST Appointment [facility] MRI [address] [place] [address] 11/21/2024 13:30 EST Appointment [facility] Xray [address] [place] [address] 11/21/2024 14:45 EST Office Visit [facility] Orthopedics & Spine Medicine [address] [place] [address] Sangita Doss PA-C 1311 [facility] [address] [place] [address] 12/20/2024 10:15 EDT Appointment [facility] Endoscopy [address] [place], [place] [address] Tom Mane MD [address] [place] [address] [address] [place] [address] documented as of this encounter Procedures Procedure Name Priority Date/Time Associated Diagnosis Comments POCT CHOLESTEROL LDL ([facility]) Routine 03/23/2017 11:57 EDT documented in this encounter Results * (ABNORMAL) POCT CHOLESTEROL LDL ([facility]) (03/23/2017 11:57 EDT) LDL CHOLESTEROL - [facility] 59(L) 60 - 100 mg/dl 03/23/2017 11:58 EDT [facility] 03/23/2017 11:5 7 EDT 03/23/2017 11:57 EDT Jacklyn SCHUSTER POINT OF CARE TEST ORDERABLES Final Result [facility] documented in this encounter Visit Diagnoses Not on filedocumented in this encounter Care Teams Veterinary Radiologist Relationship Specialty Start Date End Date Jason Velez MD 74 [facility] [address] [place], [place] [address] PCP - General 09/05/12 01/27/18 Jacklyn Clement PA [address] [place], [place] [address] PCP - General 01/28/18 documented as of this encounter
--- OUTSIDE RECORDS SUMMARY | 2024-09-09 23:05 | XMS_ITS | Encounter Summary ---
Author Organization [facility] Address [address] [place] [address] Care Team Providers Care College Professor Name Role Phone Jacklyn Clement Primary Care Provider [phone] Reason for Visit * Reason Onset Date Comments Medication Management 04/28/2018 Encounter Details Date Type Department Care Team (Late st Contact Info) Description 04/28/2018 Orders Only [facility] Memory Program - Medical Office Building [address] [place], [place] [id number] Lee Maher MD 2 [facility] Medical Office Building, [address] [place] [phone] Social History Tobacco Use Types Packs/Day Years Used Date Smoking Tobacco: Never Assessed Comments Unknown Sex and Gender Information Value Date Recorded Sex Assigned at Female 08/21/2024 14:53 EST Legal Sex Female 18:57 EST Gender Identity Not on file Sexual Orientation Not on file documented as of this encounter Progress Notes * Wm Declan Maher MD - 04/28/2018 1018 EDT Reconcile new patient medications. documented in this encounter Plan of Treatment Upcoming Encounters Date Type Department Care Team (Late st Contact Info) Description 09/14/2024 12:[address] [facility] OBGYN [address] [place] [address] Carolyn Zheng NP CN 130 [facility] [address] [place] [address] 10/10/2024 6:[address] [facility] MRI [address] [place], [place] [address] 11/21/2024 13:[address] [facility] Xray [address] [place], [place] [address] 11/21/2024 14:[address] [facility] Orthopedics & Spine Medicine [address] [place], [place] [phone] Sangita Doss PA-C 1311 [facility] [address] [place] [address] 12/20/2024 10:[address] [facility] Endoscopy [address] [place], [place] [phone] Tmo Mane MD [address] [place] [address] [address] [place] [address] documented as of this encounter Visit Diagnoses Not on filedocumented in this encounter Historical Medications * This list may reflect changes made after this encounter. cholecalciferol, vitamin D3, (VITAMIN D3 ORAL) Take 5,000 Units by mouth daily. losartan (COZAAR) 50 mg tablet Take 1 Tablet by mouth daily. MELATONIN ORAL Take 1 Tab by mouth daily. 08/21/2024 ASPIRIN ORAL Take 81 mg by mouth daily. 08/21/2024 UNABLE TO FIND Take 600 mg by mouth 2 times daily. Med Name: n acetyl cysteine 08/21/2024 metoprolol (LOPRESSOR) 50 mg tablet Take 50 mg by mouth daily. 08/21/2024 TRIAMTERENE ORAL Take 25 mg by mouth daily. 08/21/2024 metFORMIN (GLUCOPHAGE) 500 mg tablet Take 500 mg by mouth daily. 08/21/2024 gabapentin (NEURONTIN) 300 mg capsuleIndicatio ns:1 1/2 tab at night Take 1 Capsule by mouth every morning. 08/21/2024 gabapentin (NEURONTIN) 600 mg tablet Take 1 Tablet by mouth 3 times daily. 08/21/2024 added in this encounter Care Teams College Professor Relationship Specialty Start Date End Date Jacklyn Clement PA [address] [place] [address] PCP - General 01/28/18 documented as of this encounter
--- OUTSIDE RECORDS SUMMARY | 2024-09-09 23:05 | XMS_ITS | Encounter Summary ---
Author Organization [facility] Address [address] [place] [address] Care Team Providers Care Dianeticist Name Role Phone Jason Velez MD Primary Care Provider [phone] Jacklyn Clement Primary Care Provider [phone] Encounter Details Date Type Department Care Team (Late st Contact Info) Description 12/17/2016 Historical Results Only [facility] Radiology Results [address] [place] [address] Jacklyn Martell MD Social History Tobacco Use Types Packs/Day Years [...] Info) Description 09/14/2024 12:30 EST Initial consult [facility] OBGYN [address] [place] [address] Carolyn Zheng NP CNM 130 [facility] [address] [place] [address] 10/10/2024 6:15 EST Appointment [facility] MRI [address] [place] [address] 11/21/2024 13:30 EST Appointment [facility] Xray [address] [place] [address] 11/21/2024 14:45 EST Office Visit [facility] Orthopedics & Spine Medicine [address] [place] [address] Sangita Doss PA-C 1311 [facility] [address] [place] [address] 12/20/2024 10:15 EDT Appointment [facility] Endoscopy [address] [place], [place] [id number] Tom Mane MD [address] [place] [address] [address] [place] [address] documented as of this encounter Procedures Procedure Name Priority Date/Time Associated Diagnosis Comments FL C-ARM BLOCK/INJECTION 12/17/2016 9:37 EDT POCT GLUCOSE, INTERFACED Routine 12/17/2016 8:51 EDT documented in this encounter Results * FL C-ARM BLOCK/INJECTION (12/17/2016 9:37 EDT) Anatomical Region Laterality Modality Left Other 12/17/2016 9:37 EDT Narrative 12/17/2016 9:41 EDT ? EXAM: RADIOLOGY/C-ARM BLOCK INJECTION ? EX. D/ (0937) ? CLINICAL INFORMATION: ? CONSULT/BLOCK (LESI W/FLUORO, NO IV) LUMBAR ? INDICATION: ??CONSULT/BLOCK (LESI W/FLUORO, NO IV) LUMBAR ? CONSULT/BLOCK ? TECHNIQUE: C-arm fluoroscopy was provided to Dr. Martell. ? Fluoroscopy time: 7.2 seconds. ? REPORT SIGNED IN OTHER VENDOR SYSTEM 12/17/2016 ?Reported By: Yobany Lynne MD ? CC: ? Transcribed Date/Time: 12/17/2016 (940) ? Therapeutic Dietitian: ? Printed Date/Time: 03/11/2019 (8174) ? PAGE 1 ? Signed Report ? Procedure Note Yobany Lynne E - 08/02/2019 EXAM: RADIOLOGY/C-ARM BLOCK INJECTION EX. D/ (0937) CLINICAL INFORMATION: CONSULT/BLOCK (LESI W/FLUORO, NO IV) LUMBAR INDICATION: CONSULT/BLOCK (LESI W/FLUORO, NO IV) LUMBAR CONSULT/BLOCK TECHNIQUE: C-arm fluoroscopy was provided to Dr. Martell. Fluoroscopy time: 7.2 seconds. REPORT SIGNED IN OTHER VENDOR SYSTEM 12/17/2016 Reported By: Yobany Lynne MD CC: Transcribed Date/Time: 12/17/2016 (940) Therapeutic Dietitian: Printed Date/Time: 03/11/2019 (7990) PAGE 1 Signed Report Jacklyn Martell MD IMG FLUOROSCOPY ORDERABLES Arpita l Result * (ABNORMAL) POCT GLUCOSE (12/17/2016 8:51 EDT) Glucose, POC 121(H) 70 - 100 mg/dL 12/18/2016 6:14 EDT [facility] 12/17/2016 8:51 EDT 12/18/2016 6:14 EDT Jacklyn Martell MD POINT OF CARE TEST ORDERABLES F inal Result [facility] documented in this encounter Visit Diagnoses Not on filedocumented in this encounter Care Teams Dianeticist Relationship Specialty Start Date End Date Jason Velez MD [address] [place] [address] PCP - General 09/05/12 01/27/18 Jacklyn Clement PA [address] [place] [address] PCP - General 01/28/18 documented as of this encounter
--- NOTE | 2024-09-09 23:09 | ED.GENADUL_ITS ---
Discharge Plan Disposition Patient Disposition: Home Condition: Good Discharge Details Clinical Impression: Vomiting Primary Care Provider: Jacklyn Clement ED Provider: Diana Randhawa Home Meds and New Rx's Prescriptions: New ondansetron 4 mg tablet,disintegrating 4 mg PO Q8H PRNQty: 6 0RF Continued ergocalciferol (vitamin D2) 400 UNIT tablet 1 tab-cap PO DAILY albuterol sulfate [ProAir HFA] 8.5 GM HFA aerosol inhaler 2 puff Inhalation Q4H PRN gabapentin 300 mg capsule 450 mg PO HS Qty: 90 Discontinued topiramate 100 mg tablet 100 mg PO BID triamterene-hydrochlorothiazid 37.5-25 mg tablet 0.5 tab PO DAILY No Action losartan 25 mg tablet 25 mg PO DAILY Discharge Instructions Instructions: Nausea and Vomiting, Adult ED Additional Instructions: Call your primary care doctor on Wednesday to schedule an appointment to be seen as soon as possible, no later than Wednesday, to followup on your visit here. You can take ondanestron up to every 8 hours as needed for vomiting. Do not take it more often than this because higher doses can cause fatal cardiac arrhythmias. Return to the emergency department for new or worsening symptoms including inability to keep down fluids or medications, abdominal pain, new/different/worse chest pain, difficulty breathing, feeling like you are going to pass out, or if you have any other concerns. HPI General Mode of arrival: ambulatory . Date/Time Provider Initiated Documentation: 09/09/24 22:46 . Limitations to Documentation: no limitations . Information obtained by: patient . HPI Narrative: 74yo F with hx HTN, CKD3, hep C, prior diagnosis of DM now diet controlled without medication, presenting with N/V for 4 days. Has not been able to keep anything down. Non-bloody non-bilious emesis, now just dry heaving. No diarrhea or abdominal pain. Yesterday began to have dull substernal chest pain radiating into her throat, feels tight. Worse immediately before and during vomiting/dry heaving. No sick contacts, did not eat anything unusual. Has felt warm but not checked her temperature; no known fevers. Unable to take her BP medication. Feels generally weak and somewhat lightheaded. Otherwise in her usual state of health with no rash, shortness of breath, LE edema, headache, numbness, tingling, weakness, or other concerns. Related Data Home Medications ?Medication ?Instructions ?Recorded ?Confirmed ergocalciferol (vitamin D2) 10 mcg 1 tab-cap PO DAILY 02/28/14 09/09/24 (400 unit) tablet albuterol sulfate 90 mcg/actuation 2 puff inhalation Q4H PRN 12/14/16 09/09/24 aerosol inhaler (ProAir HFA) gabapentin 300 mg capsule 450 mg PO HS #90 tab-caps 07/23/20 09/09/24 losartan 25 mg tablet 25 mg PO DAILY 07/23/20 09/09/24 ondansetron 4 mg disintegrating 4 mg PO Q8H PRN #6 tabs 09/10/24 tablet Previous Rx's ?Medication ?Instructions ?Recorded ondansetron 4 mg disintegrating 4 mg PO Q8H PRN #6 tabs 09/10/24 tablet Allergies Allergy/AdvReac Type Severity Reaction Status Date / Time Penicillins Allergy Severe Anaphylaxsi Unverified 09/09/24 22:57 s prochlorperazine (From Allergy Severe stroke Unverified 09/09/24 22:57 Compazine) symptoms topiramate Allergy Unknown Unknown Verified 09/09/24 22:57 lisinopril AdvReac Intermediate cough Unverified 09/09/24 22:57 General Stated Complaint: Nausea/Vomit/Diar BEVERLEY: 3 Review of Systems Narrative: see HPI Exam Narrative Exam Narrative: General: Alert, clutching emesis bag, intermittent dry heaving Head: Normocephalic, atraumatic Neck: Trachea midline, ?Neck supple. ENT: ?Dry MM.? No oropharygeal lesions or exudate. Cardiac: ?Tachycardiac, regular, no murmurs appreciated Resp: No respiratory distress. CTAB. Abd: ?Soft, non-distended, nontender : ?No suprapubic tenderness. No CVA tenderness. Extremities: ?No deformities.? No peripheral edema. Neurologic: GCS 15. ? Moves all extremities freely against gravity Course Vital Signs Vital signs: Vital Signs Temperature 36.4 C 09/09/24 22:49 Pulse 110 H 09/09/24 22:49 Respiratory Rate 18 09/09/24 22:49 Blood Pressure 191/116 H 09/09/24 22:49 Pulse Oximetry 95 09/09/24 22:49 Temperature 36.4 C 09/09/24 22:49 Temperature Source Tympanic 09/09/24 22:49 Pulse 110 H 09/09/24 22:49 Respiratory Rate 18 09/09/24 22:49 Blood Pressure 191/116 H 09/09/24 22:49 Blood Pressure Position Sitting 09/09/24 22:49 Pulse Oximetry 95 09/09/24 22:49 Oxygen Delivery Method Room Air 09/09/24 22:49 Oxygen Flow Rate 0 09/09/24 22:49 Pain Level 0 09/09/24 22:49 Lab/Test Results Lab/Test Results: Laboratory Tests Range/Units 09/09/24 22:57 COVID-19 Source Cancelled SARS-CoV-2 (PCR) Cancelled Influenza Type A (PCR) Cancelled Influenza Type B (PCR) Cancelled RSV (PCR) Cancelled Medical Decision Making 74yo F with hx HTN, CKD 3, hep C, prior diagnosis of DM now diet controlled without medication after weight loss and reportedly has normal A1C, presenting with N/V for 4 days. Unable to take her medications. Yesterday began to have dull substernal chest pain radiating into her throat, feels tight. Hypertensive and slightly tachcyardiac on arrival, afebrile, vital signs otherwise reassuring. Dry heaving on exam; lungs CTAB and no abdominal tenderness. Not suspicious for pancreatitis, bowel obstruction, bacterial infection; would not get CT imaging at this time. Will evaluate for potential ACS (less likely, description of chest pain highly suggestive of reflux/muscle cramping in the setting of active vomiting) with trop/EKG/BNP, give antiemetics, and get labs. -EKG SR, borderline QTc at ~485, no ST segment or T wave abnormalities to suggest occlusive SC. Does have T wave inversions V1-V3, no prior EKG available for comparison. Given IV zofran for N/V. -Labs reviewed as below, CBC with marked leukocytosis at 19, CMP with mild hypokalemia and elevated gap without acidosis, Cr slightly elevated at 1.4 (unknown baseline, consistent with reported CKD), Mg normal, lactate reassuring at 1.8, lipase normal (unlikely pancreatitis), initial troponin 13 (normal) with one hour repeat of 13. HEART score 3 (age, RF), low risk. Would not further workup ACS with troponins/admission at this time, appropriate for outpatient followup. BNP mildly elevated, not suggestive of acute heart failure. Respiratory viral swab negative. UA not suggestive of infection. SIRS positive, suspect 2/t viral gastroenteritis and volume depletion- out of abundance of caution will send blood cultures. Would not treat as septic with antibiotics given no evident bacterial infection. -CXR independently reviewed, no focal pneumonia or pneumothorax on my view, radiology read with no acute findings. On reassessment pt reports nausea has much improved, no longer dry heaving. Will PO challenge, give home antihypertensive. With known CKD will not replace potassium at this time. Po challenged and tolerated well. Repeat vitals signs improved, HR in low 90's after hydration, BP improved after home antihypertensives. Well appearing with no abdominal tenderness, requesting discharge home. With her marked improvement in symptoms I feel this is appropriate. Discharged home with short course of zofran to followup with PCP for further cardiac workup and to assess hydration status. Discharge instructions and return precautions were reviewed with patient who verbalized understanding. All questions were answered and she is in full agreement with the plan. Imaging Data Radiologic Study: Imaging: X-Ray Lab Data Lab results reviewed: Yes I reviewed the patient's lab results. Quality:SDOH Health Related Social Needs: No Data to Display PFSH All Active Problems (Updated 09/10/24 @ 04:11 by Diana Randhawa MD) Vomiting (Acute) Surgical History (Updated 02/08/17 @ 09:33 by Kaylynn Le) Tubal Ligation, Colonoscopy - MAC (01/27/17) Family History Father Colon cancer Social History Smoking/Tobacco Use Status: Former Tobacco Use Smoking risk assessment performed?: Yes Alcohol Intake: former Drug use: Never Housing: house
[2024-09-09 23:14] LABS: Lactate 1.8 mmol/L (0.6-1.4)
[2024-09-09 23:15] LABS: Abs Immature Grans 0.08 10^3/uL (0.0-0.06); Basophils % 0.5 %; Eosinophils % 0.5 %; HCT 46.4 % (36.0-46.0); HGB 16.5 g/dL (11.2-15.7); Immature Grans % 0.4 %; Lymphocytes % 10.3 %; MCH 30.6 pg (27.0-33.0); MCHC 35.6 % (32.0-36.0); MCV 86 fL (80-95); Monocytes % 6.7 %; Neutrophils % 81.6 %; Platelet Count 298 10^3/uL (130-400); RBC 5.39 10^6/uL (3.93-5.22); RDW 11.7 % (11.7-14.6); RDW-SD 36.4 fL; WBC 19.54 10^3/uL (4.4-10.8)
[2024-09-09 23:16] LABS: Absolute Lymphocyte Count 2.01 10^3/uL (1.2-3.4); Absolute Monocyte Count 1.31 10^3/uL (0.1-0.8); Absolute Neutrophil Count 15.94 10^3/uL (1.2-6.7)
[2024-09-09] MEDS: Normal Saline 1,000 ML 1000 ML IV (23:31)
[2024-09-09] MEDS: Ondansetron 4 MG/2 ML VIAL IVP (23:32)
[2024-09-09 23:35] LABS: COVID-19 PCR Negative (Negative); Influenza A PCR Negative (Negative); Influenza B PCR Negative (Negative); RSV PCR Negative (Negative)
[2024-09-09 23:36] LABS: Source Nasopharynx
[2024-09-09 23:39] LABS: ALT 19 U/L (14-59); AST 15 U/L (15-37); Albumin 4.7 g/dL (3.4-5.0); Alkaline Phosphatase 81 U/L (46-116); Anion Gap 22.2 mmol/L (3-11); BUN 26 mg/dL (7-18); Bilirubin, Total 0.98 mg/dL (0.2-1.0); CO2 21.8 mmol/L (21.0-32.0); CREATININE 1.4 mg/dL (0.55-1.02); Calcium 9.7 mg/dL (8.5-10.1); Chloride 98 mmol/L (98-107); Estimated GFR 39.97 (mL/min/1.73m2); Glucose 154 mg/dL (74-106); Lipase 48 U/L (<78); NT-proBNP 460 pg/mL (<300); Potassium 3.1 mmol/L (3.5-5.1); Sodium 142 mmol/L (136-145); Total Protein 8.5 g/dL (6.4-8.2); Troponin I 13 ng/L (<or=51)
--- NOTE | 2024-09-09 23:59 | DI.RAD_ITS ---
Exam(s) XR CHEST 2V PA LATERAL EXAM: XR CHEST 2V PA LATERAL CLINICAL HISTORY: chest pain. TECHNIQUE: 2D digital imaging was performed. COMPARISON: No exams were available for comparison FINDINGS: 2 views: Heart size is normal. The mediastinum is not widened. Lungs are clear. No infiltrates nor pleural effusions. IMPRESSION: No acute pulmonary findings. DATA REPOSITORY: RADIATION DOSE DELIVERED:
[2024-09-10] VITALS (63 sets, daily range): BP systolic 154–185; BP diastolic 45–155; PULSE 91–107; RESP 10–25; O2SAT 86–97
--- NOTE | 2024-09-10 00:21 | DI.VRAD_ITS ---
PROCEDURE INFORMATION: Exam: XR Chest Exam date and time: 09/09/2024 11:50 PM Age: 74 years old Clinical indication: Other: Chest pain TECHNIQUE: Imaging protocol: Radiologic exam of the chest. Views: 2 views. COMPARISON: No relevant prior studies available. FINDINGS: Lungs: Unremarkable. No consolidation. Pleural spaces: Unremarkable. No pleural effusion. No pneumothorax. Heart/Mediastinum: Unremarkable. No cardiomegaly. Bones/joints: Unremarkable. IMPRESSION: No acute findings. Dictated and Authenticated by: Russ Brar MD. Ordering:ALEXANDRIA Ortiz MD
[2024-09-10 01:18] LABS: Troponin I 13 ng/L (<or=51)
[2024-09-10 02:00] LABS: Bilirubin Small (Negative); Blood Trace-intact (Negative); Clarity Clear (Clear); Glucose Negative (Negative); Ketones >=160 mg/dL (Negative); Leukocyte Esterase Negative (Negative); Nitrite Negative (Negative); Specific Gravity >= 1.030 (1.005-1.025); Urobilinogen 0.2 mg/dL (Up to 0.2)
[2024-09-10 02:04] LABS: Bacteria Rare HPF (Negative); C & S Indicated? No; Casts 0-2 Hyaline LPF (Negative); Crystals Negative HPF (Negative); Epithelial Cells Moderate HPF (Negative); Mucus Negative (Negative); WBC Negative HPF (0-5)
[2024-09-10] MEDS: Carvedilol 6.25 MG TAB (03:27)
[2024-09-10] MEDS: amLODIPine 5 MG TAB (03:28)
[2024-09-10] MEDS: Normal Saline 1,000 ML 1000 ML IV (04:32)
[2024-09-10] MEDS: Ondansetron O.D.T. 4 MG TABEF, 3 TABS/BTL PO (06:26)
--- NOTE | 2024-09-11 09:36 | W.ED.FU ---
Follow Up Plan: Results of blood culture display 1 positive culture out of 2 sets. I called Megan and spoke with her directly, she was alert and conversant. She was made aware that there is a positive for gram-positive cocci and likely a contaminant. I did call patient she states she is feeling significantly improved and does not feel like she needs to be reevaluated. I did recommend repeat blood cultures to be sure that they are in fact negative, however she states that at this time she is feeling improved and will return should her symptoms return or worsen in any way. She denies fever or chills and is no longer nauseous.
== END 2024-09-10 07:23 | disposition home or self-care (01) ==
PROVIDERS: Emergency Provider Student in an Organized Health Care Education/Training Program; PCP Physician Assistant Medical
DX: I12.9 Hypertensive chronic kidney disease with stage 1 through stage 4 chronic kidney disease, or unspecified chronic kidney disease (principal); N18.30 Chronic kidney disease, stage 3 unspecified; Z87.891 Personal history of nicotine dependence
CPT/HCPCS: 36415; 80053; 83690; 87040; 87077; 87637; 93005; 96361; 96374; 99284; 71046; 81003; 81015; 83605; 83735; 83880; 84484; 85025; 87186; 93010; J2405